=== PATIENT | female | born 1940 | race Caucasian/White ===

== ENCOUNTER 2018-12-02 22:56 | Inpatient (IN) | payer MEDICARE, OTHER ==
[~2018-12-02] VITALS: Ht 162.6 cm; Wt 71.0 kg
[2018-12-02 22:00] VITALS: BP 112/55; PULSE 92; RESP 18
[2018-12-02 22:15] VITALS: BP 112/55; PULSE 92; RESP 17
[~2018-12-02 22:56] MED LIST: ACET-1753 PO; ACET-857 PO; ADVAIR; ALB.5NB20 IH; ALBU18HF IH; ALPR0.5T6 PO; ASCO500T18 PO; ASPI-650 PO; BEN50 PO; BUME2TAB2 PO; CENTSILV PO; CITA40TA6 PO; CYAN500T46 PO; EPIN0.3P8 IM; ESTR1TAB86 PO; FENTANYL PATCH TOP; FER325 PO; GABA-526 PO; GUAI12009 PO; HYDR2TAB3 PO; LEVO112T57 PO; LORA10TA PO; LOSA100T3 PO; MAG-19 PO; MELA5TAB4 PO; MONT10TA21 PO; NITR0.4T28 SL; OMEP20CA16 PO; OXYC15TA PO; POLY17PO PO; POTA-57 PO; PRAV40TA76 PO; ROFL500T6 JT; SENN1TAB28 PO; SPIR25TA67 PO; TIOT18CA IH; ZALE10CA PO; [UNRECOGNIZED DRUG - OTHER] PO; [UNRECOGNIZED DRUG - OTHER] PO
[2018-12-03] MEDS ORDERED: DIGOXIN 0.125 MG TAB PO SCH (01:00)
[2018-12-03] MEDS: ACETYLCYSTEINE 20% 4 ML VIAL NEB SCH ×3 (01:00→21:10)
[2018-12-03] MEDS ORDERED: CYANOCOBALAMIN 500 MCG TAB PO SCH (01:00)
[2018-12-03 01:09] VITALS: Ht 162.6 cm; Wt 71.0 kg
[2018-12-03] MEDS: ALPRAZOLAM 0.25 MG TAB PO PRN ×2 (01:57→21:48)
[2018-12-03 02:00] VITALS: BP 128/64; PULSE 74; RESP 18
[2018-12-03] MEDS: ACETAMINOPHEN 325 MG TAB PO PRN ×2 (02:00→23:14)
[2018-12-03] MEDS: ALBUTEROL/IPRATROPIUM (NEB) 3 ML AMP HHN PRN (03:35)
[2018-12-03] MEDS ORDERED: CEPASTAT LOZENGE MT PRN (04:00)
[2018-12-03] MEDS ORDERED: MICONAZOLE 2% 30 GM CR TOP PRN (04:00)
[2018-12-03] MEDS ORDERED: METOCLOPRAMIDE 10 MG INJ IV PRN (04:00)
[2018-12-03] MEDS ORDERED: DIPHENHYDRAMINE 50 MG CAP PO PRN (04:30)
[2018-12-03] MEDS ORDERED: DILTIAZEM 30 MG TAB PO PRN (04:30)
[2018-12-03] MEDS ORDERED: ZOLPIDEM 5 MG TAB PO PRN (05:00)
[2018-12-03] MEDS ORDERED: DILTIAZEM 30 MG TAB PO SCH (06:00)
[2018-12-03] MEDS: ARTIFICIAL TEARS 15 ML OPH BOTH EYES SCH ×3 (06:39→20:14)
[2018-12-03] MEDS: PANTOPRAZOLE (EC) 40 MG TAB PO SCH (06:40)
[2018-12-03 07:30] VITALS: BP 137/58; PULSE 90; RESP 20
[2018-12-03] MEDS: INSULIN ASPART [NOVOLOG] 3 ML PEN SC SCH ×4 (07:35→20:13)
[2018-12-03] MEDS ORDERED: DEXTROSE 50% 50 ML SYRINGE IV PRN ×2 (08:00)
[2018-12-03] MEDS ORDERED: GLUCOSE GEL 15 GRAM TUBE PO PRN ×2 (08:00)
[2018-12-03] MEDS ORDERED: GLUCAGON 1 MG INJ IM PRN (08:00)
[2018-12-03] MEDS ORDERED: GLUCOSE GEL 15 GRAM TUBE BUCCAL PRN (08:00)
[2018-12-03] MEDS ORDERED: DOCUSATE SODIUM 100 MG CAP PO SCH (09:00)
[2018-12-03] MEDS: LACTULOSE 30ML CUP PO SCH (09:00)
[2018-12-03] MEDS: CYANOCOBALAMIN 500 MCG TAB PO SCH (09:00)
[2018-12-03] MEDS ORDERED: DILTIAZEM 90 MG TAB PO SCH (09:00)
[2018-12-03] MEDS ORDERED: DULOXETINE 20 MG CAP DR PO SCH (09:00)
[2018-12-03] MEDS: ROFLUMILAST 500 MCG TABLET PO SCH (09:00)
[2018-12-03] MEDS: MICONAZOLE 2% 30 GM CR TOP SCH ×2 (09:00→22:29)
[2018-12-03] MEDS: ALBUTEROL/IPRATROPIUM (NEB) 3 ML AMP HHN SCH ×4 (09:13→21:10)
[2018-12-03] MEDS: METOPROLOL 25 MG TAB PO SCH ×2 (11:44→20:19)
[2018-12-03] MEDS: PRIMIDONE 50 MG TAB PO SCH ×3 (11:45→20:17)
[2018-12-03] MEDS: CHOLECALCIFEROL 1,000 UNIT TAB PO SCH (11:45)
[2018-12-03] MEDS: DOCUSATE SODIUM 100 MG CAP PO SCH ×2 (11:46→20:17)
[2018-12-03] MEDS: CHOLECALCIFEROL 2,000 UNIT CAP PO SCH (11:46)
[2018-12-03] MEDS: SACUBITRIL/VALSARTAN (24mg-26mg) TABLET PO SCH ×2 (11:47→20:17)
[2018-12-03] MEDS: SPIRONOLACTONE 50 MG TAB PO SCH (11:47)
[2018-12-03] MEDS: GUAIFENESIN LA 600 MG TABSR PO SCH ×2 (11:47→20:14)
[2018-12-03] MEDS: DULOXETINE 20 MG CAP DR PO SCH ×2 (11:48→20:25)
[2018-12-03] MEDS: predniSONE 10 MG TAB PO SCH (11:48)
--- NOTE | 2018-12-03 12:08 | CONS ---
DATE OF ADMISSION: 12/02/2018 DATE OF CONSULTATION: 12/03/2018 ADDENDUM: I just completed a dictation on the patient so please utilize the earlier dictation. This is an adde ndum just to make sure that was done. Dictated By: KINGSLEY ALLISON/NTS Conf#: [id number] DID#: [id number]
--- NOTE | 2018-12-03 12:21 | CONS ---
DATE OF ADMISSION: 12/02/2018 DATE OF CONSULTATION: 12/03/2018 TYPE OF CONSULTATION: Rehabilitation post-admission physician evaluation. REHABILITATION IMPAIRMENT CATEGORY: Critical Illness Myopathy ACTIVE COMORBIDITIES: 1. .Pulmonary debility status post acute hypoxemic and hypercapnic respiratory failure. 2. COPD. 3. Coronary artery disease. 4. Carotid stenosis. 5. Hypothyroidism. 6. Chronic low back pain. 7. Chronic kidney disease. 8. CHF. 9. Depression. 10. Diabetes mellitus. 11. Afib 12. Impairments in self-care and mobility. HISTORY OF PRESENT ILLNESS: The patient is a pleasant 78-year-old female with a history of multiple medical comorbidities who was initially admitted to [facility] for acute respiratory failure. The patient did undergo therapeutic bronchoscopy and required BiPAP and was eventually transferred to [facility]. The patient's pulmonary status did continue to improve and the patient has now been cleared to transfer to the rehabilitation unit for comprehensive interdisciplinary rehab care given the significant impairments in self-care and mobility. The patient with notable proximal weakness with presumed critical illness myopathy. FUNCTIONAL HISTORY: Prior to recent events, she was independent in self-care tasks and mobility. Currently, she requires minimal to moderate assist for self-care and mobility tasks. I have reviewed the preadmission screen and the patient's current functional status is consistent with the preadmission screen. FAMILY AND SOCIAL HISTORY: The patient lives at home with her partner and hopes to return there upon discharge. PAST MEDICAL HISTORY: 1. Coronary artery disease with history of stent. 2. History of carotid artery stenosis. 3. History of CHF. 4. Hypothyroidism. 5. Chronic low back pain. 6. Paroxysmal atrial fibrillation. 7. Depression. 8. Chronic kidney disease. CURRENT MEDICATIONS: 1. Mucomyst. 2. Albuterol inhaler. 3. Xanax p.r.n. 4. Artificial tears. 5. Lipitor 10 mg p.o. daily. 6. Calcium carbonate 600 mg p.o. at bedtime. 7. Vitamin D 5000 units q.a.m. 8. Vitamin B q.48 hours. 9. Digoxin 0.125 p.o. every Sunday. 10. Cardizem CD 180 p.o. b.i.d. and 30 mg p.o. q.6 hours p.r.n. 11. Colace p.r.n. 12. Aricept 10 mg p.o. at bedtime. 13. Cymbalta 20 mg p.o. b.i.d. 14. Breo Ellipta inhaler. 15. Lasix 20 mg p.o. daily. 16. Neurontin 300 mg p.o. t.i.d. and 900 mg p.o. at bedtime. 17. Insulin sliding scale. 18. Lantus 20 units subcutaneously at bedtime. 19. Lopressor 25 mg p.o. b.i.d. 20. Protonix 40 mg p.o. daily. 21. Prednisone 30 mg p.o. daily with steroid taper. 22. Mysoline 100 mg p.o. t.i.d. 23. Xarelto 15 mg p.o. daily. 24. Daliresp 500 mcg p.o. daily. 25. Entresto 1 tab p.o. b.i.d. 26. Aldactone 50 mg p.o. daily. ALLERGIES: 1. KEV INHIBITORS. 2. PENICILLIN. 3. SULFA. 4. LISINOPRIL. 5. TRIMETHOPRIM. 6. CEFUROXIME. 7. PULMICORT. 8. AMITRIPTYLINE. 9. LEVAQUIN. PHYSICAL EXAMINATION: VITAL SIGNS: The patient is currently afebrile with stable vital signs. HEENT: The extraocular motions are intact. Oropharynx is clear. NECK: Supple. LUNGS: Clear anteriorly. CARDIAC: S1, S2. ABDOMEN: Soft, nontender, positive bowel sounds. NEUROLOGIC: She is awake and alert. She will follow simple 1-step commands. She demonstrates antigravity strength in bilateral upper extremity and lower extremity. PLAN: The patient has been admitted for comprehensive interdisciplinary acute rehab and is anticipated to tolerate 3 hours of daily therapy in divided doses for at least 5/7 days a week. The treatment plan will include: 1. Physical therapy to focus on bed mobility, transfers and household ambulation with the goal of having the patient reach a standby assist level. 2. Occupational therapy to focus on hygiene, grooming, dressing, bathing and toileting activities with the goal of having patient reach a standby assist level. 3. Rehabilitation nursing for carryover of therapeutic interventions, the goal of continent of bowel and bladder and the goal of patient education with regard to the aforementioned issues. ESTIMATED LENGTH OF STAY: 14 days. DISPOSITION GOAL: Home with family. Rehabilitation barrier: Weakness Intervention for barrier: Interdisciplinary rehab I acknowledge that I performed a full physical examination on this patient within 24 hours of admission to the rehabilitation unit. I believe the patient is a good candidate for comprehensive interdisciplinary rehab care and is anticipated to make reasonable goals in a reasonable period of time as outlined above. Dictated By: KINGSLEY HENLEY MD LY/NTS Conf#: [id number] DID#: [id number] CC: LISSETTE ESPOSITO MD;*EndCC* MTDD
[2018-12-03 14:00] VITALS: BP 128/56; PULSE 77; RESP 20
[2018-12-03] MEDS: DIGOXIN 0.125 MG TAB PO SCH (14:19)
[2018-12-03] MEDS: ACETYLCYSTEINE 600 MG CAP PO SCH ×2 (14:22→20:17)
--- NOTE | 2018-12-03 15:26 | HP ---
Date/Time of Note Date/Time of Note DATE: 12/03/18 TIME: 15:16 Assessment/Plan VTE Prophylaxis Pharmacological prophylaxis: rivaroxaban Lines/Catheters IV [facility]ter [facility] (from [facility] Peripheral IV Urinary Cath still in place: No Assessment/Plan Assessment/Plan -Status post acute hypoxemic and hypercapnic respiratory failure secondary to COPD exacerbation -COPD -Decompensated diastolic congestive heart failure, continue Lasix, monitor electrolytes. -Chronic atrial fibrillation. Continue digoxin, Cardizem and Xarelto. -Diabetes mellitus type 2. Continue Lantus and NovoLog. -Anemia of chronic disease Further recommendations based on clinical course. Plan of care discussed with Dr. Olivares. Result Diagram: 12/03/18 0726 12/03/18 0726 Results 24hrs Laboratory Tests Test 12/03/18 01:35 12/03/18 07:26 12/03/18 08:41 12/03/18 09:11 Urine Color YELLOW Urine Clarity CLEAR Urine pH 5.0 Urine Specific 1.013 [place] Urine Ketones NEGATIVE Urine Nitrite NEGATIVE Urine Bilirubin NEGATIVE Urine Urobilinogen NEGATIVE Urine Leukocyte TRACE A Esterase Urine Microscopic 7 H RBC Urine Microscopic 4 WBC Urine Squamous FEW Epithelial Cells Urine Bacteria FEW A Urine Hemoglobin NEGATIVE Urine Glucose 1+ H Urine Total Protein NEGATIVE White Blood Count 8.8 Red Blood Count 3.79 L Hemoglobin 10.4 L Hematocrit 30.5 L Mean Corpuscular 80.5 L Volume Mean Corpuscular 27.4 L Hemoglobin Mean Corpuscular 34.1 Hemoglobin Concent Red Cell 25.2 H Distribution Width Platelet Count 144 # Mean Platelet Volume 9.5 Immature 9.000 H Granulocytes % Neutrophils % Segmented 73 Neutrophils % (Manual) Band Neutrophils % 4 (Manual) Lymphocytes % Lymphocytes % 14 L (Manual) Reactive Lymphocytes 2 H % (Manual) Monocytes % Monocytes % (Manual) 3 Eosinophils % Basophils % Metamyelocytes % 1 H (manual) Myelocytes % 3 H (Manual) Nucleated Red Blood 2 H Cells % Immature 0.790 H Granulocytes # Neutrophils # Neutrophils # 6.5 (Manual) Band Neutrophils # 0.3 Lymphocytes (Manual) 1.2 Lymphocytes # Reactive Lymphocytes 0.1 H # Monocytes # Monocytes # (Manual) 0.2 L Eosinophils # Basophils # Metamyelocytes # 0.0 Myelocytes # 0.2 H Nucleated Red Blood Cells # Platelet Estimate NORMAL Polychromasia 1+ Poikilocytosis 2+ Anisocytosis 2+ Microcytosis 2+ Sodium Level 133 L Potassium Level 4.4 Chloride Level 96 L Carbon Dioxide Level 29 Anion Gap 8 Blood Urea Nitrogen 43 H Creatinine 0.96 Est Glomerular Filtrat Rate mL/min Glucose Level 49 *L Calcium Level 9.5 Total Bilirubin 0.1 L Direct Bilirubin 0.00 Indirect Bilirubin 0.1 Aspartate Amino 24 Transf (AST/SGOT) Alanine 48 Aminotransferase (AL T/SGPT) Alkaline Phosphatase 49 Total Protein 5.7 L Albumin 3.0 L Globulin 2.70 Albumin/Globulin 1.11 Ratio Bedside Glucose 67 L 68 L Test 12/03/18 09:52 12/03/18 10:12 12/03/18 11:55 Bedside Glucose 85 96 115 HPI/ROS Admit Date/Time Admit Date/Time Dec 02, 2018 at 22:56 Hx of Present Illness The patient is a 78-year-old female with history of COPD, coronary artery disease, carotid artery stenosis, chronic low back pain, paroxysmal atrial fibrillation, chronic kidney disease, congestive heart failure, and diabetes. Patient was admitted to [facility] with acute hypoxemic and hypercarbic respiratory failure. Patient was treated with antibiotics for Pseudomonas infection and underwent therapeutic bronchoscopy. Patient was 7 and subsequently transferred and treated to [facility] patient required an epidural BiPAP and continues on supplemental oxygen during the day. Had decrease in function and critical illness myopathy and was transferred to acute rehab. ROS 12 point review of system is negative except for what mentioned in HPI PMH/Family/Social Past Medical History Medical History: congestive heart failure, coronary artery disease, diabetes, hypertension, renal disease, other (COPD) Medications Current Medications Acetaminophen (Tylenol Tab) 650 mg Q4H PRN PO PAIN Last administered on 12/03/18at 02:00; Admin Dose 650 MG; Start 12/03/18 at 01:00 Acetylcysteine (Nac) 600 mg BID PO Last administered on 12/03/18at 14:22; Admin Dose 600 MG; Start 12/03/18 at 09:00 Acetylcysteine (Mucomyst) 2 ml Q12H RESP THERAPY NEB Last administered on 12/03/18at 09:13; Admin Dose 2 ML; Start 12/03/18 at 01:00 Al Hydrox/Mg Hydrox/Simethicone (Mag-Al Plus) 15 ml Q6H PRN PO GASTROINTESTINAL UPSET; Start 12/03/18 at 01:00 Albuterol/ Ipratropium (Duoneb) 3 ml Q2H RESP THERAPY PRN HHN SHORTNESS OF BREATH Last administered on 12/03/18 03:35; Admin Dose 3 ML; Start 12/03/18 at 01:00 Albuterol/ Ipratropium (Duoneb) 3 ml Q4HWA RESP THERAPY HHN Last administered on 12/03/18 13:11; Admin Dose 3 ML; Start 12/03/18 at 09:00 Alprazolam (Xanax) 0.5 mg Q8H PRN PO ANXIETY Last administered on 12/03/18 01:57; Admin Dose 0.5 MG; Start 12/03/18 at 01:00 Eye Lubricant (Artificial Tears Oph) 2 drop Q8 BOTH EYES Last administered on 12/03/18 14:20; Admin Dose 2 DROP; Start 12/03/18 at 06:00 Atorvastatin Calcium (Lipitor) 10 mg HS PO ; Start 12/03/18 at 21:00 Calcium Carbonate (Tums) 500 mg HS PO ; Start 12/03/18 at 21:00 Cholecalciferol (Vitamin D) 4,000 unit DAILY PO Last administered on 12/03/18 11:46; Admin Dose 4,000 UNIT; Start 12/03/18 at 09:00 Diltiazem HCl (Cardizem Cd) 180 mg BID PO ; Start 12/03/18 at 09:00 Diphenhydramine HCl (Benadryl) 50 mg Q8 PRN PO for itching; Start 12/03/18 at 01:00 Docusate Sodium (Colace) 100 mg BID PO Last administered on 12/03/18 11:46; Admin Dose 100 MG; Start 12/03/18 at 09:00 Donepezil HCl (Aricept) 10 mg 2100 PO ; Start 12/03/18 at 21:00 Duloxetine HCl (Cymbalta) 20 mg BID PO Last administered on 12/03/18 11:48; Admin Dose 20 MG; Start 12/03/18 at 09:00 Cholecalciferol (Vitamin D) 1,000 unit DAILY PO Last administered on 12/03/18 11:45; Admin Dose 1,000 UNIT; Start 12/03/18 at 09:00 Lactulose (Enulose) 20 gm DAILY PO ; Start 12/03/18 at 09:00 Metoclopramide HCl (Reglan) 5 mg Q6H PRN IV NAUSEA; Start 12/03/18 at 04:00 Metoprolol Tartrate (Lopressor) 25 mg BID PO Last administered on 12/03/18at 11:44; Admin Dose 25 MG; Start 12/03/18 at 09:00 Miconazole Nitrate (Miconazole 2% Cr) 1 applic BID TOP ; Start 12/03/18 at 09:00 Morphine Sulfate (morphine) 6 mg Q4H PRN PO SEVERE PAIN LEVEL 7-10; Start 12/03/18 at 04:00 Pantoprazole (Protonix Tab) 40 mg DAILY@06 PO Last administered on 12/03/18at 06:40; Admin Dose 40 MG; Start 12/03/18 at 06:00 Phenol (Cepastat Lozenge) 1 lozenge Q1H PRN MT SORE THROAT; Start 12/03/18 at 04:00 Prednisone (Prednisone) 30 mg DAILY PO Last administered on 12/03/18at 11:48; Admin Dose 30 MG; Start 12/03/18 at 09:00; Stop 12/04/18 at 09:01 Prednisone (Prednisone) 20 mg DAILY PO ; Start 12/05/18 at 09:00; Stop 12/09/18 at 09:01 Prednisone (Prednisone) 10 mg DAILY PO ; Start 12/10/18 at 09:00 Primidone (Mysoline) 100 mg TID PO Last administered on 12/03/18at 14:20; Admin Dose 100 MG; Start 12/03/18 at 09:00 Rivaroxaban (Xarelto) 15 mg WITH DINNER PO ; Start 12/03/18 at 17:35 Diagnostic Test (Pha) (Accu-Chek) 1 ea 02 XX ; Start 12/04/18 at 02:00 Guaifenesin (Mucinex) 1,200 mg BID PO Last administered on 12/03/18at 11:47; Admin Dose 1,200 MG; Start 12/03/18 at 09:00 Digoxin (Digoxin) 0.125 mg DAILY@13 PO Last administered on 12/03/18at 14:19; Admin Dose 0.125 MG; Start 12/03/18 at 13:00 Roflumilast (Daliresp) 500 mcg DAILY PO Last administered on 12/03/18at 09:00; Admin Dose 500 MCG; Start 12/03/18 at 09:00 Sacubitril/ Valsartan (Entresto 24 Mg-26 Mg) 1 tab BID PO Last administered on 12/03/18at 11:47; Admin Dose 1 TAB; Start 12/03/18 at 09:00 Simethicone (Mylicon) 80 mg Q6H PRN PO DISTENSION/GAS/BLOATING; Start 12/03/18 at 05:00 Sodium Chloride (Nacl) 2 gm MONWEDFRI PO ; Start 12/04/18 at 09:00 Spironolactone (Aldactone) 50 mg DAILY PO Last administered on 12/03/18at 11:47; Admin Dose 50 MG; Start 12/03/18 at 09:00 Zolpidem Tartrate (Ambien) 5 mg HS PRN PO INSOMNIA; Start 12/03/18 at 05:00 Cyanocobalamin (Vitamin B12) 5,000 mcg Q48H PO ; Start 12/03/18 at 09:00 Diagnostic Test (Pha) (Accu-Chek) 1 ea 02 XX ; Start 12/04/18 at 02:00 Insulin Glargine (Lantus) 20 units DAILY@2000 SC ; Start 12/03/18 at 20:00 Insulin Aspart (Novolog Insulin Pen) NOVOLOG *MILD* ALGORITHM WITH MEALS BED TIME SC ; Start 12/03/18 at 07:35 Miscellaneous Information 1 ea NOTE XX Last administered on 12/03/18at 09:25; Admin Dose 1 EA; Start 12/03/18 at 08:00 Glucose (Glutose) 15 gm Q15M PRN PO DECREASED GLUCOSE Last administered on 12/03/18at 09:18; Admin Dose 15 GM; Start 12/03/18 at 08:00 Glucose (Glutose) 22.5 gm Q15M PRN PO DECREASED GLUCOSE; Start 12/03/18 at 08:00 Dextrose (D50w Syringe) 25 ml Q15M PRN IV DECREASED GLUCOSE; Start 12/03/18 at 08:00 Dextrose (D50w Syringe) 50 ml Q15M PRN IV DECREASED GLUCOSE; Start 12/03/18 at 08:00 Glucagon (Glucagen) 1 mg Q15M PRN IM DECREASED GLUCOSE; Start 12/03/18 at 08:00 Glucose (Glutose) 15 gm Q15M PRN BUCCAL DECREASED GLUCOSE; Start 12/03/18 at 08:00 Coded Allergies: KEV Inhibitors (Unverified Allergy, Unknown, 11/15/18) Penicillins (Verified Allergy, Unknown, 11/14/18) Sulfa (Sulfonamide Antibiotics) (Unverified Allergy, Unknown, 11/15/18) Tetanus Vaccines and Toxoid (Verified Allergy, Unknown, 11/14/18) adhesive tape (Verified Allergy, Unknown, 11/14/18) amitriptyline (Verified Allergy, Unknown, 11/14/18) budesonide (Verified Allergy, Unknown, 11/14/18) cefuroxime (Verified Allergy, Unknown, 11/14/18) levofloxacin (Unverified Allergy, Unknown, 11/15/18) lisinopril (Verified Allergy, Unknown, 11/14/18) trimethoprim (Verified Allergy, Unknown, 11/14/18) Past Surgical History Past Surgical Hx: other (Coronary artery disease with history of stent placement details are not available, status post stent placement for bilateral carotid artery stenosis, status post appendectomy, status post rotator cuff surgery, status post lumbar fusion surgery, status post left hip surgery,) Family History Significant Family History: other (Cardiac disease and breast cancer) Social History Alcohol Use: none Smoking Status: Former smoker (More than 30 years history of smoking currently non-smoker) Drug Use: none Exam/Review of Systems Vital Signs Vitals Vital Signs Date Temp Pulse Resp B/P (MAP) Pulse Ox O2 O2 Flow FiO2 Time Delivery Rate 12/03/18 83 20 98 Nasal 2.0 13:18 Cannula 12/03/18 97.7 137/58 07:30 (84) Intake and Output 12/02/18 12/02/18 12/03/18 1515:00 23:00 07:00 OutputOutput Total 450 ml BalanceBalance -450 ml Exam Constitutional: alert, oriented Head: normocephalic Neck: supple Respiratory: diminished breath sounds Cardiovascular: irregular rhythm Gastrointestinal: soft, non-tender Musculoskeletal: nl extremities to inspection Extremities: normal pulses Neurological: nl mental status AMEYA MAN Dec 03, 2018 15:26
[2018-12-03] MEDS: RIVAROXABAN 15 MG TABLET PO SCH (17:31)
[2018-12-03] MEDS: DILTIAZEM (CD) 180 MG CAP PO SCH ×2 (17:31→21:48)
[2018-12-03 20:00] VITALS: BP 122/61; PULSE 87; RESP 18
[2018-12-03] MEDS ORDERED: INSULIN GLARGINE [LANTus] (100 UNITS/ML) SYG SC SCH (20:00)
[2018-12-03] MEDS: DONEPEZIL 10 MG TAB PO SCH (20:31)
[2018-12-03] MEDS: ATORVASTATIN 10 MG TAB PO SCH (20:31)
[2018-12-03] MEDS: CALCIUM CARBONATE 500 MG CHEW TAB PO SCH (20:31)
[2018-12-03] MEDS ORDERED: DONEPEZIL 10 MG TAB PO SCH (21:00)
[2018-12-03 21:51] VITALS: BP 113/71; PULSE 94
[2018-12-04 02:00] VITALS: BP 129/60; PULSE 86; RESP 18
[2018-12-04] MEDS: ACCU-CHEK XX SCH ×2 (02:13→02:14)
[2018-12-04] MEDS ORDERED: PENDING SANTYL ORDER FOR WOUND CARE XX PRN (03:30)
[2018-12-04] MEDS: ARTIFICIAL TEARS 15 ML OPH BOTH EYES SCH ×3 (05:59→21:14)
[2018-12-04] MEDS: PANTOPRAZOLE (EC) 40 MG TAB PO SCH (05:59)
[2018-12-04 07:30] VITALS: BP 119/66; PULSE 85; RESP 20
[2018-12-04] MEDS: INSULIN ASPART [NOVOLOG] 3 ML PEN SC SCH ×4 (07:35→21:11)
[2018-12-04] MEDS: ACETYLCYSTEINE 20% 4 ML VIAL NEB SCH ×2 (08:45→19:48)
[2018-12-04] MEDS: ALBUTEROL/IPRATROPIUM (NEB) 3 ML AMP HHN SCH ×4 (08:53→19:47)
[2018-12-04] MEDS: LACTULOSE 30ML CUP PO SCH (09:00)
[2018-12-04] MEDS: DOCUSATE SODIUM 100 MG CAP PO SCH ×2 (09:00→21:16)
[2018-12-04] MEDS: ACETYLCYSTEINE 600 MG CAP PO SCH ×2 (09:43→21:15)
[2018-12-04] MEDS: SACUBITRIL/VALSARTAN (24mg-26mg) TABLET PO SCH ×2 (09:43→21:15)
[2018-12-04] MEDS: SODIUM CHLORIDE 1 GM TAB PO SCH (09:43)
[2018-12-04] MEDS: PRIMIDONE 50 MG TAB PO SCH ×3 (09:43→21:15)
[2018-12-04] MEDS: predniSONE 10 MG TAB PO SCH (09:44)
[2018-12-04] MEDS: GUAIFENESIN LA 600 MG TABSR PO SCH ×2 (09:44→21:17)
[2018-12-04] MEDS: DILTIAZEM (CD) 180 MG CAP PO SCH ×2 (09:44→21:16)
[2018-12-04] MEDS: CHOLECALCIFEROL 2,000 UNIT CAP PO SCH (09:45)
[2018-12-04] MEDS: CHOLECALCIFEROL 1,000 UNIT TAB PO SCH (09:45)
[2018-12-04] MEDS: DULOXETINE 20 MG CAP DR PO SCH ×2 (09:45→21:15)
[2018-12-04] MEDS: ROFLUMILAST 500 MCG TABLET PO SCH (09:46)
[2018-12-04] MEDS: SPIRONOLACTONE 50 MG TAB PO SCH (09:47)
[2018-12-04] MEDS: METOPROLOL 25 MG TAB PO SCH ×2 (09:47→21:16)
[2018-12-04] MEDS: MICONAZOLE 2% 30 GM CR TOP SCH ×2 (09:49→21:17)
--- NOTE | 2018-12-04 13:12 | CONS ---
Assessment/Plan Assessment/Plan Hospital Course (Demo Recall) COPD exacerbation Atrial fibrillation, on anticoagulation Recent pneumonia Hypertension Dyslipidemia Preserved ejection fraction -Patient currently transferred to [facility] for further therapy -Continue Cardizem and metoprolol for heart rate control and titrate based on heart rate and blood pressure -Continue digoxin as tolerated -Continue anticoagulation as tolerated Consultation Date/Type/Reason Admit Date/Time Dec 02, 2018 at 22:56 Type of Consult Cardiology Reason for Consultation Atrial fibrillation Date/Time of Note DATE: 12/04/18 TIME: 13:07 Hx of Present Illness This is a 78-year-old female well-known to me from recent previous admission at [facility] who was transferred to [facility] for further therapy. Patient with recent illness with COPD exacerbation, CHF, pneumonia and atrial fibrillation with uncontrolled rates. Patient currently is feeling better. She has less shortness of breath. She still has a cough which is minimally productive. She denies any palpitations, chest pain, dizziness or lightheadedness. 12 point review of systems was performed with all pertinent positives and negatives mentioned above and all else is negative Past Medical History COPD Atrial fibrillation Medical History: congestive heart failure, high cholesterol, hypertension Home Meds Reported Medications Melatonin (Melatonin) 5 Mg Tablet, 5 MG PO AM 09/09/13 Roflumilast (Daliresp) 500 Mcg Tablet, 500 MCG JT AM 09/09/13 Ferrous Sulfate* (Ferrous Sulfate*) 325 Mg Tabec, 325 MG PO AM 09/09/13 Potassium Chloride* (Klor-Con*) 20 Meq Tabsr, 20 MEQ PO AM 09/09/13 Magaldrate/Simethicone* (Mylanta*) 355 Ml Susp, 355 ML PO 04/19/12 Diphenhydramine Hcl* (Benadryl*) 50 Mg Cap, 50 MG PO DAILY 04/19/12 Acetaminophen (Tylenol Extra Strength) 500 Mg Tablet, 500 MG PO 04/19/12 Sennosides/Docusate Sodium (Stool Soft & Stimulant Lax Tab) 1 Tab Tablet, 1 TAB PO QID 04/19/12 Multivitamins/Minerals (Centrum Silver) 1 Tab Tab, 1 TAB PO DAILY 04/19/12 Ascorbic Acid (Vitamin C + [place] Hips) 500 Mg Tablet, 500 MG PO BID 04/19/12 [[place] Bioflavanoid] No Conflict Check, PO BID 04/19/12 Guaifenesin* (Mucinex* ER) 1,200 Mg/Bottle Tbmp.12hr, 1200 MG PO DAILY 04/19/12 Acetaminophen (Tylenol Arthritis) 650 Mg Tablet.sa, 650 MG PO HS 04/19/12 Polyethylene Glycol (Miralax) 17 Gm/Pkt Liq, 17 GM PO DAILY 04/19/12 Cyanocobalamin* (Vitamin B12*) 500 Mcg Tab, 500 MCG PO DAILY 04/19/12 Loratadine (Loratadine) 10 Mg Tablet, 10 MG PO DAILY 04/19/12 Aspirin (Aspirin) 81 Mg Tablet, 81 MG PO DAILY 04/19/12 Albuterol Sulfate* (Albuterol Sulfate* Neb) 20 Ml Nebu, 20 ML IH DAILY 04/19/12 Albuterol Sulfate* (Ventolin HFA*) 18 Gm Hfa.aer.ad, 18 GM IH BID 04/19/12 Tiotropium [place]* (Spiriva*) 18 Mcg Cap.w.dev, 18 MCG IH DAILY 04/19/12 [Advair] No Conflict Check 04/19/12 Epinephrine (Epipen) 0.3 Mg/0.3/Syringe Pen.injctr, 0.3 MG IM 04/19/12 Nitroglycerin (Nitroquick) 0.4 Mg Tab.subl, 0.4 MG SL 04/19/12 Alprazolam* (Alprazolam*) 0.5 Mg Tablet, 0.5 MG PO Q4 04/19/12 Oxycodone Hcl* (IR) (Oxycodone Hcl*) 15 Mg Tablet, 15 MG PO QID 04/19/12 Hydromorphone Hcl* (Hydromorphone Hcl*) 2 Mg Tablet, 2 MG PO Q4 04/19/12 Zaleplon (Zaleplon) 10 Mg Capsule, 10 MG PO HS 04/19/12 Montelukast Sodium* (Singulair*) 10 Mg Tablet, 10 MG PO HS 04/19/12 Pravastatin Sodium* (Pravastatin Sodium*) 40 Mg Tablet, 40 MG PO HS 04/19/12 [Amphetimine Salts] No Conflict Check, 15 MG PO DAILY 04/19/12 Omeprazole* (Omeprazole*) 20 Mg Capsule.dr, 20 MG PO DAILY 04/19/12 Levothyroxine Sodium* (Levothyroxine Sodium*) 112 Mcg Tablet, 112 MCG PO DAILY 04/19/12 Citalopram Hydrobromide* (Citalopram Hydrobromide*) 40 Mg Tablet, 40 MG PO DAILY 04/19/12 Estradiol (Estradiol) 1 Mg Tablet, 1 MG PO DAILY 04/19/12 Spironolactone* (Aldactone*) 25 Mg Tablet, 25 MG PO DAILY 04/19/12 Losartan Potassium* (Cozaar*) 100 Mg Tablet, 100 MG PO DAILY 04/19/12 Bumetanide* (Bumetanide*) 2 Mg Tablet, 2 MG PO TID 04/19/12 Gabapentin* (Gabapentin*) 600 Mg Tablet, 600 MG PO TID 04/19/12 [Fentanyl Patch] No Conflict Check, TOP 04/19/12 Medications Current Medications Acetaminophen (Tylenol Tab) 650 mg Q4H PRN PO PAIN Last administered on 12/03/18 23:14; Admin Dose 650 MG; Start 12/03/18 at 01:00 Acetylcysteine (Nac) 600 mg BID PO Last administered on 12/04/18 09:43; Admin Dose 600 MG; Start 12/03/18 at 09:00 Acetylcysteine (Mucomyst) 2 ml Q12H RESP THERAPY NEB Last administered on 12/04/18 08:45; Admin Dose 2 ML; Start 12/03/18 at 01:00 Al Hydrox/Mg Hydrox/Simethicone (Mag-Al Plus) 15 ml Q6H PRN PO GASTROINTESTINAL UPSET; Start 12/03/18 at 01:00 Albuterol/ Ipratropium (Duoneb) 3 ml Q2H RESP THERAPY PRN HHN SHORTNESS OF BREATH Last administered on 12/03/18 03:35; Admin Dose 3 ML; Start 12/03/18 at 01:00 Albuterol/ Ipratropium (Duoneb) 3 ml Q4HWA RESP THERAPY HHN Last administered on 12/04/18 08:53; Admin Dose 3 ML; Start 12/03/18 at 09:00 Alprazolam (Xanax) 0.5 mg Q8H PRN PO ANXIETY Last administered on 12/03/18 21:48; Admin Dose 0.5 MG; Start 12/03/18 at 01:00 Eye Lubricant (Artificial Tears Oph) 2 drop Q8 BOTH EYES Last administered on 12/04/18 05:59; Admin Dose 2 DROP; Start 12/03/18 at 06:00 Atorvastatin Calcium (Lipitor) 10 mg HS PO Last administered on 12/03/18 20:31; Admin Dose 10 MG; Start 12/03/18 at 21:00 Calcium Carbonate (Tums) 500 mg HS PO Last administered on 12/03/18 20:31; Admin Dose 500 MG; Start 12/03/18 at 21:00 Cholecalciferol (Vitamin D) 4,000 unit DAILY PO Last administered on 12/04/18 09:45; Admin Dose 4,000 UNIT; Start 12/03/18 at 09:00 Diltiazem HCl (Cardizem Cd) 180 mg BID PO Last administered on 12/04/18 09:44; Admin Dose 180 MG; Start 12/03/18 at 09:00 Diphenhydramine HCl (Benadryl) 50 mg Q8 PRN PO for itching; Start 12/03/18 at 01:00 Docusate Sodium (Colace) 100 mg BID PO Last administered on 12/03/18 20:17; Admin Dose 100 MG; Start 12/03/18 at 09:00 Donepezil HCl (Aricept) 10 mg 2100 PO Last administered on 12/03/18 20:31; Admin Dose 10 MG; Start 12/03/18 at 21:00 Duloxetine HCl (Cymbalta) 20 mg BID PO Last administered on 12/04/18 09:45; Admin Dose 20 MG; Start 12/03/18 at 09:00 Cholecalciferol (Vitamin D) 1,000 unit DAILY PO Last administered on 12/04/18 09:45; Admin Dose 1,000 UNIT; Start 12/03/18 at 09:00 Lactulose (Enulose) 20 gm DAILY PO ; Start 12/03/18 at 09:00 Metoclopramide HCl (Reglan) 5 mg Q6H PRN IV NAUSEA; Start 12/03/18 at 04:00 Metoprolol Tartrate (Lopressor) 25 mg BID PO Last administered on 12/04/18 09:47; Admin Dose 25 MG; Start 12/03/18 at 09:00 Miconazole Nitrate (Miconazole 2% Cr) 1 applic BID TOP Last administered on 12/04/18 09:49; Admin Dose 1 APPLIC; Start 12/03/18 at 09:00 Morphine Sulfate (morphine) 6 mg Q4H PRN PO SEVERE PAIN LEVEL 7-10; Start 12/03/18 at 04:00 Pantoprazole (Protonix Tab) 40 mg DAILY@06 PO Last administered on 12/04/18 05:59; Admin Dose 40 MG; Start 12/03/18 at 06:00 Phenol (Cepastat Lozenge) 1 lozenge Q1H PRN MT SORE THROAT; Start 12/03/18 at 04:00 Prednisone (Prednisone) 20 mg DAILY PO ; Start 12/05/18 at 09:00; Stop 12/09/18 at 09:01 Prednisone (Prednisone) 10 mg DAILY PO ; Start 12/10/18 at 09:00 Primidone (Mysoline) 100 mg TID PO Last administered on 12/04/18 09:43; Admin Dose 100 MG; Start 12/03/18 at 09:00 Rivaroxaban (Xarelto) 15 mg WITH DINNER PO Last administered on 12/03/18 17:3 1; Admin Dose 15 MG; Start 12/03/18 at 17:35 Diagnostic Test (Pha) (Accu-Chek) 1 ea 02 XX Last administered on 12/04/18 02:13; Admin Dose 1 EA; Start 12/04/18 at 02:00 Guaifenesin (Mucinex) 1,200 mg BID PO Last administered on 12/04/18 09:44; Admin Dose 1,200 MG; Start 12/03/18 at 09:00 Digoxin (Digoxin) 0.125 mg DAILY@13 PO Last administered on 12/03/18 14:19; Admin Dose 0.125 MG; Start 12/03/18 at 13:00 Roflumilast (Daliresp) 500 mcg DAILY PO Last administered on 12/04/18 09:46; Admin Dose 500 MCG; Start 12/03/18 at 09:00 Sacubitril/ Valsartan (Entresto 24 Mg-26 Mg) 1 tab BID PO Last administered on 12/04/18 09:43; Admin Dose 1 TAB; Start 12/03/18 at 09:00 Simethicone (Mylicon) 80 mg Q6H PRN PO DISTENSION/GAS/BLOATING Last administered on 12/04/18 09:52; Admin Dose 80 MG; Start 12/03/18 at 05:00 Sodium Chloride (Nacl) 2 gm MONWEDFRI PO Last administered on 12/04/18 09:43; Admin Dose 2 GM; Start 12/04/18 at 09:00 Spironolactone (Aldactone) 50 mg DAILY PO Last administered on 12/04/18 09:47; Admin Dose 50 MG; Start 12/03/18 at 09:00 Zolpidem Tartrate (Ambien) 5 mg HS PRN PO INSOMNIA Last administered on 12/03/18 23:13; Admin Dose 5 MG; Start 12/03/18 at 05:00 Cyanocobalamin (Vitamin B12) 5,000 mcg Q48H PO ; Start 12/03/18 at 09:00 Diagnostic Test (Pha) (Accu-Chek) 1 ea 02 XX Last administered on 12/04/18 02:14; Admin Dose 1 EA; Start 12/04/18 at 02:00 Insulin Glargine (Lantus) 20 units DAILY@2000 SC Last administered on 12/03/18 20:11; Admin Dose 20 UNITS; Start 12/03/18 at 20:00 Insulin Aspart (Novolog Insulin Pen) NOVOLOG *MILD* ALGORITHM WITH MEALS BEDTIME SC Last administered on 12/03/18 20:13; Admin Dose 3 UNIT; Start 12/03/18 at 07:35 Miscellaneous Information 1 ea NOTE XX Last administered on 12/03/18 09:25; Admin Dose 1 EA; Start 12/03/18 at 08:00 Glucose (Glutose) 15 gm Q15M PRN PO DECREASED GLUCOSE Last administered on 12/03/18 09:18; Admin Dose 15 GM; Start 12/03/18 at 08:00 Glucose (Glutose) 22.5 gm Q15M PRN PO DECREASED GLUCOSE; Start 12/03/18 at 08:00 Dextrose (D50w Syringe) 25 ml Q15M PRN IV DECREASED GLUCOSE; Start 12/03/18 at 08:00 Dextrose (D50w Syringe) 50 ml Q15M PRN IV DECREASED GLUCOSE; Start 12/03/18 at 08:00 Glucagon (Glucagen) 1 mg Q15M PRN IM DECREASED GLUCOSE; Start 12/03/18 at 08:00 Glucose (Glutose) 15 gm Q15M PRN BUCCAL DECREASED GLUCOSE; Start 12/03/18 at 08:00 Miscellaneous Information (Pending [facility] Order For Wound Care) This patient sewell... PRN PRN XX WOUND CARE; Start 12/04/18 at 03:30 Allergies: Coded Allergies: KEV Inhibitors (Unverified Allergy, Unknown, 11/15/18) Penicillins (Verified Allergy, Unknown, 11/14/18) Sulfa (Sulfonamide Antibiotics) (Unverified Allergy, Unknown, 11/15/18) Tetanus Vaccines and Toxoid (Verified Allergy, Unknown, 11/14/18) adhesive tape (Verified Allergy, Unknown, 11/14/18) amitriptyline (Verified Allergy, Unknown, 11/14/18) budesonide (Verified Allergy, Unknown, 11/14/18) cefuroxime (Verified Allergy, Unknown, 11/14/18) levofloxacin (Unverified Allergy, Unknown, 11/15/18) lisinopril (Verified Allergy, Unknown, 11/14/18) trimethoprim (Verified Allergy, Unknown, 11/14/18) Past Surgical History Past Surgical Hx: other (Coronary artery disease with history of stent placement details are not available, status post stent placement for bilateral carotid artery stenosis, status post appendectomy, status post rotator cuff surgery, status post lumbar fusion surgery, status post left hip surgery,) Social History Alcohol Use: none Smoking Status: Former smoker (More than 30 years history of smoking currently non-smoker) Drug Use: none Exam/Review of Systems Vital Signs Vitals Vital Signs Date Temp Pulse Resp B/P (MAP) Pulse Ox O2 O2 Flow FiO2 Time Delivery Rate 12/04/18 2.0 08:50 12/04/18 88 20 96 Nasal 08:50 Cannula 12/04/18 97.8 119/66 07:30 (83) Intake and Output 12/03/18 12/03/18 12/04/18 1515:00 23:00 07:00 IntakeIntake Total 870 ml OutputOutput Total 350 ml BalanceBalance 870 ml -350 ml Exam Constitutional: alert, oriented (No apparent distress, sitting in chair, visitors at bedside) Head: normocephalic Respiratory: other (Coarse breath sounds bilaterally, mild scattered rhonchi, minimal wheeze) Cardiovascular: irregular rhythm (S1-S2 heard) Gastrointestinal: soft, non-tender, bowel sounds Extremities: edema (Trace) Labs Result Diagram: 12/03/18 0712/03/18 07 Results 24hrs Laboratory Tests Test 12/03/18 17:26 12/03/18 20:09 12/04/18 01:34 12/04/18 06:56 Bedside Glucose 127 296 H 130 Thyroid Stimulating 8.480 H Hormone (TSH) Free Thyroxine < 0.07 L Free 0.99 L Triiodothyronine (T3) pg/mL Test 12/04/18 07:40 12/04/18 09:14 12/04/18 09:39 12/04/18 11:57 Bedside Glucose 66 L 153 125 126 Medications Medications Current Medications Acetaminophen (Tylenol Tab) 650 mg Q4H PRN PO PAIN Last administered on 12/03 23:14; Admin Dose 650 MG; Start 12/03/18 at 01:00 Acetylcysteine (Nac) 600 mg BID PO Last administered on 12/04/18 09:43; Admin Dose 600 MG; Start 12/03/18 at 09:00 Acetylcysteine (Mucomyst) 2 ml Q12H RESP THERAPY NEB Last administered on 12/04/18 08:45; Admin Dose 2 ML; Start 12/03/18 at 01:00 Al Hydrox/Mg Hydrox/Simethicone (Mag-Al Plus) 15 ml Q6H PRN PO GASTROINTESTINAL UPSET; Start 12/03/18 at 01:00 Albuterol/ Ipratropium (Duoneb) 3 ml Q2H RESP THERAPY PRN HHN SHORTNESS OF BREATH Last administered on 12/03/18 03:35; Admin Dose 3 ML; Start 12/03/18 at 01:00 Albuterol/ Ipratropium (Duoneb) 3 ml Q4HWA RESP THERAPY HHN Last administered on 12/04/18 08:53; Admin Dose 3 ML; Start 12/03/18 at 09:00 Alprazolam (Xanax) 0.5 mg Q8H PRN PO ANXIETY Last administered on 12/03/18 2 1:48; Admin Dose 0.5 MG; Start 12/03/18 at 01:00 Eye Lubricant (Artificial Tears Oph) 2 drop Q8 BOTH EYES Last administered on 12/04/18 05:59; Admin Dose 2 DROP; Start 12/03/18 at 06:00 Atorvastatin Calcium (Lipitor) 10 mg HS PO Last administered on 12/03/18 20:31; Admin Dose 10 MG; Start 12/03/18 at 21:00 Calcium Carbonate (Tums) 500 mg HS PO Last administered on 12/03/18 20:31; Admin Dose 500 MG; Start 12/03/18 at 21:00 Cholecalciferol (Vitamin D) 4,000 unit DAILY PO Last administered on 12/04/18 09:45; Admin Dose 4,000 UNIT; Start 12/03/18 at 09:00 Diltiazem HCl (Cardizem Cd) 180 mg BID PO Last administered on 12/04/18 09:44; Admin Dose 180 MG; Start 12/03/18 at 09:00 Diphenhydramine HCl (Benadryl) 50 mg Q8 PRN PO for itching; Start 12/03/18 at 01:00 Docusate Sodium (Colace) 100 mg BID PO Last administered on 12/03/18 20:17; Admin Dose 100 MG; Start 12/03/18 at 09:00 Donepezil HCl (Aricept) 10 mg 2100 PO Last administered on 12/03/18 20:31; Admin Dose 10 MG; Start 12/03/18 at 21:00 Duloxetine HCl (Cymbalta) 20 mg BID PO Last administered on 12/04/18 09:45; Admin Dose 20 MG; Start 12/03/18 at 09:00 Cholecalciferol (Vitamin D) 1,000 unit DAILY PO Last administered on 12/04/18 09:45; Admin Dose 1,000 UNIT; Start 12/03/18 at 09:00 Lactulose (Enulose) 20 gm DAILY PO ; Start 12/03/18 at 09:00 Metoclopramide HCl (Reglan) 5 mg Q6H PRN IV NAUSEA; Start 12/03/18 at 04:00 Metoprolol Tartrate (Lopressor) 25 mg BID PO Last administered on 12/04/18 09:47; Admin Dose 25 MG; Start 12/03/18 at 09:00 Miconazole Nitrate (Miconazole 2% Cr) 1 applic BID TOP Last administered on 12/04/18 09:49; Admin Dose 1 APPLIC; Start 12/03/18 at 09:00 Morphine Sulfate (morphine) 6 mg Q4H PRN PO SEVERE PAIN LEVEL 7-10; Start 12/03/18 at 04:00 Pantoprazole (Protonix Tab) 40 mg DAILY@06 PO Last administered on 12/04/18 05:59; Admin Dose 40 MG; Start 12/03/18 at 06:00 Phenol (Cepastat Lozenge) 1 lozenge Q1H PRN MT SORE THROAT; Start 12/03/18 at 04:00 Prednisone (Prednisone) 20 mg DAILY PO ; Start 12/05/18 at 09:00; Stop 12/09/18 at 09:01 Prednisone (Prednisone) 10 mg DAILY PO ; Start 12/10/18 at 09:00 Primidone (Mysoline) 100 mg TID PO Last administered on 12/04/18 09:43; Admin Dose 100 MG; Start 12/03/18 at 09:00 Rivaroxaban (Xarelto) 15 mg WITH DINNER PO Last administered on 12/03/18 17:31; Admin Dose 15 MG; Start 12/03/18 at 17:35 Diagnostic Test (Pha) (Accu-Chek) 1 ea 02 XX Last administered on 12/04/18 02:13; Admin Dose 1 EA; Start 12/04/18 at 02:00 Guaifenesin (Mucinex) 1,200 mg BID PO Last administered on 12/04/18 09:44; Admin Dose 1,200 MG; Start 12/03/18 at 09:00 Digoxin (Digoxin) 0.125 mg DAILY@13 PO Last administered on 12/03/18 14:19; Ad min Dose 0.125 MG; Start 12/03/18 at 13:00 Roflumilast (Daliresp) 500 mcg DAILY PO Last administered on 12/04/18 09:46; Admin Dose 500 MCG; Start 12/03/18 at 09:00 Sacubitril/ Valsartan (Entresto 24 Mg-26 Mg) 1 tab BID PO Last administered on 12/04/18 09:43; Admin Dose 1 TAB; Start 12/03/18 at 09:00 Simethicone (Mylicon) 80 mg Q6H PRN PO DISTENSION/GAS/BLOATING Last administered on 12/04/18 09:52; Admin Dose 80 MG; Start 12/03/18 at 05:00 Sodium Chloride (Nacl) 2 gm MONWEDFRI PO Last administered on 12/04/18 09:43; Admin Dose 2 GM; Start 12/04/18 at 09:00 Spironolactone (Aldactone) 50 mg DAILY PO Last administered on 12/04/18 09:47; Admin Dose 50 MG; Start 12/03/18 at 09:00 Zolpidem Tartrate (Ambien) 5 mg HS PRN PO INSOMNIA Last administered on 12/03/18 23:13; Admin Dose 5 MG; Start 12/03/18 at 05:00 Cyanocobalamin (Vitamin B12) 5,000 mcg Q48H PO ; Start 12/03/18 at 09:00 Diagnostic Test (Pha) (Accu-Chek) 1 ea 02 XX Last administered on 12/04/18 02:14; Admin Dose 1 EA; Start 12/04/18 at 02:00 Insulin Glargine (Lantus) 20 units DAILY@2000 SC Last administered on 12/03/18 20:11; Admin Dose 20 UNITS; Start 12/03/18 at 20:00 Insulin Aspart (Novolog Insulin Pen) NOVOLOG *MILD* ALGORITHM WITH MEALS BEDTIME SC Last administered on 12/03/18 20:13; Admin Dose 3 UNIT; Start 12/03/18 at 07:35 Miscellaneous Information 1 ea NOTE XX Last administered on 12/03/18 09:25; Admin Dose 1 EA; Start 12/03/18 at 08:00 Glucose (Glutose) 15 gm Q15M PRN PO DECREASED GLUCOSE Last administered on 12/03/18 09:18; Admin Dose 15 GM; Start 12/03/18 at 08:00 Glucose (Glutose) 22.5 gm Q15M PRN PO DECREASED GLUCOSE; Start 12/03/18 at 08:00 Dextrose (D50w Syringe) 25 ml Q15M PRN IV DECREASED GLUCOSE; Start 12/03/18 at 08:00 Dextrose (D50w Syringe) 50 ml Q15M PRN IV DECREASED GLUCOSE; Start 12/03/18 at 08:00 Glucagon (Glucagen) 1 mg Q15M PRN IM DECREASED GLUCOSE; Start 12/03/18 at 08:00 Glucose (Glutose) 15 gm Q15M PRN BUCCAL DECREASED GLUCOSE; Start 12/03/18 at 08:00 Miscellaneous Information (Pending [facility] Order For Wound Care) This patient sewell... PRN PRN XX WOUND CARE; Start 12/04/18 at 03:30 Bird Herrera DO Dec 04, 2018 13:12
[2018-12-04 14:00] VITALS: BP 111/55; PULSE 71; RESP 20
--- NOTE | 2018-12-04 14:06 | PN ---
Date/Time of Note Date/Time of Note DATE: 12/04/18 TIME: 14:04 Subjective Up for activities Objective Vital Signs Date Temp Pulse Resp B/P (MAP) Pulse Ox O2 O2 Flow FiO2 Time Delivery Rate 12/04/18 89 18 99 Nasal 2.0 13:44 Cannula 12/04/18 97.8 119/66 07:30 (83) Intake and Output 12/03/18 12/03/18 12/04/18 1515:00 23:00 07:00 IntakeIntake Total 870 ml OutputOutput Total 350 ml BalanceBalance 870 ml -350 ml Exam mod transfer mod self care pulm-coarse Results/Medications Result Diagram: 12/03/1872512/03/18725 Results 24 hrs Laboratory Tests Test 12/03/18 17:26 12/03/18 20:09 12/04/18 01:34 12/04/18 06:56 Bedside Glucose 127 296 H 130 Thyroid Stimulating 8.480 H Hormone (TSH) Free Thyroxine < 0.07 L Free 0.99 L Triiodothyronine (T3) pg/mL Test 12/04/18 07:40 12/04/18 09:14 12/04/18 09:39 12/04/18 11:57 Bedside Glucose 66 L 153 125 126 Medications Current Medications Acetaminophen (Tylenol Tab) 650 mg Q4H PRN PO PAIN Last administered on 12/03/18at 23:14; Admin Dose 650 MG; Start 12/03/18 at 01:00 Acetylcysteine (Nac) 600 mg BID PO Last administered on 12/04/18at 09:43; Admin Dose 600 MG; Start 12/03/18 at 09:00 Acetylcysteine (Mucomyst) 2 ml Q12H RESP THERAPY NEB Last administered on 12/04/18at 08:45; Admin Dose 2 ML; Start 12/03/18 at 01:00 Al Hydrox/Mg Hydrox/Simethicone (Mag-Al Plus) 15 ml Q6H PRN PO GASTROINTESTINAL UPSET; Start 12/03/18 at 01:00 Albuterol/ Ipratropium (Duoneb) 3 ml Q2H RESP THERAPY PRN HHN SHORTNESS OF BREATH Last administered on 12/03/18at 03:35; Admin Dose 3 ML; Start 12/03/18 at 01:00 Albuterol/ Ipratropium (Duoneb) 3 ml Q4HWA RESP THERAPY HHN Last administered on 12/04/18 13:35; Admin Dose 3 ML; Start 12/03/18 at 09:00 Alprazolam (Xanax) 0.5 mg Q8H PRN PO ANXIETY Last administered on 12/03/18 21:48; Admin Dose 0.5 MG; Start 12/03/18 at 01:00 Eye Lubricant (Artificial Tears Oph) 2 drop Q8 BOTH EYES Last administered on 12/04/18 05:59; Admin Dose 2 DROP; Start 12/03/18 at 06:00 Atorvastatin Calcium (Lipitor) 10 mg HS PO Last administered on 12/03/18 20:31; Admin Dose 10 MG; Start 12/03/18 at 21:00 Calcium Carbonate (Tums) 500 mg HS PO Last administered on 12/03/18 20:31; Admin Dose 500 MG; Start 12/03/18 at 21:00 Cholecalciferol (Vitamin D) 4,000 unit DAILY PO Last administered on 12/04/18 09:45; Admin Dose 4,000 UNIT; Start 12/03/18 at 09:00 Diltiazem HCl (Cardizem Cd) 180 mg BID PO Last administered on 12/04/18 09:44; Admin Dose 180 MG; Start 12/03/18 at 09:00 Diphenhydramine HCl (Benadryl) 50 mg Q8 PRN PO for itching; Start 12/03/18 at 01:00 Docusate Sodium (Colace) 100 mg BID PO Last administered on 12/03/18 20:17; Admin Dose 100 MG; Start 12/03/18 at 09:00 Donepezil HCl (Aricept) 10 mg 2100 PO Last administered on 12/03/18 20:31; Admin Dose 10 MG; Start 12/03/18 at 21:00 Duloxetine HCl (Cymbalta) 20 mg BID PO Last administered on 12/04/18 09:45; Admin Dose 20 MG; Start 12/03/18 at 09:00 Cholecalciferol (Vitamin D) 1,000 unit DAILY PO Last administered on 12/04/18 09:45; Admin Dose 1,000 UNIT; Start 12/03/18 at 09:00 Lactulose (Enulose) 20 gm DAILY PO ; Start 12/03/18 at 09:00 Metoclopramide HCl (Reglan) 5 mg Q6H PRN IV NAUSEA; Start 12/03/18 at 04:00 Metoprolol Tartrate (Lopressor) 25 mg BID PO Last administered on 12/04/18 09:47; Admin Dose 25 MG; Start 12/03/18 at 09:00 Miconazole Nitrate (Miconazole 2% Cr) 1 applic BID TOP Last administered on 12/04/18 09:49; Admin Dose 1 APPLIC; Start 12/03/18 at 09:00 Morphine Sulfate (morphine) 6 mg Q4H PRN PO SEVERE PAIN LEVEL 7-10; Start 12/03/18 at 04:00 Pantoprazole (Protonix Tab) 40 mg DAILY@06 PO Last administered on 12/04/18 05:59; Admin Dose 40 MG; Start 12/03/18 at 06:00 Phenol (Cepastat Lozenge) 1 lozenge Q1H PRN MT SORE THROAT; Start 12/03/18 at 04:00 Prednisone (Prednisone) 20 mg DAILY PO ; Start 12/05/18 at 09:00; Stop 12/09/18 at 09:01 Prednisone (Prednisone) 10 mg DAILY PO ; Start 12/10/18 at 09:00 Primidone (Mysoline) 100 mg TID PO Last administered on 12/04/18 09:43; Admin Dose 100 MG; Start 12/03/18 at 09:00 Rivaroxaban (Xarelto) 15 mg WITH DINNER PO Last administered on 12/03/18at 17:31; Admin Dose 15 MG; Start 12/03/18 at 17:35 Diagnostic Test (Pha) (Accu-Chek) 1 ea 02 XX Last administered on 12/04/18 02:13; Admin Dose 1 EA; Start 12/04/18 at 02:00 Guaifenesin (Mucinex) 1,200 mg BID PO Last administered on 12/04/18 09:44; Admin Dose 1,200 MG; Start 12/03/18 at 09:00 Digoxin (Digoxin) 0.125 mg DAILY@13 PO Last administered on 12/03/18 14:19; Admin Dose 0.125 MG; Start 12/03/18 at 13:00 Roflumilast (Daliresp) 500 mcg DAILY PO Last administered on 12/04/18 09:46; Admin Dose 500 MCG; Start 12/03/18 at 09:00 Sacubitril/ Valsartan (Entresto 24 Mg-26 Mg) 1 tab BID PO Last administered on 12/04/18 09:43; Admin Dose 1 TAB; Start 12/03/18 at 09:00 Simethicone (Mylicon) 80 mg Q6H PRN PO DISTENSION/GAS/BLOATING Last administered on 12/04/18 09:52; Admin Dose 80 MG; Start 12/03/18 at 05:00 Sodium Chloride (Nacl) 2 gm MONWEDFRI PO Last administered on 12/04/18 09:43; Admin Dose 2 GM; Start 12/04/18 at 09:00 Spironolactone (Aldactone) 50 mg DAILY PO Last administered on 12/04/18 09:47; Admin Dose 50 MG; Start 12/03/18 at 09:00 Zolpidem Tartrate (Ambien) 5 mg HS PRN PO INSOMNIA Last administered on 12/03/18 23:13; Admin Dose 5 MG; Start 12/03/18 at 05:00 Cyanocobalamin (Vitamin B12) 5,000 mcg Q48H PO ; Start 12/03/18 at 09:00 Diagnostic Test (Pha) (Accu-Chek) 1 ea 02 XX Last administered on 12/04/18 02:14; Admin Dose 1 EA; Start 12/04/18 at 02:00 Insulin Glargine (Lantus) 20 units DAILY@2000 SC Last administered on 12/03/18 20:11; Admin Dose 20 UNITS; Start 12/03/18 at 20:00 Insulin Aspart (Novolog Insulin Pen) NOVOLOG *MILD* ALGORITHM WITH MEALS BED TIME SC Last administered on 12/03/18 20:13; Admin Dose 3 UNIT; Start 12/03/18 at 07:35 Miscellaneous Information 1 ea NOTE XX Last administered on 12/03/18 09:25; Admin Dose 1 EA; Start 12/03/18 at 08:00 Glucose (Glutose) 15 gm Q15M PRN PO DECREASED GLUCOSE Last administered on 12/03/18 09:18; Admin Dose 15 GM; Start 12/03/18 at 08:00 Glucose (Glutose) 22.5 gm Q15M PRN PO DECREASED GLUCOSE; Start 12/03/18 at 08:00 Dextrose (D50w Syringe) 25 ml Q15M PRN IV DECREASED GLUCOSE; Start 12/03/18 at 08:00 Dextrose (D50w Syringe) 50 ml Q15M PRN IV DECREASED GLUCOSE; Start 12/03/18 at 08:00 Glucagon (Glucagen) 1 mg Q15M PRN IM DECREASED GLUCOSE; Start 12/03/18 at 08:00 Glucose (Glutose) 15 gm Q15M PRN BUCCAL DECREASED GLUCOSE; Start 12/03/18 at 08:00 Miscellaneous Information (Pending [facility] Order For Wound Care) This patient sewell... PRN PRN XX WOUND CARE; Start 12/04/18 at 03:30 Assessment/Plan Additional Assessment/Plan Rehab- Critical Illness Myopathy ;Pulmonary debility status post acute hypoxemic and hypercapnic respiratory failure. Continue rehab program as tolerated. Case d/w Dr. Herrera COPD. Coronary artery disease. Carotid stenosis. Hypothyroidism. Chronic low back pain. Chronic kidney disease. CHF. Depression. Diabetes mellitus. KINGSLEY Caldera MD Dec 04, 2018 14:06
[2018-12-04] MEDS: DIGOXIN 0.125 MG TAB PO SCH (14:17)
--- NOTE | 2018-12-04 16:41 | PN ---
Date/Time of Note Date/Time of Note DATE: 12/04/18 TIME: 16:37 Assessment/Plan VTE Prophylaxis Risk score (from Ns)>0 risk: 4 SCD applied (from Ns): No SCD contraindicated: patient refusal Pharmacological prophylaxis: rivaroxaban Lines/Catheters IV Catheter Type (from Rust): [facility] Urinary Cath still in place: No Assessment/Plan Hospital Course Patient with episode of hypoglycemia, will decrease Lantus to 12 Units, Dr Zapata is asked to see pt in pulmonology consultation. Assessment/Plan -Status post acute hypoxemic and hypercapnic respiratory failure secondary to COPD exacerbation -COPD -Decompensated diastolic congestive heart failure, continue Lasix, monitor electrolytes. -Chronic atrial fibrillation. Continue digoxin, Cardizem and Xarelto. -Diabetes mellitus type 2. Continue Lantus and NovoLog. -Anemia of chronic disease -Hypothyroidism, started on levothyroxine Further recommendations based on clinical course. Plan of care discussed with Dr. Olivares. Result Diagram: 12/03/18 0712/03/18 0726 Results 24hrs Laboratory Tests Test 12/03/18 17:26 12/03/18 20:09 12/04/18 01:34 12/04/18 06:56 Bedside Glucose 127 296 H 130 Thyroid Stimulating 8.480 H Hormone (TSH) Free Thyroxine < 0.07 L Free 0.99 L Triiodothyronine (T3) pg/mL Test 12/04/18 07:40 12/04/18 09:14 12/04/18 09:39 12/04/18 11:57 Bedside Glucose 66 L 153 125 126 Exam/Review of Systems Exam Vitals Vital Signs Date Temp Pulse Resp B/P (MAP) Pulse Ox O2 O2 Flow FiO2 Time Delivery Rate 12/04/18 89 18 99 Nasal 2.0 13:44 Cannula 12/04/18 97.8 119/66 07:30 (83) Intake and Output 12/03/18 12/03/18 12/04/18 1414:59 22:59 06:59 IntakeIntake Total 620 ml 250 ml OutputOutput Total 350 ml BalanceBalance 620 ml -100 ml Constitutional: alert, oriented Respiratory: diminished breath sounds Cardiovascular: irregular rhythm Gastrointestinal: soft, non-tender Extremities: normal pulses Neurological: nl mental status Results Results 24hrs Laboratory Tests Test 12/03/18 17:26 12/03/18 20:09 12/04/18 01:34 12/04/18 06:56 Bedside Glucose 127 296 H 130 Thyroid Stimulating 8.480 H Hormone (TSH) Free Thyroxine < 0.07 L Free 0.99 L Triiodothyronine (T3) pg/mL Test 12/04/18 07:40 12/04/18 09:14 12/04/18 09:39 12/04/18 11:57 Bedside Glucose 66 L 153 125 126 Medications Medication Current Medications Acetaminophen (Tylenol Tab) 650 mg Q4H PRN PO PAIN Last administered on 23:14; Admin Dose 650 MG; Start 12/03/18 at 01:00 Acetylcysteine (Nac) 600 mg BID PO Last administered on 12/04/18 09:43; Admin Dose 600 MG; Start 12/03/18 at 09:00 Acetylcysteine (Mucomyst) 2 ml Q12H RESP THERAPY NEB Last administered on 12/04/18 08:45; Admin Dose 2 ML; Start 12/03/18 at 01:00 Al Hydrox/Mg Hydrox/Simethicone (Mag-Al Plus) 15 ml Q6H PRN PO GASTROINTESTINAL UPSET; Start 12/03/18 at 01:00 Albuterol/ Ipratropium (Duoneb) 3 ml Q2H RESP THERAPY PRN HHN SHORTNESS OF MARIA ELENA ATH Last administered on 12/03/18 03:35; Admin Dose 3 ML; Start 12/03/18 at 01:00 Albuterol/ Ipratropium (Duoneb) 3 ml Q4HWA RESP THERAPY HHN Last administered on 12/04/18 13:35; Admin Dose 3 ML; Start 12/03/18 at 09:00 Alprazolam (Xanax) 0.5 mg Q8H PRN PO ANXIETY Last administered on 12/03/18 21:48; Admin Dose 0.5 MG; Start 12/03/18 at 01:00 Eye Lubricant (Artificial Tears Oph) 2 drop Q8 BOTH EYES Last administered on 12/04/18 14:21; Admin Dose 2 DROP; Start 12/03/18 at 06:00 Atorvastatin Calcium (Lipitor) 10 mg HS PO Last administered on 12/03/18 20:31; Admin Dose 10 MG; Start 12/03/18 at 21:00 Calcium Carbonate (Tums) 500 mg HS PO Last administered on 12/03/18 20:31; Admin Dose 500 MG; Start 12/03/18 at 21:00 Cholecalciferol (Vitamin D) 4,000 unit DAILY PO Last administered on 12/04/18 09:45; Admin Dose 4,000 UNIT; Start 12/03/18 at 09:00 Diltiazem HCl (Cardizem Cd) 180 mg BID PO Last administered on 12/04/18 09:44; Admin Dose 180 MG; Start 12/03/18 at 09:00 Diphenhydramine HCl (Benadryl) 50 mg Q8 PRN PO for itching; Start 12/03/18 at 01:00 Docusate Sodium (Colace) 100 mg BID PO Last administered on 12/03/18 20:17; Admin Dose 100 MG; Start 12/03/18 at 09:00 Donepezil HCl (Aricept) 10 mg 2100 PO Last administered on 12/03/18 20:31; Admin Dose 10 MG; Start 12/03/18 at 21:00 Duloxetine HCl (Cymbalta) 20 mg BID PO Last administered on 12/04/18 09:45; Admin Dose 20 MG; Start 12/03/18 at 09:00 Cholecalciferol (Vitamin D) 1,000 unit DAILY PO Last administered on 12/04/18 09:45; Admin Dose 1,000 UNIT; Start 12/03/18 at 09:00 Lactulose (Enulose) 20 gm DAILY PO ; Start 12/03/18 at 09:00 Metoclopramide HCl (Reglan) 5 mg Q6H PRN IV NAUSEA; Start 12/03/18 at 04:00 Metoprolol Tartrate (Lopressor) 25 mg BID PO Last administered on 12/04/18 09:47; Admin Dose 25 MG; Start 12/03/18 at 09:00 Miconazole Nitrate (Miconazole 2% Cr) 1 applic BID TOP Last administered on 12/04/18 09:49; Admin Dose 1 APPLIC; Start 12/03/18 at 09:00 Morphine Sulfate (morphine) 6 mg Q4H PRN PO SEVERE PAIN LEVEL 7-10; Start 12/03/18 at 04:00 Pantoprazole (Protonix Tab) 40 mg DAILY@06 PO Last administered on 12/04/18 05:59; Admin Dose 40 MG; Start 12/03/18 at 06:00 Phenol (Cepastat Lozenge) 1 lozenge Q1H PRN MT SORE THROAT; Start 12/03/18 at 04:00 Prednisone (Prednisone) 20 mg DAILY PO ; Start 12/05/18 at 09:00; Stop 12/09/18 at 09:01 Prednisone (Prednisone) 10 mg DAILY PO ; Start 12/10/18 at 09:00 Primidone (Mysoline) 100 mg TID PO Last administered on 12/04/18 14:14; Admin Dose 100 MG; Start 12/03/18 at 09:00 Rivaroxaban (Xarelto) 15 mg WITH DINNER PO Last administered on 12/03/18 17:31; Admin Dose 15 MG; Start 12/03/18 at 17:35 Diagnostic Test (Pha) (Accu-Chek) 1 ea 02 XX Last administered on 12/04/18 02:13; Admin Dose 1 EA; Start 12/04/18 at 02:00 Guaifenesin (Mucinex) 1,200 mg BID PO Last administered on 12/04/18 09:44; Admin Dose 1,200 MG; Start 12/03/18 at 09:00 Digoxin (Digoxin) 0.125 mg DAILY@13 PO Last administered on 12/04/18 14:17; Admin Dose 0.125 MG; Start 12/03/18 at 13:00 Roflumilast (Daliresp) 500 mcg DAILY PO Last administered on 12/04/18 09:46; Admin Dose 500 MCG; Start 12/03/18 at 09:00 Sacubitril/ Valsartan (Entresto 24 Mg-26 Mg) 1 tab BID PO Last administered on 12/04/18 09:43; Admin Dose 1 TAB; Start 12/03/18 at 09:00 Simethicone (Mylicon) 80 mg Q6H PRN PO DISTENSION/GAS/BLOATING Last administered on 12/04/18 09:52; Admin Dose 80 MG; Start 12/03/18 at 05:00 Sodium Chloride (Nacl) 2 gm MONWEDFRI PO Last administered on 12/04/18 09:43; Admin Dose 2 GM; Start 12/04/18 at 09:00 Spironolactone (Aldactone) 50 mg DAILY PO Last administered on 12/04/18at 09:47; Admin Dose 50 MG; Start 12/03/18 at 09:00 Cyanocobalamin (Vitamin B12) 5,000 mcg Q48H PO ; Start 12/03/18 at 09:00 Diagnostic Test (Pha) (Accu-Chek) 1 ea 02 XX Last administered on 12/04/18at 02:14; Admin Dose 1 EA; Start 12/04/18 at 02:00 Insulin Glargine (Lantus) 20 units DAILY@2000 SC Last administered on 12/03/18 20:11; Admin Dose 20 UNITS; Start 12/03/18 at 20:00 Insulin Aspart (Novolog Insulin Pen) NOVOLOG *MILD* ALGORITHM WITH MEALS BEDTIME SC Last administered on 12/03/18at 20:13; Admin Dose 3 UNIT; Start 12/03/18 at 07:35 Miscellaneous Information 1 ea NOTE XX Last administered on 12/03/18at 09:25; Admin Dose 1 EA; Start 12/03/18 at 08:00 Glucose (Glutose) 15 gm Q15M PRN PO DECREASED GLUCOSE Last administered on 12/03/18 09:18; Admin Dose 15 GM; Start 12/03/18 at 08:00 Glucose (Glutose) 22.5 gm Q15M PRN PO DECREASED GLUCOSE; Start 12/03/18 at 08:00 Dextrose (D50w Syringe) 25 ml Q15M PRN IV DECREASED GLUCOSE; Start 12/03/18 at 08:00 Dextrose (D50w Syringe) 50 ml Q15M PRN IV DECREASED GLUCOSE; Start 12/03/18 at 08:00 Glucagon (Glucagen) 1 mg Q15M PRN IM DECREASED GLUCOSE; Start 12/03/18 at 08:00 Glucose (Glutose) 15 gm Q15M PRN BUCCAL DECREASED GLUCOSE; Start 12/03/18 at 08:00 Miscellaneous Information (Pending [facility] Order For Wound Care) This patient sewell... PRN PRN XX WOUND CARE; Start 12/04/18 at 03:30 Levothyroxine Sodium (Synthroid) 50 mcg DAILY@06 PO ; Start 12/05/18 at 06:00 Melatonin (Melatonin) 3 mg HS PO ; Start 12/04/18 at 21:00 AMEYA MAN Dec 04, 2018 16:41
[2018-12-04] MEDS: RIVAROXABAN 15 MG TABLET PO SCH (17:45)
[2018-12-04 20:00] VITALS: BP 132/65; PULSE 81; RESP 18
[2018-12-04] MEDS ORDERED: INSULIN GLARGINE [LANTus] (100 UNITS/ML) SYG SC SCH (20:00)
--- NOTE | 2018-12-04 20:07 | CONS ---
DATE OF ADMISSION: 12/02/2018 DATE OF CONSULTATION: 12/04/2018 TYPE OF CONSULTATION: Psychological. REFERRING PHYSICIAN: Kingsley Lee MD CONSULTING PSYCHOLOGIST: Froy Estrada, PhD REASON FOR CONSULTATION: This consultation was requested by Dr. Nehal Lee in order to evaluate t he cognitive and emotional functioning of this patient related to her present medical condition. HISTORY OF PRESENT ILLNESS: The patient is a 78-year-old female. The patient has a history of multi ple medical comorbidities and was initially admitted to [facility] with acute respiratory fa ilure. The patient did undergo therapeutic bronchoscopy and required BiPAP and was eventually transf erred to [facility]. The patient then was cleared from [facility] and then sent to the acute rehabilitation unit for acute multidisciplinary rehabilitation. The santhosh grover is motivated to get better and does want to return to her previous level of functioning. The víctor ent does have a past history of depression. FAMILY AND SOCIAL HISTORY: The patient lives in a home in [place] with her partner. The santhosh grover and her partner have been together for 27 years. The patient does want to return there after disc harge. MEDICATIONS: The patient is currently on: 1. Cymbalta 20 mg b.i.d. 2. Aricept 10 mg daily. 3. Xanax 0.5 mg q.8 hours p.r.n. SUBSTANCE USE: The patient reports that she does not smoke any longer. The patient stopped smoking 12 years ago. The patient reports that she does not use alcohol or drugs. The patient reports that she stopped drinking 20 years ago. MENTAL STATUS EXAMINATION: APPEARANCE: The patient was seen in her wheelchair. She appears to be of average height and overwei ght. The patient is on oxygen here and at home. The patient is right-handed. BEHAVIOR: The patient was cooperative during the consultation. The patient did attempt to answer al l questions presented to her by the interviewer. MOOD AND AFFECT: The patient's mood appears to be somewhat depressed. Affect does appear to be slig htly anxious. PERCEPTION: The patient reports no hallucinations or delusions. The patient was alert to person, pl savage, situation and time. MEMORY AND COGNITION: The patient's memory and cognition appear to have some level of impairment. S he was able to name the hospital. The patient was able to say the month and the year. The patient c ould not spell "world" backwards and she spelled it, "[id number]". The patient could not do any seria l 7 subtraction from 100. First answer was 103. The patient did know the President of [facility] , but her first answer was [place] and then she came up with [place]. She did not know who the [facility] the [facility] is or the [facility] of [facility]. Overall, the patient does appear to have some cognitive dysfunction. The patient has seen a neurologist and was diagnosed with some mild dem entia. DIAGNOSTIC IMPRESSION: 1. F33.1 major depressive disorder, recurrent, moderate. 2. F03.90, unspecified dementia without behavioral disturbance. Thank you very much, Dr. Nehal Lee, for referring this individual. Please do not hesitate to khurram conn if you have additional questions. Dictated By: FROY ESTRADA PHD LESTER/LANCE Conf#: [id number] DID#: [id number] CC: LISSETTE ESPOSITO MD; IKNGSLEY LEE MD;*EndCC*
[2018-12-04] MEDS: CALCIUM CARBONATE 500 MG CHEW TAB PO SCH (21:14)
[2018-12-04] MEDS: ATORVASTATIN 10 MG TAB PO SCH (21:14)
[2018-12-04] MEDS: DONEPEZIL 10 MG TAB PO SCH (21:15)
[2018-12-04] MEDS: MELATONIN 3 MG TABLET PO SCH (21:17)
[2018-12-04] MEDS: ALPRAZOLAM 0.25 MG TAB PO PRN (22:47)
[2018-12-04] MEDS: morphine LIQ (10 MG/5 ML) CUP PO PRN (23:49)
[2018-12-05 02:00] VITALS: BP 127/58; PULSE 78; RESP 18
[2018-12-05] MEDS: ACCU-CHEK XX SCH ×2 (02:00)
[2018-12-05 07:00] VITALS: BP 108/58; PULSE 79; RESP 18
[2018-12-05] MEDS: ARTIFICIAL TEARS 15 ML OPH BOTH EYES SCH ×3 (07:27→21:45)
[2018-12-05] MEDS: PANTOPRAZOLE (EC) 40 MG TAB PO SCH (07:28)
[2018-12-05] MEDS: LEVOTHYROXINE 50 MCG TAB PO SCH (07:28)
[2018-12-05] MEDS: INSULIN ASPART [NOVOLOG] 3 ML PEN SC SCH ×4 (07:35→21:00)
[2018-12-05] MEDS: ACETYLCYSTEINE 20% 4 ML VIAL NEB SCH ×2 (08:25→20:00)
[2018-12-05] MEDS: ALBUTEROL/IPRATROPIUM (NEB) 3 ML AMP HHN SCH ×4 (08:26→20:00)
[2018-12-05] MEDS: DILTIAZEM (CD) 180 MG CAP PO SCH ×2 (09:00→21:47)
[2018-12-05] MEDS: PRIMIDONE 50 MG TAB PO SCH ×3 (09:43→21:46)
[2018-12-05] MEDS: DOCUSATE SODIUM 100 MG CAP PO SCH ×2 (09:44→21:46)
[2018-12-05] MEDS: ROFLUMILAST 500 MCG TABLET PO SCH (09:44)
[2018-12-05] MEDS: predniSONE 20 MG TAB PO SCH (09:46)
[2018-12-05] MEDS: CHOLECALCIFEROL 2,000 UNIT CAP PO SCH (09:47)
[2018-12-05] MEDS: CHOLECALCIFEROL 1,000 UNIT TAB PO SCH (09:47)
[2018-12-05] MEDS: GUAIFENESIN LA 600 MG TABSR PO SCH ×2 (09:49→21:46)
[2018-12-05] MEDS: LACTULOSE 30ML CUP PO SCH (09:49)
[2018-12-05] MEDS: SACUBITRIL/VALSARTAN (24mg-26mg) TABLET PO SCH ×2 (09:50→21:46)
[2018-12-05] MEDS: SPIRONOLACTONE 50 MG TAB PO SCH (09:50)
[2018-12-05] MEDS: ACETYLCYSTEINE 600 MG CAP PO SCH ×2 (09:51→21:46)
[2018-12-05] MEDS: MICONAZOLE 2% 30 GM CR TOP SCH ×2 (09:53→22:03)
[2018-12-05] MEDS: METOPROLOL 25 MG TAB PO SCH ×2 (09:57→21:47)
[2018-12-05] MEDS: DULOXETINE 20 MG CAP DR PO SCH ×2 (09:58→21:46)
[2018-12-05] MEDS: CYANOCOBALAMIN 500 MCG TAB PO SCH (11:15)
--- NOTE | 2018-12-05 11:22 | PN ---
Date/Time of Note Date/Time of Note DATE: 12/05/18 TIME: 11:21 Subjective Overall improving Objective Vital Signs Date Temp Pulse Resp B/P (MAP) Pulse Ox O2 O2 Flow FiO2 Time Delivery Rate 12/05/18 88 17 95 Nasal 2.0 10:29 Cannula 12/05/18 97.5 108/58 07:00 (75) Intake and Output 12/04/18 12/04/18 12/05/18 1515:00 23:00 07:00 IntakeIntake Total 760 ml 550 ml BalanceBalance 760 ml 550 ml Exam mod transfer mod ambulation 35 feet Results/Medications Result Diagram: 12/03/1872512/03/18725 Results 24 hrs Laboratory Tests Test 12/04/18 11:57 12/04/18 17:44 12/04/18 21:03 12/05/18 07:37 Bedside Glucose 126 123 201 59 L Test 12/05/18 07:59 12/05/18 08:28 12/05/18 08:52 12/05/18 09:11 Bedside Glucose 73 84 79 79 Test 12/05/18 09:34 12/05/18 09:59 12/05/18 10:16 Bedside Glucose 70 83 115 Medications Current Medications Acetaminophen (Tylenol Tab) 650 mg Q4H PRN PO PAIN Last administered on 11/22 11/12at 23:14; Admin Dose 650 MG; Start 12/03/18 at 01:00 Acetylcysteine (Nac) 600 mg BID PO Last administered on 12/05/18at 09:51; Admin Dose 600 MG; Start 12/03/18 at 09:00 Acetylcysteine (Mucomyst) 2 ml Q12H RESP THERAPY NEB Last administered on 12/05/18at 08:25; Admin Dose 2 ML; Start 12/03/18 at 01:00 Al Hydrox/Mg Hydrox/Simethicone (Mag-Al Plus) 15 ml Q6H PRN PO GASTROINTESTINAL UPSET; Start 12/03/18 at 01:00 Albuterol/ Ipratropium (Duoneb) 3 ml Q2H RESP THERAPY PRN HHN SHORTNESS OF JOSE [place] TH Last administered on 12/03/18at 03:35; Admin Dose 3 ML; Start 12/03/18 at 01:00 Albuterol/ Ipratropium (Duoneb) 3 ml Q4HWA RESP THERAPY HHN Last administered on 12/05/18 08:26; Admin Dose 3 ML; Start 12/03/18 at 09:00 Alprazolam (Xanax) 0.5 mg Q8H PRN PO ANXIETY Last administered on 12/04/18 22:47; Admin Dose 0.5 MG; Start 12/03/18 at 01:00 Eye Lubricant (Artificial Tears Oph) 2 drop Q8 BOTH EYES Last administered on 12/05/18 07:27; Admin Dose 2 DROP; Start 12/03/18 at 06:00 Atorvastatin Calcium (Lipitor) 10 mg HS PO Last administered on 12/04/18 21:14; Admin Dose 10 MG; Start 12/03/18 at 21:00 Calcium Carbonate (Tums) 500 mg HS PO Last administered on 12/04/18 21:14; Admin Dose 500 MG; Start 12/03/18 at 21:00 Cholecalciferol (Vitamin D) 4,000 unit DAILY PO Last administered on 12/05/18 09:47; Admin Dose 4,000 UNIT; Start 12/03/18 at 09:00 Diltiazem HCl (Cardizem Cd) 180 mg BID PO Last administered on 12/04/18 21:16; Admin Dose 180 MG; Start 12/03/18 at 09:00 Diphenhydramine HCl (Benadryl) 50 mg Q8 PRN PO for itching; Start 12/03/18 at 01:00 Docusate Sodium (Colace) 100 mg BID PO Last administered on 12/05/18 09:44; Admin Dose 100 MG; Start 12/03/18 at 09:00 Donepezil HCl (Aricept) 10 mg 2100 PO Last administered on 12/04/18 21:15; Admin Dose 10 MG; Start 12/03/18 at 21:00 Duloxetine HCl (Cymbalta) 20 mg BID PO Last administered on 12/05/18 09:58; Admin Dose 20 MG; Start 12/03/18 at 09:00 Cholecalciferol (Vitamin D) 1,000 unit DAILY PO Last administered on 12/05/18 09:47; Admin Dose 1,000 UNIT; Start 12/03/18 at 09:00 Lactulose (Enulose) 20 gm DAILY PO Last administered on 12/05/18 09:49; Admin Dose 20 GM; Start 12/03/18 at 09:00 Metoclopramide HCl (Reglan) 5 mg Q6H PRN IV NAUSEA; Start 12/03/18 at 04:00 Metoprolol Tartrate (Lopressor) 25 mg BID PO Last administered on 12/05/18 09:57; Admin Dose 25 MG; Start 12/03/18 at 09:00 Miconazole Nitrate (Miconazole 2% Cr) 1 applic BID TOP Last administered on 12/05/18 09:53; Admin Dose 1 APPLIC; Start 12/03/18 at 09:00 Morphine Sulfate (morphine) 6 mg Q4H PRN PO SEVERE PAIN LEVEL 7-10 Last administered on 12/04/18 23:49; Admin Dose 6 MG; Start 12/03/18 at 04:00 Pantoprazole (Protonix Tab) 40 mg DAILY@06 PO Last administered on 12/05/18 07:28; Admin Dose 40 MG; Start 12/03/18 at 06:00 Phenol (Cepastat Lozenge) 1 lozenge Q1H PRN MT SORE THROAT; Start 12/03/18 at 04:00 Prednisone (Prednisone) 20 mg DAILY PO Last administered on 12/05/18 09:46; Admin Dose 20 MG; Start 12/05/18 at 09:00; Stop 12/09/18 at 09:01 Prednisone (Prednisone) 10 mg DAILY PO ; Start 12/10/18 at 09:00 Primidone (Mysoline) 100 mg TID PO Last administered on 12/05/18 09:43; Admin Dose 100 MG; Start 12/03/18 at 09:00 Rivaroxaban (Xarelto) 15 mg WITH DINNER PO Last administered on 12/04/18 17:45; Admin Dose 15 MG; Start 12/03/18 at 17:35 Diagnostic Test (Pha) (Accu-Chek) 1 ea 02 XX Last administered on 12/04/18 02:13; Admin Dose 1 EA; Start 12/04/18 at 02:00 Guaifenesin (Mucinex) 1,200 mg BID PO Last administered on 12/05/18 09:49; Admin Dose 1,200 MG; Start 12/03/18 at 09:00 Digoxin (Digoxin) 0.125 mg DAILY@13 PO Last administered on 12/04/18 14:17; Admin Dose 0.125 MG; Start 12/03/18 at 13:00 Roflumilast (Daliresp) 500 mcg DAILY PO Last administered on 12/05/18 09:44; Admin Dose 500 MCG; Start 12/03/18 at 09:00 Sacubitril/ Valsartan (Entresto 24 Mg-26 Mg) 1 tab BID PO Last administered on 12/05/18 09:50; Admin Dose 1 TAB; Start 12/03/18 at 09:00 Simethicone (Mylicon) 80 mg Q6H PRN PO DISTENSION/GAS/BLOATING Last administered on 12/04/18 09:52; Admin Dose 80 MG; Start 12/03/18 at 05:00 Sodium Chloride (Nacl) 2 gm MONWEDFRI PO Last administered on 12/04/18 09:43; Admin Dose 2 GM; Start 12/04/18 at 09:00 Spironolactone (Aldactone) 50 mg DAILY PO Last administered on 12/05/18 09:50; Admin Dose 50 MG; Start 12/03/18 at 09:00 Cyanocobalamin (Vitamin B12) 5,000 mcg Q48H PO Last administered on 12/05/18 11:15; Admin Dose 5,000 MCG; Start 12/03/18 at 09:00 Diagnostic Test (Pha) (Accu-Chek) 1 ea 02 XX Last administered on 12/04/18 02:14; Admin Dose 1 EA; Start 12/04/18 at 02:00 Insulin Aspart (Novolog Insulin Pen) NOVOLOG *MILD* ALGORITHM WITH MEALS BEDTIME SC Last administered on 12/04/18 21:11; Admin Dose 1 UNIT; Start 12/03/18 at 07:35 Miscellaneous Information 1 ea NOTE XX Last administered on 12/03/18 09:25; Admin Dose 1 EA; Start 12/03/18 at 08:00 Glucose (Glutose) 15 gm Q15M PRN PO DECREASED GLUCOSE Last administered on 12/03/18 09:18; Admin Dose 15 GM; Start 12/03/18 at 08:00 Glucose (Glutose) 22.5 gm Q15M PRN PO DECREASED GLUCOSE; Start 12/03/18 at 08:00 Dextrose (D50w Syringe) 25 ml Q15M PRN IV DECREASED GLUCOSE; Start 12/03/18 at 08:00 Dextrose (D50w Syringe) 50 ml Q15M PRN IV DECREASED GLUCOSE; Start 12/03/18 at 08:00 Glucagon (Glucagen) 1 mg Q15M PRN IM DECREASED GLUCOSE; Start 12/03/18 at 08:00 Glucose (Glutose) 15 gm Q15M PRN BUCCAL DECREASED GLUCOSE Last administered on 12/05/18at 09:40; Admin Dose 15 GM; Start 12/03/18 at 08:00 Miscellaneous Information (Pending [facility] Order For Wound Care) This patient sewell... PRN PRN XX WOUND CARE; Start 12/04/18 at 03:30 Levothyroxine Sodium (Synthroid) 50 mcg DAILY@06 PO Last administered on 12/05/18at 07:28; Admin Dose 50 MCG; Start 12/05/18 at 06:00 Melatonin (Melatonin) 3 mg HS PO Last administered on 12/04/18at 21:17; Admin Dose 3 MG; Start 12/04/18 at 21:00 Insulin Glargine (Lantus) 16 units DAILY@2000 SC Last administered on 12/04/18at 21:10; Admin Dose 16 UNITS; Start 12/04/18 at 20:00 Assessment/Plan Additional Assessment/Plan Rehab- Critical Illness Myopathy ;Pulmonary debility status post acute hypoxemic and hypercapnic respiratory failure. Continue rehab activities COPD. Coronary artery disease. Carotid stenosis. Hypothyroidism. Chronic low back pain. Chronic kidney disease. CHF. Depression. Diabetes mellitus. KINGSLEY Caldera MD Dec 05, 2018 11:22
[2018-12-05] MEDS: morphine LIQ (10 MG/5 ML) CUP PO PRN (13:08)
[2018-12-05] MEDS: DIGOXIN 0.125 MG TAB PO SCH (13:10)
[2018-12-05 14:00] VITALS: BP 165/65; PULSE 68; RESP 18
[2018-12-05] MEDS ORDERED: FUROSEMIDE 20 MG INJ IV ONE (15:30)
[2018-12-05] MEDS: RIVAROXABAN 15 MG TABLET PO SCH (18:08)
[2018-12-05 19:50] VITALS: BP 128/52; PULSE 70; RESP 20
[2018-12-05] MEDS ORDERED: INSULIN GLARGINE [LANTus] (100 UNITS/ML) SYG SC SCH (20:00)
[2018-12-05] MEDS: MELATONIN 3 MG TABLET PO SCH (21:00)
[2018-12-05] MEDS: ATORVASTATIN 10 MG TAB PO SCH (21:46)
[2018-12-05] MEDS: DONEPEZIL 10 MG TAB PO SCH (21:46)
[2018-12-05] MEDS: CALCIUM CARBONATE 500 MG CHEW TAB PO SCH (21:46)
[2018-12-05] MEDS: ALPRAZOLAM 0.25 MG TAB PO PRN (22:01)
[2018-12-06] MEDS: ACCU-CHEK XX SCH ×2 (02:00)
[2018-12-06 03:06] VITALS: BP 110/50; PULSE 64; RESP 19
[2018-12-06] MEDS: morphine LIQ (10 MG/5 ML) CUP PO PRN ×2 (04:18→20:27)
[2018-12-06] MEDS: LEVOTHYROXINE 50 MCG TAB PO SCH (06:29)
[2018-12-06] MEDS: ARTIFICIAL TEARS 15 ML OPH BOTH EYES SCH ×3 (06:29→21:52)
[2018-12-06] MEDS: PANTOPRAZOLE (EC) 40 MG TAB PO SCH (06:29)
[2018-12-06 07:30] VITALS: BP 126/58; PULSE 70; RESP 20
[2018-12-06] MEDS: INSULIN ASPART [NOVOLOG] 3 ML PEN SC SCH ×4 (07:35→20:42)
--- NOTE | 2018-12-06 08:21 | PN ---
Date/Time of Note Date/Time of Note DATE: 12/06/18 TIME: 08:19 Subjective AWAKE ALERT, - SOB Objective Vital Signs Date Temp Pulse Resp B/P (MAP) Pulse Ox O2 O2 Flow FiO2 Time Delivery Rate 12/06/18 97.6 64 19 110/50 100 Room Air 03:06 (70) 12/06/18 2.0 01:05 Intake and Output 12/05/18 12/05/18 12/06/18 1515:00 23:00 07:00 IntakeIntake Total 1200 ml OutputOutput Total 600 ml 150 ml BalanceBalance 600 ml -150 ml Exam LUNGS DECREASED BASES COR DISTANT MOTOR FAIR CLOF XT AND GAIT MOD A USNG FWW Results/Medications Result Diagram: 12/06/18 0659 12/06/18 0659 Results 24 hrs Laboratory Tests Test 12/05/18 08:28 12/05/18 08:52 12/05/18 09:11 12/05/18 09:34 Bedside Glucose 84 79 79 70 Test 12/05/18 09:59 12/05/18 10:16 12/05/18 11:45 12/05/18 12:21 Bedside Glucose 83 115 66 L 96 Test 12/05/18 12:44 12/05/18 18:07 12/05/18 20:39 12/06/18 06:59 Bedside Glucose 115 113 179 White Blood Count 11.5 #H Red Blood Count 3.92 L Hemoglobin 10.5 L Hematocrit 32.8 L Mean Corpuscular 83.7 Volume Mean Corpuscular 26.8 L Hemoglobin Mean Corpuscular 32.0 Hemoglobin Concent Red Cell 25.4 H Distribution Width Platelet Count 134 L Mean Platelet Volume 9.1 Immature 8.200 H Granulocytes % Neutrophils % Lymphocytes % Monocytes % Eosinophils % Basophils % Nucleated Red Blood 0.0 Cells % Immature 0.950 H Granulocytes # Neutrophils # Lymphocytes # Monocytes # Eosinophils # Basophils # Nucleated Red Blood Cells # Sodium Level 136 Potassium Level 5.2 H Chloride Level 101 Carbon Dioxide Level 32 H Anion Gap 3 L Blood Urea Nitrogen 31 H Creatinine 0.79 Est Glomerular Filtrat Rate mL/min Glucose Level 48 *L Calcium Level 8.5 Magnesium Level 2.3 Test 12/06/18 07:53 Bedside Glucose 62 L Medications Current Medications Acetaminophen (Tylenol Tab) 650 mg Q4H PRN PO PAIN Last administered on 12/03/18 23:14; Admin Dose 650 MG; Start 12/03/18 at 01:00 Acetylcysteine (Nac) 600 mg BID PO Last administered on 12/05/18 21:46; Admin Dose 600 MG; Start 12/03/18 at 09:00 Acetylcysteine (Mucomyst) 2 ml Q12H RESP THERAPY NEB Last administered on 12/05/18 20:00; Admin Dose 2 ML; Start 12/03/18 at 01:00 Al Hydrox/Mg Hydrox/Simethicone (Mag-Al Plus) 15 ml Q6H PRN PO GASTROINTESTINAL UPSET; Start 12/03/18 at 01:00 Albuterol/ Ipratropium (Duoneb) 3 ml Q2H RESP THERAPY PRN HHN SHORTNESS OF BREATH Last administered on 12/03/18 03:35; Admin Dose 3 ML; Start 12/03/18 at 01:00 Albuterol/ Ipratropium (Duoneb) 3 ml Q4HWA RESP THERAPY HHN Last administered on 12/05/18 20:00; Admin Dose 3 ML; Start 12/03/18 at 09:00 Alprazolam (Xanax) 0.5 mg Q8H PRN PO ANXIETY Last administered on 12/05/18 22:01; Admin Dose 0.5 MG; Start 12/03/18 at 01:00 Eye Lubricant (Artificial Tears Oph) 2 drop Q8 BOTH EYES Last administered on 12/06/18 06:29; Admin Dose 2 DROP; Start 12/03/18 at 06:00 Atorvastatin Calcium (Lipitor) 10 mg HS PO Last administered on 12/05/18 21:46; Admin Dose 10 MG; Start 12/03/18 at 21:00 Calcium Carbonate (Tums) 500 mg HS PO Last administered on 12/05/18 21:46; Admin Dose 500 MG; Start 12/03/18 at 21:00 Cholecalciferol (Vitamin D) 4,000 unit DAILY PO Last administered on 12/05/18 09:47; Admin Dose 4,000 UNIT; Start 12/03/18 at 09:00 Diltiazem HCl (Cardizem Cd) 180 mg BID PO Last administered on 12/05/18 21:47; Admin Dose 180 MG; Start 12/03/18 at 09:00 Diphenhydramine HCl (Benadryl) 50 mg Q8 PRN PO for itching; Start 12/03/18 at 01:00 Docusate Sodium (Colace) 100 mg BID PO Last administered on 12/05/18 21:46; Admin Dose 100 MG; Start 12/03/18 at 09:00 Donepezil HCl (Aricept) 10 mg 2100 PO Last administered on 12/05/18 21:46; Admin Dose 10 MG; Start 12/03/18 at 21:00 Duloxetine HCl (Cymbalta) 20 mg BID PO Last administered on 12/05/18 21:46; Admin Dose 20 MG; Start 12/03/18 at 09:00 Cholecalciferol (Vitamin D) 1,000 unit DAILY PO Last administered on 12/05/18 09:47; Admin Dose 1,000 UNIT; Start 12/03/18 at 09:00 Lactulose (Enulose) 20 gm DAILY PO Last administered on 12/05/18 09:49; Admin Dose 20 GM; Start 12/03/18 at 09:00 Metoclopramide HCl (Reglan) 5 mg Q6H PRN IV NAUSEA; Start 12/03/18 at 04:00 Metoprolol Tartrate (Lopressor) 25 mg BID PO Last administered on 12/05/18 21:47; Admin Dose 25 MG; Start 12/03/18 at 09:00 Miconazole Nitrate (Miconazole 2% Cr) 1 applic BID TOP Last administered on 12/05/18 22:03; Admin Dose 1 APPLIC; Start 12/03/18 at 09:00 Morphine Sulfate (morphine) 6 mg Q4H PRN PO SEVERE PAIN LEVEL 7-10 Last administered on 12/06/18 04:18; Admin Dose 6 MG; Start 12/03/18 at 04:00 Pantoprazole (Protonix Tab) 40 mg DAILY@06 PO Last administered on 12/06/18 06:29; Admin Dose 40 MG; Start 12/03/18 at 06:00 Phenol (Cepastat Lozenge) 1 lozenge Q1H PRN MT SORE THROAT; Start 12/03/18 at 04:00 Prednisone (Prednisone) 20 mg DAILY PO Last administered on 12/05/18 09:46; Admin Dose 20 MG; Start 12/05/18 at 09:00; Stop 12/09/18 at 09:01 Prednisone (Prednisone) 10 mg DAILY PO ; Start 12/10/18 at 09:00 Primidone (Mysoline) 100 mg TID PO Last administered on 12/05/18 21:46; Admin Dose 100 MG; Start 12/03/18 at 09:00 Rivaroxaban (Xarelto) 15 mg WITH DINNER PO Last administered on 12/05/18 18:08; Admin Dose 15 MG; Start 12/03/18 at 17:35 Diagnostic Test (Pha) (Accu-Chek) 1 ea 02 XX Last administered on 12/06/18 02:00; Admin Dose 1 EA; Start 12/04/18 at 02:00 Guaifenesin (Mucinex) 1,200 mg BID PO Last administered on 12/05/18 21:46; Admin Dose 1,200 MG; Start 12/03/18 at 09:00 Digoxin (Digoxin) 0.125 mg DAILY@13 PO Last administered on 12/05/18 13:10; Admin Dose 0.125 MG; Start 12/03/18 at 13:00 Roflumilast (Daliresp) 500 mcg DAILY PO Last administered on 12/05/18 09:44; Admin Dose 500 MCG; Start 12/03/18 at 09:00 Sacubitril/ Valsartan (Entresto 24 Mg-26 Mg) 1 tab BID PO Last administered on 12/05/18 21:46; Admin Dose 1 TAB; Start 12/03/18 at 09:00 Simethicone (Mylicon) 80 mg Q6H PRN PO DISTENSION/GAS/BLOATING Last administered on 12/04/18 09:52; Admin Dose 80 MG; Start 12/03/18 at 05:00 Sodium Chloride (Nacl) 2 gm MONWEDFRI PO Last administered on 12/04/18 09:43; Admin Dose 2 GM; Start 12/04/18 at 09:00 Spironolactone (Aldactone) 50 mg DAILY PO Last administered on 12/05/18 09:50; Admin Dose 50 MG; Start 12/03/18 at 09:00 Cyanocobalamin (Vitamin B12) 5,000 mcg Q48H PO Last administered on 12/05/18 11:15; Admin Dose 5,000 MCG; Start 12/03/18 at 09:00 Diagnostic Test (Pha) (Accu-Chek) 1 ea 02 XX Last administered on 12/06/18at 02:00; Admin Dose 1 EA; Start 12/04/18 at 02:00 Insulin Aspart (Novolog Insulin Pen) NOVOLOG *MILD* ALGORITHM WITH MEALS BEDTIME SC Last administered on 12/04/18 21:11; Admin Dose 1 UNIT; Start 12/03/18 at 07:35 Miscellaneous Information 1 ea NOTE XX Last administered on 12/03/18 09:25; Admin Dose 1 EA; Start 12/03/18 at 08:00 Glucose (Glutose) 15 gm Q15M PRN PO DECREASED GLUCOSE Last administered on 12/03/18 09:18; Admin Dose 15 GM; Start 12/03/18 at 08:00 Glucose (Glutose) 22.5 gm Q15M PRN PO DECREASED GLUCOSE; Start 12/03/18 at 08:00 Dextrose (D50w Syringe) 25 ml Q15M PRN IV DECREASED GLUCOSE; Start 12/03/18 at 08:00 Dextrose (D50w Syringe) 50 ml Q15M PRN IV DECREASED GLUCOSE; Start 12/03/18 at 08:00 Glucagon (Glucagen) 1 mg Q15M PRN IM DECREASED GLUCOSE; Start 12/03/18 at 08:00 Glucose (Glutose) 15 gm Q15M PRN BUCCAL DECREASED GLUCOSE Last administered on 12/05/18at 09:40; Admin Dose 15 GM; Start 12/03/18 at 08:00 Miscellaneous Information (Pending [facility] Order For Wound Care) This patient sewell... PRN PRN XX WOUND CARE; Start 12/04/18 at 03:30 Levothyroxine Sodium (Synthroid) 50 mcg DAILY@06 PO Last administered on 12/06/18 06:29; Admin Dose 50 MCG; Start 12/05/18 at 06:00 Melatonin (Melatonin) 3 mg HS PO Last administered on 12/04/18 21:17; Admin Dose 3 MG; Start 12/04/18 at 21:00 Insulin Glargine (Lantus) 12 units DAILY@2000 SC Last administered on 12/05/18 21:43; Admin Dose 12 UNITS; Start 12/05/18 at 20:00 Assessment/Plan Additional Assessment/Plan Rehab- Critical Illness Myopathy ;Pulmonary debility status post acute hypoxemic and hypercapnic respiratory failure. Continue rehab activities COPD.MAINTAIN SATS >91%, ON PRENISONE Coronary artery disease. Carotid stenosis. Hypothyroidism. Chronic low back pain. Chronic kidney disease. CHF. Depression. Diabetes mellitus. Afib CARDIAC PRECAUTIONS ON XARELTO UTI YEAST START DIFLUCAN REPEAT URINE CX SAMUEL HENLEY MD Dec 06, 2018 08:21
[2018-12-06] MEDS: ALBUTEROL/IPRATROPIUM (NEB) 3 ML AMP HHN SCH ×4 (08:59→20:40)
[2018-12-06] MEDS: ACETYLCYSTEINE 20% 4 ML VIAL NEB SCH (08:59)
[2018-12-06] MEDS: SODIUM CHLORIDE 1 GM TAB PO SCH (09:00)
[2018-12-06] MEDS: PRIMIDONE 50 MG TAB PO SCH ×3 (09:00→22:48)
[2018-12-06] MEDS: DOCUSATE SODIUM 100 MG CAP PO SCH ×2 (09:35→20:28)
[2018-12-06] MEDS: LACTULOSE 30ML CUP PO SCH (09:35)
[2018-12-06] MEDS: ACETYLCYSTEINE 600 MG CAP PO SCH (09:36)
[2018-12-06] MEDS: DILTIAZEM (CD) 180 MG CAP PO SCH ×2 (09:36→20:29)
[2018-12-06] MEDS: METOPROLOL 25 MG TAB PO SCH ×2 (09:36→20:30)
[2018-12-06] MEDS: CHOLECALCIFEROL 1,000 UNIT TAB PO SCH (09:37)
[2018-12-06] MEDS: GUAIFENESIN LA 600 MG TABSR PO SCH ×2 (09:38→20:28)
[2018-12-06] MEDS: ROFLUMILAST 500 MCG TABLET PO SCH (09:38)
[2018-12-06] MEDS: predniSONE 20 MG TAB PO SCH (09:39)
[2018-12-06] MEDS: CHOLECALCIFEROL 2,000 UNIT CAP PO SCH (09:39)
[2018-12-06] MEDS: DULOXETINE 20 MG CAP DR PO SCH ×2 (09:39→20:28)
[2018-12-06] MEDS: SACUBITRIL/VALSARTAN (24mg-26mg) TABLET PO SCH ×2 (09:39→20:27)
[2018-12-06] MEDS: SPIRONOLACTONE 50 MG TAB PO SCH (09:39)
[2018-12-06] MEDS: MICONAZOLE 2% 30 GM CR TOP SCH ×2 (09:41→21:52)
--- NOTE | 2018-12-06 11:57 | CONS ---
Assessment/Plan Cardiology NYHA: II Heart Failure Type: Acute Heart Failure Type: Diastolic Assessment/Plan Hospital Course (Demo Recall) COPD exacerbation Acute decompensated diastolic congestive heart failure Atrial fibrillation, on anticoagulation Recent pneumonia Hypertension Dyslipidemia Preserved ejection fraction Possible conjunctival hemorrhage -Lung examination has improved, patient was also given 1 dose of IV Lasix yesterday. Would start maintenance diuretics and continue his renal function blood pressure permits -Patient with possible conjunctival hemorrhage with erythema noted. She does admit to coughing rigorously. Patient is on anticoagulation. I did discuss with nursing staff, if any worsening or change in vision, would stop anticoagulation and recommend ophthalmology evaluation -Continue Cardizem and metoprolol for heart rate control and titrate based on heart rate and blood pressure -Continue digoxin as tolerated Consultation Date/Type/Reason Admit Date/Time Dec 02, 2018 at 22:56 Initial Consult Date Type of Consult Cardiology Date/Time of Note DATE: 12/06/18 TIME: 11:53 24 HR Interval Summary Free Text/Dictation Shortness of breath is slightly better today. Denies palpitations or chest pain. Denies change in vision Exam/Review of Systems Vital Signs Vitals Vital Signs Date Temp Pulse Resp B/P (MAP) Pulse Ox O2 O2 Flow FiO2 Time Delivery Rate 12/06/18 59 18 96 Nasal 2.0 09:09 Cannula 12/06/18 97.5 126/58 07:30 (80) Intake and Output 12/05/18 12/05/18 12/06/18 1515:00 23:00 07:00 IntakeIntake Total 1200 ml OutputOutput Total 600 ml 150 ml BalanceBalance 600 ml -150 ml Exam Constitutional: alert, oriented (Coughing at times, no apparent distress) Respiratory: other (Rhonchorous breath sounds with end expiratory wheezing) Cardiovascular: irregular rhythm, other (S1-S2 heard) Gastrointestinal: soft, non-tender, bowel sounds Extremities: edema Labs Result Diagram: 12/06/18 0659 12/06/18 0659 Results 24hrs Laboratory Tests Test 12/05/18 12:21 12/05/18 12:44 12/05/18 18:07 12/05/18 20:39 Bedside Glucose 96 115 113 179 Test 12/06/18 06:59 12/06/18 07:53 12/06/18 08:21 12/06/18 08:31 White Blood Count 11.5 #H Red Blood Count 3.92 L Hemoglobin 10.5 L Hematocrit 32.8 L Mean Corpuscular 83.7 Volume Mean Corpuscular 26.8 L Hemoglobin Mean Corpuscular 32.0 Hemoglobin Concent Red Cell 25.4 H Distribution Width Platelet Count 134 L Mean Platelet Volume 9.1 Immature 8.200 H Granulocytes % Neutrophils % Lymphocytes % Monocytes % Eosinophils % Basophils % Nucleated Red Blood 0.0 Cells % Immature 0.950 H Granulocytes # Neutrophils # Lymphocytes # Monocytes # Eosinophils # Basophils # Nucleated Red Blood Cells # Sodium Level 136 Potassium Level 5.2 H Chloride Level 101 Carbon Dioxide Level 32 H Anion Gap 3 L Blood Urea Nitrogen 31 H Creatinine 0.79 Est Glomerular Filtrat Rate mL/min Glucose Level 48 *L Calcium Level 8.5 Magnesium Level 2.3 Bedside Glucose 62 L 73 59 L Test 12/06/18 08:48 12/06/18 09:32 12/06/18 11:09 12/06/18 11:26 Bedside Glucose 45 *L 75 34 *L 138 Medications Medications Current Medications Acetaminophen (Tylenol Tab) 650 mg Q4H PRN PO PAIN Last administered on 12/03/18 23:14; Admin Dose 650 MG; Start 12/03/18 at 01:00 Acetylcysteine (Nac) 600 mg BID PO Last administered on 12/06/18 09:36; Admin Dose 600 MG; Start 12/03/18 at 09:00 Acetylcysteine (Mucomyst) 2 ml Q12H RESP THERAPY NEB Last administered on 12/06/18 08:59; Admin Dose 2 ML; Start 12/03/18 at 01:00 Al Hydrox/Mg Hydrox/Simethicone (Mag-Al Plus) 15 ml Q6H PRN PO GASTROINTESTINAL UPSET; Start 12/03/18 at 01:00 Albuterol/ Ipratropium (Duoneb) 3 ml Q2H RESP THERAPY PRN HHN SHORTNESS OF BREATH Last administered on 12/03/18 03:35; Admin Dose 3 ML; Start 12/03/18 at 01:00 Albuterol/ Ipratropium (Duoneb) 3 ml Q4HWA RESP THERAPY HHN Last administered on 12/06/18 08:59; Admin Dose 3 ML; Start 12/03/18 at 09:00 Alprazolam (Xanax) 0.5 mg Q8H PRN PO ANXIETY Last administered on 12/05/18 22:01; Admin Dose 0.5 MG; Start 12/03/18 at 01:00 Eye Lubricant (Artificial Tears Oph) 2 drop Q8 BOTH EYES Last administered on 12/06/18 06:29; Admin Dose 2 DROP; Start 12/03/18 at 06:00 Atorvastatin Calcium (Lipitor) 10 mg HS PO Last administered on 12/05/18 21:46; Admin Dose 10 MG; Start 12/03/18 at 21:00 Calcium Carbonate (Tums) 500 mg HS PO Last administered on 12/05/18 21:46; Admin Dose 500 MG; Start 12/03/18 at 21:00 Cholecalciferol (Vitamin D) 4,000 unit DAILY PO Last administered on 12/06/18 09:39; Admin Dose 4,000 UNIT; Start 12/03/18 at 09:00 Diltiazem HCl (Cardizem Cd) 180 mg BID PO Last administered on 12/06/18 09:36; Admin Dose 180 MG; Start 12/03/18 at 09:00 Diphenhydramine HCl (Benadryl) 50 mg Q8 PRN PO for itching; Start 12/03/18 at 01:00 Docusate Sodium (Colace) 100 mg BID PO Last administered on 12/06/18 09:35; Admin Dose 100 MG; Start 12/03/18 at 09:00 Donepezil HCl (Aricept) 10 mg 2100 PO Last administered on 12/05/18 21:46; Admin Dose 10 MG; Start 12/03/18 at 21:00 Duloxetine HCl (Cymbalta) 20 mg BID PO Last administered on 12/06/18 09:39; Admin Dose 20 MG; Start 12/03/18 at 09:00 Cholecalciferol (Vitamin D) 1,000 unit DAILY PO Last administered on 12/06/18 09:37; Admin Dose 1,000 UNIT; Start 12/03/18 at 09:00 Lactulose (Enulose) 20 gm DAILY PO Last administered on 12/06/18 09:35; Admin Dose 20 GM; Start 12/03/18 at 09:00 Metoclopramide HCl (Reglan) 5 mg Q6H PRN IV NAUSEA; Start 12/03/18 at 04:00 Metoprolol Tartrate (Lopressor) 25 mg BID PO Last administered on 12/06/18 09:36; Admin Dose 25 MG; Start 12/03/18 at 09:00 Miconazole Nitrate (Miconazole 2% Cr) 1 applic BID TOP Last administered on 12/06/18 09:41; Admin Dose 1 APPLIC; Start 12/03/18 at 09:00 Morphine Sulfate (morphine) 6 mg Q4H PRN PO SEVERE PAIN LEVEL 7-10 Last administered on 12/06/18 04:18; Admin Dose 6 MG; Start 12/03/18 at 04:00 Pantoprazole (Protonix Tab) 40 mg DAILY@06 PO Last administered on 12/06/18 06:29; Admin Dose 40 MG; Start 12/03/18 at 06:00 Phenol (Cepastat Lozenge) 1 lozenge Q1H PRN MT SORE THROAT; Start 12/03/18 at 04:00 Prednisone (Prednisone) 20 mg DAILY PO Last administered on 12/06/18 09:39; Admin Dose 20 MG; Start 12/05/18 at 09:00; Stop 12/09/18 at 09:01 Prednisone (Prednisone) 10 mg DAILY PO ; Start 12/10/18 at 09:00 Primidone (Mysoline) 100 mg TID PO Last administered on 12/05/18 21:46; Admin Dose 100 MG; Start 12/03/18 at 09:00 Rivaroxaban (Xarelto) 15 mg WITH DINNER PO Last administered on 12/05/18 18:08; Admin Dose 15 MG; Start 12/03/18 at 17:35 Diagnostic Test (Pha) (Accu-Chek) 1 ea 02 XX Last administered on 12/06/18 02:00; Admin Dose 1 EA; Start 12/04/18 at 02:00 Guaifenesin (Mucinex) 1,200 mg BID PO Last administered on 12/06/18 09:38; Admin Dose 1,200 MG; Start 12/03/18 at 09:00 Digoxin (Digoxin) 0.125 mg DAILY@13 PO Last administered on 12/05/18 13:10; Admin Dose 0.125 MG; Start 12/03/18 at 13:00 Roflumilast (Daliresp) 500 mcg DAILY PO Last administered on 12/06/18 09:38; Admin Dose 500 MCG; Start 12/03/18 at 09:00 Sacubitril/ Valsartan (Entresto 24 Mg-26 Mg) 1 tab BID PO Last administered on 12/06/18 09:39; Admin Dose 1 TAB; Start 12/03/18 at 09:00 Simethicone (Mylicon) 80 mg Q6H PRN PO DISTENSION/GAS/BLOATING Last administered on 12/04/18 09:52; Admin Dose 80 MG; Start 12/03/18 at 05:00 Sodium Chloride (Nacl) 2 gm MONWEDFRI PO Last administered on 12/04/18 09:43; Admin Dose 2 GM; Start 12/04/18 at 09:00 Spironolactone (Aldactone) 50 mg DAILY PO Last administered on 12/06/18 09:39; Admin Dose 50 MG; Start 12/03/18 at 09:00 Cyanocobalamin (Vitamin B12) 5,000 mcg Q48H PO Last administered on 12/05/18 11:15; Admin Dose 5,000 MCG; Start 12/03/18 at 09:00 Diagnostic Test (Pha) (Accu-Chek) 1 ea 02 XX Last administered on 12/06/18 02:00; Admin Dose 1 EA; Start 12/04/18 at 02:00 Insulin Aspart (Novolog Insulin Pen) NOVOLOG *MILD* ALGORITHM WITH MEALS BEDTIME SC Last administered on 12/04/18 21:11; Admin Dose 1 UNIT; Start 12/03/18 at 07:35 Miscellaneous Information 1 ea NOTE XX Last administered on 12/03/18 09:25; Admin Dose 1 EA; Start 12/03/18 at 08:00 Glucose (Glutose) 15 gm Q15M PRN PO DECREASED GLUCOSE Last administered on 11/22 09:18; Admin Dose 15 GM; Start 12/03/18 at 08:00 Glucose (Glutose) 22.5 gm Q15M PRN PO DECREASED GLUCOSE Last administered on 12/06/18 08:52; Admin Dose 22.5 GM; Start 12/03/18 at 08:00 Dextrose (D50w Syringe) 25 ml Q15M PRN IV DECREASED GLUCOSE; Start 12/03/18 at 08:00 Dextrose (D50w Syringe) 50 ml Q15M PRN IV DECREASED GLUCOSE Last administered on 12/06/18at 11:18; Admin Dose 50 ML; Start 12/03/18 at 08:00 Glucagon (Glucagen) 1 mg Q15M PRN IM DECREASED GLUCOSE; Start 12/03/18 at 08:00 Glucose (Glutose) 15 gm Q15M PRN BUCCAL DECREASED GLUCOSE Last administered on 12/05/18at 09:40; Admin Dose 15 GM; Start 12/03/18 at 08:00 Miscellaneous Information (Pending Santyl Order For Wound Care) This patient sewell... PRN PRN XX WOUND CARE; Start 12/04/18 at 03:30 Levothyroxine Sodium (Synthroid) 50 mcg DAILY@06 PO Last administered on 12/06/18at 06:29; Admin Dose 50 MCG; Start 12/05/18 at 06:00 Melatonin (Melatonin) 3 mg HS PO Last administered on 12/04/18at 21:17; Admin Dose 3 MG; Start 12/04/18 at 21:00 Insulin Glargine (Lantus) 12 units DAILY@2000 SC Last administered on 12/05/18at 21:43; Admin Dose 12 UNITS; Start 12/05/18 at 20:00 Bird Herrera DO Dec 06, 2018 11:57
[2018-12-06] MEDS: FUROSEMIDE 20 MG TAB PO SCH (12:34)
[2018-12-06] MEDS: MUPIROCIN 2% 22 GM OINT TOP SCH ×2 (12:35→21:51)
[2018-12-06] MEDS: DIGOXIN 0.125 MG TAB PO SCH (12:35)
--- NOTE | 2018-12-06 16:20 | CONS ---
DATE OF ADMISSION: 12/02/2018 DATE OF CONSULTATION: TYPE OF CONSULTATION: Pulmonary. REASON FOR CONSULTATION: Shortness of breath and wheezing. Thank you, Dr. Herrera, for this consultation. HISTORY OF PRESENT ILLNESS: This is a pleasant 78-year-old lady with a prior history of COPD, conges tive cardiac failure, admitted to acute rehab unit following transfer from [facility] where she was admitted for acute hypercapnic respiratory failure. In addition, she was treated for pseudom onal infection, underwent therapeutic bronchoscopy and then transferred from [place] to acute rehab [facility] continuing care. PAST MEDICAL HISTORY: Includes: 1. COPD. 2. 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 3. Paroxysmal atrial fibrillation. 4. Diabetes mellitus. MEDICATIONS: Per chart. ALLERGIES: 1. PENICILLIN. 2. KEV INHIBITORS. 3. SULFA. 4. LEVAQUIN. 5. LISINOPRIL. 6. TRIMETHOPRIM. 7. BUDESONIDE. 8. AMITRIPTYLINE. SOCIAL HISTORY: She is a nonsmoker. No alcohol, no history of drug use. FAMILY HISTORY: Noncontributory. SYSTEMS REVIEW: A 12-point review of systems was negative other than mentioned above. PHYSICAL EXAMINATION: GENERAL: Elderly-appearing lady, appears comfortable at rest, in no acute distress. VITAL SIGNS: Currently afebrile, pulse is 60, blood pressure 126/58, O2 saturation 96% on 2 liters n [place] cannula. NECK: Supple. No JVD or lymphadenopathy. CARDIAC: S1, S2. No added sounds or murmurs. HEENT: She has audible rhonchi and diffuse bilateral expiratory wheezing. ABDOMEN: Soft, nontender. No guarding or rebound. EXTREMITIES: No cyanosis, clubbing. A 1+ edema. NEUROLOGIC: Generalized weakness. LABORATORY DATA: White count 11.5, hemoglobin 10.5, platelets 134. BUN 31, creatinine 0.79. DIAGNOSTIC DATA: Chest x-ray was reviewed, showed possible bibasilar atelectasis. IMPRESSION AND PLAN: 1. Status post acute hypoxemic and hypercapnic respiratory failure. 2. Likely ongoing significant bronchospasm. 3. Currently euvolemic but with history of diastolic heart failure. The patient will require: 1. Continue bronchodilator treatment. 2. Glycemic management. 3. IV steroids. 4. DVT and GI prophylaxis. Dictated By: HARLAN ARCHER/NTS Conf#: [id number] DID#: [id number] CC: KINGSLEY HENLEY MD; LISSETTE ESPOSITO MD;*End*
[2018-12-06] MEDS: METHYLPREDNISOLONE 40 MG INJ IV SCH ×2 (16:30→22:48)
[2018-12-06] MEDS: RIVAROXABAN 15 MG TABLET PO SCH (17:50)
[2018-12-06] MEDS: AL HYDROX/MG HYDROX/SIMETH 30 ML CUP PO PRN (18:25)
[2018-12-06 20:00] VITALS: BP 116/67; PULSE 98; RESP 18
--- NOTE | 2018-12-06 20:02 | PN ---
Date/Time of Note Date/Time of Note DATE: 12/06/18 TIME: 19:56 Assessment/Plan VTE Prophylaxis Risk score (from Ns)>0 risk: 6 SCD applied (from [facility] [place] No SCD contraindicated: patient refusal Pharmacological prophylaxis: rivaroxaban Lines/Catheters IV Catheter Type (from [facility]): Peripheral IV Urinary Cath still in place: No Assessment/Plan Hospital Course Patient had episode of hypoglycemia in the morning in spite of decreased dose of Lantus yesterday, Lantus decreased to 6 units, continue to monitor Accu-Chek q. before meals and at bedtime. Assessment/Plan -Status post acute hypoxemic and hypercapnic respiratory failure secondary to C OPD exacerbation. Dr. Zapata is following in pulmonology consultation. -COPD -Decompensated diastolic congestive heart failure, continue Lasix, monitor electrolytes. -Chronic atrial fibrillation. Continue digoxin, Cardizem and Xarelto. -Diabetes mellitus type 2. Continue Lantus and NovoLog. -Anemia of chronic disease -Hypothyroidism, started on levothyroxine Further recommendations based on clinical course. Plan of care discussed with Dr. Olivares. Result Diagram: 12/06/18 0659 12/06/18 0659 Results 24hrs Laboratory Tests Test 12/05/18 20:39 12/06/18 06:59 12/06/18 07:53 12/06/18 08:21 Bedside Glucose 179 62 L 73 White Blood Count 11.5 #H Red Blood Count 3.92 L Hemoglobin 10.5 L Hematocrit 32.8 L Mean Corpuscular 83.7 Volume Mean Corpuscular 26.8 L Hemoglobin Mean Corpuscular 32.0 Hemoglobin Concent Red Cell 25.4 H Distribution Width Platelet Count 134 L Mean Platelet Volume 9.1 Immature 8.200 H Granulocytes % Neutrophils % Lymphocytes % Monocytes % Eosinophils % Basophils % Nucleated Red Blood 0.0 Cells % Immature 0.950 H Granulocytes # Neutrophils # Lymphocytes # Monocytes # Eosinophils # Basophils # Nucleated Red Blood Cells # Sodium Level 136 Potassium Level 5.2 H Chloride Level 101 Carbon Dioxide Level 32 H Anion Gap 3 L Blood Urea Nitrogen 31 H Creatinine 0.79 Est Glomerular Filtrat Rate mL/min Glucose Level 48 *L Calcium Level 8.5 Magnesium Level 2.3 Test 12/06/18 08:31 12/06/18 08:48 12/06/18 09:32 12/06/18 11:09 Bedside Glucose 59 L 45 *L 75 34 *L Test 12/06/18 11:26 12/06/18 11:47 12/06/18 17:33 12/06/18 17:46 Bedside Glucose 138 139 100 Urine Color YELLOW Urine Clarity CLEAR Urine pH 5.0 Urine Specific 1.011 [place] Urine Ketones NEGATIVE Urine Nitrite NEGATIVE Urine Bilirubin NEGATIVE Urine Urobilinogen NEGATIVE Urine Leukocyte NEGATIVE Esterase Urine Hemoglobin NEGATIVE Urine Glucose NEGATIVE Urine Total Protein NEGATIVE Exam/Review of Systems Exam Vitals Vital Signs Date Temp Pulse Resp B/P (MAP) Pulse Ox O2 O2 Flow FiO2 Time Delivery Rate 12/06/18 99 2.0 16:34 12/06/18 73 18 Nasal 16:34 Cannula 12/06/18 97.5 126/58 07:30 (80) Intake and Output 12/05/18 12/05/18 12/06/18 1515:00 23:00 07:00 IntakeIntake Total 1200 ml OutputOutput Total 600 ml 150 ml BalanceBalance 600 ml -150 ml Exam Constitutional: alert, oriented Respiratory: diminished breath sounds Cardiovascular: irregular rhythm Gastrointestinal: soft, non-tender Extremities: normal pulses Neurological: nl mental status Results Results 24hrs Laboratory Tests Test 12/05/18 20:39 12/06/18 06:59 12/06/18 07:53 12/06/18 08:21 Bedside Glucose 179 62 L 73 White Blood Count 11.5 #H Red Blood Count 3.92 L Hemoglobin 10.5 L Hematocrit 32.8 L Mean Corpuscular 83.7 Volume Mean Corpuscular 26.8 L Hemoglobin Mean Corpuscular 32.0 Hemoglobin Concent Red Cell 25.4 H Distribution Width Platelet Count 134 L Mean Platelet Volume 9.1 Immature 8.200 H Granulocytes % Neutrophils % Lymphocytes % Monocytes % Eosinophils % Basophils % Nucleated Red Blood 0.0 Cells % Immature 0.950 H Granulocytes # Neutrophils # Lymphocytes # Monocytes # Eosinophils # Basophils # Nucleated Red Blood Cells # Sodium Level 136 Potassium Level 5.2 H Chloride Level 101 Carbon Dioxide Level 32 H Anion Gap 3 L Blood Urea Nitrogen 31 H Creatinine 0.79 Est Glomerular Filtrat Rate mL/min Glucose Level 48 *L Calcium Level 8.5 Magnesium Level 2.3 Test 12/06/18 08:31 12/06/18 08:48 12/06/18 09:32 12/06/18 11:09 Bedside Glucose 59 L 45 *L 75 34 *L Test 12/06/18 11:26 12/06/18 11:47 12/06/18 17:33 12/06/18 17:46 Bedside Glucose 138 139 100 Urine Color YELLOW Urine Clarity CLEAR Urine pH 5.0 Urine Specific 1.011 [place] Urine Ketones NEGATIVE Urine Nitrite NEGATIVE Urine Bilirubin NEGATIVE Urine Urobilinogen NEGATIVE Urine Leukocyte NEGATIVE Esterase Urine Hemoglobin NEGATIVE Urine Glucose NEGATIVE Urine Total Protein NEGATIVE Medications Medication Current Medications Acetaminophen (Tylenol Tab) 650 mg Q4H PRN PO PAIN Last administered on 12/03/18 23:14; Admin Dose 650 MG; Start 12/03/18 at 01:00 Al Hydrox/Mg Hydrox/Simethicone (Mag-Al Plus) 15 ml Q6H PRN PO GASTROINTESTINAL UPSET Last administered on 12/06/18 18:25; Admin Dose 15 ML; Start 12/03/18 at 01:00 Albuterol/ Ipratropium (Duoneb) 3 ml Q2H RESP THERAPY PRN HHN SHORTNESS OF BREATH Last administered on 12/03/18 03:35; Admin Dose 3 ML; Start 12/03/18 at 01:00 Albuterol/ Ipratropium (Duoneb) 3 ml Q4HWA RESP THERAPY HHN Last administered on 12/06/18 16:34; Admin Dose 3 ML; Start 12/03/18 at 09:00 Alprazolam (Xanax) 0.5 mg Q8H PRN PO ANXIETY Last administered on 12/05/18 22:01; Admin Dose 0.5 MG; Start 12/03/18 at 01:00 Eye Lubricant (Artificial Tears Oph) 2 drop Q8 BOTH EYES Last administered on 12/06/18 12:37; Admin Dose 2 DROP; Start 12/03/18 at 06:00 Atorvastatin Calcium (Lipitor) 10 mg HS PO Last administered on 12/05/18 21:46; Admin Dose 10 MG; Start 12/03/18 at 21:00 Calcium Carbonate (Tums) 500 mg HS PO Last administered on 12/05/18 21:46; Admin Dose 500 MG; Start 12/03/18 at 21:00 Cholecalciferol (Vitamin D) 4,000 unit DAILY PO Last administered on 12/06/18 09:39; Admin Dose 4,000 UNIT; Start 12/03/18 at 09:00 Diltiazem HCl (Cardizem Cd) 180 mg BID PO Last administered on 12/06/18 09:36; Admin Dose 180 MG; Start 12/03/18 at 09:00 Diphenhydramine HCl (Benadryl) 50 mg Q8 PRN PO for itching; Start 12/03/18 at 01:00 Docusate Sodium (Colace) 100 mg BID PO Last administered on 12/06/18 09:35; Admin Dose 100 MG; Start 12/03/18 at 09:00 Donepezil HCl (Aricept) 10 mg 2100 PO Last administered on 12/05/18 21:46; Admin Dose 10 MG; Start 12/03/18 at 21:00 Duloxetine HCl (Cymbalta) 20 mg BID PO Last administered on 12/06/18 09:39; Admin Dose 20 MG; Start 12/03/18 at 09:00 Cholecalciferol (Vitamin D) 1,000 unit DAILY PO Last administered on 12/06/18 09:37; Admin Dose 1,000 UNIT; Start 12/03/18 at 09:00 Lactulose (Enulose) 20 gm DAILY PO Last administered on 12/06/18 09:35; Admin Dose 20 GM; Start 12/03/18 at 09:00 Metoclopramide HCl (Reglan) 5 mg Q6H PRN IV NAUSEA; Start 12/03/18 at 04:00 Metoprolol Tartrate (Lopressor) 25 mg BID PO Last administered on 12/06/18 09:36; Admin Dose 25 MG; Start 12/03/18 at 09:00 Miconazole Nitrate (Miconazole 2% Cr) 1 applic BID TOP Last administered on 12/06/18 09:41; Admin Dose 1 APPLIC; Start 12/03/18 at 09:00 Morphine Sulfate (morphine) 6 mg Q4H PRN PO SEVERE PAIN LEVEL 7-10 Last administered on 12/06/18 04:18; Admin Dose 6 MG; Start 12/03/18 at 04:00 Pantoprazole (Protonix Tab) 40 mg DAILY@06 PO Last administered on 12/06/18 06:29; Admin Dose 40 MG; Start 12/03/18 at 06:00 Phenol (Cepastat Lozenge) 1 lozenge Q1H PRN MT SORE THROAT; Start 12/03/18 at 04:00 Primidone (Mysoline) 100 mg TID PO Last administered on 12/05/18 21:46; Admin Dose 100 MG; Start 12/03/18 at 09:00 Rivaroxaban (Xarelto) 15 mg WITH DINNER PO Last administered on 12/06/18 17:50; Admin Dose 15 MG; Start 12/03/18 at 17:35 Diagnostic Test (Pha) (Accu-Chek) 1 ea 02 XX Last administered on 12/06/18 02:00; Admin Dose 1 EA; Start 12/04/18 at 02:00 Guaifenesin (Mucinex) 1,200 mg BID PO Last administered on 12/06/18 09:38; Admin Dose 1,200 MG; Start 12/03/18 at 09:00 Digoxin (Digoxin) 0.125 mg DAILY@13 PO Last administered on 12/06/18 12:35; Admin Dose 0.125 MG; Start 12/03/18 at 13:00 Roflumilast (Daliresp) 500 mcg DAILY PO Last administered on 12/06/18 09:38; Admin Dose 500 MCG; Start 12/03/18 at 09:00 Sacubitril/ Valsartan (Entresto 24 Mg-26 Mg) 1 tab BID PO Last administered on 12/06/18 09:39; Admin Dose 1 TAB; Start 12/03/18 at 09:00 Simethicone (Mylicon) 80 mg Q6H PRN PO DISTENSION/GAS/BLOATING Last administ ered on 12/06/18 18:25; Admin Dose 80 MG; Start 12/03/18 at 05:00 Sodium Chloride (Nacl) 2 gm MONWEDFRI PO Last administered on 12/04/18 09:43; Admin Dose 2 GM; Start 12/04/18 at 09:00 Cyanocobalamin (Vitamin B12) 5,000 mcg Q48H PO Last administered on 12/05/18 11:15; Admin Dose 5,000 MCG; Start 12/03/18 at 09:00 Diagnostic Test (Pha) (Accu-Chek) 1 ea 02 XX Last administered on 12/06/18 02: 00; Admin Dose 1 EA; Start 12/04/18 at 02:00 Insulin Aspart (Novolog Insulin Pen) NOVOLOG *MILD* ALGORITHM WITH MEALS BEDTIME SC Last administered on 12/04/18 21:11; Admin Dose 1 UNIT; Start 12/03/18 at 07:35 Miscellaneous Information 1 ea NOTE XX Last administered on 12/03/18 09:25; Admin Dose 1 EA; Start 12/03/18 at 08:00 Glucose (Glutose) 15 gm Q15M PRN PO DECREASED GLUCOSE Last administered on 12/03/18 09:18; Admin Dose 15 GM; Start 12/03/18 at 08:00 Glucose (Glutose) 22.5 gm Q15M PRN PO DECREASED GLUCOSE Last administered on 12/06/18 08:52; Admin Dose 22.5 GM; Start 12/03/18 at 08:00 Dextrose (D50w Syringe) 25 ml Q15M PRN IV DECREASED GLUCOSE; Start 12/03/18 at 08:00 Dextrose (D50w Syringe) 50 ml Q15M PRN IV DECREASED GLUCOSE Last administered on 12/06/18 11:18; Admin Dose 50 ML; Start 12/03/18 at 08:00 Glucagon (Glucagen) 1 mg Q15M PRN IM DECREASED GLUCOSE; Start 12/03/18 at 08:00 Glucose (Glutose) 15 gm Q15M PRN BUCCAL DECREASED GLUCOSE Last administered on 12/05/18 09:40; Admin Dose 15 GM; Start 12/03/18 at 08:00 Miscellaneous Information (Pending [facility] Order For Wound Care) This patient sewell... PRN PRN XX WOUND CARE; Start 12/04/18 at 03:30 Levothyroxine Sodium (Synthroid) 50 mcg DAILY@06 PO Last administered on 12/06/18 06:29; Admin Dose 50 MCG; Start 12/05/18 at 06:00 Melatonin (Melatonin) 3 mg HS PO Last administered on 12/04/18 21:17; Admin Dose 3 MG; Start 12/04/18 at 21:00 Mupirocin (Bactroban) 1 applic BID TOP Last administered on 12/06/18 12:35; Admin Dose 1 APPLIC; Start 3/15/19 at 13:00; Stop 12/13/18 at 12:59 Furosemide (Lasix) 20 mg DAILY@0600 PO Last administered on 12/06/18at 12:34; Admin Dose 20 MG; Start 12/06/18 at 12:00 Insulin Glargine (Lantus) 6 units DAILY@2000 SC ; Start 12/06/18 at 20:00 Methylprednisolone Sodium Succinate (Solu-Medrol) 40 mg Q8 IV ; Start 12/06/18 at 16:30 AMEYA MAN Dec 06, 2018 20:02
[2018-12-06] MEDS: CALCIUM CARBONATE 500 MG CHEW TAB PO SCH (20:27)
[2018-12-06] MEDS: DONEPEZIL 10 MG TAB PO SCH (20:28)
[2018-12-06] MEDS: MELATONIN 3 MG TABLET PO SCH (20:28)
[2018-12-06] MEDS: ATORVASTATIN 10 MG TAB PO SCH (20:29)
[2018-12-06] MEDS: INSULIN GLARGINE [LANTus] (100 UNITS/ML) SYG SC SCH (20:42)
[2018-12-06] MEDS: ALPRAZOLAM 0.25 MG TAB PO PRN (22:37)
[2018-12-07] MEDS: ACCU-CHEK XX SCH ×2 (01:36→02:00)
[2018-12-07 02:00] VITALS: BP 122/63; PULSE 87; RESP 18
[2018-12-07] MEDS: ARTIFICIAL TEARS 15 ML OPH BOTH EYES SCH ×3 (06:34→22:19)
[2018-12-07] MEDS: METHYLPREDNISOLONE 40 MG INJ IV SCH ×3 (06:34→22:19)
[2018-12-07] MEDS: LEVOTHYROXINE 50 MCG TAB PO SCH (06:35)
[2018-12-07] MEDS: PANTOPRAZOLE (EC) 40 MG TAB PO SCH (06:35)
[2018-12-07] MEDS: FUROSEMIDE 20 MG TAB PO SCH (06:35)
[2018-12-07 07:00] VITALS: BP 125/52; PULSE 82; RESP 18
--- NOTE | 2018-12-07 07:08 | PN ---
Date/Time of Note Date/Time of Note DATE: 12/07/18 TIME: 07:06 Subjective AWAKE ALERT, - SOB, PO GOOD Objective Vital Signs Date Temp Pulse Resp B/P (MAP) Pulse Ox O2 O2 Flow FiO2 Time Delivery Rate 12/07/18 2.0 05:52 12/07/18 98.2 87 18 122/63 99 Nasal 02:00 (82) Cannula Intake and Output 12/06/18 12/06/18 12/07/18 1515:00 23:00 07:00 IntakeIntake Total 200 ml 860 ml 550 ml OutputOutput Total 50 ml BalanceBalance 200 ml 810 ml 550 ml Exam LUNGS DECREASED BASES COR DISTANT MOTOR FAIR CLOF XT AND GAIT MOD A FWW Results/Medications Result Diagram: 12/07/18 0603 12/06/18 0659 Results 24 hrs Laboratory Tests Test 12/06/18 07:53 12/06/18 08:21 12/06/18 08:31 12/06/18 08:48 Bedside Glucose 62 L 73 59 L 45 *L Test 12/06/18 09:32 12/06/18 11:09 12/06/18 11:26 12/06/18 11:47 Bedside Glucose 75 34 *L 138 139 Test 12/06/18 17:33 12/06/18 17:46 12/06/18 20:26 12/07/18 06:03 Urine Color YELLOW Urine Clarity CLEAR Urine pH 5.0 Urine Specific 1.011 [place] Urine Ketones NEGATIVE Urine Nitrite NEGATIVE Urine Bilirubin NEGATIVE Urine Urobilinogen NEGATIVE Urine Leukocyte NEGATIVE Esterase Urine Hemoglobin NEGATIVE Urine Glucose NEGATIVE Urine Total Protein NEGATIVE Bedside Glucose 100 179 White Blood Count 10.9 H Red Blood Count 3.81 L Hemoglobin 10.3 L Hematocrit 31.8 L Mean Corpuscular 83.5 Volume Mean Corpuscular 27.0 L Hemoglobin Mean Corpuscular 32.4 Hemoglobin Concent Red Cell 25.5 H Distribution Width Platelet Count 143 Mean Platelet Volume 9.6 Immature 10.100 H Granulocytes % Neutrophils % Lymphocytes % Monocytes % Eosinophils % Basophils % Nucleated Red Blood 0.0 Cells % Immature 1.100 H Granulocytes # Neutrophils # Lymphocytes # Monocytes # Eosinophils # Basophils # Nucleated Red Blood Cells # Medications Current Medications Acetaminophen (Tylenol Tab) 650 mg Q4H PRN PO PAIN Last administered on 12/03/18at 23:14; Admin Dose 650 MG; Start 12/03/18 at 01:00 Al Hydrox/Mg Hydrox/Simethicone (Mag-Al Plus) 15 ml Q6H PRN PO GASTROINTESTINAL UPSET Last administered on 12/06/18 18:25; Admin Dose 15 ML; Start 12/03/18 at 01:00 Albuterol/ Ipratropium (Duoneb) 3 ml Q2H RESP THERAPY PRN HHN SHORTNESS OF BREATH Last administered on 12/03/18 03:35; Admin Dose 3 ML; Start 12/03/18 at 01:00 Albuterol/ Ipratropium (Duoneb) 3 ml Q4HWA RESP THERAPY HHN Last administered on 12/06/18 20:40; Admin Dose 3 ML; Start 12/03/18 at 09:00 Alprazolam (Xanax) 0.5 mg Q8H PRN PO ANXIETY Last administered on 12/06/18 22:37; Admin Dose 0.5 MG; Start 12/03/18 at 01:00 Eye Lubricant (Artificial Tears Oph) 2 drop Q8 BOTH EYES Last administered on 12/07/18 06:34; Admin Dose 2 DROP; Start 12/03/18 at 06:00 Atorvastatin Calcium (Lipitor) 10 mg HS PO Last administered on 12/06/18 20:29; Admin Dose 10 MG; Start 12/03/18 at 21:00 Calcium Carbonate (Tums) 500 mg HS PO Last administered on 12/06/18 20:27; Admin Dose 500 MG; Start 12/03/18 at 21:00 Cholecalciferol (Vitamin D) 4,000 unit DAILY PO Last administered on 12/06/18 09:39; Admin Dose 4,000 UNIT; Start 12/03/18 at 09:00 Diltiazem HCl (Cardizem Cd) 180 mg BID PO Last administered on 12/06/18 20:29; Admin Dose 180 MG; Start 12/03/18 at 09:00 Diphenhydramine HCl (Benadryl) 50 mg Q8 PRN PO for itching; Start 12/03/18 at 01:00 Docusate Sodium (Colace) 100 mg BID PO Last administered on 12/06/18 20:28; Admin Dose 100 MG; Start 12/03/18 at 09:00 Donepezil HCl (Aricept) 10 mg 2100 PO Last administered on 12/06/18 20:28; Admin Dose 10 MG; Start 12/03/18 at 21:00 Duloxetine HCl (Cymbalta) 20 mg BID PO Last administered on 12/06/18 20:28; Admin Dose 20 MG; Start 12/03/18 at 09:00 Cholecalciferol (Vitamin D) 1,000 unit DAILY PO Last administered on 12/06/18 09:37; Admin Dose 1,000 UNIT; Start 12/03/18 at 09:00 Lactulose (Enulose) 20 gm DAILY PO Last administered on 12/06/18 09:35; Admin Dose 20 GM; Start 12/03/18 at 09:00 Metoclopramide HCl (Reglan) 5 mg Q6H PRN IV NAUSEA; Start 12/03/18 at 04:00 Metoprolol Tartrate (Lopressor) 25 mg BID PO Last administered on 12/06/18 20:30; Admin Dose 25 MG; Start 12/03/18 at 09:00 Miconazole Nitrate (Miconazole 2% Cr) 1 applic BID TOP Last administered on 12/06/18 21:52; Admin Dose 1 APPLIC; Start 12/03/18 at 09:00 Morphine Sulfate (morphine) 6 mg Q4H PRN PO SEVERE PAIN LEVEL 7-10 Last administered on 12/06/18 20:27; Admin Dose 6 MG; Start 12/03/18 at 04:00 Pantoprazole (Protonix Tab) 40 mg DAILY@06 PO Last administered on 12/07/18 06:35; Admin Dose 40 MG; Start 12/03/18 at 06:00 Phenol (Cepastat Lozenge) 1 lozenge Q1H PRN MT SORE THROAT; Start 12/03/18 at 04:00 Primidone (Mysoline) 100 mg TID PO Last administered on 12/06/18 22:48; Admin Dose 100 MG; Start 12/03/18 at 09:00 Rivaroxaban (Xarelto) 15 mg WITH DINNER PO Last administered on 12/06/18 17:50; Admin Dose 15 MG; Start 12/03/18 at 17:35 Diagnostic Test (Pha) (Accu-Chek) 1 ea 02 XX Last administered on 12/06/18 02:00; Admin Dose 1 EA; Start 12/04/18 at 02:00 Guaifenesin (Mucinex) 1,200 mg BID PO Last administered on 12/06/18 20:28; Admin Dose 1,200 MG; Start 12/03/18 at 09:00 Digoxin (Digoxin) 0.125 mg DAILY@13 PO Last administered on 12/06/18 12:35; Admin Dose 0.125 MG; Start 12/03/18 at 13:00 Roflumilast (Daliresp) 500 mcg DAILY PO Last administered on 12/06/18 09:38; Admin Dose 500 MCG; Start 12/03/18 at 09:00 Sacubitril/ Valsartan (Entresto 24 Mg-26 Mg) 1 tab BID PO Last administered on 12/06/18 20:27; Admin Dose 1 TAB; Start 12/03/18 at 09:00 Simethicone (Mylicon) 80 mg Q6H PRN PO DISTENSION/GAS/BLOATING Last administered on 12/06/18 18:25; Admin Dose 80 MG; Start 12/03/18 at 05:00 Sodium Chloride (Nacl) 2 gm MONWEDFRI PO Last administered on 12/04/18 09:43; Admin Dose 2 GM; Start 12/04/18 at 09:00 Cyanocobalamin (Vitamin B12) 5,000 mcg Q48H PO Last administered on 12/05/18 11:15; Admin Dose 5,000 MCG; Start 12/03/18 at 09:00 Diagnostic Test (Pha) (Accu-Chek) 1 ea 02 XX Last administered on 12/06/18 02:00; Admin Dose 1 EA; Start 12/04/18 at 02:00 Insulin Aspart (Novolog Insulin Pen) NOVOLOG *MILD* ALGORITHM WITH MEALS BEDTIME SC Last administered on 12/04/18 21:11; Admin Dose 1 UNIT; Start 12/03/18 at 07:35 Miscellaneous Information 1 ea NOTE XX Last administered on 12/03/18 09:25; Admin Dose 1 EA; Start 12/03/18 at 08:00 Glucose (Glutose) 15 gm Q15M PRN PO DECREASED GLUCOSE Last administered on 12/03/18 09:18; Admin Dose 15 GM; Start 12/03/18 at 08:00 Glucose (Glutose) 22.5 gm Q15M PRN PO DECREASED GLUCOSE Last administered on 12/06/18at 08:52; Admin Dose 22.5 GM; Start 12/03/18 at 08:00 Dextrose (D50w Syringe) 25 ml Q15M PRN IV DECREASED GLUCOSE; Start 12/03/18 at 08:00 Dextrose (D50w Syringe) 50 ml Q15M PRN IV DECREASED GLUCOSE Last administered on 12/06/18at 11:18; Admin Dose 50 ML; Start 12/03/18 at 08:00 Glucagon (Glucagen) 1 mg Q15M PRN IM DECREASED GLUCOSE; Start 12/03/18 at 08:00 Glucose (Glutose) 15 gm Q15M PRN BUCCAL DECREASED GLUCOSE Last administered on 12/05/18at 09:40; Admin Dose 15 GM; Start 12/03/18 at 08:00 Miscellaneous Information ([facility] This patient sewell... PRN PRN XX WOUND CARE; Start 12/04/18 at 03:30 Levothyroxine Sodium (Synthroid) 50 mcg DAILY@06 PO Last administered on 12/07/18 06:35; Admin Dose 50 MCG; Start 12/05/18 at 06:00 Melatonin (Melatonin) 3 mg HS PO Last administered on 12/06/18at 20:28; Admin Dose 3 MG; Start 12/04/18 at 21:00 Mupirocin (Bactroban) 1 applic BID TOP Last administered on 12/06/18at 21:51; Admin Dose 1 APPLIC; Start 12/06/18 at 13:00; Stop 12/13/18 at 12:59 Furosemide (Lasix) 20 mg DAILY@0600 PO Last administered on 12/07/18 06:35; Admin Dose 20 MG; Start 12/06/18 at 12:00 Insulin Glargine (Lantus) 6 units DAILY@2000 SC Last administered on 12/06/18at 20:42; Admin Dose 6 UNITS; Start 12/06/18 at 20:00 Methylprednisolone Sodium Succinate (Solu-Medrol) 40 mg Q8 IV Last administered on 12/07/18 06:34; Admin Dose 40 MG; Start 12/06/18 at 16:30 Assessment/Plan Additional Assessment/Plan Rehab- Critical Illness Myopathy ;Pulmonary debility status post acute hypoxemic and hypercapnic respiratory failure. Continue rehab activities COPD.MAINTAIN SATS >91%, ON PRENISONE Coronary artery disease. Carotid stenosis. Hypothyroidism. Chronic low back pain. Chronic kidney disease. CHF. Depression. Diabetes mellitus.LOW BLOOD SUGAR GLYCEMIC AGENTS ADJUSTED Afib CARDIAC PRECAUTIONS ON XARELTO UTI YEAST DIFLUCAN DCED PER SAMUEL COX MD Dec 07, 2018 07:08
[2018-12-07] MEDS: INSULIN ASPART [NOVOLOG] 3 ML PEN SC SCH ×4 (07:35→20:50)
[2018-12-07] MEDS: ALBUTEROL/IPRATROPIUM (NEB) 3 ML AMP HHN SCH ×4 (08:52→20:39)
[2018-12-07] MEDS: DILTIAZEM (CD) 180 MG CAP PO SCH ×2 (09:00→20:19)
[2018-12-07] MEDS: METOPROLOL 25 MG TAB PO SCH ×2 (09:00→20:19)
[2018-12-07] MEDS: LACTULOSE 30ML CUP PO SCH (09:00)
[2018-12-07] MEDS: ROFLUMILAST 500 MCG TABLET PO SCH (10:09)
[2018-12-07] MEDS: GUAIFENESIN LA 600 MG TABSR PO SCH ×2 (10:09→20:54)
[2018-12-07] MEDS: DOCUSATE SODIUM 100 MG CAP PO SCH ×2 (10:09→20:17)
[2018-12-07] MEDS: SACUBITRIL/VALSARTAN (24mg-26mg) TABLET PO SCH ×2 (10:10→20:19)
[2018-12-07] MEDS: DULOXETINE 20 MG CAP DR PO SCH ×2 (10:10→20:18)
[2018-12-07] MEDS: CHOLECALCIFEROL 2,000 UNIT CAP PO SCH (10:10)
[2018-12-07] MEDS: CHOLECALCIFEROL 1,000 UNIT TAB PO SCH (10:10)
[2018-12-07] MEDS: MUPIROCIN 2% 22 GM OINT TOP SCH ×2 (10:13→20:51)
[2018-12-07] MEDS: MICONAZOLE 2% 30 GM CR TOP SCH ×2 (10:14→20:51)
[2018-12-07] MEDS: PRIMIDONE 50 MG TAB PO SCH ×3 (10:19→20:20)
[2018-12-07] MEDS: CYANOCOBALAMIN 500 MCG TAB PO SCH (10:20)
--- NOTE | 2018-12-07 12:58 | PN ---
Date/Time of Note Date/Time of Note DATE: 12/07/18 TIME: 12:56 Assessment/Plan VTE Prophylaxis Risk score (from Nsg)>0 risk: 6 SCD applied (from Nsg): No Lines/Catheters IV Catheter Type (from Nrs): Saline Lock Urinary Cath still in place: No Assessment/Plan Assessment/Plan - Hyperkalemia- kayexalate 15 gm po x1; BMP am -Status post acute hypoxemic and hypercapnic respiratory failure secondary to COPD exacerbation. Dr. Zapata is following in pulmonology consultation. -COPD -Decompensated diastolic congestive heart failure, continue Lasix, monitor electrolytes. -Chronic atrial fibrillation. Continue digoxin, Cardizem and Xarelto. -Diabetes mellitus type 2. Continue Lantus and NovoLog. -Anemia of chronic disease -Hypothyroidism, started on levothyroxine Further recommendations based on clinical course. Plan of care discussed with Dr. Olivares. Result Diagram: 12/07/18 0603 12/07/18 0603 Results 24hrs Laboratory Tests Test 12/06/18 17:33 12/06/18 17:46 12/06/18 20:26 12/07/18 06:03 Urine Color YELLOW Urine Clarity CLEAR Urine pH 5.0 Urine Specific 1.011 [place] Urine Ketones NEGATIVE Urine Nitrite NEGATIVE Urine Bilirubin NEGATIVE Urine Urobilinogen NEGATIVE Urine Leukocyte NEGATIVE Esterase Urine Hemoglobin NEGATIVE Urine Glucose NEGATIVE Urine Total Protein NEGATIVE Bedside Glucose 100 179 White Blood Count 10.9 H Red Blood Count 3.81 L Hemoglobin 10.3 L Hematocrit 31.8 L Mean Corpuscular 83.5 Volume Mean Corpuscular 27.0 L Hemoglobin Mean Corpuscular 32.4 Hemoglobin Concent Red Cell 25.5 H Distribution Width Platelet Count 143 Mean Platelet Volume 9.6 Immature 10.100 H Granulocytes % Neutrophils % Segmented 79 H Neutrophils % (Manual) Band Neutrophils % 16 H (Manual) Lymphocytes % Monocytes % Eosinophils % Basophils % Metamyelocytes % 2 H (manual) Myelocytes % 2 H (Manual) Promyelocytes % 1 H (Manual) Nucleated Red Blood 0.0 Cells % Immature 1.100 H Granulocytes # Neutrophils # Neutrophils # 8.8 H (Manual) Band Neutrophils # 1.7 H Lymphocytes # Monocytes # Eosinophils # Basophils # Metamyelocytes # 0.2 H Myelocytes # 0.2 H Promyelocytes # 0.1 H Nucleated Red Blood Cells # Platelet Estimate NORMAL Polychromasia 3+ Poikilocytosis 1+ Anisocytosis 2+ Microcytosis 2+ Target Cells 1+ Ovalocytes 1+ Elliptocytes 1+ Sodium Level 135 Potassium Level 5.4 H Chloride Level 100 Carbon Dioxide Level 30 Anion Gap 5 Blood Urea Nitrogen 33 H Creatinine 1.06 H Est Glomerular Filtrat Rate mL/min Glucose Level 111 # Calcium Level 8.4 Test 12/07/18 08:06 12/07/18 08:49 12/07/18 12:29 Bedside Glucose 99 108 174 Exam/Review of Systems Exam Vitals Vital Signs Date Temp Pulse Resp B/P (MAP) Pulse Ox O2 O2 Flow FiO2 Time Delivery Rate 12/07/18 100 2.0 09:01 12/07/18 79 20 Nasal 08:53 Cannula 12/07/18 97.6 125/52 07:00 (76) Intake and Output 12/06/18 12/06/18 12/07/18 1414:59 22:59 06:59 IntakeIntake Total 200 ml 860 ml 550 ml OutputOutput Total 50 ml BalanceBalance 200 ml 810 ml 550 ml Results Results 24hrs Laboratory Tests Test 12/06/18 17:33 12/06/18 17:46 12/06/18 20:26 12/07/18 06:03 Urine Color YELLOW Urine Clarity CLEAR Urine pH 5.0 Urine Specific 1.011 [place] Urine Ketones NEGATIVE Urine Nitrite NEGATIVE Urine Bilirubin NEGATIVE Urine Urobilinogen NEGATIVE Urine Leukocyte NEGATIVE Esterase Urine Hemoglobin NEGATIVE Urine Glucose NEGATIVE Urine Total Protein NEGATIVE Bedside Glucose 100 179 White Blood Count 10.9 H Red Blood Count 3.81 L Hemoglobin 10.3 L Hematocrit 31.8 L Mean Corpuscular 83.5 Volume Mean Corpuscular 27.0 L Hemoglobin Mean Corpuscular 32.4 Hemoglobin Concent Red Cell 25.5 H Distribution Width Platelet Count 143 Mean Platelet Volume 9.6 Immature 10.100 H Granulocytes % Neutrophils % Segmented 79 H Neutrophils % (Manual) Band Neutrophils % 16 H (Manual) Lymphocytes % Monocytes % Eosinophils % Basophils % Metamyelocytes % 2 H (manual) Myelocytes % 2 H (Manual) Promyelocytes % 1 H (Manual) Nucleated Red Blood 0.0 Cells % Immature 1.100 H Granulocytes # Neutrophils # Neutrophils # 8.8 H (Manual) Band Neutrophils # 1.7 H Lymphocytes # Monocytes # Eosinophils # Basophils # Metamyelocytes # 0.2 H Myelocytes # 0.2 H Promyelocytes # 0.1 H Nucleated Red Blood Cells # Platelet Estimate NORMAL Polychromasia 3+ Poikilocytosis 1+ Anisocytosis 2+ Microcytosis 2+ Target Cells 1+ Ovalocytes 1+ Elliptocytes 1+ Sodium Level 135 Potassium Level 5.4 H Chloride Level 100 Carbon Dioxide Level 30 Anion Gap 5 Blood Urea Nitrogen 33 H Creatinine 1.06 H Est Glomerular Filtrat Rate mL/min Glucose Level 111 # Calcium Level 8.4 Test 12/07/18 08:06 12/07/18 08:49 12/07/18 12:29 Bedside Glucose 99 108 174 Medications Medication Current Medications Acetaminophen (Tylenol Tab) 650 mg Q4H PRN PO PAIN Last administered on 12/03/18 23:14; Admin Dose 650 MG; Start 12/03/18 at 01:00 Al Hydrox/Mg Hydrox/Simethicone (Mag-Al Plus) 15 ml Q6H PRN PO GASTROINTESTINAL UPSET Last administered on 12/06/18 18:25; Admin Dose 15 ML; Start 12/03/18 at 01:00 Albuterol/ Ipratropium (Duoneb) 3 ml Q2H RESP THERAPY PRN HHN SHORTNESS OF BREATH Last administered on 12/03/18 03:35; Admin Dose 3 ML; Start 12/03/18 at 01:00 Albuterol/ Ipratropium (Duoneb) 3 ml Q4HWA RESP THERAPY HHN Last administered on 12/07/18 12:51; Admin Dose 3 ML; Start 12/03/18 at 09:00 Alprazolam (Xanax) 0.5 mg Q8H PRN PO ANXIETY Last administered on 12/06/18 22:37; Admin Dose 0.5 MG; Start 12/03/18 at 01:00 Eye Lubricant (Artificial Tears Oph) 2 drop Q8 BOTH EYES Last administered on 12/07/18 06:34; Admin Dose 2 DROP; Start 12/03/18 at 06:00 Atorvastatin Calcium (Lipitor) 10 mg HS PO Last administered on 12/06/18 20:29; Admin Dose 10 MG; Start 12/03/18 at 21:00 Calcium Carbonate (Tums) 500 mg HS PO Last administered on 12/06/18 20:27; Admin Dose 500 MG; Start 12/03/18 at 21:00 Cholecalciferol (Vitamin D) 4,000 unit DAILY PO Last administered on 12/07/18 10:10; Admin Dose 4,000 UNIT; Start 12/03/18 at 09:00 Diltiazem HCl (Cardizem Cd) 180 mg BID PO Last administered on 12/06/18 20:29; Admin Dose 180 MG; Start 12/03/18 at 09:00 Diphenhydramine HCl (Benadryl) 50 mg Q8 PRN PO for itching; Start 12/03/18 at 01:00 Docusate Sodium (Colace) 100 mg BID PO Last administered on 12/07/18 10:09; Admin Dose 100 MG; Start 12/03/18 at 09:00 Donepezil HCl (Aricept) 10 mg 2100 PO Last administered on 12/06/18 20:28; Admin Dose 10 MG; Start 12/03/18 at 21:00 Duloxetine HCl (Cymbalta) 20 mg BID PO Last administered on 12/07/18 10:10; Admin Dose 20 MG; Start 12/03/18 at 09:00 Cholecalciferol (Vitamin D) 1,000 unit DAILY PO Last administered on 12/07/18 10:10; Admin Dose 1,000 UNIT; Start 12/03/18 at 09:00 Lactulose (Enulose) 20 gm DAILY PO Last administered on 12/06/18 09:35; Admin Dose 20 GM; Start 12/03/18 at 09:00 Metoclopramide HCl (Reglan) 5 mg Q6H PRN IV NAUSEA; Start 12/03/18 at 04:00 Metoprolol Tartrate (Lopressor) 25 mg BID PO Last administered on 12/06/18 20:30; Admin Dose 25 MG; Start 12/03/18 at 09:00 Miconazole Nitrate (Miconazole 2% Cr) 1 applic BID TOP Last administered on 12/07/18 10:14; Admin Dose 1 APPLIC; Start 12/03/18 at 09:00 Morphine Sulfate (morphine) 6 mg Q4H PRN PO SEVERE PAIN LEVEL 7-10 Last administered on 12/06/18 20:27; Admin Dose 6 MG; Start 12/03/18 at 04:00 Pantoprazole (Protonix Tab) 40 mg DAILY@06 PO Last administered on 12/07/18 06:35; Admin Dose 40 MG; Start 12/03/18 at 06:00 Phenol (Cepastat Lozenge) 1 lozenge Q1H PRN MT SORE THROAT; Start 12/03/18 at 04:00 Primidone (Mysoline) 100 mg TID PO Last administered on 12/07/18 10:19; Admin Dose 100 MG; Start 12/03/18 at 09:00 Rivaroxaban (Xarelto) 15 mg WITH DINNER PO Last administered on 12/06/18 17:50; Admin Dose 15 MG; Start 12/03/18 at 17:35 Diagnostic Test (Pha) (Accu-Chek) 1 ea 02 XX Last administered on 12/06/18 02: 00; Admin Dose 1 EA; Start 12/04/18 at 02:00 Guaifenesin (Mucinex) 1,200 mg BID PO Last administered on 12/07/18 10:09; Admin Dose 1,200 MG; Start 12/03/18 at 09:00 Digoxin (Digoxin) 0.125 mg DAILY@13 PO Last administered on 12/06/18 12:35; Admin Dose 0.125 MG; Start 12/03/18 at 13:00 Roflumilast (Daliresp) 500 mcg DAILY PO Last administered on 12/07/18 10:09; Admin Dose 500 MCG; Start 12/03/18 at 09:00 Sacubitril/ Valsartan (Entresto 24 Mg-26 Mg) 1 tab BID PO Last administered on 12/07/18 10:10; Admin Dose 1 TAB; Start 12/03/18 at 09:00 Simethicone (Mylicon) 80 mg Q6H PRN PO DISTENSION/GAS/BLOATING Last administered on 12/06/18 18:25; Admin Dose 80 MG; Start 12/03/18 at 05:00 Sodium Chloride (Nacl) 2 gm MONWEDFRI PO Last administered on 12/04/18 09:43; Admin Dose 2 GM; Start 12/04/18 at 09:00 Cyanocobalamin (Vitamin B12) 5,000 mcg Q48H PO Last administered on 3/16/19at 10:20; Admin Dose 5,000 MCG; Start 12/03/18 at 09:00 Diagnostic Test (Pha) (Accu-Chek) 1 ea 02 XX Last administered on 12/06/18 02:00; Admin Dose 1 EA; Start 12/04/18 at 02:00 Insulin Aspart (Novolog Insulin Pen) NOVOLOG *MILD* ALGORITHM WITH MEALS BEDTIME SC Last administered on 12/07/18 12:38; Admin Dose 1 UNIT; Start 12/03/18 at 07:35 Miscellaneous Information 1 ea NOTE XX Last administered on 12/03/18 09:25; Admin Dose 1 EA; Start 12/03/18 at 08:00 Glucose (Glutose) 15 gm Q15M PRN PO DECREASED GLUCOSE Last administered on 12/03/18 09:18; Admin Dose 15 GM; Start 12/03/18 at 08:00 Glucose (Glutose) 22.5 gm Q15M PRN PO DECREASED GLUCOSE Last administered on 12/06/18 08:52; Admin Dose 22.5 GM; Start 12/03/18 at 08:00 Dextrose (D50w Syringe) 25 ml Q15M PRN IV DECREASED GLUCOSE; Start 12/03/18 at 08:00 Dextrose (D50w Syringe) 50 ml Q15M PRN IV DECREASED GLUCOSE Last administered o n 12/06/18 11:18; Admin Dose 50 ML; Start 12/03/18 at 08:00 Glucagon (Glucagen) 1 mg Q15M PRN IM DECREASED GLUCOSE; Start 12/03/18 at 08:00 Glucose (Glutose) 15 gm Q15M PRN BUCCAL DECREASED GLUCOSE Last administered on 12/05/18 09:40; Admin Dose 15 GM; Start 12/03/18 at 08:00 Miscellaneous Information (Pending [facility] Order For Wound Care) This patient sewell... PRN PRN XX WOUND CARE; Start 12/04/18 at 03:30 Levothyroxine Sodium (Synthroid) 50 mcg DAILY@06 PO Last administered on 12/07/18 06:35; Admin Dose 50 MCG; Start 12/05/18 at 06:00 Melatonin (Melatonin) 3 mg HS PO Last administered on 12/06/18 20:28; Admin Dose 3 MG; Start 12/04/18 at 21:00 Mupirocin (Bactroban) 1 applic BID TOP Last administered on 12/07/18 10:13; Admin Dose 1 APPLIC; Start 12/06/18 at 13:00; Stop 12/13/18 at 12:59 Furosemide (Lasix) 20 mg DAILY@0600 PO Last administered on 12/07/18 06:35; Admin Dose 20 MG; Start 12/06/18 at 12:00 Insulin Glargine (Lantus) 6 units DAILY@2000 SC Last administered on 12/06/18at 20:42; Admin Dose 6 UNITS; Start 12/06/18 at 20:00 Methylprednisolone Sodium Succinate (Solu-Medrol) 40 mg Q8 IV Last administered on 12/07/18 06:34; Admin Dose 40 MG; Start 12/06/18 at 16:30 NEFTALI WESTON Dec 07, 2018 12:58
[2018-12-07] MEDS ORDERED: NA POLYST SULFON 15 GM/60 ML BTL PO ONE (13:30)
[2018-12-07 14:00] VITALS: BP 106/58; PULSE 90; RESP 20
[2018-12-07] MEDS: DIGOXIN 0.125 MG TAB PO SCH (14:04)
[2018-12-07] MEDS: SOD CHLORIDE 0.45% 1,000 ML IV SCH (14:39)
[2018-12-07] MEDS: RIVAROXABAN 15 MG TABLET PO SCH (17:27)
[2018-12-07 20:00] VITALS: BP 165/71; PULSE 91; RESP 18
[2018-12-07] MEDS: DONEPEZIL 10 MG TAB PO SCH (20:18)
[2018-12-07] MEDS: CALCIUM CARBONATE 500 MG CHEW TAB PO SCH (20:18)
[2018-12-07] MEDS: ATORVASTATIN 10 MG TAB PO SCH (20:18)
[2018-12-07] MEDS: INSULIN GLARGINE [LANTus] (100 UNITS/ML) SYG SC SCH (20:32)
[2018-12-07] MEDS: MELATONIN 3 MG TABLET PO SCH (22:17)
[2018-12-07] MEDS: ALPRAZOLAM 0.25 MG TAB PO PRN (22:17)
[2018-12-08] MEDS: DIPHENHYDRAMINE 50 MG CAP PO PRN (01:31)
[2018-12-08 02:00] VITALS: BP 125/67; PULSE 87; RESP 18
[2018-12-08] MEDS: ACCU-CHEK XX SCH ×2 (02:00)
[2018-12-08] MEDS: ARTIFICIAL TEARS 15 ML OPH BOTH EYES SCH ×3 (06:37→21:31)
[2018-12-08] MEDS: LEVOTHYROXINE 50 MCG TAB PO SCH (06:38)
[2018-12-08] MEDS: PANTOPRAZOLE (EC) 40 MG TAB PO SCH (06:38)
[2018-12-08] MEDS: METHYLPREDNISOLONE 40 MG INJ IV SCH ×3 (06:38→22:52)
[2018-12-08] MEDS: FUROSEMIDE 20 MG TAB PO SCH (06:40)
[2018-12-08 07:00] VITALS: BP 148/67; PULSE 86; RESP 20
[2018-12-08] MEDS: INSULIN ASPART [NOVOLOG] 3 ML PEN SC SCH ×4 (07:35→21:26)
[2018-12-08] MEDS: ALBUTEROL/IPRATROPIUM (NEB) 3 ML AMP HHN SCH ×4 (08:32→19:50)
[2018-12-08] MEDS: CHOLECALCIFEROL 2,000 UNIT CAP PO SCH (09:35)
[2018-12-08] MEDS: DILTIAZEM (CD) 180 MG CAP PO SCH ×2 (09:35→21:20)
[2018-12-08] MEDS: CHOLECALCIFEROL 1,000 UNIT TAB PO SCH (09:35)
[2018-12-08] MEDS: METOPROLOL 25 MG TAB PO SCH ×2 (09:36→21:22)
[2018-12-08] MEDS: DOCUSATE SODIUM 100 MG CAP PO SCH ×2 (09:36→21:19)
[2018-12-08] MEDS: ROFLUMILAST 500 MCG TABLET PO SCH (09:36)
[2018-12-08] MEDS: DULOXETINE 20 MG CAP DR PO SCH ×2 (09:36→21:19)
[2018-12-08] MEDS: SACUBITRIL/VALSARTAN (24mg-26mg) TABLET PO SCH ×2 (09:36→21:19)
[2018-12-08] MEDS: GUAIFENESIN LA 600 MG TABSR PO SCH ×2 (09:37→21:19)
[2018-12-08] MEDS: LACTULOSE 30ML CUP PO SCH (09:37)
[2018-12-08] MEDS: PRIMIDONE 50 MG TAB PO SCH ×3 (09:37→21:19)
[2018-12-08] MEDS: MICONAZOLE 2% 30 GM CR TOP SCH ×2 (09:39→21:26)
[2018-12-08] MEDS: MUPIROCIN 2% 22 GM OINT TOP SCH ×2 (09:40→21:26)
[2018-12-08] MEDS: ALBUTEROL/IPRATROPIUM (NEB) 3 ML AMP HHN PRN (10:25)
--- NOTE | 2018-12-08 12:07 | PN ---
Date/Time of Note Date/Time of Note DATE: 12/08/18 TIME: 12:02 Assessment/Plan VTE Prophylaxis Risk score (from Nsg)>0 risk: 6 SCD applied (from Nsg): No Lines/Catheters IV Catheter Type (from Nrs): Saline Lock Urinary Cath still in place: No Assessment/Plan Assessment/Plan - Hyperkalemia- kayexalate 15 gm po x1; BMP am- RESOLVED -Status post acute hypoxemic and hypercapnic respiratory failure secondary to COPD exacerbation. Dr. Zapata is following in pulmonology consultation. -COPD -Decompensated diastolic congestive heart failure, continue Lasix, monitor electrolytes. -Chronic atrial fibrillation. Continue digoxin, Cardizem and Xarelto. -Diabetes mellitus type 2. Continue Lantus and NovoLog. -Anemia of chronic disease -Hypothyroidism, started on levothyroxine - MARIANN- Further recommendations based on clinical course. Plan of care discussed with Dr. Olivares. Result Diagram: 12/08/18 0646 12/08/18 0646 Results 24hrs Laboratory Tests Test 12/07/18 12:29 12/07/18 17:25 12/07/18 20:16 12/08/18 06:46 Bedside Glucose 174 141 134 White Blood Count 10.6 Red Blood Count 3.91 L Hemoglobin 10.6 L Hematocrit 32.9 L Mean Corpuscular 84.1 Volume Mean Corpuscular 27.1 L Hemoglobin Mean Corpuscular 32.2 Hemoglobin Concent Red Cell 25.4 H Distribution Width Platelet Count 184 # Mean Platelet Volume 10.1 Immature 9.000 H Granulocytes % Neutrophils % Segmented 77 Neutrophils % (Manual) Band Neutrophils % 14 H (Manual) Lymphocytes % Lymphocytes % 2 L (Manual) Reactive Lymphocytes 2 H % (Manual) Monocytes % Monocytes % (Manual) 3 Eosinophils % Basophils % Metamyelocytes % 1 H (manual) Myelocytes % 1 H (Manual) Nucleated Red Blood 1 H Cells % Immature 0.950 H Granulocytes # Neutrophils # Neutrophils # 8.3 H (Manual) Band Neutrophils # 1.4 H Lymphocytes (Manual) 0.2 L Lymphocytes # Reactive Lymphocytes 0.2 H # Monocytes # Monocytes # (Manual) 0.3 Eosinophils # Basophils # Metamyelocytes # 0.1 H Myelocytes # 0.1 H Nucleated Red Blood Cells # Platelet Estimate NORMAL Polychromasia 3+ Poikilocytosis 3+ Anisocytosis 3+ Microcytosis 3+ Sodium Level 134 L Potassium Level 4.3 Chloride Level 96 L Carbon Dioxide Level 31 Anion Gap 7 Blood Urea Nitrogen 40 H Creatinine 1.06 H Est Glomerular Filtrat Rate mL/min Glucose Level 100 Calcium Level 7.9 L Test 12/08/18 07:45 Bedside Glucose 99 Exam/Review of Systems Exam Vitals Vital Signs Date Temp Pulse Resp B/P (MAP) Pulse Ox O2 O2 Flow FiO2 Time Delivery Rate 12/08/18 76 20 96 Nasal 2.0 10:26 Cannula 12/08/18 98.2 148/67 07:00 (94) Intake and Output 12/07/18 12/07/18 12/08/18 1515:00 23:00 07:00 IntakeIntake Total 1000 ml 1540 ml BalanceBalance 1000 ml 1540 ml Constitutional: alert, well developed Head: atraumatic Eyes: EOMI, nl lids, nl sclera Neck: non-tender Respiratory: diminished breath sounds Cardiovascular: nl pulses Gastrointestinal: soft, non-tender Musculoskeletal: muscle weakness Extremities: normal pulses Results Results 24hrs Laboratory Tests Test 12/07/18 12:29 12/07/18 17:25 12/07/18 20:16 12/08/18 06:46 Bedside Glucose 174 141 134 White Blood Count 10.6 Red Blood Count 3.91 L Hemoglobin 10.6 L Hematocrit 32.9 L Mean Corpuscular 84.1 Volume Mean Corpuscular 27.1 L Hemoglobin Mean Corpuscular 32.2 Hemoglobin Concent Red Cell 25.4 H Distribution Width Platelet Count 184 # Mean Platelet Volume 10.1 Immature 9.000 H Granulocytes % Neutrophils % Segmented 77 Neutrophils % (Manual) Band Neutrophils % 14 H (Manual) Lymphocytes % Lymphocytes % 2 L (Manual) Reactive Lymphocytes 2 H % (Manual) Monocytes % Monocytes % (Manual) 3 Eosinophils % Basophils % Metamyelocytes % 1 H (manual) Myelocytes % 1 H (Manual) Nucleated Red Blood 1 H Cells % Immature 0.950 H Granulocytes # Neutrophils # Neutrophils # 8.3 H (Manual) Band Neutrophils # 1.4 H Lymphocytes (Manual) 0.2 L Lymphocytes # Reactive Lymphocytes 0.2 H # Monocytes # Monocytes # (Manual) 0.3 Eosinophils # Basophils # Metamyelocytes # 0.1 H Myelocytes # 0.1 H Nucleated Red Blood Cells # Platelet Estimate NORMAL Polychromasia 3+ Poikilocytosis 3+ Anisocytosis 3+ Microcytosis 3+ Sodium Level 134 L Potassium Level 4.3 Chloride Level 96 L Carbon Dioxide Level 31 Anion Gap 7 Blood Urea Nitrogen 40 H Creatinine 1.06 H Est Glomerular Filtrat Rate mL/min Glucose Level 100 Calcium Level 7.9 L Test 12/08/18 07:45 Bedside Glucose 99 Medications Medication Current Medications Acetaminophen (Tylenol Tab) 650 mg Q4H PRN PO PAIN Last administered on 12/03/18 23:14; Admin Dose 650 MG; Start 12/03/18 at 01:00 Al Hydrox/Mg Hydrox/Simethicone (Mag-Al Plus) 15 ml Q6H PRN PO GASTROINTESTINAL UPSET Last administered on 12/06/18 18:25; Admin Dose 15 ML; Start 12/03/18 at 01:00 Albuterol/ Ipratropium (Duoneb) 3 ml Q2H RESP THERAPY PRN HHN SHORTNESS OF BREATH Last administered on 12/08/18 10:25; Admin Dose 3 ML; Start 12/03/18 at 01:00 Albuterol/ Ipratropium (Duoneb) 3 ml Q4HWA RESP THERAPY HHN Last administered on 12/08/18 08:32; Admin Dose 3 ML; Start 12/03/18 at 09:00 Alprazolam (Xanax) 0.5 mg Q8H PRN PO ANXIETY Last administered on 12/07/18 22:17; Admin Dose 0.5 MG; Start 12/03/18 at 01:00 Eye Lubricant (Artificial Tears Oph) 2 drop Q8 BOTH EYES Last administered on 12/08/18 06:37; Admin Dose 2 DROP; Start 12/03/18 at 06:00 Atorvastatin Calcium (Lipitor) 10 mg HS PO Last administered on 12/07/18 20:18; Admin Dose 10 MG; Start 12/03/18 at 21:00 Calcium Carbonate (Tums) 500 mg HS PO Last administered on 12/07/18 20:18; Admin Dose 500 MG; Start 12/03/18 at 21:00 Cholecalciferol (Vitamin D) 4,000 unit DAILY PO Last administered on 12/08/18 09:35; Admin Dose 4,000 UNIT; Start 12/03/18 at 09:00 Diltiazem HCl (Cardizem Cd) 180 mg BID PO Last administered on 12/08/18 09:35; Admin Dose 180 MG; Start 12/03/18 at 09:00 Diphenhydramine HCl (Benadryl) 50 mg Q8 PRN PO for itching Last administered on 12/08/18 01:31; Admin Dose 50 MG; Start 12/03/18 at 01:00 Docusate Sodium (Colace) 100 mg BID PO Last administered on 12/08/18 09:36; Admin Dose 100 MG; Start 12/03/18 at 09:00 Donepezil HCl (Aricept) 10 mg 2100 PO Last administered on 12/07/18 20:18; Admin Dose 10 MG; Start 12/03/18 at 21:00 Duloxetine HCl (Cymbalta) 20 mg BID PO Last administered on 12/08/18 09:36; Admin Dose 20 MG; Start 12/03/18 at 09:00 Cholecalciferol (Vitamin D) 1,000 unit DAILY PO Last administered on 12/08/18 09:35; Admin Dose 1,000 UNIT; Start 12/03/18 at 09:00 Lactulose (Enulose) 20 gm DAILY PO Last administered on 12/08/18 09:37; Admin Dose 20 GM; Start 12/03/18 at 09:00 Metoclopramide HCl (Reglan) 5 mg Q6H PRN IV NAUSEA; Start 12/03/18 at 04:00 Metoprolol Tartrate (Lopressor) 25 mg BID PO Last administered on 12/08/18 09:36; Admin Dose 25 MG; Start 12/03/18 at 09:00 Miconazole Nitrate (Miconazole 2% Cr) 1 applic BID TOP Last administered on 12/08/18 09:39; Admin Dose 1 APPLIC; Start 12/03/18 at 09:00 Morphine Sulfate (morphine) 6 mg Q4H PRN PO SEVERE PAIN LEVEL 7-10 Last administered on 12/06/18 20:27; Admin Dose 6 MG; Start 12/03/18 at 04:00 Pantoprazole (Protonix Tab) 40 mg DAILY@06 PO Last administered on 12/08/18 06:38; Admin Dose 40 MG; Start 12/03/18 at 06:00 Phenol (Cepastat Lozenge) 1 lozenge Q1H PRN MT SORE THROAT; Start 12/03/18 at 04:00 Primidone (Mysoline) 100 mg TID PO Last administered on 12/08/18 09:37; Admin Dose 100 MG; Start 12/03/18 at 09:00 Rivaroxaban (Xarelto) 15 mg WITH DINNER PO Last administered on 12/07/18 17:27; Admin Dose 15 MG; Start 12/03/18 at 17:35 Diagnostic Test (Pha) (Accu-Chek) 1 ea XX Last administered on 12/06/18 02:00; Admin Dose 1 EA; Start 12/04/18 at 02:00 Guaifenesin (Mucinex) 1,200 mg BID PO Last administered on 12/08/18 09:37; Admin Dose 1,200 MG; Start 12/03/18 at 09:00 Digoxin (Digoxin) 0.125 mg DAILY@13 PO Last administered on 12/07/18 14:04; Admin Dose 0.125 MG; Start 12/03/18 at 13:00 Roflumilast (Daliresp) 500 mcg DAILY PO Last administered on 12/08/18 09:36; Admin Dose 500 MCG; Start 12/03/18 at 09:00 Sacubitril/ Valsartan (Entresto 24 Mg-26 Mg) 1 tab BID PO Last administered on 12/08/18 09:36; Admin Dose 1 TAB; Start 12/03/18 at 09:00 Simethicone (Mylicon) 80 mg Q6H PRN PO DISTENSION/GAS/BLOATING Last administered on 12/06/18 18:25; Admin Dose 80 MG; Start 12/03/18 at 05:00 Sodium Chloride (Nacl) 2 gm MONWEDFRI PO Last administered on 12/04/18 09:43; Admin Dose 2 GM; Start 12/04/18 at 09:00 Cyanocobalamin (Vitamin B12) 5,000 mcg Q48H PO Last administered on 12/07/18 10:20; Admin Dose 5,000 MCG; Start 12/03/18 at 09:00 Diagnostic Test (Pha) (Accu-Chek) 1 ea 02 XX Last administered on 12/06/18 02:00; Admin Dose 1 EA; Start 12/04/18 at 02:00 Insulin Aspart (Novolog Insulin Pen) NOVOLOG *MILD* ALGORITHM WITH MEALS BEDTIME SC Last administered on 12/07/18 17:29; Admin Dose 1 UNIT; Start 12/03/18 at 07:35 Miscellaneous Information 1 ea NOTE XX Last administered on 12/03/18 09:25; Admin Dose 1 EA; Start 12/03/18 at 08:00 Glucose (Glutose) 15 gm Q15M PRN PO DECREASED GLUCOSE Last administered on 12/03/18 09:18; Admin Dose 15 GM; Start 12/03/18 at 08:00 Glucose (Glutose) 22.5 gm Q15M PRN PO DECREASED GLUCOSE Last administered on 12/06/18 08:52; Admin Dose 22.5 GM; Start 12/03/18 at 08:00 Dextrose (D50w Syringe) 25 ml Q15M PRN IV DECREASED GLUCOSE; Start 12/03/18 at 08:00 Dextrose (D50w Syringe) 50 ml Q15M PRN IV DECREASED GLUCOSE Last administered on 12/06/18 11:18; Admin Dose 50 ML; Start 12/03/18 at 08:00 Glucagon (Glucagen) 1 mg Q15M PRN IM DECREASED GLUCOSE; Start 12/03/18 at 08:00 Glucose (Glutose) 15 gm Q15M PRN BUCCAL DECREASED GLUCOSE Last administered on 12/05/18 09:40; Admin Dose 15 GM; Start 12/03/18 at 08:00 Miscellaneous Information (Pending [facility] Order For Wound Care) This patient sewell... PRN PRN XX WOUND CARE; Start 12/04/18 at 03:30 Levothyroxine Sodium (Synthroid) 50 mcg DAILY@06 PO Last administered on 12/08/18 06:38; Admin Dose 50 MCG; Start 12/05/18 at 06:00 Melatonin (Melatonin) 3 mg HS PO Last administered on 12/07/18 22:17; Admin Dose 3 MG; Start 12/04/18 at 21:00 Mupirocin (Bactroban) 1 applic BID TOP Last administered on 12/08/18 09:40; Admin Dose 1 APPLIC; Start 12/06/18 at 13:00; Stop 12/13/18 at 12:59 Furosemide (Lasix) 20 mg DAILY@0600 PO Last administered on 12/08/18at 06:40; Admin Dose 20 MG; Start 12/06/18 at 12:00 Insulin Glargine (Lantus) 6 units DAILY@2000 SC Last administered on 12/07/18at 20:32; Admin Dose 6 UNITS; Start 12/06/18 at 20:00 Methylprednisolone Sodium Succinate (Solu-Medrol) 40 mg Q8 IV Last administered on 12/08/18at 06:38; Admin Dose 40 MG; Start 12/06/18 at 16:30 Sodium Chloride 1,000 ml @ 50 mls/hr Q20H IV Last administered on 12/07/18at 1 4:39; Admin Dose 50 MLS/HR; Start 12/07/18 at 13:00 NEFTALI WESTON Dec 08, 2018 12:07
[2018-12-08] MEDS ORDERED: FUROSEMIDE 20 MG INJ IV ONE (12:30)
[2018-12-08] MEDS: SOD CHLORIDE 0.45% 1,000 ML IV SCH (12:31)
[2018-12-08] MEDS: DIGOXIN 0.125 MG TAB PO SCH (12:35)
[2018-12-08 14:00] VITALS: BP 117/55; PULSE 82; RESP 20
--- NOTE | 2018-12-08 16:57 | CONS ---
Assessment/Plan Cardiology NYHA: II Heart Failure Type: Acute Heart Failure Type: Diastolic Assessment/Plan Hospital Course (Demo Recall) COPD exacerbation Acute decompensated diastolic congestive heart failure Atrial fibrillation, on anticoagulation Recent pneumonia Hypertension Dyslipidemia Preserved ejection fraction Possible conjunctival hemorrhage-improved -Patient thinks respiratory status is minimally improved. Continue maintenance Lasix. Otherwise pulmonary meds as per our pulmonary colleagues -Continue Cardizem and metoprolol for heart rate control and titrate based on heart rate and blood pressure -Continue digoxin as tolerated Consultation Date/Type/Reason Admit Date/Time Dec 02, 2018 at 22:56 Initial Consult Date Type of Consult Cardiology Date/Time of Note DATE: 12/08/18 TIME: 16:55 24 HR Interval Summary Free Text/Dictation Shortness of the same, still coughing Exam/Review of Systems Vital Signs Vitals Vital Signs Date Temp Pulse Resp B/P (MAP) Pulse Ox O2 O2 Flow FiO2 Time Delivery Rate 12/08/18 75 20 96 Nasal 2.0 13:34 Cannula 12/08/18 98.2 148/67 07:00 (94) Intake and Output 12/07/18 12/07/18 12/08/18 1515:00 23:00 07:00 IntakeIntake Total 1000 ml 1540 ml BalanceBalance 1000 ml 1540 ml Exam Constitutional: alert, oriented (No apparent distress) Respiratory: other (Coarse breath sounds bilaterally, no wheezing) Cardiovascular: irregular rhythm (S1-S2 heard) Gastrointestinal: soft, non-tender, bowel sounds Extremities: other (No significant edema) Labs Result Diagram: 12/08/18 0646 12/08/18 0646 Results 24hrs Laboratory Tests Test 12/07/18 17:25 12/07/18 20:16 12/08/18 06:46 12/08/18 07:45 Bedside Glucose 141 134 99 White Blood Count 10.6 Red Blood Count 3.91 L Hemoglobin 10.6 L Hematocrit 32.9 L Mean Corpuscular 84.1 Volume Mean Corpuscular 27.1 L Hemoglobin Mean Corpuscular 32.2 Hemoglobin Concent Red Cell 25.4 H Distribution Width Platelet Count 184 # Mean Platelet Volume 10.1 Immature 9.000 H Granulocytes % Neutrophils % Segmented 77 Neutrophils % (Manual) Band Neutrophils % 14 H (Manual) Lymphocytes % Lymphocytes % 2 L (Manual) Reactive Lymphocytes 2 H % (Manual) Monocytes % Monocytes % (Manual) 3 Eosinophils % Basophils % Metamyelocytes % 1 H (manual) Myelocytes % 1 H (Manual) Nucleated Red Blood 1 H Cells % Immature 0.950 H Granulocytes # Neutrophils # Neutrophils # 8.3 H (Manual) Band Neutrophils # 1.4 H Lymphocytes (Manual) 0.2 L Lymphocytes # Reactive Lymphocytes 0.2 H # Monocytes # Monocytes # (Manual) 0.3 Eosinophils # Basophils # Metamyelocytes # 0.1 H Myelocytes # 0.1 H Nucleated Red Blood Cells # Platelet Estimate NORMAL Polychromasia 3+ Poikilocytosis 3+ Anisocytosis 3+ Microcytosis 3+ Sodium Level 134 L Potassium Level 4.3 Chloride Level 96 L Carbon Dioxide Level 31 Anion Gap 7 Blood Urea Nitrogen 40 H Creatinine 1.06 H Est Glomerular Filtrat Rate mL/min Glucose Level 100 Calcium Level 7.9 L Test 12/08/18 12:12 Bedside Glucose 91 Medications Medications Current Medications Acetaminophen (Tylenol Tab) 650 mg Q4H PRN PO PAIN Last administered on 12/03/18 23:14; Admin Dose 650 MG; Start 12/03/18 at 01:00 Al Hydrox/Mg Hydrox/Simethicone (Mag-Al Plus) 15 ml Q6H PRN PO GASTROINTESTINAL UPSET Last administered on 12/06/18 18:25; Admin Dose 15 ML; Start 12/03/18 at 01:00 Albuterol/ Ipratropium (Duoneb) 3 ml Q2H RESP THERAPY PRN HHN SHORTNESS OF BREATH Last administered on 12/08/18 10:25; Admin Dose 3 ML; Start 12/03/18 at 01:00 Albuterol/ Ipratropium (Duoneb) 3 ml Q4HWA RESP THERAPY HHN Last administered on 12/08/18 16:51; Admin Dose 3 ML; Start 12/03/18 at 09:00 Alprazolam (Xanax) 0.5 mg Q8H PRN PO ANXIETY Last administered on 12/07/18 22:17; Admin Dose 0.5 MG; Start 12/03/18 at 01:00 Eye Lubricant (Artificial Tears Oph) 2 drop Q8 BOTH EYES Last administered on 12/08/18 13:33; Admin Dose 2 DROP; Start 12/03/18 at 06:00 Atorvastatin Calcium (Lipitor) 10 mg HS PO Last administered on 12/07/18 20:18; Admin Dose 10 MG; Start 12/03/18 at 21:00 Calcium Carbonate (Tums) 500 mg HS PO Last administered on 12/07/18 20:18; Admin Dose 500 MG; Start 12/03/18 at 21:00 Cholecalciferol (Vitamin D) 4,000 unit DAILY PO Last administered on 12/08/18 09:35; Admin Dose 4,000 UNIT; Start 12/03/18 at 09:00 Diltiazem HCl (Cardizem Cd) 180 mg BID PO Last administered on 12/08/18 09:35; Admin Dose 180 MG; Start 12/03/18 at 09:00 Diphenhydramine HCl (Benadryl) 50 mg Q8 PRN PO for itching Last administered on 12/08/18 01:31; Admin Dose 50 MG; Start 12/03/18 at 01:00 Docusate Sodium (Colace) 100 mg BID PO Last administered on 12/08/18 09:36; Admin Dose 100 MG; Start 12/03/18 at 09:00 Donepezil HCl (Aricept) 10 mg 2100 PO Last administered on 12/07/18 20:18; Admin Dose 10 MG; Start 12/03/18 at 21:00 Duloxetine HCl (Cymbalta) 20 mg BID PO Last administered on 12/08/18 09:36; Admin Dose 20 MG; Start 12/03/18 at 09:00 Cholecalciferol (Vitamin D) 1,000 unit DAILY PO Last administered on 12/08/18 09:35; Admin Dose 1,000 UNIT; Start 12/03/18 at 09:00 Lactulose (Enulose) 20 gm DAILY PO Last administered on 12/08/18 09:37; Admin Dose 20 GM; Start 12/03/18 at 09:00 Metoclopramide HCl (Reglan) 5 mg Q6H PRN IV NAUSEA; Start 12/03/18 at 04:00 Metoprolol Tartrate (Lopressor) 25 mg BID PO Last administered on 12/08/18 09:36; Admin Dose 25 MG; Start 12/03/18 at 09:00 Miconazole Nitrate (Miconazole 2% Cr) 1 applic BID TOP Last administered on 12/08/18 09:39; Admin Dose 1 APPLIC; Start 12/03/18 at 09:00 Morphine Sulfate (morphine) 6 mg Q4H PRN PO SEVERE PAIN LEVEL 7-10 Last a dministered on 12/06/18 20:27; Admin Dose 6 MG; Start 12/03/18 at 04:00 Pantoprazole (Protonix Tab) 40 mg DAILY@06 PO Last administered on 12/08/18 06:38; Admin Dose 40 MG; Start 12/03/18 at 06:00 Phenol (Cepastat Lozenge) 1 lozenge Q1H PRN MT SORE THROAT; Start 12/03/18 at 04:00 Primidone (Mysoline) 100 mg TID PO Last administered on 12/08/18 12:31; Admin Dose 100 MG; Start 12/03/18 at 09:00 Rivaroxaban (Xarelto) 15 mg WITH DINNER PO Last administered on 12/07/18 17:27; Admin Dose 15 MG; Start 12/03/18 at 17:35 Diagnostic Test (Pha) (Accu-Chek) 1 ea 02 XX Last administered on 12/06/18 02:00; Admin Dose 1 EA; Start 12/04/18 at 02:00 Guaifenesin (Mucinex) 1,200 mg BID PO Last administered on 12/08/18 09:37; Admin Dose 1,200 MG; Start 12/03/18 at 09:00 Digoxin (Digoxin) 0.125 mg DAILY@13 PO Last administered on 12/08/18 12:35; Admin Dose 0.125 MG; Start 12/03/18 at 13:00 Roflumilast (Daliresp) 500 mcg DAILY PO Last administered on 12/08/18 09:36; Admin Dose 500 MCG; Start 12/03/18 at 09:00 Sacubitril/ Valsartan (Entresto 24 Mg-26 Mg) 1 tab BID PO Last administered on 12/08/18 09:36; Admin Dose 1 TAB; Start 12/03/18 at 09:00 Simethicone (Mylicon) 80 mg Q6H PRN PO DISTENSION/GAS/BLOATING Last administered on 12/06/18 18:25; Admin Dose 80 MG; Start 12/03/18 at 05:00 Sodium Chloride (Nacl) 2 gm MONWEDFRI PO Last administered on 12/04/18 09:43; Admin Dose 2 GM; Start 12/04/18 at 09:00 Cyanocobalamin (Vitamin B12) 5,000 mcg Q48H PO Last administered on 12/07/18at 10:20; Admin Dose 5,000 MCG; Start 12/03/18 at 09:00 Diagnostic Test (Pha) (Accu-Chek) 1 ea 02 XX Last administered on 12/06/18at 02:00; Admin Dose 1 EA; Start 12/04/18 at 02:00 Insulin Aspart (Novolog Insulin Pen) NOVOLOG *MILD* ALGORITHM WITH MEALS BEDTIME SC Last administered on 12/07/18 17:29; Admin Dose 1 UNIT; Start 12/03/18 at 07:35 Miscellaneous Information 1 ea NOTE XX Last administered on 12/03/18 09:25; Admin Dose 1 EA; Start 12/03/18 at 08:00 Glucose (Glutose) 15 gm Q15M PRN PO DECREASED GLUCOSE Last administered on 12/03/18 09:18; Admin Dose 15 GM; Start 12/03/18 at 08:00 Glucose (Glutose) 22.5 gm Q15M PRN PO DECREASED GLUCOSE Last administered on 12/06/18 08:52; Admin Dose 22.5 GM; Start 12/03/18 at 08:00 Dextrose (D50w Syringe) 25 ml Q15M PRN IV DECREASED GLUCOSE; Start 12/03/18 at 08:00 Dextrose (D50w Syringe) 50 ml Q15M PRN IV DECREASED GLUCOSE Last administered on 12/06/18 11:18; Admin Dose 50 ML; Start 12/03/18 at 08:00 Glucagon (Glucagen) 1 mg Q15M PRN IM DECREASED GLUCOSE; Start 12/03/18 at 08:00 Glucose (Glutose) 15 gm Q15M PRN BUCCAL DECREASED GLUCOSE Last administered on 12/05/18 09:40; Admin Dose 15 GM; Start 12/03/18 at 08:00 Miscellaneous Information (Pending [facility] Order For Wound Care) This patient sewell... PRN PRN XX WOUND CARE; Start 12/04/18 at 03:30 Levothyroxine Sodium (Synthroid) 50 mcg DAILY@06 PO Last administered on 12/08/18 06:38; Admin Dose 50 MCG; Start 12/05/18 at 06:00 Melatonin (Melatonin) 3 mg HS PO Last administered on 12/07/18 22:17; Admin Dose 3 MG; Start 12/04/18 at 21:00 Mupirocin (Bactroban) 1 applic BID TOP Last administered on 12/08/18 09:40; Admin Dose 1 APPLIC; Start 12/06/18 at 13:00; Stop 12/13/18 at 12:59 Furosemide (Lasix) 20 mg DAILY@0600 PO Last administered on 12/08/18 06:40; Admin Dose 20 MG; Start 12/06/18 at 12:00 Insulin Glargine (Lantus) 6 units DAILY@2000 SC Last administered on 12/07/18 20:32; Admin Dose 6 UNITS; Start 12/06/18 at 20:00 Methylprednisolone Sodium Succinate (Solu-Medrol) 40 mg Q8 IV Last administered on 12/08/18at 13:33; Admin Dose 40 MG; Start 12/06/18 at 16:30 Sodium Chloride 1,000 ml @ 50 mls/hr Q20H IV Last administered on 12/08/18 12:31; Admin Dose 50 MLS/HR; Start 12/07/18 at 13:00 Bird Herrera DO Dec 08, 2018 16:57
[2018-12-08] MEDS: RIVAROXABAN 15 MG TABLET PO SCH (17:38)
[2018-12-08 20:00] VITALS: BP 111/53; PULSE 90; RESP 18
[2018-12-08] MEDS: MELATONIN 3 MG TABLET PO SCH (21:00)
--- NOTE | 2018-12-08 21:09 | CONS ---
Assessment/Plan Assessment/Plan Assessment/Plan (Daily) 1. 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 acute CHF, diastolic CHF 3. Acute COPD exacerbation 4. H/o HTN 5. H/O CKD Plan: S/p Lasix 20mg IV X 1 dose today, alson on lasix 20mg po daily IV solu-medrol 40mg Q 8 hr BP stable,a febrile Thanks for consultation, i will continue to follow up Consultation Date/Type/Reason Admit Date/Time Dec 02, 2018 at 22:56 Date of Consultation: Dec 08, 2018 Type of Consult NEPHROLOGY Reason for Consultation Acute kidney injury Requesting Provider: LISSETTE ESPOSITO MD Date/Time of Note DATE: 12/08/18 TIME: 21:08 Hx of Present Illness 78-year-old female well-known to me from recent previous admission at [facility] who was transferred to [facility] rehab for further therapy. Patient with recent illness with COPD exacerbation, CHF, pneumonia and atrial fibrillation with uncontrolled rates. Patient currently is feeling better. She has less shortness of breath. She still has a cough which is minimally productive. She denies any palpitations, chest pain, dizziness or lightheadedness. 12 point review of systems was performed with all pertinent positives and negatives mentioned above and all else is negative pt has been on IV solumedrol for COPD exacerbation and on lasix for her Diastolic heart failure Renal has been consulted for managemnet of diuretics and MARIANN Constitutional: no complaints Eyes: no complaints ENT: no complaints Respiratory: cough, pleuritic pain, shortness of breath Cardiovascular: no complaints Gastrointestinal: no complaints Genitourinary: no complaints Musculoskeletal: no complaints Skin: no complaints Neurologic: no complaints Endocrine: no complaints Lymphatic: no complaints Psychological: no complaints Immunologic: no complaints Past Medical History Medical History: congestive heart failure, coronary artery disease, diabetes, hypertension, renal disease, other (COPD) Home Meds Reported Medications Melatonin (Melatonin) 5 Mg Tablet, 5 MG PO AM 09/09/13 Roflumilast (Daliresp) 500 Mcg Tablet, 500 MCG JT AM 09/09/13 Ferrous Sulfate* (Ferrous Sulfate*) 325 Mg Tabec, 325 MG PO AM 09/09/13 Potassium Chloride* (Klor-Con*) 20 Meq Tabsr, 20 MEQ PO AM 12/17/13 Magaldrate/Simethicone* (Mylanta*) 355 Ml Susp, 355 ML PO 04/19/12 Diphenhydramine Hcl* (Benadryl*) 50 Mg Cap, 50 MG PO DAILY 04/19/12 Acetaminophen (Tylenol Extra Strength) 500 Mg Tablet, 500 MG PO 04/19/12 Sennosides/Docusate Sodium (Stool Soft & Stimulant Lax Tab) 1 Tab Tablet, 1 TAB PO QID 04/19/12 Multivitamins/Minerals (Centrum Silver) 1 Tab Tab, 1 TAB PO DAILY 04/19/12 Ascorbic Acid (Vitamin C + [place] Hips) 500 Mg Tablet, 500 MG PO BID 04/19/12 [[place] Bioflavanoid] No Conflict Check, PO BID 04/19/12 Guaifenesin* (Mucinex* ER) 1,200 Mg/Bottle Tbmp.12hr, 1200 MG PO DAILY 04/19/12 Acetaminophen (Tylenol Arthritis) 650 Mg Tablet.sa, 650 MG PO HS 04/19/12 Polyethylene Glycol (Miralax) 17 Gm/Pkt Liq, 17 GM PO DAILY 04/19/12 Cyanocobalamin* (Vitamin B12*) 500 Mcg Tab, 500 MCG PO DAILY 04/19/12 Loratadine (Loratadine) 10 Mg Tablet, 10 MG PO DAILY 04/19/12 Aspirin (Aspirin) 81 Mg Tablet, 81 MG PO DAILY 04/19/12 Albuterol Sulfate* (Albuterol Sulfate* Neb) 20 Ml Nebu, 20 ML IH DAILY 04/19/12 Albuterol Sulfate* (Ventolin HFA*) 18 Gm Hfa.aer.ad, 18 GM IH BID 04/19/12 Tiotropium [place]* (Spiriva*) 18 Mcg Cap.w.dev, 18 MCG IH DAILY 04/19/12 [Advair] No Conflict Check 04/19/12 Epinephrine (Epipen) 0.3 Mg/0.3/Syringe Pen.injctr, 0.3 MG IM 04/19/12 Nitroglycerin (Nitroquick) 0.4 Mg Tab.subl, 0.4 MG SL 04/19/12 Alprazolam* (Alprazolam*) 0.5 Mg Tablet, 0.5 MG PO Q4 04/19/12 Oxycodone Hcl* (IR) (Oxycodone Hcl*) 15 Mg Tablet, 15 MG PO QID 04/19/12 Hydromorphone Hcl* (Hydromorphone Hcl*) 2 Mg Tablet, 2 MG PO Q4 04/19/12 Zaleplon (Zaleplon) 10 Mg Capsule, 10 MG PO HS 04/19/12 Montelukast Sodium* (Singulair*) 10 Mg Tablet, 10 MG PO HS 04/19/12 Pravastatin Sodium* (Pravastatin Sodium*) 40 Mg Tablet, 40 MG PO HS 04/19/12 [Amphetimine Salts] No Conflict Check, 15 MG PO DAILY 04/19/12 Omeprazole* (Omeprazole*) 20 Mg Capsule.dr, 20 MG PO DAILY 04/19/12 Levothyroxine Sodium* (Levothyroxine Sodium*) 112 Mcg Tablet, 112 MCG PO DAILY 04/19/12 Citalopram Hydrobromide* (Citalopram Hydrobromide*) 40 Mg Tablet, 40 MG PO DAILY 04/19/12 Estradiol (Estradiol) 1 Mg Tablet, 1 MG PO DAILY 04/19/12 Spironolactone* (Aldactone*) 25 Mg Tablet, 25 MG PO DAILY 04/19/12 Losartan Potassium* (Cozaar*) 100 Mg Tablet, 100 MG PO DAILY 04/19/12 Bumetanide* (Bumetanide*) 2 Mg Tablet, 2 MG PO TID 04/19/12 Gabapentin* (Gabapentin*) 600 Mg Tablet, 600 MG PO TID 04/19/12 [Fentanyl Patch] No Conflict Check, TOP 04/19/12 Medications Current Medications Acetaminophen (Tylenol Tab) 650 mg Q4H PRN PO PAIN Last administered on 12/03/18at 23:14; Admin Dose 650 MG; Start 12/03/18 at 01:00 Al Hydrox/Mg Hydrox/Simethicone (Mag-Al Plus) 15 ml Q6H PRN PO GASTROINTESTINAL UPSET Last administered on 12/06/18at 18:25; Admin Dose 15 ML; Start 12/03/18 at 01:00 Albuterol/ Ipratropium (Duoneb) 3 ml Q2H RESP THERAPY PRN HHN SHORTNESS OF BREATH Last administered on 12/08/18at 10:25; Admin Dose 3 ML; Start 12/03/18 at 01:00 Albuterol/ Ipratropium (Duoneb) 3 ml Q4HWA RESP THERAPY HHN Last administered on 12/08/18 19:50; Admin Dose 3 ML; Start 12/03/18 at 09:00 Alprazolam (Xanax) 0.5 mg Q8H PRN PO ANXIETY Last administered on 12/07/18 22:17; Admin Dose 0.5 MG; Start 12/03/18 at 01:00 Eye Lubricant (Artificial Tears Oph) 2 drop Q8 BOTH EYES Last administered on 12/08/18 13:33; Admin Dose 2 DROP; Start 12/03/18 at 06:00 Atorvastatin Calcium (Lipitor) 10 mg HS PO Last administered on 12/07/18 20:18; Admin Dose 10 MG; Start 12/03/18 at 21:00 Calcium Carbonate (Tums) 500 mg HS PO Last administered on 12/07/18 20:18; Ad min Dose 500 MG; Start 12/03/18 at 21:00 Cholecalciferol (Vitamin D) 4,000 unit DAILY PO Last administered on 12/08/18 09:35; Admin Dose 4,000 UNIT; Start 12/03/18 at 09:00 Diltiazem HCl (Cardizem Cd) 180 mg BID PO Last administered on 12/08/18 09:35; Admin Dose 180 MG; Start 12/03/18 at 09:00 Diphenhydramine HCl (Benadryl) 50 mg Q8 PRN PO for itching Last administered on 12/08/18 01:31; Admin Dose 50 MG; Start 12/03/18 at 01:00 Docusate Sodium (Colace) 100 mg BID PO Last administered on 12/08/18 09:36; Admin Dose 100 MG; Start 12/03/18 at 09:00 Donepezil HCl (Aricept) 10 mg 2100 PO Last administered on 12/07/18 20:18; Admin Dose 10 MG; Start 12/03/18 at 21:00 Duloxetine HCl (Cymbalta) 20 mg BID PO Last administered on 12/08/18 09:36; Admin Dose 20 MG; Start 12/03/18 at 09:00 Cholecalciferol (Vitamin D) 1,000 unit DAILY PO Last administered on 12/08/18 09:35; Admin Dose 1,000 UNIT; Start 12/03/18 at 09:00 Lactulose (Enulose) 20 gm DAILY PO Last administered on 12/08/18 09:37; Admin Dose 20 GM; Start 12/03/18 at 09:00 Metoclopramide HCl (Reglan) 5 mg Q6H PRN IV NAUSEA; Start 12/03/18 at 04:00 Metoprolol Tartrate (Lopressor) 25 mg BID PO Last administered on 12/08/18 09:36; Admin Dose 25 MG; Start 12/03/18 at 09:00 Miconazole Nitrate (Miconazole 2% Cr) 1 applic BID TOP Last administered on 12/08/18 09:39; Admin Dose 1 APPLIC; Start 12/03/18 at 09:00 Morphine Sulfate (morphine) 6 mg Q4H PRN PO SEVERE PAIN LEVEL 7-10 Last administered on 12/06/18 20:27; Admin Dose 6 MG; Start 12/03/18 at 04:00 Pantoprazole (Protonix Tab) 40 mg DAILY@06 PO Last administered on 12/08/18 06:38; Admin Dose 40 MG; Start 12/03/18 at 06:00 Phenol (Cepastat Lozenge) 1 lozenge Q1H PRN MT SORE THROAT; Start 12/03/18 at 04:00 Primidone (Mysoline) 100 mg TID PO Last administered on 12/08/18 12:31; Admin Dose 100 MG; Start 12/03/18 at 09:00 Rivaroxaban (Xarelto) 15 mg WITH DINNER PO Last administered on 12/08/18 17:38; Admin Dose 15 MG; Start 12/03/18 at 17:35 Diagnostic Test (Pha) (Accu-Chek) 1 ea 02 XX Last administered on 12/06/18 02:00; Admin Dose 1 EA; Start 12/04/18 at 02:00 Guaifenesin (Mucinex) 1,200 mg BID PO Last administered on 12/08/18 09:37; Admin Dose 1,200 MG; Start 12/03/18 at 09:00 Digoxin (Digoxin) 0.125 mg DAILY@13 PO Last administered on 12/08/18 12:35; Admin Dose 0.125 MG; Start 12/03/18 at 13:00 Roflumilast (Daliresp) 500 mcg DAILY PO Last administered on 12/08/18 09:36; Admin Dose 500 MCG; Start 12/03/18 at 09:00 Sacubitril/ Valsartan (Entresto 24 Mg-26 Mg) 1 tab BID PO Last administered on 12/08/18 09:36; Admin Dose 1 TAB; Start 12/03/18 at 09:00 Simethicone (Mylicon) 80 mg Q6H PRN PO DISTENSION/GAS/BLOATING Last adminis tered on 12/06/18 18:25; Admin Dose 80 MG; Start 12/03/18 at 05:00 Sodium Chloride (Nacl) 2 gm MONWEDFRI PO Last administered on 12/04/18 09:43; Admin Dose 2 GM; Start 12/04/18 at 09:00 Cyanocobalamin (Vitamin B12) 5,000 mcg Q48H PO Last administered on 12/07/18 10:20; Admin Dose 5,000 MCG; Start 12/03/18 at 09:00 Diagnostic Test (Pha) (Accu-Chek) 1 ea 02 XX Last administered on 12/06/18 02 :00; Admin Dose 1 EA; Start 12/04/18 at 02:00 Insulin Aspart (Novolog Insulin Pen) NOVOLOG *MILD* ALGORITHM WITH MEALS BEDTIME SC Last administered on 12/08/18 17:38; Admin Dose 2 UNIT; Start 12/03 at 07:35 Miscellaneous Information 1 ea NOTE XX Last administered on 12/03/18 09:25; Admin Dose 1 EA; Start 12/03/18 at 08:00 Glucose (Glutose) 15 gm Q15M PRN PO DECREASED GLUCOSE Last administered on 12/03/18 09:18; Admin Dose 15 GM; Start 12/03/18 at 08:00 Glucose (Glutose) 22.5 gm Q15M PRN PO DECREASED GLUCOSE Last administered on 12/06/18 08:52; Admin Dose 22.5 GM; Start 12/03/18 at 08:00 Dextrose (D50w Syringe) 25 ml Q15M PRN IV DECREASED GLUCOSE; Start 12/03/18 at 08:00 Dextrose (D50w Syringe) 50 ml Q15M PRN IV DECREASED GLUCOSE Last administered on 12/06/18 11:18; Admin Dose 50 ML; Start 12/03/18 at 08:00 Glucagon (Glucagen) 1 mg Q15M PRN IM DECREASED GLUCOSE; Start 12/03/18 at 08:00 Glucose (Glutose) 15 gm Q15M PRN BUCCAL DECREASED GLUCOSE Last administered on 12/05/18 09:40; Admin Dose 15 GM; Start 12/03/18 at 08:00 [facility]isc[facility] Information [facility] This patient sewell... PRN PRN XX WOUND CARE; Start 12/04/18 at 03:30 Levothyroxine Sodium (Synthroid) 50 mcg DAILY@06 PO Last administered on 12/08/18 06:38; Admin Dose 50 MCG; Start 12/05/18 at 06:00 Melatonin (Melatonin) 3 mg HS PO Last administered on 12/07/18 22:17; Admin Dose 3 MG; Start 12/04/18 at 21:00 Mupirocin (Bactroban) 1 applic BID TOP Last administered on 12/08/18 09:40; Admin Dose 1 APPLIC; Start 12/06/18 at 13:00; Stop 12/13/18 at 12:59 Furosemide (Lasix) 20 mg DAILY@0600 PO Last administered on 12/08/18 06:40; Admin Dose 20 MG; Start 12/06/18 at 12:00 Insulin Glargine (Lantus) 6 units DAILY@2000 SC Last administered on 12/07/18 20:32; Admin Dose 6 UNITS; Start 12/06/18 at 20:00 Methylprednisolone Sodium Succinate (Solu-Medrol) 40 mg Q8 IV Last administered on 12/08/18 13:33; Admin Dose 40 MG; Start 12/06/18 at 16:30 Sodium Chloride 1,000 ml @ 50 mls/hr Q20H IV Last administered on 12/08/18 12:31; Admin Dose 50 MLS/HR; Start 12/07/18 at 13:00 Allergies: Coded Allergies: KEV Inhibitors (Unverified Allergy, Unknown, 11/15/18) Penicillins (Verified Allergy, Unknown, 11/14/18) Sulfa (Sulfonamide Antibiotics) (Unverified Allergy, Unknown, 11/15/18) Tetanus Vaccines and Toxoid (Verified Allergy, Unknown, 11/14/18) adhesive tape (Verified Allergy, Unknown, 11/14/18) amitriptyline (Verified Allergy, Unknown, 11/14/18) budesonide (Verified Allergy, Unknown, 11/14/18) cefuroxime (Verified Allergy, Unknown, 11/14/18) levofloxacin (Unverified Allergy, Unknown, 11/15/18) lisinopril (Verified Allergy, Unknown, 11/14/18) trimethoprim (Verified Allergy, Unknown, 11/14/18) Past Surgical History Past Surgical Hx: other (Coronary artery disease with history of stent placement details are not available, status post stent placement for bilateral carotid artery stenosis, status post appendectomy, status post rotator cuff surgery, status post lumbar fusion surgery, status post left hip surgery,) Family History Significant Family History: no pertinent family hx Social History Alcohol Use: none Smoking Status: Former smoker (More than 30 years history of smoking currently non-smoker) Drug Use: none Exam/Review of Systems Exam Vitals Vital Signs Date Temp Pulse Resp B/P (MAP) Pulse Ox O2 O2 Flow FiO2 Time Delivery Rate 12/08/18 2.0 19:51 12/08/18 84 20 99 Nasal 19:51 Cannula 12/08/18 97.6 117/55 14:00 (75) Intake and Output 12/07/18 12/07/18 12/08/18 1515:00 23:00 07:00 IntakeIntake Total 1000 ml 1540 ml BalanceBalance 1000 ml 1540 ml Constitutional: distress Psych: no complaints Head: normocephalic Eyes: nl conjunctiva ENMT: nl external ears & nose Neck: supple, non-tender Respiratory: clear to auscultation, normal air movement Cardiovascular: regular rate and rhythm, nl pulses Gastrointestinal: soft Musculoskeletal: nl extremities to inspection Extremities: normal pulses 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, nl mental status Results Result Diagram: 12/08/18 0646 12/08/18 0646 Results 24hrs Laboratory Tests Test 12/08/18 06:46 12/08/18 07:45 12/08/18 12:12 12/08/18 17:19 White Blood Count 10.6 Red Blood Count 3.91 L Hemoglobin 10.6 L Hematocrit 32.9 L Mean Corpuscular 84.1 Volume Mean Corpuscular 27.1 L Hemoglobin Mean Corpuscular 32.2 Hemoglobin Concent Red Cell 25.4 H Distribution Width Platelet Count 184 # Mean Platelet Volume 10.1 Immature 9.000 H Granulocytes % Neutrophils % Segmented 77 Neutrophils % (Manual) Band Neutrophils % 14 H (Manual) Lymphocytes % Lymphocytes % 2 L (Manual) Reactive Lymphocytes 2 H % (Manual) Monocytes % Monocytes % (Manual) 3 Eosinophils % Basophils % Metamyelocytes % 1 H (manual) Myelocytes % 1 H (Manual) Nucleated Red Blood 1 H Cells % Immature 0.950 H Granulocytes # Neutrophils # Neutrophils # 8.3 H (Manual) Band Neutrophils # 1.4 H Lymphocytes (Manual) 0.2 L Lymphocytes # Reactive Lymphocytes 0.2 H # Monocytes # Monocytes # (Manual) 0.3 Eosinophils # Basophils # Metamyelocytes # 0.1 H Myelocytes # 0.1 H Nucleated Red Blood Cells # Platelet Estimate NORMAL Polychromasia 3+ Poikilocytosis 3+ Anisocytosis 3+ Microcytosis 3+ Sodium Level 134 L Potassium Level 4.3 Chloride Level 96 L Carbon Dioxide Level 31 Anion Gap 7 Blood Urea Nitrogen 40 H Creatinine 1.06 H Est Glomerular Filtrat Rate mL/min Glucose Level 100 Calcium Level 7.9 L Bedside Glucose 99 91 208 Test 12/08/18 21:00 Bedside Glucose 218 Medications Medication Current Medications Acetaminophen (Tylenol Tab) 650 mg Q4H PRN PO PAIN Last administered on 12/03/18at 23:14; Admin Dose 650 MG; Start 12/03/18 at 01:00 Al Hydrox/Mg Hydrox/Simethicone (Mag-Al Plus) 15 ml Q6H PRN PO GASTROINTESTINAL UPSET Last administered on 12/06/18 18:25; Admin Dose 15 ML; Start 12/03/18 at 01:00 Albuterol/ Ipratropium (Duoneb) 3 ml Q2H RESP THERAPY PRN HHN SHORTNESS OF BREATH Last administered on 12/08/18at 10:25; Admin Dose 3 ML; Start 12/03/18 at 01:00 Albuterol/ Ipratropium (Duoneb) 3 ml Q4HWA RESP THERAPY HHN Last administered on 12/08/18 19:50; Admin Dose 3 ML; Start 12/03/18 at 09:00 Alprazolam (Xanax) 0.5 mg Q8H PRN PO ANXIETY Last administered on 12/07/18 22:17; Admin Dose 0.5 MG; Start 12/03/18 at 01:00 Eye Lubricant (Artificial Tears Oph) 2 drop Q8 BOTH EYES Last administered on 13:33; Admin Dose 2 DROP; Start 12/03/18 at 06:00 Atorvastatin Calcium (Lipitor) 10 mg HS PO Last administered on 12/07/18 20:18; Admin Dose 10 MG; Start 12/03/18 at 21:00 Calcium Carbonate (Tums) 500 mg HS PO Last administered on 12/07/18 20:18; Admin Dose 500 MG; Start 12/03/18 at 21:00 Cholecalciferol (Vitamin D) 4,000 unit DAILY PO Last administered on 12/08/18 09:35; Admin Dose 4,000 UNIT; Start 12/03/18 at 09:00 Diltiazem HCl (Cardizem Cd) 180 mg BID PO Last administered on 12/08/18 09:35; Admin Dose 180 MG; Start 12/03/18 at 09:00 Diphenhydramine HCl (Benadryl) 50 mg Q8 PRN PO for itching Last administered on 12/08/18 01:31; Admin Dose 50 MG; Start 12/03/18 at 01:00 Docusate Sodium (Colace) 100 mg BID PO Last administered on 12/08/18 09:36; Admin Dose 100 MG; Start 12/03/18 at 09:00 Donepezil HCl (Aricept) 10 mg 2100 PO Last administered on 12/07/18 20:18; A dmin Dose 10 MG; Start 12/03/18 at 21:00 Duloxetine HCl (Cymbalta) 20 mg BID PO Last administered on 12/08/18 09:36; Admin Dose 20 MG; Start 12/03/18 at 09:00 Cholecalciferol (Vitamin D) 1,000 unit DAILY PO Last administered on 12/08/18 09:35; Admin Dose 1,000 UNIT; Start 12/03/18 at 09:00 Lactulose (Enulose) 20 gm DAILY PO Last administered on 12/08/18 09:37; Admin Dose 20 GM; Start 12/03/18 at 09:00 Metoclopramide HCl (Reglan) 5 mg Q6H PRN IV NAUSEA; Start 12/03/18 at 04:00 Metoprolol Tartrate (Lopressor) 25 mg BID PO Last administered on 12/08/18 09:36; Admin Dose 25 MG; Start 12/03/18 at 09:00 Miconazole Nitrate (Miconazole 2% Cr) 1 applic BID TOP Last administered on 12/08/18 09:39; Admin Dose 1 APPLIC; Start 12/03/18 at 09:00 Morphine Sulfate (morphine) 6 mg Q4H PRN PO SEVERE PAIN LEVEL 7-10 Last administered on 12/06/18 20:27; Admin Dose 6 MG; Start 12/03/18 at 04:00 Pantoprazole (Protonix Tab) 40 mg DAILY@06 PO Last administered on 12/08/18 06:38; Admin Dose 40 MG; Start 12/03/18 at 06:00 Phenol (Cepastat Lozenge) 1 lozenge Q1H PRN MT SORE THROAT; Start 12/03/18 at 04:00 Primidone (Mysoline) 100 mg TID PO Last administered on 12/08/18 12:31; Admin Dose 100 MG; Start 12/03/18 at 09:00 Rivaroxaban (Xarelto) 15 mg WITH DINNER PO Last administered on 12/08/18 17:38; Admin Dose 15 MG; Start 12/03/18 at 17:35 Diagnostic Test (Pha) (Accu-Chek) 1 ea 02 XX Last administered on 12/06/18 02:00; Admin Dose 1 EA; Start 12/04/18 at 02:00 Guaifenesin (Mucinex) 1,200 mg BID PO Last administered on 12/08/18 09:37; Admin Dose 1,200 MG; Start 12/03/18 at 09:00 Digoxin (Digoxin) 0.125 mg DAILY@13 PO Last administered on 12/08/18 12:35; Admin Dose 0.125 MG; Start 12/03/18 at 13:00 Roflumilast (Daliresp) 500 mcg DAILY PO Last administered on 12/08/18 09:36; Admin Dose 500 MCG; Start 12/03/18 at 09:00 Sacubitril/ Valsartan (Entresto 24 Mg-26 Mg) 1 tab BID PO Last administered on 12/08/18 09:36; Admin Dose 1 TAB; Start 12/03/18 at 09:00 Simethicone (Mylicon) 80 mg Q6H PRN PO DISTENSION/GAS/BLOATING Last administered on 12/06/18 18:25; Admin Dose 80 MG; Start 12/03/18 at 05:00 Sodium Chloride (Nacl) 2 gm MONWEDFRI PO Last administered on 12/04/18 09:43; Admin Dose 2 GM; Start 12/04/18 at 09:00 Cyanocobalamin (Vitamin B12) 5,000 mcg Q48H PO Last administered on 12/07/18 10:20; Admin Dose 5,000 MCG; Start 12/03/18 at 09:00 Diagnostic Test (Pha) (Accu-Chek) 1 ea 02 XX Last administered on 12/06/18 02:00; Admin Dose 1 EA; Start 12/04/18 at 02:00 Insulin Aspart (Novolog Insulin Pen) NOVOLOG *MILD* ALGORITHM WITH MEALS BEDTIME SC Last administered on 12/08/18 17:38; Admin Dose 2 UNIT; Start 12/03/18 at 07:35 Miscellaneous Information 1 ea NOTE XX Last administered on 12/03/18 09:25; Admin Dose 1 EA; Start 12/03/18 at 08:00 Glucose (Glutose) 15 gm Q15M PRN PO DECREASED GLUCOSE Last administered on 12/03/18 09:18; Admin Dose 15 GM; Start 12/03/18 at 08:00 Glucose (Glutose) 22.5 gm Q15M PRN PO DECREASED GLUCOSE Last administered on 12/06/18 08:52; Admin Dose 22.5 GM; Start 12/03/18 at 08:00 Dextrose (D50w Syringe) 25 ml Q15M PRN IV DECREASED GLUCOSE; Start 12/03/18 at 08:00 Dextrose (D50w Syringe) 50 ml Q15M PRN IV DECREASED GLUCOSE Last administered on 12/06/18 11:18; Admin Dose 50 ML; Start 12/03/18 at 08:00 Glucagon (Glucagen) 1 mg Q15M PRN IM DECREASED GLUCOSE; Start 12/03/18 at 08:00 Glucose (Glutose) 15 gm Q15M PRN BUCCAL DECREASED GLUCOSE Last administered on 12/05/18 09:40; Admin Dose 15 GM; Start 12/03/18 at 08:00 Miscellaneous Information [facility] This patient sewell... PRN PRN XX WOUND CARE; Start 12/04/18 at 03:30 Levothyroxine Sodium (Synthroid) 50 mcg DAILY@06 PO Last administered on 12/08/18 06:38; Admin Dose 50 MCG; Start 12/05/18 at 06:00 Melatonin (Melatonin) 3 mg HS PO Last administered on 12/07/18 22:17; Admin Dose 3 MG; Start 12/04/18 at 21:00 Mupirocin (Bactroban) 1 applic BID TOP Last administered on 12/08/18 09:40; Admin Dose 1 APPLIC; Start 12/06/18 at 13:00; Stop 12/13/18 at 12:59 Furosemide (Lasix) 20 mg DAILY@0600 PO Last administered on 12/08/18 06:40; Admin Dose 20 MG; Start 12/06/18 at 12:00 Insulin Glargine (Lantus) 6 units DAILY@2000 SC Last administered on 12/07/18 20:32; Admin Dose 6 UNITS; Start 12/06/18 at 20:00 Methylprednisolone Sodium Succinate (Solu-Medrol) 40 mg Q8 IV Last administered on 12/08/18 13:33; Admin Dose 40 MG; Start 12/06/18 at 16:30 Sodium Chloride 1,000 ml @ 50 mls/hr Q20H IV Last administered on 12/08/18 12:31; Admin Dose 50 MLS/HR; Start 12/07/18 at 13:00 ANA GE MD Dec 08, 2018 21:09
[2018-12-08] MEDS: ATORVASTATIN 10 MG TAB PO SCH (21:18)
[2018-12-08] MEDS: CALCIUM CARBONATE 500 MG CHEW TAB PO SCH (21:18)
[2018-12-08] MEDS: DONEPEZIL 10 MG TAB PO SCH (21:19)
[2018-12-08] MEDS: morphine LIQ (10 MG/5 ML) CUP PO PRN (21:20)
[2018-12-08] MEDS: INSULIN GLARGINE [LANTus] (100 UNITS/ML) SYG SC SCH (21:25)
[2018-12-08] MEDS: ALPRAZOLAM 0.25 MG TAB PO PRN (22:52)
[2018-12-09 02:00] VITALS: BP 145/78; PULSE 83; RESP 18
[2018-12-09] MEDS: ACCU-CHEK XX SCH ×2 (02:00)
[2018-12-09] MEDS: morphine LIQ (10 MG/5 ML) CUP PO PRN ×2 (04:15→19:44)
[2018-12-09] MEDS: DIPHENHYDRAMINE 50 MG CAP PO PRN (04:15)
[2018-12-09] MEDS: SOD CHLORIDE 0.45% 1,000 ML IV SCH (05:09)
[2018-12-09] MEDS: METHYLPREDNISOLONE 40 MG INJ IV SCH ×3 (06:40→22:14)
[2018-12-09] MEDS: PANTOPRAZOLE (EC) 40 MG TAB PO SCH (06:40)
[2018-12-09] MEDS: ARTIFICIAL TEARS 15 ML OPH BOTH EYES SCH ×3 (06:40→22:17)
[2018-12-09] MEDS: LEVOTHYROXINE 50 MCG TAB PO SCH (06:40)
[2018-12-09] MEDS: FUROSEMIDE 20 MG TAB PO SCH (06:47)
[2018-12-09 07:30] VITALS: BP 140/59; PULSE 84; RESP 20
[2018-12-09] MEDS: INSULIN ASPART [NOVOLOG] 3 ML PEN SC SCH ×2 (07:35→12:00)
[2018-12-09] MEDS: ALBUTEROL/IPRATROPIUM (NEB) 3 ML AMP HHN SCH ×4 (07:54→20:09)
[2018-12-09] MEDS: GUAIFENESIN LA 600 MG TABSR PO SCH ×2 (08:59→22:15)
[2018-12-09] MEDS: LACTULOSE 30ML CUP PO SCH (08:59)
[2018-12-09] MEDS: CHOLECALCIFEROL 2,000 UNIT CAP PO SCH (09:00)
[2018-12-09] MEDS: METOPROLOL 25 MG TAB PO SCH ×2 (09:00→22:16)
[2018-12-09] MEDS: SODIUM CHLORIDE 1 GM TAB PO SCH (09:00)
[2018-12-09] MEDS: CHOLECALCIFEROL 1,000 UNIT TAB PO SCH (09:01)
[2018-12-09] MEDS: CYANOCOBALAMIN 500 MCG TAB PO SCH (09:01)
[2018-12-09] MEDS: DULOXETINE 20 MG CAP DR PO SCH ×2 (09:01→22:14)
[2018-12-09] MEDS: PRIMIDONE 50 MG TAB PO SCH ×3 (09:01→22:15)
[2018-12-09] MEDS: DOCUSATE SODIUM 100 MG CAP PO SCH ×2 (09:01→22:16)
[2018-12-09] MEDS: ROFLUMILAST 500 MCG TABLET PO SCH (09:02)
[2018-12-09] MEDS: DILTIAZEM (CD) 180 MG CAP PO SCH ×2 (09:02→22:15)
[2018-12-09] MEDS: SACUBITRIL/VALSARTAN (24mg-26mg) TABLET PO SCH ×2 (09:02→22:15)
[2018-12-09] MEDS: MUPIROCIN 2% 22 GM OINT TOP SCH ×2 (09:03→22:17)
[2018-12-09] MEDS: MICONAZOLE 2% 30 GM CR TOP SCH ×2 (09:03→22:17)
--- NOTE | 2018-12-09 12:35 | CONS ---
Assessment/Plan Cardiology NYHA: II Heart Failure Type: Acute Heart Failure Type: Diastolic Assessment/Plan Hospital Course (Demo Recall) COPD exacerbation Acute decompensated diastolic congestive heart failure Atrial fibrillation, on anticoagulation Recent pneumonia Hypertension Dyslipidemia Preserved ejection fraction Possible conjunctival hemorrhage-improved -Diuretics being adjusted by our nephrology colleague -Continue Cardizem and metoprolol for heart rate control and titrate based on heart rate and blood pressure -Continue digoxin as tolerated Consultation Date/Type/Reason Admit Date/Time Dec 02, 2018 at 22:56 Initial Consult Date Type of Consult Cardiology Requesting Provider: LISSETTE ESPOSITO MD Date/Time of Note DATE: 12/09/18 TIME: 12:34 24 HR Interval Summary Free Text/Dictation Shortness of breath is slightly better. Still with cough. Denies palpitations Exam/Review of Systems Vital Signs Vitals Vital Signs Date Temp Pulse Resp B/P (MAP) Pulse Ox O2 O2 Flow FiO2 Time Delivery Rate 12/09/18 2.0 07:57 12/09/18 82 18 98 Nasal 07:57 Cannula 12/09/18 97.6 140/59 07:30 (86) Intake and Output 12/08/18 12/08/18 12/09/18 1515:00 23:00 07:00 IntakeIntake Total 250 ml 840 ml 500 ml OutputOutput Total 300 ml BalanceBalance 250 ml 840 ml 200 ml Exam Constitutional: alert, oriented (Eating breakfast, no apparent distress) Respiratory: other (Coarse breath sounds with scattered rhonchi and wheezing) Cardiovascular: irregular rhythm (S1-S2 heard) Gastrointestinal: soft, non-tender, bowel sounds Extremities: other (No significant edema) Labs Result Diagram: 12/09/18 0714 12/09/18 0714 Results 24hrs Laboratory Tests Test 12/08/18 17:19 12/08/18 21:00 12/09/18 02:03 12/09/18 07:14 Bedside Glucose 208 218 174 White Blood Count 9.7 Red Blood Count 4.14 L Hemoglobin 11.1 L Hematocrit 34.5 L Mean Corpuscular 83.3 Volume Mean Corpuscular 26.8 L Hemoglobin Mean Corpuscular 32.2 Hemoglobin Concent Red Cell 25.4 H Distribution Width Platelet Count 149 Mean Platelet Volume 9.2 Immature 7.900 H Granulocytes % Neutrophils % 83.3 H Segmented 80 H Neutrophils % (Manual) Band Neutrophils % 8 H (Manual) Lymphocytes % 5.2 L Lymphocytes % 6 L (Manual) Monocytes % 3.1 Eosinophils % 0.0 Basophils % 0.5 Metamyelocytes % 1 H (manual) Myelocytes % 3 H (Manual) Promyelocytes % 2 H (Manual) Nucleated Red Blood 0.0 Cells % Immature 0.770 H Granulocytes # Neutrophils # 8.1 H Neutrophils # 7.8 H (Manual) Band Neutrophils # 0.7 H Lymphocytes (Manual) 0.5 L Lymphocytes # 0.5 L Monocytes # 0.3 Eosinophils # 0.0 Basophils # 0.1 Metamyelocytes # 0.0 Myelocytes # 0.2 H Promyelocytes # 0.1 H Nucleated Red Blood 0.0 Cells # Platelet Estimate NORMAL Giant Platelets 1 H Polychromasia 2+ Poikilocytosis 2+ Anisocytosis 3+ Microcytosis 3+ Target Cells 1+ Ovalocytes 1+ Sodium Level 134 L Potassium Level 4.2 Chloride Level 98 Carbon Dioxide Level 29 Anion Gap 7 Blood Urea Nitrogen 37 H Creatinine 0.90 Est Glomerular Filtrat Rate mL/min Glucose Level 122 Calcium Level 7.6 L B-Type Natriuretic 1100 H Peptide Test 12/09/18 07:44 12/09/18 12:10 Bedside Glucose 119 126 Medications Medications Current Medications Acetaminophen (Tylenol Tab) 650 mg Q4H PRN PO PAIN Last administered on 12/03/18 23:14; Admin Dose 650 MG; Start 12/03/18 at 01:00 Al Hydrox/Mg Hydrox/Simethicone (Mag-Al Plus) 15 ml Q6H PRN PO GASTROINTESTINAL UPSET Last administered on 12/06/18 18:25; Admin Dose 15 ML; Start 12/03/18 at 01:00 Albuterol/ Ipratropium (Duoneb) 3 ml Q2H RESP THERAPY PRN HHN SHORTNESS OF BREATH Last administered on 12/08/18 10:25; Admin Dose 3 ML; Start 12/03/18 at 01:00 Albuterol/ Ipratropium (Duoneb) 3 ml Q4HWA RESP THERAPY HHN Last administered on 12/09/18 07:54; Admin Dose 3 ML; Start 12/03/18 at 09:00 Alprazolam (Xanax) 0.5 mg Q8H PRN PO ANXIETY Last administered on 12/08/18 22:52; Admin Dose 0.5 MG; Start 12/03/18 at 01:00 Eye Lubricant (Artificial Tears Oph) 2 drop Q8 BOTH EYES Last administered on 12/09/18 06:40; Admin Dose 2 DROP; Start 12/03/18 at 06:00 Atorvastatin Calcium (Lipitor) 10 mg HS PO Last administered on 12/08/18 21:18; Admin Dose 10 MG; Start 12/03/18 at 21:00 Calcium Carbonate (Tums) 500 mg HS PO Last administered on 12/08/18 21:18; Admin Dose 500 MG; Start 12/03/18 at 21:00 Cholecalciferol (Vitamin D) 4,000 unit DAILY PO Last administered on 12/09/18 09:00; Admin Dose 4,000 UNIT; Start 12/03/18 at 09:00 Diltiazem HCl (Cardizem Cd) 180 mg BID PO Last administered on 12/09/18 09:02; Admin Dose 180 MG; Start 12/03/18 at 09:00 Diphenhydramine HCl (Benadryl) 50 mg Q8 PRN PO for itching Last administered on 12/09/18 04:15; Admin Dose 50 MG; Start 12/03/18 at 01:00 Docusate Sodium (Colace) 100 mg BID PO Last administered on 12/09/18 09:01; Admin Dose 100 MG; Start 12/03/18 at 09:00 Donepezil HCl (Aricept) 10 mg 2100 PO Last administered on 12/08/18 21:19; Admin Dose 10 MG; Start 12/03/18 at 21:00 Duloxetine HCl (Cymbalta) 20 mg BID PO Last administered on 12/09/18 09:01; Admin Dose 20 MG; Start 12/03/18 at 09:00 Cholecalciferol (Vitamin D) 1,000 unit DAILY PO Last administered on 12/09/18 09:01; Admin Dose 1,000 UNIT; Start 12/03/18 at 09:00 Lactulose (Enulose) 20 gm DAILY PO Last administered on 12/09/18 08:59; Admin Dose 20 GM; Start 12/03/18 at 09:00 Metoclopramide HCl (Reglan) 5 mg Q6H PRN IV NAUSEA; Start 12/03/18 at 04:00 Metoprolol Tartrate (Lopressor) 25 mg BID PO Last administered on 12/09/18 09:00; Admin Dose 25 MG; Start 12/03/18 at 09:00 Miconazole Nitrate (Miconazole 2% Cr) 1 applic BID TOP Last administered on 12/09/18 09:03; Admin Dose 1 APPLIC; Start 12/03/18 at 09:00 Morphine Sulfate (morphine) 6 mg Q4H PRN PO SEVERE PAIN LEVEL 7-10 Last administered on 12/09/18 04:15; Admin Dose 6 MG; Start 12/03/18 at 04:00 Pantoprazole (Protonix Tab) 40 mg DAILY@06 PO Last administered on 12/09/18 06:40; Admin Dose 40 MG; Start 12/03/18 at 06:00 Phenol (Cepastat Lozenge) 1 lozenge Q1H PRN MT SORE THROAT; Start 12/03/18 at 04:00 Primidone (Mysoline) 100 mg TID PO Last administered on 12/09/18 09:01; Admin Dose 100 MG; Start 12/03/18 at 09:00 Rivaroxaban (Xarelto) 15 mg WITH DINNER PO Last administered on 12/08/18 17:38; Admin Dose 15 MG; Start 12/03/18 at 17:35 Diagnostic Test (Pha) (Accu-Chek) 1 ea 02 XX Last administered on 12/09/18 02:00; Admin Dose 1 EA; Start 12/04/18 at 02:00 Guaifenesin (Mucinex) 1,200 mg BID PO Last administered on 12/09/18 08:59; Admin Dose 1,200 MG; Start 12/03/18 at 09:00 Digoxin (Digoxin) 0.125 mg DAILY@13 PO Last administered on 12/08/18 12:35; Admin Dose 0.125 MG; Start 12/03/18 at 13:00 Roflumilast (Daliresp) 500 mcg DAILY PO Last administered on 12/09/18 09:02; Admin Dose 500 MCG; Start 12/03/18 at 09:00 Sacubitril/ Valsartan (Entresto 24 Mg-26 Mg) 1 tab BID PO Last administered on 12/09/18 09:02; Admin Dose 1 TAB; Start 12/03/18 at 09:00 Simethicone (Mylicon) 80 mg Q6H PRN PO DISTENSION/GAS/BLOATING Last administered on 12/06/18 18:25; Admin Dose 80 MG; Start 12/03/18 at 05:00 Sodium Chloride (Nacl) 2 gm MONWEDFRI PO Last administered on 12/09/18 09:00; Admin Dose 2 GM; Start 12/04/18 at 09:00 Cyanocobalamin (Vitamin B12) 5,000 mcg Q48H PO Last administered on 12/09/18 09:01; Admin Dose 5,000 MCG; Start 12/03/18 at 09:00 Diagnostic Test (Pha) (Accu-Chek) 1 ea 02 XX Last administered on 12/09/18 02:00; Admin Dose 1 EA; Start 12/04/18 at 02:00 Insulin Aspart (Novolog Insulin Pen) NOVOLOG *MILD* ALGORITHM WITH MEALS BEDTIME SC Last administered on 12/08/18 21:26; Admin Dose 1 UNIT; Start 12/03/18 at 07:35 Miscellaneous Information 1 ea NOTE XX Last administered on 12/03/18 09:25; Admin Dose 1 EA; Start 12/03/18 at 08:00 Glucose (Glutose) 15 gm Q15M PRN PO DECREASED GLUCOSE Last administered on 12/03/18 09:18; Admin Dose 15 GM; Start 12/03/18 at 08:00 Glucose (Glutose) 22.5 gm Q15M PRN PO DECREASED GLUCOSE Last administered on 12/06/18 08:52; Admin Dose 22.5 GM; Start 12/03/18 at 08:00 Dextrose (D50w Syringe) 25 ml Q15M PRN IV DECREASED GLUCOSE; Start 12/03/18 at 08:00 Dextrose (D50w Syringe) 50 ml Q15M PRN IV DECREASED GLUCOSE Last administered on 12/06/18 11:18; Admin Dose 50 ML; Start 12/03/18 at 08:00 Glucagon (Glucagen) 1 mg Q15M PRN IM DECREASED GLUCOSE; Start 12/03/18 at 08:00 Glucose (Glutose) 15 gm Q15M PRN BUCCAL DECREASED GLUCOSE Last administered on 12/05/18 09:40; Admin Dose 15 GM; Start 12/03/18 at 08:00 Miscellaneous Information (Pending [facility] Order For Wound Care) This patient sewell... PRN PRN XX WOUND CARE; Start 12/04/18 at 03:30 Levothyroxine Sodium (Synthroid) 50 mcg DAILY@06 PO Last administered on 12/09/18 06:40; Admin Dose 50 MCG; Start 12/05/18 at 06:00 Melatonin (Melatonin) 3 mg HS PO Last administered on 12/07/18 22:17; Admin Dose 3 MG; Start 12/04/18 at 21:00 Mupirocin (Bactroban) 1 applic BID TOP Last administered on 12/09/18 09:03; Admin Dose 1 APPLIC; Start 12/06/18 at 13:00; Stop 12/13/18 at 12:59 Furosemide (Lasix) 20 mg DAILY@0600 PO Last administered on 12/09/18 06:47; Admin Dose 20 MG; Start 12/06/18 at 12:00 Insulin Glargine (Lantus) 6 units DAILY@2000 SC Last administered on 12/08/18 21:25; Admin Dose 6 UNITS; Start 12/06/18 at 20:00 Methylprednisolone Sodium Succinate (Solu-Medrol) 40 mg Q8 IV Last administered on 12/09/18 06:40; Admin Dose 40 MG; Start 12/06/18 at 16:30 Sodium Chloride 1,000 ml @ 50 mls/hr Q20H IV Last administered on 12/09/18 05:09; Admin Dose 50 MLS/HR; Start 12/07/18 at 13:00 Bird Herrera DO Dec 09, 2018 12:35
[2018-12-09] MEDS: DIGOXIN 0.125 MG TAB PO SCH (12:38)
--- NOTE | 2018-12-09 13:07 | PN ---
Date/Time of Note Date/Time of Note DATE: 12/09/18 TIME: 13:07 Objective Vital Signs Date Temp Pulse Resp B/P (MAP) Pulse Ox O2 O2 Flow FiO2 Time Delivery Rate 12/09/18 2.0 07:57 12/09/18 82 18 98 Nasal 07:57 Cannula 12/09/18 97.6 140/59 07:30 (86) Intake and Output 12/08/18 12/08/18 12/09/18 1515:00 23:00 07:00 IntakeIntake Total 250 ml 840 ml 500 ml OutputOutput Total 300 ml BalanceBalance 250 ml 840 ml 200 ml Exam INTERDISCIPLINARY TEAM CONFERENCE Physical Exam: Abd-soft BOWEL- Cont BLADDER-Cont SKIN- echymosis OT- DRESSING-min/mod BATHING-min/mod TOILETING-min/mod PT- BED MOBILITY-min TRANSFERS-mod AMBULATION-min 45 feet A/P- Interdisciplinary team conference held today. Please see interdisciplinary sheet. Working toward d.c. on 12/13 with post discharge follow up of physical therapy, occupational therapy. Results/Medications Result Diagram: 12/09/18 0714 12/09/18 0714 Results 24 hrs Laboratory Tests Test 12/08/18 17:19 12/08/18 21:00 12/09/18 02:03 12/09/18 07:14 Bedside Glucose 208 218 174 White Blood Count 9.7 Red Blood Count 4.14 L Hemoglobin 11.1 L Hematocrit 34.5 L Mean Corpuscular 83.3 Volume Mean Corpuscular 26.8 L Hemoglobin Mean Corpuscular 32.2 Hemoglobin Concent Red Cell 25.4 H Distribution Width Platelet Count 149 Mean Platelet Volume 9.2 Immature 7.900 H Granulocytes % Neutrophils % 83.3 H Segmented 80 H Neutrophils % (Manual) Band Neutrophils % 8 H (Manual) Lymphocytes % 5.2 L Lymphocytes % 6 L (Manual) Monocytes % 3.1 Eosinophils % 0.0 Basophils % 0.5 Metamyelocytes % 1 H (manual) Myelocytes % 3 H (Manual) Promyelocytes % 2 H (Manual) Nucleated Red Blood 0.0 Cells % Immature 0.770 H Granulocytes # Neutrophils # 8.1 H Neutrophils # 7.8 H (Manual) Band Neutrophils # 0.7 H Lymphocytes (Manual) 0.5 L Lymphocytes # 0.5 L Monocytes # 0.3 Eosinophils # 0.0 Basophils # 0.1 Metamyelocytes # 0.0 Myelocytes # 0.2 H Promyelocytes # 0.1 H Nucleated Red Blood 0.0 Cells # Platelet Estimate NORMAL Giant Platelets 1 H Polychromasia 2+ Poikilocytosis 2+ Anisocytosis 3+ Microcytosis 3+ Target Cells 1+ Ovalocytes 1+ Sodium Level 134 L Potassium Level 4.2 Chloride Level 98 Carbon Dioxide Level 29 Anion Gap 7 Blood Urea Nitrogen 37 H Creatinine 0.90 Est Glomerular Filtrat Rate mL/min Glucose Level 122 Calcium Level 7.6 L B-Type Natriuretic 1100 H Peptide Test 12/09/18 07:44 12/09/18 12:10 Bedside Glucose 119 126 Medications Current Medications Acetaminophen (Tylenol Tab) 650 mg Q4H PRN PO PAIN Last administered on 12/03/18 23:14; Admin Dose 650 MG; Start 12/03/18 at 01:00 Al Hydrox/Mg Hydrox/Simethicone (Mag-Al Plus) 15 ml Q6H PRN PO GASTROINTESTINAL UPSET Last administered on 12/06/18 18:25; Admin Dose 15 ML; Start 12/03/18 at 01:00 Albuterol/ Ipratropium (Duoneb) 3 ml Q2H RESP THERAPY PRN HHN SHORTNESS OF BREATH Last administered on 12/08/18 10:25; Admin Dose 3 ML; Start 12/03/18 at 01:00 Albuterol/ Ipratropium (Duoneb) 3 ml Q4HWA RESP THERAPY HHN Last administered on 12/09/18 07:54; Admin Dose 3 ML; Start 12/03/18 at 09:00 Alprazolam (Xanax) 0.5 mg Q8H PRN PO ANXIETY Last administered on 12/08/18 22:52; Admin Dose 0.5 MG; Start 12/03/18 at 01:00 Eye Lubricant (Artificial Tears Oph) 2 drop Q8 BOTH EYES Last administered on 12/09/18 12:38; Admin Dose 2 DROP; Start 12/03/18 at 06:00 Atorvastatin Calcium (Lipitor) 10 mg HS PO Last administered on 12/08/18 21:18 ; Admin Dose 10 MG; Start 12/03/18 at 21:00 Calcium Carbonate (Tums) 500 mg HS PO Last administered on 12/08/18 21:18; Admin Dose 500 MG; Start 12/03/18 at 21:00 Cholecalciferol (Vitamin D) 4,000 unit DAILY PO Last administered on 12/09/18 09:00; Admin Dose 4,000 UNIT; Start 12/03/18 at 09:00 Diltiazem HCl (Cardizem Cd) 180 mg BID PO Last administered on 12/09/18 09:02; Admin Dose 180 MG; Start 12/03/18 at 09:00 Diphenhydramine HCl (Benadryl) 50 mg Q8 PRN PO for itching Last administered on 12/09/18 04:15; Admin Dose 50 MG; Start 12/03/18 at 01:00 Docusate Sodium (Colace) 100 mg BID PO Last administered on 12/09/18 09:01; Admin Dose 100 MG; Start 12/03/18 at 09:00 Donepezil HCl (Aricept) 10 mg 2100 PO Last administered on 12/08/18 21:19; Admin Dose 10 MG; Start 12/03/18 at 21:00 Duloxetine HCl (Cymbalta) 20 mg BID PO Last administered on 12/09/18 09:01; Admin Dose 20 MG; Start 12/03/18 at 09:00 Cholecalciferol (Vitamin D) 1,000 unit DAILY PO Last administered on 12/09/18 09:01; Admin Dose 1,000 UNIT; Start 12/03/18 at 09:00 Lactulose (Enulose) 20 gm DAILY PO Last administered on 12/09/18 08:59; Admin Dose 20 GM; Start 12/03/18 at 09:00 Metoclopramide HCl (Reglan) 5 mg Q6H PRN IV NAUSEA; Start 12/03/18 at 04:00 Metoprolol Tartrate (Lopressor) 25 mg BID PO Last administered on 12/09/18 09:00; Admin Dose 25 MG; Start 12/03/18 at 09:00 Miconazole Nitrate (Miconazole 2% Cr) 1 applic BID TOP Last administered on 12/09/18 09:03; Admin Dose 1 APPLIC; Start 12/03/18 at 09:00 Morphine Sulfate (morphine) 6 mg Q4H PRN PO SEVERE PAIN LEVEL 7-10 Last administered on 12/09/18 04:15; Admin Dose 6 MG; Start 12/03/18 at 04:00 Pantoprazole (Protonix Tab) 40 mg DAILY@06 PO Last administered on 12/09/18 06:40; Admin Dose 40 MG; Start 12/03/18 at 06:00 Phenol (Cepastat Lozenge) 1 lozenge Q1H PRN MT SORE THROAT; Start 12/03/18 at 04:00 Primidone (Mysoline) 100 mg TID PO Last administered on 12/09/18 12:38; Admin Dose 100 MG; Start 12/03/18 at 09:00 Rivaroxaban (Xarelto) 15 mg WITH DINNER PO Last administered on 12/08/18 17:38; Admin Dose 15 MG; Start 12/03/18 at 17:35 Diagnostic Test (Pha) (Accu-Chek) 1 ea 02 XX Last administered on 12/09/18 02:00; Admin Dose 1 EA; Start 12/04/18 at 02:00 Guaifenesin (Mucinex) 1,200 mg BID PO Last administered on 12/09/18 08:59; Admin Dose 1,200 MG; Start 12/03/18 at 09:00 Digoxin (Digoxin) 0.125 mg DAILY@13 PO Last administered on 12/09/18 12:38; Admin Dose 0.125 MG; Start 12/03/18 at 13:00 Roflumilast (Daliresp) 500 mcg DAILY PO Last administered on 12/09/18 09:02; Admin Dose 500 MCG; Start 12/03/18 at 09:00 Sacubitril/ Valsartan (Entresto 24 Mg-26 Mg) 1 tab BID PO Last administered on 12/09/18 09:02; Admin Dose 1 TAB; Start 12/03/18 at 09:00 Simethicone (Mylicon) 80 mg Q6H PRN PO DISTENSION/GAS/BLOATING Last administered on 12/06/18 18:25; Admin Dose 80 MG; Start 12/03/18 at 05:00 Sodium Chloride (Nacl) 2 gm MONWEDFRI PO Last administered on 12/09/18 09:00; Admin Dose 2 GM; Start 12/04/18 at 09:00 Cyanocobalamin (Vitamin B12) 5,000 mcg Q48H PO Last administered on 12/09/18 09:01; Admin Dose 5,000 MCG; Start 12/03/18 at 09:00 Diagnostic Test (Pha) (Accu-Chek) 1 ea 02 XX Last administered on 12/09/18 02:00; Admin Dose 1 EA; Start 12/04/18 at 02:00 Insulin Aspart (Novolog Insulin Pen) NOVOLOG *MILD* ALGORITHM WITH MEALS BEDTIME SC Last administered on 12/08/18 21:26; Admin Dose 1 UNIT; Start 12/03/18 at 07:35 Miscellaneous Information 1 ea NOTE XX Last administered on 12/03/18 09:25; Admin Dose 1 EA; Start 12/03/18 at 08:00 Glucose (Glutose) 15 gm Q15M PRN PO DECREASED GLUCOSE Last administered on 12/03/18 09:18; Admin Dose 15 GM; Start 12/03/18 at 08:00 Glucose (Glutose) 22.5 gm Q15M PRN PO DECREASED GLUCOSE Last administered on 12/06/18 08:52; Admin Dose 22.5 GM; Start 12/03/18 at 08:00 Dextrose (D50w Syringe) 25 ml Q15M PRN IV DECREASED GLUCOSE; Start 12/03/18 at 08:00 Dextrose (D50w Syringe) 50 ml Q15M PRN IV DECREASED GLUCOSE Last administered on 12/06/18 11:18; Admin Dose 50 ML; Start 12/03/18 at 08:00 Glucagon (Glucagen) 1 mg Q15M PRN IM DECREASED GLUCOSE; Start 12/03/18 at 08:00 Glucose (Glutose) 15 gm Q15M PRN BUCCAL DECREASED GLUCOSE Last administered on 12/05/18 09:40; Admin Dose 15 GM; Start 12/03/18 at 08:00 Miscellaneous Information (Pending Santyl Order For Wound Care) This patient sewell... PRN PRN XX WOUND CARE; Start 12/04/18 at 03:30 Levothyroxine Sodium (Synthroid) 50 mcg DAILY@06 PO Last administered on 12/09/18 06:40; Admin Dose 50 MCG; Start 12/05/18 at 06:00 Melatonin (Melatonin) 3 mg HS PO Last administered on 12/07/18 22:17; Admin Dose 3 MG; Start 12/04/18 at 21:00 Mupirocin (Bactroban) 1 applic BID TOP Last administered on 12/09/18 09:03; Admin Dose 1 APPLIC; Start 12/06/18 at 13:00; Stop 12/13/18 at 12:59 Furosemide (Lasix) 20 mg DAILY@0600 PO Last administered on 12/09/18 06:47; Admin Dose 20 MG; Start 12/06/18 at 12:00 Insulin Glargine (Lantus) 6 units DAILY@2000 SC Last administered on 12/08/18 21:25; Admin Dose 6 UNITS; Start 12/06/18 at 20:00 Methylprednisolone Sodium Succinate (Solu-Medrol) 40 mg Q8 IV Last administered on 12/09/18at 12:38; Admin Dose 40 MG; Start 12/06/18 at 16:30 Sodium Chloride 1,000 ml @ 50 mls/hr Q20H IV Last administered on 12/09/18 05:09; Admin Dose 50 MLS/HR; Start 12/07/18 at 13:00 KINGSLEY HENLEY MD Dec 09, 2018 13:07
--- NOTE | 2018-12-09 16:56 | PN ---
Date/Time of Note Date/Time of Note DATE: 12/09/18 TIME: 16:53 Assessment/Plan VTE Prophylaxis Risk score (from Ns)>0 risk: 6 SCD applied (from [facility]): No SCD contraindicated: patient refusal Pharmacological prophylaxis: rivaroxaban Lines/Catheters IV Catheter Type ([facility] Saline Lock Urinary Cath still in place: No Assessment/Plan Hospital Course Patient looks comfortable on supplemental oxygen at rest, will DC IV fluids, restart metformin and Tradjenta, stop insulin continue to monitor Accu-Chek q. before meals and at bedtime. Assessment/Plan -Status post acute hypoxemic and hypercapnic respiratory failure secondary to COPD exacerbation. Dr. Zapata is following in pulmonology consultation. -COPD -Decompensated diastolic congestive heart failure, continue Lasix, monitor electrolytes. -Chronic atrial fibrillation. Continue digoxin, Cardizem and Xarelto. -Diabetes mellitus type 2. Continue Lantus and NovoLog. -Anemia of chronic disease -Hypothyroidism, started on levothyroxine Further recommendations based on clinical course. Plan of care discussed with Dr. Olivares. Result Diagram: 12/09/18 0714 12/09/18 0714 Results 24hrs Laboratory Tests Test 12/08/18 17:19 12/08/18 21:00 12/09/18 02:03 12/09/18 07:14 Bedside Glucose 208 218 174 White Blood Count 9.7 Red Blood Count 4.14 L Hemoglobin 11.1 L Hematocrit 34.5 L Mean Corpuscular 83.3 Volume Mean Corpuscular 26.8 L Hemoglobin Mean Corpuscular 32.2 Hemoglobin Concent Red Cell 25.4 H Distribution Width Platelet Count 149 Mean Platelet Volume 9.2 Immature 7.900 H Granulocytes % Neutrophils % 83.3 H Segmented 80 H Neutrophils % (Manual) Band Neutrophils % 8 H (Manual) Lymphocytes % 5.2 L Lymphocytes % 6 L (Manual) Monocytes % 3.1 Eosinophils % 0.0 Basophils % 0.5 Metamyelocytes % 1 H (manual) Myelocytes % 3 H (Manual) Promyelocytes % 2 H (Manual) Nucleated Red Blood 0.0 Cells % Immature 0.770 H Granulocytes # Neutrophils # 8.1 H Neutrophils # 7.8 H (Manual) Band Neutrophils # 0.7 H Lymphocytes (Manual) 0.5 L Lymphocytes # 0.5 L Monocytes # 0.3 Eosinophils # 0.0 Basophils # 0.1 Metamyelocytes # 0.0 Myelocytes # 0.2 H Promyelocytes # 0.1 H Nucleated Red Blood 0.0 Cells # Platelet Estimate NORMAL Giant Platelets 1 H Polychromasia 2+ Poikilocytosis 2+ Anisocytosis 3+ Microcytosis 3+ Target Cells 1+ Ovalocytes 1+ Sodium Level 134 L Potassium Level 4.2 Chloride Level 98 Carbon Dioxide Level 29 Anion Gap 7 Blood Urea Nitrogen 37 H Creatinine 0.90 Est Glomerular Filtrat Rate mL/min Glucose Level 122 Calcium Level 7.6 L B-Type Natriuretic 1100 H Peptide Test 12/09/18 07:44 12/09/18 12:10 Bedside Glucose 119 126 Exam/Review of Systems Exam Vitals Vital Signs Date Temp Pulse Resp B/P (MAP) Pulse Ox O2 O2 Flow FiO2 Time Delivery Rate 12/09/18 80 0 97 Aerosol 2.0 14:16 Mask 12/09/18 97.6 140/59 07:30 (86) Intake and Output 12/08/18 12/08/18 12/09/18 1515:00 23:00 07:00 IntakeIntake Total 250 ml 840 ml 500 ml OutputOutput Total 300 ml BalanceBalance 250 ml 840 ml 200 ml Exam Constitutional: alert, oriented Respiratory: diminished breath sounds Cardiovascular: irregular rhythm Gastrointestinal: soft, non-tender Extremities: normal pulses Neurological: nl mental status Results Results 24hrs Laboratory Tests Test 12/08/18 17:19 12/08/18 21:00 12/09/18 02:03 12/09/18 07:14 Bedside Glucose 208 218 174 White Blood Count 9.7 Red Blood Count 4.14 L Hemoglobin 11.1 L Hematocrit 34.5 L Mean Corpuscular 83.3 Volume Mean Corpuscular 26.8 L Hemoglobin Mean Corpuscular 32.2 Hemoglobin Concent Red Cell 25.4 H Distribution Width Platelet Count 149 Mean Platelet Volume 9.2 Immature 7.900 H Granulocytes % Neutrophils % 83.3 H Segmented 80 H Neutrophils % (Manual) Band Neutrophils % 8 H (Manual) Lymphocytes % 5.2 L Lymphocytes % 6 L (Manual) Monocytes % 3.1 Eosinophils % 0.0 Basophils % 0.5 Metamyelocytes % 1 H (manual) Myelocytes % 3 H (Manual) Promyelocytes % 2 H (Manual) Nucleated Red Blood 0.0 Cells % Immature 0.770 H Granulocytes # Neutrophils # 8.1 H Neutrophils # 7.8 H (Manual) Band Neutrophils # 0.7 H Lymphocytes (Manual) 0.5 L Lymphocytes # 0.5 L Monocytes # 0.3 Eosinophils # 0.0 Basophils # 0.1 Metamyelocytes # 0.0 Myelocytes # 0.2 H Promyelocytes # 0.1 H Nucleated Red Blood 0.0 Cells # Platelet Estimate NORMAL Giant Platelets 1 H Polychromasia 2+ Poikilocytosis 2+ Anisocytosis 3+ Microcytosis 3+ Target Cells 1+ Ovalocytes 1+ Sodium Level 134 L Potassium Level 4.2 Chloride Level 98 Carbon Dioxide Level 29 Anion Gap 7 Blood Urea Nitrogen 37 H Creatinine 0.90 Est Glomerular Filtrat Rate mL/min Glucose Level 122 Calcium Level 7.6 L B-Type Natriuretic 1100 H Peptide Test 12/09/18 07:44 12/09/18 12:10 Bedside Glucose 119 126 Medications Medication Current Medications Acetaminophen (Tylenol Tab) 650 mg Q4H PRN PO PAIN Last administered on 9at 23:14; Admin Dose 650 MG; Start 12/03/18 at 01:00 Al Hydrox/Mg Hydrox/Simethicone (Mag-Al Plus) 15 ml Q6H PRN PO GASTROINTESTINAL UPSET Last administered on 12/06/18 18:25; Admin Dose 15 ML; Start 12/03/18 at 01:00 Albuterol/ Ipratropium (Duoneb) 3 ml Q2H RESP THERAPY PRN HHN SHORTNESS OF MARIA ELENA ATH Last administered on 12/08/18 10:25; Admin Dose 3 ML; Start 12/03/18 at 01:00 Albuterol/ Ipratropium (Duoneb) 3 ml Q4HWA RESP THERAPY HHN Last administered on 12/09/18 14:09; Admin Dose 3 ML; Start 12/03/18 at 09:00 Alprazolam (Xanax) 0.5 mg Q8H PRN PO ANXIETY Last administered on 12/08/18at 22:52; Admin Dose 0.5 MG; Start 12/03/18 at 01:00 Eye Lubricant (Artificial Tears Oph) 2 drop Q8 BOTH EYES Last administered on 12/09/18at 12:38; Admin Dose 2 DROP; Start 12/03/18 at 06:00 Atorvastatin Calcium (Lipitor) 10 mg HS PO Last administered on 12/08/18 21:18; Admin Dose 10 MG; Start 12/03/18 at 21:00 Calcium Carbonate (Tums) 500 mg HS PO Last administered on 12/08/18 21:18; Admin Dose 500 MG; Start 12/03/18 at 21:00 Cholecalciferol (Vitamin D) 4,000 unit DAILY PO Last administered on 12/09/18 09:00; Admin Dose 4,000 UNIT; Start 12/03/18 at 09:00 Diltiazem HCl (Cardizem Cd) 180 mg BID PO Last administered on 12/09/18 09:02; Admin Dose 180 MG; Start 12/03/18 at 09:00 Diphenhydramine HCl (Benadryl) 50 mg Q8 PRN PO for itching Last administered on 12/09/18 04:15; Admin Dose 50 MG; Start 12/03/18 at 01:00 Docusate Sodium (Colace) 100 mg BID PO Last administered on 12/09/18 09:01; Admin Dose 100 MG; Start 12/03/18 at 09:00 Donepezil HCl (Aricept) 10 mg 2100 PO Last administered on 12/08/18 21:19; Admin Dose 10 MG; Start 12/03/18 at 21:00 Duloxetine HCl (Cymbalta) 20 mg BID PO Last administered on 12/09/18 09:01; Admin Dose 20 MG; Start 12/03/18 at 09:00 Cholecalciferol (Vitamin D) 1,000 unit DAILY PO Last administered on 12/09/18 09:01; Admin Dose 1,000 UNIT; Start 12/03/18 at 09:00 Lactulose (Enulose) 20 gm DAILY PO Last administered on 12/09/18 08:59; Admin Dose 20 GM; Start 12/03/18 at 09:00 Metoclopramide HCl (Reglan) 5 mg Q6H PRN IV NAUSEA; Start 12/03/18 at 04:00 Metoprolol Tartrate (Lopressor) 25 mg BID PO Last administered on 12/09/18 09:00; Admin Dose 25 MG; Start 12/03/18 at 09:00 Miconazole Nitrate (Miconazole 2% Cr) 1 applic BID TOP Last administered on 12/09/18 09:03; Admin Dose 1 APPLIC; Start 12/03/18 at 09:00 Morphine Sulfate (morphine) 6 mg Q4H PRN PO SEVERE PAIN LEVEL 7-10 Last administered on 12/09/18 04:15; Admin Dose 6 MG; Start 12/03/18 at 04:00 Pantoprazole (Protonix Tab) 40 mg DAILY@06 PO Last administered on 12/09/18 06:40; Admin Dose 40 MG; Start 12/03/18 at 06:00 Phenol (Cepastat Lozenge) 1 lozenge Q1H PRN MT SORE THROAT; Start 12/03/18 at 04:00 Primidone (Mysoline) 100 mg TID PO Last administered on 12/09/18 12:38; Admin Dose 100 MG; Start 12/03/18 at 09:00 Rivaroxaban (Xarelto) 15 mg WITH DINNER PO Last administered on 12/08/18 17:38; Admin Dose 15 MG; Start 12/03/18 at 17:35 Guaifenesin (Mucinex) 1,200 mg BID PO Last administered on 12/09/18 08:59; Admin Dose 1,200 MG; Start 12/03/18 at 09:00 Digoxin (Digoxin) 0.125 mg DAILY@13 PO Last administered on 12/09/18 12:38; Admin Dose 0.125 MG; Start 12/03/18 at 13:00 Roflumilast (Daliresp) 500 mcg DAILY PO Last administered on 12/09/18 09:02; Admin Dose 500 MCG; Start 12/03/18 at 09:00 Sacubitril/ Valsartan (Entresto 24 Mg-26 Mg) 1 tab BID PO Last administered on 12/09/18 09:02; Admin Dose 1 TAB; Start 12/03/18 at 09:00 Simethicone (Mylicon) 80 mg Q6H PRN PO DISTENSION/GAS/BLOATING Last administered on 12/06/18 18:25; Admin Dose 80 MG; Start 12/03/18 at 05:00 Sodium Chloride (Nacl) 2 gm MONWEDFRI PO Last administered on 12/09/18 09:00; Admin Dose 2 GM; Start 12/04/18 at 09:00 Cyanocobalamin (Vitamin B12) 5,000 mcg Q48H PO Last administered on 12/09/18 09:01; Admin Dose 5,000 MCG; Start 12/03/18 at 09:00 Miscellaneous Information 1 ea NOTE XX Last administered on 12/03/18 09:25; Admin Dose 1 EA; Start 12/03/18 at 08:00 Glucose (Glutose) 15 gm Q15M PRN PO DECREASED GLUCOSE Last administered on 12/03/18 09:18; Admin Dose 15 GM; Start 12/03/18 at 08:00 Glucose (Glutose) 22.5 gm Q15M PRN PO DECREASED GLUCOSE Last administered on 12/06/18at 08:52; Admin Dose 22.5 GM; Start 12/03/18 at 08:00 Dextrose (D50w Syringe) 25 ml Q15M PRN IV DECREASED GLUCOSE; Start 12/03/18 at 08:00 Dextrose (D50w Syringe) 50 ml Q15M PRN IV DECREASED GLUCOSE Last administered on 12/06/18at 11:18; Admin Dose 50 ML; Start 12/03/18 at 08:00 Glucagon (Glucagen) 1 mg Q15M PRN IM DECREASED GLUCOSE; Start 12/03/18 at 08:00 Glucose (Glutose) 15 gm Q15M PRN BUCCAL DECREASED GLUCOSE Last administered on 12/05/18at 09:40; Admin Dose 15 GM; Start 12/03/18 at 08:00 Miscellaneous Information (Pending [facility] Order For Wound Care) This patient sewell... PRN PRN XX WOUND CARE; Start 12/04/18 at 03:30 Levothyroxine Sodium (Synthroid) 50 mcg DAILY@06 PO Last administered on 12/09/18 06:40; Admin Dose 50 MCG; Start 12/05/18 at 06:00 Melatonin (Melatonin) 3 mg HS PO Last administered on 12/07/18at 22:17; Admin Dose 3 MG; Start 12/04/18 at 21:00 Mupirocin (Bactroban) 1 applic BID TOP Last administered on 12/09/18at 09:03; Admin Dose 1 APPLIC; Start 12/06/18 at 13:00; Stop 12/13/18 at 12:59 Furosemide (Lasix) 20 mg DAILY@0600 PO Last administered on 12/09/18at 06:47; Admin Dose 20 MG; Start 12/06/18 at 12:00 Methylprednisolone Sodium Succinate (Solu-Medrol) 40 mg Q8 IV Last administered on 12/09/18at 12:38; Admin Dose 40 MG; Start 12/06/18 at 16:30 Metformin HCl (Glucophage) 500 mg BID WITH MEALS PO ; Start 12/09/18 at 17:35 Linagliptin (Tradjenta) 5 mg DAILY PO ; Start 12/10/18 at 09:00 AMEYA MAN Dec 09, 2018 16:56
[2018-12-09] MEDS: metFORMIN 500 MG TAB PO SCH (17:28)
[2018-12-09] MEDS: RIVAROXABAN 15 MG TABLET PO SCH (17:28)
[2018-12-09 20:00] VITALS: BP 112/61; PULSE 98; RESP 18
[2018-12-09] MEDS: MELATONIN 3 MG TABLET PO SCH (22:13)
[2018-12-09] MEDS: ALPRAZOLAM 0.25 MG TAB PO PRN (22:14)
[2018-12-09] MEDS: DONEPEZIL 10 MG TAB PO SCH (22:15)
[2018-12-09] MEDS: CALCIUM CARBONATE 500 MG CHEW TAB PO SCH (22:15)
[2018-12-09] MEDS: ATORVASTATIN 10 MG TAB PO SCH (22:15)
[2018-12-10] MEDS: morphine LIQ (10 MG/5 ML) CUP PO PRN ×3 (00:46→22:46)
[2018-12-10] MEDS: DIPHENHYDRAMINE 50 MG CAP PO PRN (00:46)
[2018-12-10 02:00] VITALS: BP 126/67; PULSE 87; RESP 18
[2018-12-10] MEDS: PANTOPRAZOLE (EC) 40 MG TAB PO SCH (06:42)
[2018-12-10] MEDS: LEVOTHYROXINE 50 MCG TAB PO SCH (06:42)
[2018-12-10] MEDS: METHYLPREDNISOLONE 40 MG INJ IV SCH ×3 (06:42→22:09)
[2018-12-10] MEDS: ARTIFICIAL TEARS 15 ML OPH BOTH EYES SCH ×3 (06:43→22:06)
[2018-12-10] MEDS: FUROSEMIDE 20 MG TAB PO SCH (06:43)
[2018-12-10 07:00] VITALS: BP_SYST 119; BP_SYST 129; BP_DIAS 56; BP_DIAS 60; PULSE 62; PULSE 65; RESP 18
[2018-12-10] MEDS: ALBUTEROL/IPRATROPIUM (NEB) 3 ML AMP HHN SCH ×4 (09:00→21:07)
[2018-12-10] MEDS: DILTIAZEM (CD) 180 MG CAP PO SCH ×2 (09:00→20:50)
[2018-12-10] MEDS: METOPROLOL 25 MG TAB PO SCH ×2 (09:00→20:51)
[2018-12-10] MEDS ORDERED: predniSONE 10 MG TAB PO SCH (09:00)
[2018-12-10] MEDS: metFORMIN 500 MG TAB PO SCH ×2 (09:10→17:39)
[2018-12-10] MEDS: CHOLECALCIFEROL 2,000 UNIT CAP PO SCH (09:11)
[2018-12-10] MEDS: LACTULOSE 30ML CUP PO SCH (09:11)
[2018-12-10] MEDS: DOCUSATE SODIUM 100 MG CAP PO SCH ×2 (09:11→20:52)
[2018-12-10] MEDS: CHOLECALCIFEROL 1,000 UNIT TAB PO SCH (09:11)
[2018-12-10] MEDS: LINAGLIPTIN 5 MG TABLET PO SCH (09:12)
[2018-12-10] MEDS: SACUBITRIL/VALSARTAN (24mg-26mg) TABLET PO SCH ×2 (09:12→21:09)
[2018-12-10] MEDS: ROFLUMILAST 500 MCG TABLET PO SCH (09:12)
[2018-12-10] MEDS: PRIMIDONE 50 MG TAB PO SCH ×3 (09:12→20:50)
[2018-12-10] MEDS: MUPIROCIN 2% 22 GM OINT TOP SCH ×2 (09:16→20:53)
[2018-12-10] MEDS: MICONAZOLE 2% 30 GM CR TOP SCH ×2 (09:16→20:51)
--- NOTE | 2018-12-10 11:53 | CONS ---
Assessment/Plan Assessment/Plan Assessment/Plan (Daily) 1. 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 acute CHF, diastolic CHF 3. Acute COPD exacerbation 4. H/o HTN 5. H/O CKD Plan: Na 134, BUn/Cr imporved to normal, on lasix 20mg po daily IV solu-medrol 40mg Q 8 hr will follow up Consultation Date/Type/Reason Admit Date/Time Dec 02, 2018 at 22:56 Initial Consult Date 12/08/18 Type of Consult NEPHROLOGY Requesting Provider: LISSETTE ESPOSITO MD Date/Time of Note DATE: 12/10/18 TIME: 11:53 Exam/Review of Systems Exam Vitals Vital Signs Date Temp Pulse Resp B/P (MAP) Pulse Ox O2 O2 Flow FiO2 Time Delivery Rate 12/10/18 Nasal 2.0 08:30 Cannula 12/10/18 07:00 Intake and Output 12/09/18 12/09/18 12/10/18 1515:00 23:00 07:00 IntakeIntake Total 200 ml 740 ml OutputOutput Total 200 ml BalanceBalance 200 ml 740 ml -200 ml Exam Constitutional: distress Psych: no complaints Head: normocephalic Eyes: nl conjunctiva ENMT: nl external ears & nose Neck: supple, non-tender Respiratory: clear to auscultation, normal air movement Cardiovascular: regular rate and rhythm, nl pulses Gastrointestinal: soft Musculoskeletal: nl extremities to inspection Extremities: normal pulses Neurological: [employer] II-XII intact, nl mental status Results Result Diagram: 12/09/18 0714 12/09/18 0714 Results 24hrs Laboratory Tests Test 12/09/18 12:10 12/09/18 17:07 12/10/18 07:40 Bedside Glucose 126 272 H 156 Medications Medication Current Medications Acetaminophen (Tylenol Tab) 650 mg Q4H PRN PO PAIN Last administered on 12/03/18at 23:14; Admin Dose 650 MG; Start 12/03/18 at 01:00 Al Hydrox/Mg Hydrox/Simethicone (Mag-Al Plus) 15 ml Q6H PRN PO GASTROINTESTINAL UPSET Last administered on 12/06/18at 18:25; Admin Dose 15 ML; Start 12/03/18 at 01:00 Albuterol/ Ipratropium (Duoneb) 3 ml Q2H RESP THERAPY PRN HHN SHORTNESS OF BREATH Last administered on 12/08/18 10:25; Admin Dose 3 ML; Start 12/03/18 at 01:00 Albuterol/ Ipratropium (Duoneb) 3 ml Q4HWA RESP THERAPY HHN Last administered on 12/09/18 20:09; Admin Dose 3 ML; Start 12/03/18 at 09:00 Alprazolam (Xanax) 0.5 mg Q8H PRN PO ANXIETY Last administered on 12/09/18 22:14; Admin Dose 0.5 MG; Start 12/03/18 at 01:00 Eye Lubricant (Artificial Tears Oph) 2 drop Q8 BOTH EYES Last administered on 12/10/18 06:43; Admin Dose 2 DROP; Start 12/03/18 at 06:00 Atorvastatin Calcium (Lipitor) 10 mg HS PO Last administered on 12/09/18 22:15; Admin Dose 10 MG; Start 12/03/18 at 21:00 Calcium Carbonate (Tums) 500 mg HS PO Last administered on 12/09/18 22:15; Admin Dose 500 MG; Start 12/03/18 at 21:00 Cholecalciferol (Vitamin D) 4,000 unit DAILY PO Last administered on 12/10/18 09:11; Admin Dose 4,000 UNIT; Start 12/03/18 at 09:00 Diltiazem HCl (Cardizem Cd) 180 mg BID PO Last administered on 12/09/18 22:15; Admin Dose 180 MG; Start 12/03/18 at 09:00 Diphenhydramine HCl (Benadryl) 50 mg Q8 PRN PO for itching Last administered on 12/10/18 00:46; Admin Dose 50 MG; Start 12/03/18 at 01:00 Docusate Sodium (Colace) 100 mg BID PO Last administered on 12/10/18 09:11; Admin Dose 100 MG; Start 12/03/18 at 09:00 Donepezil HCl (Aricept) 10 mg 2100 PO Last administered on 12/09/18 22:15; Admin Dose 10 MG; Start 12/03/18 at 21:00 Duloxetine HCl (Cymbalta) 20 mg BID PO Last administered on 12/09/18 22:14; Admin Dose 20 MG; Start 12/03/18 at 09:00 Cholecalciferol (Vitamin D) 1,000 unit DAILY PO Last administered on 12/10/18 09:11; Admin Dose 1,000 UNIT; Start 12/03/18 at 09:00 Lactulose (Enulose) 20 gm DAILY PO Last administered on 12/10/18 09:11; Admin Dose 20 GM; Start 12/03/18 at 09:00 Metoclopramide HCl (Reglan) 5 mg Q6H PRN IV NAUSEA; Start 12/03/18 at 04:00 Metoprolol Tartrate (Lopressor) 25 mg BID PO Last administered on 12/09/18 22:16; Admin Dose 25 MG; Start 12/03/18 at 09:00 Miconazole Nitrate (Miconazole 2% Cr) 1 applic BID TOP Last administered on 12/10/18 09:16; Admin Dose 1 APPLIC; Start 12/03/18 at 09:00 Morphine Sulfate (morphine) 6 mg Q4H PRN PO SEVERE PAIN LEVEL 7-10 Last administered on 12/10/18 09:05; Admin Dose 6 MG; Start 12/03/18 at 04:00 Pantoprazole (Protonix Tab) 40 mg DAILY@06 PO Last administered on 12/10/18 06:42; Admin Dose 40 MG; Start 12/03/18 at 06:00 Phenol (Cepastat Lozenge) 1 lozenge Q1H PRN MT SORE THROAT; Start 12/03/18 at 04:00 Primidone (Mysoline) 100 mg TID PO Last administered on 12/10/18 09:12; Admin Dose 100 MG; Start 12/03/18 at 09:00 Rivaroxaban (Xarelto) 15 mg WITH DINNER PO Last administered on 12/09/18 17:28; Admin Dose 15 MG; Start 12/03/18 at 17:35 Guaifenesin (Mucinex) 1,200 mg BID PO Last administered on 12/09/18 22:15; Admin Dose 1,200 MG; Start 12/03/18 at 09:00 Digoxin (Digoxin) 0.125 mg DAILY@13 PO Last administered on 12/09/18 12:38; Admin Dose 0.125 MG; Start 12/03/18 at 13:00 Roflumilast (Daliresp) 500 mcg DAILY PO Last administered on 12/10/18 09:12; Admin Dose 500 MCG; Start 12/03/18 at 09:00 Sacubitril/ Valsartan (Entresto 24 Mg-26 Mg) 1 tab BID PO Last administered on 12/10/18 09:12; Admin Dose 1 TAB; Start 12/03/18 at 09:00 Simethicone (Mylicon) 80 mg Q6H PRN PO DISTENSION/GAS/BLOATING Last administered on 12/06/18 18:25; Admin Dose 80 MG; Start 12/03/18 at 05:00 Sodium Chloride (Nacl) 2 gm MONWEDFRI PO Last administered on 12/09/18 09:00; Admin Dose 2 GM; Start 12/04/18 at 09:00 Cyanocobalamin (Vitamin B12) 5,000 mcg Q48H PO Last administered on 12/09/18 09:01; Admin Dose 5,000 MCG; Start 12/03/18 at 09:00 Miscellaneous Information 1 ea NOTE XX Last administered on 12/03/18 09:25; Admin Dose 1 EA; Start 12/03/18 at 08:00 Glucose (Glutose) 15 gm Q15M PRN PO DECREASED GLUCOSE Last administered on 12/03/18 09:18; Admin Dose 15 GM; Start 12/03/18 at 08:00 Glucose (Glutose) 22.5 gm Q15M PRN PO DECREASED GLUCOSE Last administered on 12/06/18 08:52; Admin Dose 22.5 GM; Start 12/03/18 at 08:00 Dextrose (D50w Syringe) 25 ml Q15M PRN IV DECREASED GLUCOSE; Start 12/03/18 at 08:00 Dextrose (D50w Syringe) 50 ml Q15M PRN IV DECREASED GLUCOSE Last administered on 12/06/18 11:18; Admin Dose 50 ML; Start 12/03/18 at 08:00 Glucagon (Glucagen) 1 mg Q15M PRN IM DECREASED GLUCOSE; Start 12/03/18 at 08:00 Glucose (Glutose) 15 gm Q15M PRN BUCCAL DECREASED GLUCOSE Last administered on 12/05/18 09:40; Admin Dose 15 GM; Start 12/03/18 at 08:00 Miscellaneous Information (Pending [facility]yl Order For Wound Care) This patient sewell... PRN PRN XX WOUND CARE; Start 12/04/18 at 03:30 Levothyroxine Sodium (Synthroid) 50 mcg DAILY@06 PO Last administered on 12/10/18 06:42; Admin Dose 50 MCG; Start 12/05/18 at 06:00 Melatonin (Melatonin) 3 mg HS PO Last administered on 12/09/18 22:13; Admin Dose 3 MG; Start 12/04/18 at 21:00 Mupirocin (Bactroban) 1 applic BID TOP Last administered on 12/10/18 09:16; Admin Dose 1 APPLIC; Start 12/06/18 at 13:00; Stop 12/13/18 at 12:59 Furosemide (Lasix) 20 mg DAILY@0600 PO Last administered on 12/10/18 06:43; Admin Dose 20 MG; Start 12/06/18 at 12:00 Methylprednisolone Sodium Succinate (Solu-Medrol) 40 mg Q8 IV Last administered on 12/10/18 06:42; Admin Dose 40 MG; Start 12/06/18 at 16:30 Metformin HCl (Glucophage) 500 mg BID WITH MEALS PO Last administered on 12/10/18 09:10; Admin Dose 500 MG; Start 12/09/18 at 17:35 Linagliptin (Tradjenta) 5 mg DAILY PO Last administered on 12/10/18 09:12; Admin Dose 5 MG; Start 12/10/18 at 09:00 ANA GE MD Dec 10, 2018 11:53
[2018-12-10] MEDS: DULOXETINE 20 MG CAP DR PO SCH ×2 (12:47→20:49)
[2018-12-10] MEDS: GUAIFENESIN LA 600 MG TABSR PO SCH ×2 (12:47→20:50)
[2018-12-10] MEDS: DIGOXIN 0.125 MG TAB PO SCH (12:48)
[2018-12-10] MEDS: AL HYDROX/MG HYDROX/SIMETH 30 ML CUP PO PRN (13:03)
--- NOTE | 2018-12-10 13:15 | PN ---
Date/Time of Note Date/Time of Note DATE: 12/10/18 TIME: 13:15 Subjective No new complaints Objective Vital Signs Date Temp Pulse Resp B/P (MAP) Pulse Ox O2 O2 Flow FiO2 Time Delivery Rate 12/10/18 Nasal 2.0 08:30 Cannula 12/10/18 07:00 Intake and Output 12/09/18 12/09/18 12/10/18 1515:00 23:00 07:00 IntakeIntake Total 200 ml 740 ml OutputOutput Total 200 ml BalanceBalance 200 ml 740 ml -200 ml Exam mod transfer abd-soft Results/Medications Result Diagram: 12/09/18 0714 12/09/18 0714 Results 24 hrs Laboratory Tests Test 12/09/18 17:07 12/10/18 07:40 12/10/18 11:58 Bedside Glucose 272 H 156 174 Medications Current Medications Acetaminophen (Tylenol Tab) 650 mg Q4H PRN PO PAIN Last administered on 12/03/18 23:14; Admin Dose 650 MG; Start 12/03/18 at 01:00 Al Hydrox/Mg Hydrox/Simethicone (Mag-Al Plus) 15 ml Q6H PRN PO GASTROINTESTINAL UPSET Last administered on 12/10/18 13:03; Admin Dose 15 ML; Start 12/03/18 at 01:00 Albuterol/ Ipratropium (Duoneb) 3 ml Q2H RESP THERAPY PRN HHN SHORTNESS OF BREATH Last administered on 12/08/18 10:25; Admin Dose 3 ML; Start 12/03/18 at 01:00 Albuterol/ Ipratropium (Duoneb) 3 ml Q4HWA RESP THERAPY HHN Last administered on 12/09/18 20:09; Admin Dose 3 ML; Start 12/03/18 at 09:00 Alprazolam (Xanax) 0.5 mg Q8H PRN PO ANXIETY Last administered on 12/09/18 22:14; Admin Dose 0.5 MG; Start 12/03/18 at 01:00 Eye Lubricant (Artificial Tears Oph) 2 drop Q8 BOTH EYES Last administered on 12/10/18 06:43; Admin Dose 2 DROP; Start 12/03/18 at 06:00 Atorvastatin Calcium (Lipitor) 10 mg HS PO Last administered on 12/09/18 22:15; Admin Dose 10 MG; Start 12/03/18 at 21:00 Calcium Carbonate (Tums) 500 mg HS PO Last administered on 12/09/18 22:15; Admin Dose 500 MG; Start 12/03/18 at 21:00 Cholecalciferol (Vitamin D) 4,000 unit DAILY PO Last administered on 12/10/18 09:11; Admin Dose 4,000 UNIT; Start 12/03/18 at 09:00 Diltiazem HCl (Cardizem Cd) 180 mg BID PO Last administered on 12/09/18 22:15; Admin Dose 180 MG; Start 12/03/18 at 09:00 Diphenhydramine HCl (Benadryl) 50 mg Q8 PRN PO for itching Last administered on 12/10/18 00:46; Admin Dose 50 MG; Start 12/03/18 at 01:00 Docusate Sodium (Colace) 100 mg BID PO Last administered on 12/10/18 09:11; Admin Dose 100 MG; Start 12/03/18 at 09:00 Donepezil HCl (Aricept) 10 mg 2100 PO Last administered on 12/09/18 22:15; Admin Dose 10 MG; Start 12/03/18 at 21:00 Duloxetine HCl (Cymbalta) 20 mg BID PO Last administered on 12/10/18 12:47; Admin Dose 20 MG; Start 12/03/18 at 09:00 Cholecalciferol (Vitamin D) 1,000 unit DAILY PO Last administered on 12/10/18 09:11; Admin Dose 1,000 UNIT; Start 12/03/18 at 09:00 Lactulose (Enulose) 20 gm DAILY PO Last administered on 12/10/18 09:11; Admin Dose 20 GM; Start 12/03/18 at 09:00 Metoclopramide HCl (Reglan) 5 mg Q6H PRN IV NAUSEA; Start 12/03/18 at 04:00 Metoprolol Tartrate (Lopressor) 25 mg BID PO Last administered on 12/09/18 22:16; Admin Dose 25 MG; Start 12/03/18 at 09:00 Miconazole Nitrate (Miconazole 2% Cr) 1 applic BID TOP Last administered on 12/10/18 09:16; Admin Dose 1 APPLIC; Start 12/03/18 at 09:00 Morphine Sulfate (morphine) 6 mg Q4H PRN PO SEVERE PAIN LEVEL 7-10 Last administered on 12/10/18 09:05; Admin Dose 6 MG; Start 12/03/18 at 04:00 Pantoprazole (Protonix Tab) 40 mg DAILY@06 PO Last administered on 12/10/18 06:42; Admin Dose 40 MG; Start 12/03/18 at 06:00 Phenol (Cepastat Lozenge) 1 lozenge Q1H PRN MT SORE THROAT; Start 12/03/18 at 04:00 Primidone (Mysoline) 100 mg TID PO Last administered on 12/10/18 09:12; Admin Dose 100 MG; Start 12/03/18 at 09:00 Rivaroxaban (Xarelto) 15 mg WITH DINNER PO Last administered on 12/09/18 17:28; Admin Dose 15 MG; Start 12/03/18 at 17:35 Guaifenesin (Mucinex) 1,200 mg BID PO Last administered on 12/10/18 12:47; Admin Dose 1,200 MG; Start 12/03/18 at 09:00 Digoxin (Digoxin) 0.125 mg DAILY@13 PO Last administered on 12/10/18 12:48; Admin Dose 0.125 MG; Start 12/03/18 at 13:00 Roflumilast (Daliresp) 500 mcg DAILY PO Last administered on 12/10/18 09:12; Admin Dose 500 MCG; Start 12/03/18 at 09:00 Sacubitril/ Valsartan (Entresto 24 Mg-26 Mg) 1 tab BID PO Last administered on 12/10/18 09:12; Admin Dose 1 TAB; Start 12/03/18 at 09:00 Simethicone (Mylicon) 80 mg Q6H PRN PO DISTENSION/GAS/BLOATING Last administered on 12/06/18 18:25; Admin Dose 80 MG; Start 12/03/18 at 05:00 Sodium Chloride (Nacl) 2 gm MONWEDFRI PO Last administered on 12/09/18 09:00; Admin Dose 2 GM; Start 12/04/18 at 09:00 Cyanocobalamin (Vitamin B12) 5,000 mcg Q48H PO Last administered on 12/09/18 09:01; Admin Dose 5,000 MCG; Start 12/03/18 at 09:00 Miscellaneous Information 1 ea NOTE XX Last administered on 12/03/18 09:25; Admin Dose 1 EA; Start 12/03/18 at 08:00 Glucose (Glutose) 15 gm Q15M PRN PO DECREASED GLUCOSE Last administered on 12/03/18 09:18; Admin Dose 15 GM; Start 12/03/18 at 08:00 Glucose (Glutose) 22.5 gm Q15M PRN PO DECREASED GLUCOSE Last administered on 12/06/18 08:52; Admin Dose 22.5 GM; Start 12/03/18 at 08:00 Dextrose (D50w Syringe) 25 ml Q15M PRN IV DECREASED GLUCOSE; Start 12/03/18 at 08:00 Dextrose (D50w Syringe) 50 ml Q15M PRN IV DECREASED GLUCOSE Last administered on 12/06/18 11:18; Admin Dose 50 ML; Start 12/03/18 at 08:00 Glucagon (Glucagen) 1 mg Q15M PRN IM DECREASED GLUCOSE; Start 12/03/18 at 08:00 Glucose (Glutose) 15 gm Q15M PRN BUCCAL DECREASED GLUCOSE Last administered on 12/05/18 09:40; Admin Dose 15 GM; Start 12/03/18 at 08:00 Miscellaneous Information ([facility]) This patient sewell. .. PRN PRN XX WOUND CARE; Start 12/04/18 at 03:30 Levothyroxine Sodium (Synthroid) 50 mcg DAILY@06 PO Last administered on 12/10/18 06:42; Admin Dose 50 MCG; Start 12/05/18 at 06:00 Melatonin (Melatonin) 3 mg HS PO Last administered on 12/09/18 22:13; Admin Dose 3 MG; Start 12/04/18 at 21:00 Mupirocin (Bactroban) 1 applic BID TOP Last administered on 12/10/18 09:16; Admin Dose 1 APPLIC; Start 12/06/18 at 13:00; Stop 12/13/18 at 12:59 Furosemide (Lasix) 20 mg DAILY@0600 PO Last administered on 12/10/18 06:43; Admin Dose 20 MG; Start 12/06/18 at 12:00 Methylprednisolone Sodium Succinate (Solu-Medrol) 40 mg Q8 IV Last administered on 12/10/18at 06:42; Admin Dose 40 MG; Start 12/06/18 at 16:30 Metformin HCl (Glucophage) 500 mg BID WITH MEALS PO Last administered on 12/10/18at 09:10; Admin Dose 500 MG; Start 12/09/18 at 17:35 Linagliptin (Tradjenta) 5 mg DAILY PO Last administered on 12/10/18at 09:12; Admin Dose 5 MG; Start 12/10/18 at 09:00 Assessment/Plan Additional Assessment/Plan Rehab- Critical Illness Myopathy ;Pulmonary debility status post acute hypoxemic and hypercapnic respiratory failure. Increase activities as tolerated COPD. Coronary artery disease. Carotid stenosis. Hypothyroidism. Chronic low back pain. Chronic kidney disease. CHF. Depression. Diabetes mellitus. KINGSLEY Caldera MD Dec 10, 2018 13:15
[2018-12-10 14:00] VITALS: BP 122/58; PULSE 82; RESP 18
[2018-12-10] MEDS: RIVAROXABAN 15 MG TABLET PO SCH (17:39)
--- NOTE | 2018-12-10 19:30 | CONS ---
Assessment/Plan Cardiology NYHA: II Heart Failure Type: Acute Heart Failure Type: Diastolic Assessment/Plan Hospital Course (Demo Recall) COPD exacerbation Acute decompensated diastolic congestive heart failure Atrial fibrillation, on anticoagulation Recent pneumonia Hypertension Dyslipidemia Preserved ejection fraction Possible conjunctival hemorrhage-improved -Diuretics being adjusted by our nephrology colleague -Continue Cardizem and metoprolol for heart rate control and titrate based on heart rate and blood pressure -Continue digoxin as tolerated Consultation Date/Type/Reason Admit Date/Time Dec 02, 2018 at 22:56 Initial Consult Date Type of Consult Cardiology Requesting Provider: LISSETTE ESPOSITO MD Date/Time of Note DATE: 12/10/18 TIME: 19:29 24 HR Interval Summary Free Text/Dictation sob is the same, no cp, palpitations Exam/Review of Systems Vital Signs Vitals Vital Signs Date Temp Pulse Resp B/P (MAP) Pulse Ox O2 O2 Flow FiO2 Time Delivery Rate 12/10/18 2.0 18:34 12/10/18 98.0 82 18 122/58 99 Room Air 14:00 (79) Intake and Output 12/09/18 12/09/18 12/10/18 1515:00 23:00 07:00 IntakeIntake Total 200 ml 740 ml OutputOutput Total 200 ml BalanceBalance 200 ml 740 ml -200 ml Exam Constitutional: alert, oriented (eating dinner) Respiratory: crackles/rales, wheezing Cardiovascular: irregular rhythm (s1s2) Gastrointestinal: soft, non-tender, bowel sounds Extremities: edema (trace) Labs Result Diagram: 12/09/18 0714 12/09/18 0714 Results 24hrs Laboratory Tests Test 12/10/18 07:40 12/10/18 11:58 12/10/18 17:18 Bedside Glucose 156 174 175 Medications Medications Current Medications Acetaminophen (Tylenol Tab) 650 mg Q4H PRN PO PAIN Last administered on 12/03/18at 23:14; Admin Dose 650 MG; Start 12/03/18 at 01:00 Al Hydrox/Mg Hydrox/Simethicone (Mag-Al Plus) 15 ml Q6H PRN PO GASTROINTESTINAL UPSET Last administered on 12/10/18at 13:03; Admin Dose 15 ML; Start 12/03/18 at 01:00 Albuterol/ Ipratropium (Duoneb) 3 ml Q2H RESP THERAPY PRN HHN SHORTNESS OF BREATH Last administered on 12/08/18 10:25; Admin Dose 3 ML; Start 12/03/18 at 01:00 Albuterol/ Ipratropium (Duoneb) 3 ml Q4HWA RESP THERAPY HHN Last administered on 12/10/18 13:34; Admin Dose 3 ML; Start 12/03/18 at 09:00 Alprazolam (Xanax) 0.5 mg Q8H PRN PO ANXIETY Last administered on 12/09/18 22:14; Admin Dose 0.5 MG; Start 12/03/18 at 01:00 Eye Lubricant (Artificial Tears Oph) 2 drop Q8 BOTH EYES Last administered on 12/10/18 14:49; Admin Dose 2 DROP; Start 12/03/18 at 06:00 Atorvastatin Calcium (Lipitor) 10 mg HS PO Last administered on 12/09/18 22:15; Admin Dose 10 MG; Start 12/03/18 at 21:00 Calcium Carbonate (Tums) 500 mg HS PO Last administered on 12/09/18 22:15; Admin Dose 500 MG; Start 12/03/18 at 21:00 Cholecalciferol (Vitamin D) 4,000 unit DAILY PO Last administered on 12/10/18 09:11; Admin Dose 4,000 UNIT; Start 12/03/18 at 09:00 Diltiazem HCl (Cardizem Cd) 180 mg BID PO Last administered on 12/09/18 22:15; Admin Dose 180 MG; Start 12/03/18 at 09:00 Diphenhydramine HCl (Benadryl) 50 mg Q8 PRN PO for itching Last administered on 12/10/18 00:46; Admin Dose 50 MG; Start 12/03/18 at 01:00 Docusate Sodium (Colace) 100 mg BID PO Last administered on 12/10/18 09:11; Admin Dose 100 MG; Start 12/03/18 at 09:00 Donepezil HCl (Aricept) 10 mg 2100 PO Last administered on 12/09/18 22:15; Admin Dose 10 MG; Start 12/03/18 at 21:00 Duloxetine HCl (Cymbalta) 20 mg BID PO Last administered on 12/10/18 12:47; Admin Dose 20 MG; Start 12/03/18 at 09:00 Cholecalciferol (Vitamin D) 1,000 unit DAILY PO Last administered on 12/10/18 09:11; Admin Dose 1,000 UNIT; Start 12/03/18 at 09:00 Lactulose (Enulose) 20 gm DAILY PO Last administered on 12/10/18 09:11; Admin Dose 20 GM; Start 12/03/18 at 09:00 Metoclopramide HCl (Reglan) 5 mg Q6H PRN IV NAUSEA; Start 12/03/18 at 04:00 Metoprolol Tartrate (Lopressor) 25 mg BID PO Last administered on 12/09/18 22:16; Admin Dose 25 MG; Start 12/03/18 at 09:00 Miconazole Nitrate (Miconazole 2% Cr) 1 applic BID TOP Last administered on 12/10/18 09:16; Admin Dose 1 APPLIC; Start 12/03/18 at 09:00 Morphine Sulfate (morphine) 6 mg Q4H PRN PO SEVERE PAIN LEVEL 7-10 Last administered on 12/10/18 09:05; Admin Dose 6 MG; Start 12/03/18 at 04:00 Pantoprazole (Protonix Tab) 40 mg DAILY@06 PO Last administered on 12/10/18 06:42; Admin Dose 40 MG; Start 12/03/18 at 06:00 Phenol (Cepastat Lozenge) 1 lozenge Q1H PRN MT SORE THROAT; Start 12/03/18 at 04:00 Primidone (Mysoline) 100 mg TID PO Last administered on 12/10/18 14:48; Admin Dose 100 MG; Start 12/03/18 at 09:00 Rivaroxaban (Xarelto) 15 mg WITH DINNER PO Last administered on 12/10/18 17:39; Admin Dose 15 MG; Start 12/03/18 at 17:35 Guaifenesin (Mucinex) 1,200 mg BID PO Last administered on 12/10/18 12:47; Admin Dose 1,200 MG; Start 12/03/18 at 09:00 Digoxin (Digoxin) 0.125 mg DAILY@13 PO Last administered on 12/10/18 12:48; Admin Dose 0.125 MG; Start 12/03/18 at 13:00 Roflumilast (Daliresp) 500 mcg DAILY PO Last administered on 12/10/18 09:12; Admin Dose 500 MCG; Start 12/03/18 at 09:00 Sacubitril/ Valsartan (Entresto 24 Mg-26 Mg) 1 tab BID PO Last administered on 12/10/18 09:12; Admin Dose 1 TAB; Start 12/03/18 at 09:00 Simethicone (Mylicon) 80 mg Q6H PRN PO DISTENSION/GAS/BLOATING Last administered on 12/06/18 18:25; Admin Dose 80 MG; Start 12/03/18 at 05:00 Sodium Chloride (Nacl) 2 gm MONWEDFRI PO Last administered on 12/09/18 09:00; Admin Dose 2 GM; Start 12/04/18 at 09:00 Cyanocobalamin (Vitamin B12) 5,000 mcg Q48H PO Last administered on 12/09/18 09:01; Admin Dose 5,000 MCG; Start 12/03/18 at 09:00 Miscellaneous Information 1 ea NOTE XX Last administered on 12/03/18 09:25; Admin Dose 1 EA; Start 12/03/18 at 08:00 Glucose (Glutose) 15 gm Q15M PRN PO DECREASED GLUCOSE Last administered on 12/03/18 09:18; Admin Dose 15 GM; Start 12/03/18 at 08:00 Glucose (Glutose) 22.5 gm Q15M PRN PO DECREASED GLUCOSE Last administered on 12/06/18 08:52; Admin Dose 22.5 GM; Start 12/03/18 at 08:00 Dextrose (D50w Syringe) 25 ml Q15M PRN IV DECREASED GLUCOSE; Start 12/03/18 at 08:00 Dextrose (D50w Syringe) 50 ml Q15M PRN IV DECREASED GLUCOSE Last administered on 12/06/18 11:18; Admin Dose 50 ML; Start 12/03/18 at 08:00 Glucagon (Glucagen) 1 mg Q15M PRN IM DECREASED GLUCOSE; Start 12/03/18 at 08:00 Glucose (Glutose) 15 gm Q15M PRN BUCCAL DECREASED GLUCOSE Last administered on 12/05/18 09:40; Admin Dose 15 GM; Start 12/03/18 at 08:00 Miscellaneous Information (Pending [facility] Order For Wound Care) This patient sewell... PRN PRN XX WOUND CARE; Start 12/04/18 at 03:30 Levothyroxine Sodium (Synthroid) 50 mcg DAILY@06 PO Last administered on 12/10/18 06:42; Admin Dose 50 MCG; Start 12/05/18 at 06:00 Melatonin (Melatonin) 3 mg HS PO Last administered on 12/09/18 22:13; Admin Dose 3 MG; Start 12/04/18 at 21:00 Mupirocin (Bactroban) 1 applic BID TOP Last administered on 12/10/18 09:16; Admin Dose 1 APPLIC; Start 12/06/18 at 13:00; Stop 12/13/18 at 12:59 Furosemide (Lasix) 20 mg DAILY@0600 PO Last administered on 12/10/18at 06:43; Admin Dose 20 MG; Start 12/06/18 at 12:00 Methylprednisolone Sodium Succinate (Solu-Medrol) 40 mg Q8 IV Last administered on 12/10/18at 14:50; Admin Dose 40 MG; Start 12/06/18 at 16:30 Metformin HCl (Glucophage) 500 mg BID WITH MEALS PO Last administered on 12/10/18 17:39; Admin Dose 500 MG; Start 12/09/18 at 17:35 Linagliptin (Tradjenta) 5 mg DAILY PO Last administered on 12/10/18 09:12; Admin Dose 5 MG; Start 12/10/18 at 09:00 Bird Herrera DO Dec 10, 2018 19:30
[2018-12-10 20:11] VITALS: BP 138/56; PULSE 84; RESP 18
[2018-12-10] MEDS: DONEPEZIL 10 MG TAB PO SCH (20:50)
[2018-12-10] MEDS: ATORVASTATIN 10 MG TAB PO SCH (20:50)
[2018-12-10] MEDS: CALCIUM CARBONATE 500 MG CHEW TAB PO SCH (20:51)
[2018-12-10] MEDS: MELATONIN 3 MG TABLET PO SCH (20:51)
--- NOTE | 2018-12-10 21:33 | PN ---
Date/Time of Note Date/Time of Note DATE: 12/10/18 TIME: 21:29 Assessment/Plan VTE Prophylaxis Risk score (from Ns)>0 risk: 6 SCD applied (from Ns): No SCD contraindicated: patient refusal Pharmacological prophylaxis: rivaroxaban Lines/Catheters IV C[facility]ter Type (from [email or web address] Urinary Cath still in place: No Assessment/Plan Hospital Course Blood sugar is better controlled, patient continues on supplemental oxygen without acute distress. Assessment/Plan -Status post acute hypoxemic and hypercapnic respiratory failure secondary to COPD exacerbation. Dr. Zapata is following in pulmonology consultation. -COPD -Decompensated diastolic congestive heart failure, continue Lasix, monitor electrolytes. -Chronic atrial fibrillation. Continue digoxin, Cardizem and Xarelto. -Diabetes mellitus type 2. Continue metformin and Tradjenta. -Anemia of chronic disease -Hypothyroidism, started on levothyroxine Further recommendations based on clinical course. Plan of care discussed with Dr. Olivares. Result Diagram: 12/09/1871312/09/1814 Results 24hrs Laboratory Tests Test 12/10/18 07:40 12/10/18 11:58 12/10/18 17:18 Bedside Glucose 156 174 175 Exam/Review of Systems Exam Vitals Vital Signs Date Temp Pulse Resp B/P (MAP) Pulse Ox O2 O2 Flow FiO2 Time Delivery Rate 12/10/18 90 20 95 Nasal 2.0 21:07 Cannula 12/10/18 97.5 138/56 20:11 (83) Intake and Output 12/09/18 12/09/18 12/10/18 1515:00 23:00 07:00 IntakeIntake Total 200 ml 740 ml OutputOutput Total 200 ml BalanceBalance 200 ml 740 ml -200 ml Exam Constitutional: alert, oriented Respiratory: diminished breath sounds Cardiovascular: irregular rhythm Gastrointestinal: soft, non-tender Extremities: normal pulses Neurological: nl mental status Results Results 24hrs Laboratory Tests Test 12/10/18 07:40 12/10/18 11:58 12/10/18 17:18 Bedside Glucose 156 174 175 Medications Medication Current Medications Acetaminophen (Tylenol Tab) 650 mg Q4H PRN PO PAIN Last administered on 12/03/18at 23:14; Admin Dose 650 MG; Start 12/03/18 at 01:00 Al Hydrox/Mg Hydrox/Simethicone (Mag-Al Plus) 15 ml Q6H PRN PO GASTROINTESTINAL UPSET Last administered on 12/10/18 13:03; Admin Dose 15 ML; Start 12/03/18 at 01:00 Albuterol/ Ipratropium (Duoneb) 3 ml Q2H RESP THERAPY PRN HHN SHORTNESS OF BREATH Last administered on 12/08/18 10:25; Admin Dose 3 ML; Start 12/03/18 at 01:00 Albuterol/ Ipratropium (Duoneb) 3 ml Q4HWA RESP THERAPY HHN Last administered on 12/10/18 21:07; Admin Dose 3 ML; Start 12/03/18 at 09:00 Alprazolam (Xanax) 0.5 mg Q8H PRN PO ANXIETY Last administered on 12/09/18 22:14; Admin Dose 0.5 MG; Start 12/03/18 at 01:00 Eye Lubricant (Artificial Tears Oph) 2 drop Q8 BOTH EYES Last administered on 12/10/18 14:49; Admin Dose 2 DROP; Start 12/03/18 at 06:00 Atorvastatin Calcium (Lipitor) 10 mg HS PO Last administered on 12/10/18 20:50; Admin Dose 10 MG; Start 12/03/18 at 21:00 Calcium Carbonate (Tums) 500 mg HS PO Last administered on 12/10/18 20:51; Admin Dose 500 MG; Start 12/03/18 at 21:00 Cholecalciferol (Vitamin D) 4,000 unit DAILY PO Last administered on 12/10/18 09:11; Admin Dose 4,000 UNIT; Start 12/03/18 at 09:00 Diltiazem HCl (Cardizem Cd) 180 mg BID PO Last administered on 12/10/18 20:50; Admin Dose 180 MG; Start 12/03/18 at 09:00 Diphenhydramine HCl (Benadryl) 50 mg Q8 PRN PO for itching Last administered on 12/10/18 00:46; Admin Dose 50 MG; Start 12/03/18 at 01:00 Docusate Sodium (Colace) 100 mg BID PO Last administered on 12/10/18 20:52; Admin Dose 100 MG; Start 12/03/18 at 09:00 Donepezil HCl (Aricept) 10 mg 2100 PO Last administered on 12/10/18 20:50; Admin Dose 10 MG; Start 12/03/18 at 21:00 Duloxetine HCl (Cymbalta) 20 mg BID PO Last administered on 12/10/18 20:49; Admin Dose 20 MG; Start 12/03/18 at 09:00 Cholecalciferol (Vitamin D) 1,000 unit DAILY PO Last administered on 12/10/18 09:11; Admin Dose 1,000 UNIT; Start 12/03/18 at 09:00 Lactulose (Enulose) 20 gm DAILY PO Last administered on 12/10/18 09:11; Admin Dose 20 GM; Start 12/03/18 at 09:00 Metoclopramide HCl (Reglan) 5 mg Q6H PRN IV NAUSEA; Start 12/03/18 at 04:00 Metoprolol Tartrate (Lopressor) 25 mg BID PO Last administered on 12/10/18 20:51; Admin Dose 25 MG; Start 12/03/18 at 09:00 Miconazole Nitrate (Miconazole 2% Cr) 1 applic BID TOP Last administered on 12/10/18 20:51; Admin Dose 1 APPLIC; Start 12/03/18 at 09:00 Morphine Sulfate (morphine) 6 mg Q4H PRN PO SEVERE PAIN LEVEL 7-10 Last adminis tered on 12/10/18 09:05; Admin Dose 6 MG; Start 12/03/18 at 04:00 Pantoprazole (Protonix Tab) 40 mg DAILY@06 PO Last administered on 12/10/18 06:42; Admin Dose 40 MG; Start 12/03/18 at 06:00 Phenol (Cepastat Lozenge) 1 lozenge Q1H PRN MT SORE THROAT; Start 12/03/18 at 04:00 Primidone (Mysoline) 100 mg TID PO Last administered on 12/10/18 20:50; Admin Dose 100 MG; Start 12/03/18 at 09:00 Rivaroxaban (Xarelto) 15 mg WITH DINNER PO Last administered on 12/10/18 17:39; Admin Dose 15 MG; Start 12/03/18 at 17:35 Guaifenesin (Mucinex) 1,200 mg BID PO Last administered on 12/10/18 20:50; Ad min Dose 1,200 MG; Start 12/03/18 at 09:00 Digoxin (Digoxin) 0.125 mg DAILY@13 PO Last administered on 12/10/18 12:48; Admin Dose 0.125 MG; Start 12/03/18 at 13:00 Roflumilast (Daliresp) 500 mcg DAILY PO Last administered on 12/10/18 09:12; Admin Dose 500 MCG; Start 12/03/18 at 09:00 Sacubitril/ Valsartan (Entresto 24 Mg-26 Mg) 1 tab BID PO Last administered on 12/10/18 21:09; Admin Dose 1 TAB; Start 12/03/18 at 09:00 Simethicone (Mylicon) 80 mg Q6H PRN PO DISTENSION/GAS/BLOATING Last adm inistered on 12/06/18 18:25; Admin Dose 80 MG; Start 12/03/18 at 05:00 Sodium Chloride (Nacl) 2 gm MONWEDFRI PO Last administered on 12/09/18 09:00; Admin Dose 2 GM; Start 12/04/18 at 09:00 Cyanocobalamin (Vitamin B12) 5,000 mcg Q48H PO Last administered on 12/09/18 09:01; Admin Dose 5,000 MCG; Start 12/03/18 at 09:00 Miscellaneous Information 1 ea NOTE XX Last administered on 12/03/18 09:25; Admin Dose 1 EA; Start 12/03/18 at 08:00 Glucose (Glutose) 15 gm Q15M PRN PO DECREASED GLUCOSE Last administered on 12/03/18 09:18; Admin Dose 15 GM; Start 12/03/18 at 08:00 Glucose (Glutose) 22.5 gm Q15M PRN PO DECREASED GLUCOSE Last administered on 12/06/18 08:52; Admin Dose 22.5 GM; Start 12/03/18 at 08:00 Dextrose (D50w Syringe) 25 ml Q15M PRN IV DECREASED GLUCOSE; Start 12/03/18 at 08:00 Dextrose (D50w Syringe) 50 ml Q15M PRN IV DECREASED GLUCOSE Last administered on 12/06/18 11:18; Admin Dose 50 ML; Start 12/03/18 at 08:00 Glucagon (Glucagen) 1 mg Q15M PRN IM DECREASED GLUCOSE; Start 12/03/18 at 08:00 Glucose (Glutose) 15 gm Q15M PRN BUCCAL DECREASED GLUCOSE Last administered on 12/05/18 09:40; Admin Dose 15 GM; Start 12/03/18 at 08:00 Miscellaneous Information (Pending [facility] Order For Wound Care) This patient sewell... PRN PRN XX WOUND CARE; Start 12/04/18 at 03:30 Levothyroxine Sodium (Synthroid) 50 mcg DAILY@06 PO Last administered on 12/10/18 06:42; Admin Dose 50 MCG; Start 12/05/18 at 06:00 Melatonin (Melatonin) 3 mg HS PO Last administered on 12/10/18 20:51; Admin Dose 3 MG; Start 12/04/18 at 21:00 Mupirocin (Bactroban) 1 applic BID TOP Last administered on 12/10/18 20:53; Admin Dose 1 APPLIC; Start 12/06/18 at 13:00; Stop 12/13/18 at 12:59 Furosemide (Lasix) 20 mg DAILY@0600 PO Last administered on 12/10/18 06:43; Admin Dose 20 MG; Start 12/06/18 at 12:00 Methylprednisolone Sodium Succinate (Solu-Medrol) 40 mg Q8 IV Last administered on 12/10/18 14:50; Admin Dose 40 MG; Start 12/06/18 at 16:30 Metformin HCl (Glucophage) 500 mg BID WITH MEALS PO Last administered on 12/10/18 17:39; Admin Dose 500 MG; Start 12/09/18 at 17:35 Linagliptin (Tradjenta) 5 mg DAILY PO Last administered on 12/10/18 09:12; Admin Dose 5 MG; Start 12/10/18 at 09:00 AMEYA MAN Dec 10, 2018 21:33
[2018-12-10] MEDS: ALPRAZOLAM 0.25 MG TAB PO PRN (21:43)
[2018-12-11] VITALS (8 sets, daily range): BP systolic 107–145; BP diastolic 53–66; PULSE 60–88; RESP 18
[2018-12-11] MEDS: PANTOPRAZOLE (EC) 40 MG TAB PO SCH (06:07)
[2018-12-11] MEDS: METHYLPREDNISOLONE 40 MG INJ IV SCH ×3 (06:07→21:24)
[2018-12-11] MEDS: LEVOTHYROXINE 50 MCG TAB PO SCH (06:08)
[2018-12-11] MEDS: ARTIFICIAL TEARS 15 ML OPH BOTH EYES SCH ×3 (06:08→21:24)
[2018-12-11] MEDS: FUROSEMIDE 20 MG TAB PO SCH (06:08)
[2018-12-11] MEDS: metFORMIN 500 MG TAB PO SCH ×2 (08:27→17:54)
[2018-12-11] MEDS: LINAGLIPTIN 5 MG TABLET PO SCH (08:27)
[2018-12-11] MEDS: GUAIFENESIN LA 600 MG TABSR PO SCH ×2 (08:28→20:41)
[2018-12-11] MEDS: CYANOCOBALAMIN 500 MCG TAB PO SCH (08:28)
[2018-12-11] MEDS: DOCUSATE SODIUM 100 MG CAP PO SCH ×2 (08:28→20:41)
[2018-12-11] MEDS: CHOLECALCIFEROL 1,000 UNIT TAB PO SCH (08:59)
[2018-12-11] MEDS: LACTULOSE 30ML CUP PO SCH (08:59)
[2018-12-11] MEDS: METOPROLOL 25 MG TAB PO SCH ×2 (09:00→20:43)
[2018-12-11] MEDS: ALBUTEROL/IPRATROPIUM (NEB) 3 ML AMP HHN SCH ×4 (09:00→20:25)
[2018-12-11] MEDS: ROFLUMILAST 500 MCG TABLET PO SCH (09:00)
[2018-12-11] MEDS: CHOLECALCIFEROL 2,000 UNIT CAP PO SCH (09:00)
[2018-12-11] MEDS: PRIMIDONE 50 MG TAB PO SCH ×3 (09:00→20:41)
[2018-12-11] MEDS: DILTIAZEM (CD) 180 MG CAP PO SCH ×2 (09:00→20:42)
[2018-12-11] MEDS: DULOXETINE 20 MG CAP DR PO SCH ×2 (09:00→20:41)
[2018-12-11] MEDS: SACUBITRIL/VALSARTAN (24mg-26mg) TABLET PO SCH ×2 (09:01→20:41)
[2018-12-11] MEDS: MICONAZOLE 2% 30 GM CR TOP SCH ×2 (09:09→20:44)
[2018-12-11] MEDS: MUPIROCIN 2% 22 GM OINT TOP SCH ×2 (09:09→20:44)
--- NOTE | 2018-12-11 09:14 | CONS ---
Assessment/Plan Assessment/Plan Assessment/Plan (Daily) 1. 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 acute CHF, diastolic CHF 3. Acute COPD exacerbation 4. H/o HTN 5. H/O CKD Plan: Na 134, BUn/Cr imporved to normal, on lasix 20mg po daily - no labs today to reivew yet IV solu-medrol for COPD exacerbation Na chloride tablet 1 gram MWF will follow up Consultation Date/Type/Reason Admit Date/Time Dec 02, 2018 at 22:56 Initial Consult Date 12/08/18 Type of Consult NEPHROLOGY Requesting Provider: LISSETTE ESPOSITO MD Date/Time of Note DATE: 12/11/18 TIME: 09:14 Exam/Review of Systems Exam Vitals Vital Signs Date Temp Pulse Resp B/P (MAP) Pulse Ox O2 O2 Flow FiO2 Time Delivery Rate 12/11/18 2.0 06:49 12/11/18 77 145/63 06:08 (90) 12/11/18 97.8 18 99 Nasal 02:00 Cannula Intake and Output 12/10/18 12/10/18 12/11/18 1515:00 23:00 07:00 IntakeIntake Total 1200 ml 700 ml OutputOutput Total 600 ml 200 ml BalanceBalance 600 ml 500 ml Exam Constitutional: alert, wake, no distress Respiratory: clear to auscultation, normal air movement Cardiovascular: regular rate and rhythm, nl pulses Gastrointestinal: soft Musculoskeletal: nl extremities to inspection Extremities: normal pulses Neurological: [employer] II-XII intact, nl mental status Results Result Diagram: 12/09/18 0714 12/09/18 0714 Results 24hrs Laboratory Tests Test 12/10/18 11:58 12/10/18 17:18 12/11/18 07:48 Bedside Glucose 174 175 135 Medications Medication Current Medications Acetaminophen (Tylenol Tab) 650 mg Q4H PRN PO PAIN Last administered on 12/03/18at 23:14; Admin Dose 650 MG; Start 12/03/18 at 01:00 Al Hydrox/Mg Hydrox/Simethicone (Mag-Al Plus) 15 ml Q6H PRN PO GASTROINTESTINAL UPSET Last administered on 12/10/18at 13:03; Admin Dose 15 ML; Start 12/03/18 at 01:00 Albuterol/ Ipratropium (Duoneb) 3 ml Q2H RESP THERAPY PRN HHN SHORTNESS OF BREATH Last administered on 12/08/18 10:25; Admin Dose 3 ML; Start 12/03/18 at 01:00 Albuterol/ Ipratropium (Duoneb) 3 ml Q4HWA RESP THERAPY HHN Last administered on 12/10/18 21:07; Admin Dose 3 ML; Start 12/03/18 at 09:00 Alprazolam (Xanax) 0.5 mg Q8H PRN PO ANXIETY Last administered on 12/10/18 21:43; Admin Dose 0.5 MG; Start 12/03/18 at 01:00 Eye Lubricant (Artificial Tears Oph) 2 drop Q8 BOTH EYES Last administered on 12/11/18 06:08; Admin Dose 2 DROP; Start 12/03/18 at 06:00 Atorvastatin Calcium (Lipitor) 10 mg HS PO Last administered on 12/10/18 20:50; Admin Dose 10 MG; Start 12/03/18 at 21:00 Calcium Carbonate (Tums) 500 mg HS PO Last administered on 12/10/18 20:51; Admin Dose 500 MG; Start 12/03/18 at 21:00 Cholecalciferol (Vitamin D) 4,000 unit DAILY PO Last administered on 12/11/18 09:00; Admin Dose 4,000 UNIT; Start 12/03/18 at 09:00 Diltiazem HCl (Cardizem Cd) 180 mg BID PO Last administered on 12/10/18 20:50; Admin Dose 180 MG; Start 12/03/18 at 09:00 Diphenhydramine HCl (Benadryl) 50 mg Q8 PRN PO for itching Last administered on 12/10/18 00:46; Admin Dose 50 MG; Start 12/03/18 at 01:00 Docusate Sodium (Colace) 100 mg BID PO Last administered on 12/11/18 08:28; Admin Dose 100 MG; Start 12/03/18 at 09:00 Donepezil HCl (Aricept) 10 mg 2100 PO Last administered on 12/10/18 20:50; Admin Dose 10 MG; Start 12/03/18 at 21:00 Duloxetine HCl (Cymbalta) 20 mg BID PO Last administered on 12/11/18 09:00; Admin Dose 20 MG; Start 12/03/18 at 09:00 Cholecalciferol (Vitamin D) 1,000 unit DAILY PO Last administered on 12/11/18 08:59; Admin Dose 1,000 UNIT; Start 12/03/18 at 09:00 Lactulose (Enulose) 20 gm DAILY PO Last administered on 12/11/18 08:59; Admin Dose 20 GM; Start 12/03/18 at 09:00 Metoclopramide HCl (Reglan) 5 mg Q6H PRN IV NAUSEA; Start 12/03/18 at 04:00 Metoprolol Tartrate (Lopressor) 25 mg BID PO Last administered on 12/10/18 20:51; Admin Dose 25 MG; Start 12/03/18 at 09:00 Miconazole Nitrate (Miconazole 2% Cr) 1 applic BID TOP Last administered on 12/10/18 20:51; Admin Dose 1 APPLIC; Start 12/03/18 at 09:00 Morphine Sulfate (morphine) 6 mg Q4H PRN PO SEVERE PAIN LEVEL 7-10 Last administered on 12/10/18 22:46; Admin Dose 6 MG; Start 12/03/18 at 04:00 Pantoprazole (Protonix Tab) 40 mg DAILY@06 PO Last administered on 12/11/18 06:07; Admin Dose 40 MG; Start 12/03/18 at 06:00 Phenol (Cepastat Lozenge) 1 lozenge Q1H PRN MT SORE THROAT; Start 12/03/18 at 04:00 Primidone (Mysoline) 100 mg TID PO Last administered on 12/11/18 09:00; Admin Dose 100 MG; Start 12/03/18 at 09:00 Rivaroxaban (Xarelto) 15 mg WITH DINNER PO Last administered on 12/10/18 17:39; Admin Dose 15 MG; Start 12/03/18 at 17:35 Guaifenesin (Mucinex) 1,200 mg BID PO Last administered on 12/11/18 08:28; Admin Dose 1,200 MG; Start 12/03/18 at 09:00 Digoxin (Digoxin) 0.125 mg DAILY@13 PO Last administered on 12/10/18 12:48; Admin Dose 0.125 MG; Start 12/03/18 at 13:00 Roflumilast (Daliresp) 500 mcg DAILY PO Last administered on 12/11/18 09:00; Admin Dose 500 MCG; Start 12/03/18 at 09:00 Sacubitril/ Valsartan (Entresto 24 Mg-26 Mg) 1 tab BID PO Last administered on 12/11/18 09:01; Admin Dose 1 TAB; Start 12/03/18 at 09:00 Simethicone (Mylicon) 80 mg Q6H PRN PO DISTENSION/GAS/BLOATING Last administered on 12/06/18 18:25; Admin Dose 80 MG; Start 12/03/18 at 05:00 Sodium Chloride (Nacl) 2 gm MONWEDFRI PO Last administered on 12/09/18 09:00; Admin Dose 2 GM; Start 12/04/18 at 09:00 Cyanocobalamin (Vitamin B12) 5,000 mcg Q48H PO Last administered on 12/11/18 08:28; Admin Dose 5,000 MCG; Start 12/03/18 at 09:00 Miscellaneous Information 1 ea NOTE XX Last administered on 12/03/18 09:25; Admin Dose 1 EA; Start 12/03/18 at 08:00 Glucose (Glutose) 15 gm Q15M PRN PO DECREASED GLUCOSE Last administered on 12/03/18 09:18; Admin Dose 15 GM; Start 12/03/18 at 08:00 Glucose (Glutose) 22.5 gm Q15M PRN PO DECREASED GLUCOSE Last administered on 12/06/18 08:52; Admin Dose 22.5 GM; Start 12/03/18 at 08:00 Dextrose (D50w Syringe) 25 ml Q15M PRN IV DECREASED GLUCOSE; Start 12/03/18 at 08:00 Dextrose (D50w Syringe) 50 ml Q15M PRN IV DECREASED GLUCOSE Last administered on 12/06/18 11:18; Admin Dose 50 ML; Start 12/03/18 at 08:00 Glucagon (Glucagen) 1 mg Q15M PRN IM DECREASED GLUCOSE; Start 12/03/18 at 08:00 Glucose (Glutose) 15 gm Q15M PRN BUCCAL DECREASED GLUCOSE Last administered on 12/05/18 09:40; Admin Dose 15 GM; Start 12/03/18 at 08:00 Miscellaneous Information (Pending Santyl Order For Wound Care) This patient sewell... PRN PRN XX WOUND CARE; Start 12/04/18 at 03:30 Levothyroxine Sodium (Synthroid) 50 mcg DAILY@06 PO Last administered on 12/11/18 06:08; Admin Dose 50 MCG; Start 12/05/18 at 06:00 Melatonin (Melatonin) 3 mg HS PO Last administered on 12/10/18 20:51; Admin Dose 3 MG; Start 12/04/18 at 21:00 Mupirocin (Bactroban) 1 applic BID TOP Last administered on 12/10/18 20:53; Admin Dose 1 APPLIC; Start 12/06/18 at 13:00; Stop 12/13/18 at 12:59 Furosemide (Lasix) 20 mg DAILY@0600 PO Last administered on 12/11/18 06:08; Admin Dose 20 MG; Start 12/06/18 at 12:00 Methylprednisolone Sodium Succinate (Solu-Medrol) 40 mg Q8 IV Last administered on 12/11/18 06:07; Admin Dose 40 MG; Start 12/06/18 at 16:30 Metformin HCl (Glucophage) 500 mg BID WITH MEALS PO Last administered on 12/11/18 08:27; Admin Dose 500 MG; Start 12/09/18 at 17:35 Linagliptin (Tradjenta) 5 mg DAILY PO Last administered on 12/11/18 08:27; Admin Dose 5 MG; Start 12/10/18 at 09:00 ANA GE MD Dec 11, 2018 09:14
[2018-12-11] MEDS: SODIUM CHLORIDE 1 GM TAB PO SCH (09:17)
--- NOTE | 2018-12-11 12:57 | PN ---
Date/Time of Note Date/Time of Note DATE: 12/11/18 TIME: 12:46 Assessment/Plan VTE Prophylaxis Risk score (from Nsg)>0 risk: 6 SCD applied (from Nsg): No Lines/Catheters IV Catheter Type (from Nrsg): Saline Lock Urinary Cath still in place: No Assessment/Plan Assessment/Plan - URI- - Breathing treatment - Levaquin - CXR - am LABS -Status post acute hypoxemic and hypercapnic respiratory failure secondary to COPD exacerbation. -Dr. Zapata is following in pulmonology consultation. -COPD -Decompensated diastolic congestive heart failure, continue Lasix, monitor electrolytes. -Chronic atrial fibrillation. Continue digoxin, Cardizem and Xarelto. -Diabetes mellitus type 2. Continue metformin and Tradjenta. -Anemia of chronic disease -Hypothyroidism, started on levothyroxine Further recommendations based on clinical course. Plan of care discussed with Dr. Olivares. Result Diagram: 12/09/1814 12/09/1814 Results 24hrs Laboratory Tests Test 12/10/18 17:18 12/11/18 07:48 12/11/18 11:43 Bedside Glucose 175 135 139 Exam/Review of Systems Exam Vitals Vital Signs Date Temp Pulse Resp B/P (MAP) Pulse Ox O2 O2 Flow FiO2 Time Delivery Rate 12/11/18 Nasal 2.0 08:30 Cannula 12/11/18 98.0 60 18 142/63 94 07:00 (89) Intake and Output 12/10/18 12/10/18 12/11/18 1515:00 23:00 07:00 IntakeIntake Total 1200 ml 700 ml OutputOutput Total 600 ml 200 ml BalanceBalance 600 ml 500 ml Constitutional: alert, well developed Psych: nl mood/affect Eyes: nl lids, nl sclera ENMT: nl external ears & nose Respiratory: diminished breath sounds Gastrointestinal: soft, non-tender Musculoskeletal: muscle weakness Neurological: nl speech Skin: nl turgor Lymph: nontender Results Results 24hrs Laboratory Tests Test 12/10/18 17:18 12/11/18 07:48 12/11/18 11:43 Bedside Glucose 175 135 139 Medications Medication Current Medications Acetaminophen (Tylenol Tab) 650 mg Q4H PRN PO PAIN Last administered on 12/03/18at 23:14; Admin Dose 650 MG; Start 12/03/18 at 01:00 Al Hydrox/Mg Hydrox/Simethicone (Mag-Al Plus) 15 ml Q6H PRN PO GASTROINTESTINAL UPSET Last administered on 12/10/18 13:03; Admin Dose 15 ML; Start 12/03/18 at 01:00 Albuterol/ Ipratropium (Duoneb) 3 ml Q2H RESP THERAPY PRN HHN SHORTNESS OF BREATH Last administered on 12/08/18 10:25; Admin Dose 3 ML; Start 12/03/18 at 01:00 Albuterol/ Ipratropium (Duoneb) 3 ml Q4HWA RESP THERAPY HHN Last administered on 12/10/18 21:07; Admin Dose 3 ML; Start 12/03/18 at 09:00 Alprazolam (Xanax) 0.5 mg Q8H PRN PO ANXIETY Last administered on 12/10/18 21:43; Admin Dose 0.5 MG; Start 12/03/18 at 01:00 Eye Lubricant (Artificial Tears Oph) 2 drop Q8 BOTH EYES Last administered on 12/11/18 06:08; Admin Dose 2 DROP; Start 12/03/18 at 06:00 Atorvastatin Calcium (Lipitor) 10 mg HS PO Last administered on 12/10/18 20:50; Admin Dose 10 MG; Start 12/03/18 at 21:00 Calcium Carbonate (Tums) 500 mg HS PO Last administered on 12/10/18 20:51; Admin Dose 500 MG; Start 12/03/18 at 21:00 Cholecalciferol (Vitamin D) 4,000 unit DAILY PO Last administered on 12/11/18 09:00; Admin Dose 4,000 UNIT; Start 12/03/18 at 09:00 Diltiazem HCl (Cardizem Cd) 180 mg BID PO Last administered on 12/10/18 20:50; Admin Dose 180 MG; Start 12/03/18 at 09:00 Diphenhydramine HCl (Benadryl) 50 mg Q8 PRN PO for itching Last administered on 12/10/18 00:46; Admin Dose 50 MG; Start 12/03/18 at 01:00 Docusate Sodium (Colace) 100 mg BID PO Last administered on 12/11/18 08:28; Admin Dose 100 MG; Start 12/03/18 at 09:00 Donepezil HCl (Aricept) 10 mg 2100 PO Last administered on 12/10/18 20:50; Admin Dose 10 MG; Start 12/03/18 at 21:00 Duloxetine HCl (Cymbalta) 20 mg BID PO Last administered on 12/11/18 09:00; Admin Dose 20 MG; Start 12/03/18 at 09:00 Cholecalciferol (Vitamin D) 1,000 unit DAILY PO Last administered on 12/11/18 08:59; Admin Dose 1,000 UNIT; Start 12/03/18 at 09:00 Lactulose (Enulose) 20 gm DAILY PO Last administered on 12/11/18 08:59; Admin Dose 20 GM; Start 12/03/18 at 09:00 Metoclopramide HCl (Reglan) 5 mg Q6H PRN IV NAUSEA; Start 12/03/18 at 04:00 Metoprolol Tartrate (Lopressor) 25 mg BID PO Last administered on 12/10/18 20:51; Admin Dose 25 MG; Start 12/03/18 at 09:00 Miconazole Nitrate (Miconazole 2% Cr) 1 applic BID TOP Last administered on 12/11/18 09:09; Admin Dose 1 APPLIC; Start 12/03/18 at 09:00 Morphine Sulfate (morphine) 6 mg Q4H PRN PO SEVERE PAIN LEVEL 7-10 Last administered on 12/10/18 22:46; Admin Dose 6 MG; Start 12/03/18 at 04:00 Pantoprazole (Protonix Tab) 40 mg DAILY@06 PO Last administered on 12/11/18 06:07; Admin Dose 40 MG; Start 12/03/18 at 06:00 Phenol (Cepastat Lozenge) 1 lozenge Q1H PRN MT SORE THROAT; Start 12/03/18 at 04:00 Primidone (Mysoline) 100 mg TID PO Last administered on 12/11/18 09:00; Admin Dose 100 MG; Start 12/03/18 at 09:00 Rivaroxaban (Xarelto) 15 mg WITH DINNER PO Last administered on 12/10/18 17:39; Admin Dose 15 MG; Start 12/03/18 at 17:35 Guaifenesin (Mucinex) 1,200 mg BID PO Last administered on 12/11/18 08:28; Admin Dose 1,200 MG; Start 12/03/18 at 09:00 Digoxin (Digoxin) 0.125 mg DAILY@13 PO Last administered on 12/10/18 12:48; Admin Dose 0.125 MG; Start 12/03/18 at 13:00 Roflumilast (Daliresp) 500 mcg DAILY PO Last administered on 12/11/18 09:00; Admin Dose 500 MCG; Start 12/03/18 at 09:00 Sacubitril/ Valsartan (Entresto 24 Mg-26 Mg) 1 tab BID PO Last administered on 12/11/18 09:01; Admin Dose 1 TAB; Start 12/03/18 at 09:00 Simethicone (Mylicon) 80 mg Q6H PRN PO DISTENSION/GAS/BLOATING Last administered on 12/06/18 18:25; Admin Dose 80 MG; Start 12/03/18 at 05:00 Sodium Chloride (Nacl) 2 gm MONWEDFRI PO Last administered on 12/11/18 09:17; Admin Dose 2 GM; Start 12/04/18 at 09:00 Cyanocobalamin (Vitamin B12) 5,000 mcg Q48H PO Last administered on 12/11/18 08:28; Admin Dose 5,000 MCG; Start 12/03/18 at 09:00 Miscellaneous Information 1 ea NOTE XX Last administered on 12/03/18 09:25; Admin Dose 1 EA; Start 12/03/18 at 08:00 Glucose (Glutose) 15 gm Q15M PRN PO DECREASED GLUCOSE Last administered on 12/03/18 09:18; Admin Dose 15 GM; Start 12/03/18 at 08:00 Glucose (Glutose) 22.5 gm Q15M PRN PO DECREASED GLUCOSE Last administered on 12/06/18 08:52; Admin Dose 22.5 GM; Start 12/03/18 at 08:00 Dextrose (D50w Syringe) 25 ml Q15M PRN IV DECREASED GLUCOSE; Start 12/03/18 at 08:00 Dextrose (D50w Syringe) 50 ml Q15M PRN IV DECREASED GLUCOSE Last administered on 12/06/18 11:18; Admin Dose 50 ML; Start 12/03/18 at 08:00 Glucagon (Glucagen) 1 mg Q15M PRN IM DECREASED GLUCOSE; Start 12/03/18 at 08:00 Glucose (Glutose) 15 gm Q15M PRN BUCCAL DECREASED GLUCOSE Last administered on 12/05/18 09:40; Admin Dose 15 GM; Start 12/03/18 at 08:00 Miscellaneous Information (Pending Santyl Order For Wound Care) This patient sewell... PRN PRN XX WOUND CARE; Start 12/04/18 at 03:30 Levothyroxine Sodium (Synthroid) 50 mcg DAILY@06 PO Last administered on 12/11/18 06:08; Admin Dose 50 MCG; Start 12/05/18 at 06:00 Melatonin (Melatonin) 3 mg HS PO Last administered on 12/10/18 20:51; Admin Dose 3 MG; Start 12/04/18 at 21:00 Mupirocin (Bactroban) 1 applic BID TOP Last administered on 12/11/18 09:09; Admin Dose 1 APPLIC; Start 12/06/18 at 13:00; Stop 12/13/18 at 12:59 Furosemide (Lasix) 20 mg DAILY@0600 PO Last administered on 12/11/18 06:08; Admin Dose 20 MG; Start 12/06/18 at 12:00 Methylprednisolone Sodium Succinate (Solu-Medrol) 40 mg Q8 IV Last administered on 12/11/18 06:07; Admin Dose 40 MG; Start 12/06/18 at 16:30 Metformin HCl (Glucophage) 500 mg BID WITH MEALS PO Last administered on 12/11/18 08:27; Admin Dose 500 MG; Start 12/09/18 at 17:35 Linagliptin (Tradjenta) 5 mg DAILY PO Last administered on 12/11/18 08:27; Admin Dose 5 MG; Start 12/10/18 at 09:00 NEFTALI WESTON Dec 11, 2018 12:56
--- NOTE | 2018-12-11 13:14 | PN ---
Date/Time of Note Date/Time of Note DATE: 12/11/18 TIME: 13:14 Subjective No new complaints Objective Vital Signs Date Temp Pulse Resp B/P (MAP) Pulse Ox O2 O2 Flow FiO2 Time Delivery Rate 12/11/18 68 22 96 Nasal 2.0 12:52 Cannula 12/11/18 98.0 142/63 07:00 (89) Intake and Output 12/10/18 12/10/18 12/11/18 1515:00 23:00 07:00 IntakeIntake Total 1200 ml 700 ml OutputOutput Total 600 ml 200 ml BalanceBalance 600 ml 500 ml Exam abd-soft mod/min ambulation Results/Medications Result Diagram: 12/09/18 0714 12/09/1814 Results 24 hrs Laboratory Tests Test 12/10/18 17:18 12/11/18 07:48 12/11/18 11:43 Bedside Glucose 175 135 139 Medications Current Medications Acetaminophen (Tylenol Tab) 650 mg Q4H PRN PO PAIN Last administered on 12/03/18 23:14; Admin Dose 650 MG; Start 12/03/18 at 01:00 Al Hydrox/Mg Hydrox/Simethicone (Mag-Al Plus) 15 ml Q6H PRN PO GASTROINTESTINAL UPSET Last administered on 12/10/18 13:03; Admin Dose 15 ML; Start 12/03/18 at 01:00 Albuterol/ Ipratropium (Duoneb) 3 ml Q2H RESP THERAPY PRN HHN SHORTNESS OF BREATH Last administered on 12/08/18at 10:25; Admin Dose 3 ML; Start 12/03/18 at 01:00 Albuterol/ Ipratropium (Duoneb) 3 ml Q4HWA RESP THERAPY HHN Last administered on 12/11/18at 12:51; Admin Dose 3 ML; Start 12/03/18 at 09:00 Alprazolam (Xanax) 0.5 mg Q8H PRN PO ANXIETY Last administered on 12/10/18 21:43; Admin Dose 0.5 MG; Start 12/03/18 at 01:00 Eye Lubricant (Artificial Tears Oph) 2 drop Q8 BOTH EYES Last administered on 12/11/18 06:08; Admin Dose 2 DROP; Start 12/03/18 at 06:00 Atorvastatin Calcium (Lipitor) 10 mg HS PO Last administered on 12/10/18 20:50; Admin Dose 10 MG; Start 12/03/18 at 21:00 Calcium Carbonate (Tums) 500 mg HS PO Last administered on 12/10/18 20:51; Admin Dose 500 MG; Start 12/03/18 at 21:00 Cholecalciferol (Vitamin D) 4,000 unit DAILY PO Last administered on 12/11/18 09:00; Admin Dose 4,000 UNIT; Start 12/03/18 at 09:00 Diltiazem HCl (Cardizem Cd) 180 mg BID PO Last administered on 12/10/18 20:50; Admin Dose 180 MG; Start 12/03/18 at 09:00 Diphenhydramine HCl (Benadryl) 50 mg Q8 PRN PO for itching Last administered on 12/10/18 00:46; Admin Dose 50 MG; Start 12/03/18 at 01:00 Docusate Sodium (Colace) 100 mg BID PO Last administered on 12/11/18 08:28; Admin Dose 100 MG; Start 12/03/18 at 09:00 Donepezil HCl (Aricept) 10 mg 2100 PO Last administered on 12/10/18 20:50; Admin Dose 10 MG; Start 12/03/18 at 21:00 Duloxetine HCl (Cymbalta) 20 mg BID PO Last administered on 12/11/18 09:00; Admin Dose 20 MG; Start 12/03/18 at 09:00 Cholecalciferol (Vitamin D) 1,000 unit DAILY PO Last administered on 12/11/18 08:59; Admin Dose 1,000 UNIT; Start 12/03/18 at 09:00 Lactulose (Enulose) 20 gm DAILY PO Last administered on 12/11/18 08:59; Admin Dose 20 GM; Start 12/03/18 at 09:00 Metoclopramide HCl (Reglan) 5 mg Q6H PRN IV NAUSEA; Start 12/03/18 at 04:00 Metoprolol Tartrate (Lopressor) 25 mg BID PO Last administered on 12/10/18 20:51; Admin Dose 25 MG; Start 12/03/18 at 09:00 Miconazole Nitrate (Miconazole 2% Cr) 1 applic BID TOP Last administered on 12/11/18 09:09; Admin Dose 1 APPLIC; Start 12/03/18 at 09:00 Morphine Sulfate (morphine) 6 mg Q4H PRN PO SEVERE PAIN LEVEL 7-10 Last administered on 12/10/18 22:46; Admin Dose 6 MG; Start 12/03/18 at 04:00 Pantoprazole (Protonix Tab) 40 mg DAILY@06 PO Last administered on 12/11/18 06:07; Admin Dose 40 MG; Start 12/03/18 at 06:00 Phenol (Cepastat Lozenge) 1 lozenge Q1H PRN MT SORE THROAT; Start 12/03/18 at 04:00 Primidone (Mysoline) 100 mg TID PO Last administered on 12/11/18 09:00; Admin Dose 100 MG; Start 12/03/18 at 09:00 Rivaroxaban (Xarelto) 15 mg WITH DINNER PO Last administered on 12/10/18 17:39; Admin Dose 15 MG; Start 12/03/18 at 17:35 Guaifenesin (Mucinex) 1,200 mg BID PO Last administered on 12/11/18 08:28; Admin Dose 1,200 MG; Start 12/03/18 at 09:00 Digoxin (Digoxin) 0.125 mg DAILY@13 PO Last administered on 12/10/18 12:48; Admin Dose 0.125 MG; Start 12/03/18 at 13:00 Roflumilast (Daliresp) 500 mcg DAILY PO Last administered on 12/11/18 09:00; Admin Dose 500 MCG; Start 12/03/18 at 09:00 Sacubitril/ Valsartan (Entresto 24 Mg-26 Mg) 1 tab BID PO Last administered on 12/11/18 09:01; Admin Dose 1 TAB; Start 12/03/18 at 09:00 Simethicone (Mylicon) 80 mg Q6H PRN PO DISTENSION/GAS/BLOATING Last administered on 12/06/18 18:25; Admin Dose 80 MG; Start 12/03/18 at 05:00 Sodium Chloride (Nacl) 2 gm MONWEDFRI PO Last administered on 12/11/18 09:17; Admin Dose 2 GM; Start 12/04/18 at 09:00 Cyanocobalamin (Vitamin B12) 5,000 mcg Q48H PO Last administered on 12/11/18 08:28; Admin Dose 5,000 MCG; Start 12/03/18 at 09:00 Miscellaneous Information 1 ea NOTE XX Last administered on 12/03/18 09:25; Admin Dose 1 EA; Start 12/03/18 at 08:00 Glucose (Glutose) 15 gm Q15M PRN PO DECREASED GLUCOSE Last administered on 12/03/18 09:18; Admin Dose 15 GM; Start 12/03/18 at 08:00 Glucose (Glutose) 22.5 gm Q15M PRN PO DECREASED GLUCOSE Last administered on 12/06/18 08:52; Admin Dose 22.5 GM; Start 12/03/18 at 08:00 Dextrose (D50w Syringe) 25 ml Q15M PRN IV DECREASED GLUCOSE; Start 12/03/18 at 08:00 Dextrose (D50w Syringe) 50 ml Q15M PRN IV DECREASED GLUCOSE Last administered on 12/06/18 11:18; Admin Dose 50 ML; Start 12/03/18 at 08:00 Glucagon (Glucagen) 1 mg Q15M PRN IM DECREASED GLUCOSE; Start 12/03/18 at 08:00 Glucose (Glutose) 15 gm Q15M PRN BUCCAL DECREASED GLUCOSE Last administered on 12/05/18 09:40; Admin Dose 15 GM; Start 12/03/18 at 08:00 Miscellaneous Information (Pending Santyl Order For Wound Care) This patient sewell... PRN PRN XX WOUND CARE; Start 12/04/18 at 03:30 Levothyroxine Sodium (Synthroid) 50 mcg DAILY@06 PO Last administered on 12/11/18 06:08; Admin Dose 50 MCG; Start 12/05/18 at 06:00 Melatonin (Melatonin) 3 mg HS PO Last administered on 12/10/18 20:51; Admin Dose 3 MG; Start 12/04/18 at 21:00 Mupirocin (Bactroban) 1 applic BID TOP Last administered on 12/11/18 09:09; Admin Dose 1 APPLIC; Start 12/06/18 at 13:00; Stop 12/13/18 at 12:59 Furosemide (Lasix) 20 mg DAILY@0600 PO Last administered on 3/20/19at 06:08; Admin Dose 20 MG; Start 12/06/18 at 12:00 Methylprednisolone Sodium Succinate (Solu-Medrol) 40 mg Q8 IV Last administered on 12/11/18at 06:07; Admin Dose 40 MG; Start 12/06/18 at 16:30 Metformin HCl (Glucophage) 500 mg BID WITH MEALS PO Last administered on 12/11/18at 08:27; Admin Dose 500 MG; Start 12/09/18 at 17:35 Linagliptin (Tradjenta) 5 mg DAILY PO Last administered on 12/11/18at 08:27; Admin Dose 5 MG; Start 12/10/18 at 09:00 Levofloxacin/ Dextrose 50 ml @ 50 mls/hr Q24H IVPB ; Start 12/11/18 at 14:00 Assessment/Plan Additional Assessment/Plan Rehab- Critical Illness Myopathy ;Pulmonary debility status post acute hypoxemic and hypercapnic respiratory failure. Continue rehab treatment plan COPD. Coronary artery disease. Carotid stenosis. Hypothyroidism. Chronic low back pain. Chronic kidney disease. CHF. Depression. Diabetes mellitus. KINGSLEY Caldera MD Dec 11, 2018 13:14
[2018-12-11] MEDS: DIGOXIN 0.125 MG TAB PO SCH (13:31)
[2018-12-11] MEDS ORDERED: LEVOFLOXACIN 250MG/D5W (PMX) 50 ML IVPB SCH (14:00)
--- NOTE | 2018-12-11 15:52 | CONS ---
Assessment/Plan Cardiology NYHA: II Heart Failure Type: Acute Heart Failure Type: Diastolic Assessment/Plan Hospital Course (Demo Recall) COPD exacerbation Acute decompensated diastolic congestive heart failure Atrial fibrillation, on anticoagulation Recent pneumonia Hypertension Dyslipidemia Preserved ejection fraction Possible conjunctival hemorrhage-improved -Respiratory status improved today -Diuretics being adjusted by our nephrology colleague -Continue Cardizem and metoprolol for heart rate control and titrate based on heart rate and blood pressure -Continue digoxin as tolerated Consultation Date/Type/Reason Admit Date/Time Dec 02, 2018 at 22:56 Initial Consult Date Type of Consult Cardiology Requesting Provider: LISSETTE ESPOSITO MD Date/Time of Note DATE: 12/11/18 TIME: 15:51 24 HR Interval Summary Free Text/Dictation Shortness of breath is better today. Denies chest pain, palpitations. Cough is less Exam/Review of Systems Vital Signs Vitals Vital Signs Date Temp Pulse Resp B/P (MAP) Pulse Ox O2 O2 Flow FiO2 Time Delivery Rate 12/11/18 68 22 96 Nasal 2.0 12:52 Cannula 12/11/18 98.0 142/63 07:00 (89) Intake and Output 12/10/18 12/10/18 12/11/18 1414:59 22:59 06:59 IntakeIntake Total 1200 ml 700 ml OutputOutput Total 600 ml 200 ml BalanceBalance 600 ml 500 ml Exam Constitutional: alert, oriented (No apparent distress) Neck: supple Respiratory: other (Coarse breath sounds bilaterally, minimal scattered wheezing) Cardiovascular: irregular rhythm (S1-S2 heard) Gastrointestinal: soft, non-tender, bowel sounds Extremities: other (No significant edema) Labs Result Diagram: 12/09/18 0714 12/09/18 0714 Results 24hrs Laboratory Tests Test 12/10/18 17:18 12/11/18 07:48 12/11/18 11:43 Bedside Glucose 175 135 139 Medications Medications Current Medications Acetaminophen (Tylenol Tab) 650 mg Q4H PRN PO PAIN Last administered on 12/03/18at 23:14; Admin Dose 650 MG; Start 12/03/18 at 01:00 Al Hydrox/Mg Hydrox/Simethicone (Mag-Al Plus) 15 ml Q6H PRN PO GASTROINTESTINAL UPSET Last administered on 12/10/18at 13:03; Admin Dose 15 ML; Start 12/03/18 at 01:00 Albuterol/ Ipratropium (Duoneb) 3 ml Q2H RESP THERAPY PRN HHN SHORTNESS OF BREATH Last administered on 12/08/18 10:25; Admin Dose 3 ML; Start 12/03/18 at 01:00 Albuterol/ Ipratropium (Duoneb) 3 ml Q4HWA RESP THERAPY HHN Last administered on 12/11/18 12:51; Admin Dose 3 ML; Start 12/03/18 at 09:00 Alprazolam (Xanax) 0.5 mg Q8H PRN PO ANXIETY Last administered on 12/10/18 21:43; Admin Dose 0.5 MG; Start 12/03/18 at 01:00 Eye Lubricant (Artificial Tears Oph) 2 drop Q8 BOTH EYES Last administered on 12/11/18 15:12; Admin Dose 2 DROP; Start 12/03/18 at 06:00 Atorvastatin Calcium (Lipitor) 10 mg HS PO Last administered on 12/10/18 20:50; Admin Dose 10 MG; Start 12/03/18 at 21:00 Calcium Carbonate (Tums) 500 mg HS PO Last administered on 12/10/18 20:51; Admin Dose 500 MG; Start 12/03/18 at 21:00 Cholecalciferol (Vitamin D) 4,000 unit DAILY PO Last administered on 12/11/18 09:00; Admin Dose 4,000 UNIT; Start 12/03/18 at 09:00 Diltiazem HCl (Cardizem Cd) 180 mg BID PO Last administered on 12/10/18 20:50; Admin Dose 180 MG; Start 12/03/18 at 09:00 Diphenhydramine HCl (Benadryl) 50 mg Q8 PRN PO for itching Last administered on 12/10/18 00:46; Admin Dose 50 MG; Start 12/03/18 at 01:00 Docusate Sodium (Colace) 100 mg BID PO Last administered on 12/11/18 08:28; Admin Dose 100 MG; Start 12/03/18 at 09:00 Donepezil HCl (Aricept) 10 mg 2100 PO Last administered on 12/10/18 20:50; Admin Dose 10 MG; Start 12/03/18 at 21:00 Duloxetine HCl (Cymbalta) 20 mg BID PO Last administered on 12/11/18 09:00; Admin Dose 20 MG; Start 12/03/18 at 09:00 Cholecalciferol (Vitamin D) 1,000 unit DAILY PO Last administered on 12/11/18 08:59; Admin Dose 1,000 UNIT; Start 12/03/18 at 09:00 Lactulose (Enulose) 20 gm DAILY PO Last administered on 12/11/18 08:59; Admin Dose 20 GM; Start 12/03/18 at 09:00 Metoclopramide HCl (Reglan) 5 mg Q6H PRN IV NAUSEA; Start 12/03/18 at 04:00 Metoprolol Tartrate (Lopressor) 25 mg BID PO Last administered on 12/10/18 20:51; Admin Dose 25 MG; Start 12/03/18 at 09:00 Miconazole Nitrate (Miconazole 2% Cr) 1 applic BID TOP Last administered on 12/11/18 09:09; Admin Dose 1 APPLIC; Start 12/03/18 at 09:00 Morphine Sulfate (morphine) 6 mg Q4H PRN PO SEVERE PAIN LEVEL 7-10 Last administered on 12/10/18 22:46; Admin Dose 6 MG; Start 12/03/18 at 04:00 Pantoprazole (Protonix Tab) 40 mg DAILY@06 PO Last administered on 12/11/18 06:07; Admin Dose 40 MG; Start 12/03/18 at 06:00 Phenol (Cepastat Lozenge) 1 lozenge Q1H PRN MT SORE THROAT; Start 12/03/18 at 04:00 Primidone (Mysoline) 100 mg TID PO Last administered on 12/11/18 13:30; Admin Dose 100 MG; Start 12/03/18 at 09:00 Rivaroxaban (Xarelto) 15 mg WITH DINNER PO Last administered on 12/10/18 17:39; Admin Dose 15 MG; Start 12/03/18 at 17:35 Guaifenesin (Mucinex) 1,200 mg BID PO Last administered on 12/11/18 08:28; Admin Dose 1,200 MG; Start 12/03/18 at 09:00 Digoxin (Digoxin) 0.125 mg DAILY@13 PO Last administered on 12/11/18 13:31; Admin Dose 0.125 MG; Start 12/03/18 at 13:00 Roflumilast (Daliresp) 500 mcg DAILY PO Last administered on 12/11/18 09:00; Admin Dose 500 MCG; Start 12/03/18 at 09:00 Sacubitril/ Valsartan (Entresto 24 Mg-26 Mg) 1 tab BID PO Last administered on 12/11/18 09:01; Admin Dose 1 TAB; Start 12/03/18 at 09:00 Simethicone (Mylicon) 80 mg Q6H PRN PO DISTENSION/GAS/BLOATING Last administered on 12/06/18 18:25; Admin Dose 80 MG; Start 12/03/18 at 05:00 Sodium Chloride (Nacl) 2 gm MONWEDFRI PO Last administered on 12/11/18 09:17; Admin Dose 2 GM; Start 12/04/18 at 09:00 Cyanocobalamin (Vitamin B12) 5,000 mcg Q48H PO Last administered on 12/11/18 08:28; Admin Dose 5,000 MCG; Start 12/03/18 at 09:00 Miscellaneous Information 1 ea NOTE XX Last administered on 12/03/18 09:25; Admin Dose 1 EA; Start 12/03/18 at 08:00 Glucose (Glutose) 15 gm Q15M PRN PO DECREASED GLUCOSE Last administered on 12/03/18 09:18; Admin Dose 15 GM; Start 12/03/18 at 08:00 Glucose (Glutose) 22.5 gm Q15M PRN PO DECREASED GLUCOSE Last administered on 12/06/18 08:52; Admin Dose 22.5 GM; Start 12/03/18 at 08:00 Dextrose (D50w Syringe) 25 ml Q15M PRN IV DECREASED GLUCOSE; Start 12/03/18 at 08:00 Dextrose (D50w Syringe) 50 ml Q15M PRN IV DECREASED GLUCOSE Last administered on 12/06/18 11:18; Admin Dose 50 ML; Start 12/03/18 at 08:00 Glucagon (Glucagen) 1 mg Q15M PRN IM DECREASED GLUCOSE; Start 12/03/18 at 08:00 Glucose (Glutose) 15 gm Q15M PRN BUCCAL DECREASED GLUCOSE Last administered on 12/05/18 09:40; Admin Dose 15 GM; Start 12/03/18 at 08:00 [facility]isc[facility] This patient sewell... PRN PRN XX WOUND CARE; Start 12/04/18 at 03:30 Levothyroxine Sodium (Synthroid) 50 mcg DAILY@06 PO Last administered on 12/11/18 06:08; Admin Dose 50 MCG; Start 12/05/18 at 06:00 Melatonin (Melatonin) 3 mg HS PO Last administered on 12/10/18 20:51; Admin Dose 3 MG; Start 12/04/18 at 21:00 Mupirocin (Bactroban) 1 applic BID TOP Last administered on 12/11/18 09:09; Admin Dose 1 APPLIC; Start 12/06/18 at 13:00; Stop 12/13/18 at 12:59 Furosemide (Lasix) 20 mg DAILY@0600 PO Last administered on 12/11/18 06:08; Admin Dose 20 MG; Start 12/06/18 at 12:00 Methylprednisolone Sodium Succinate (Solu-Medrol) 40 mg Q8 IV Last administered on 12/11/18 15:16; Admin Dose 40 MG; Start 12/06/18 at 16:30 Metformin HCl (Glucophage) 500 mg BID WITH MEALS PO Last administered on 12/11/18 08:27; Admin Dose 500 MG; Start 12/09/18 at 17:35 Linagliptin (Tradjenta) 5 mg DAILY PO Last administered on 12/11/18 08:27; Admin Dose 5 MG; Start 12/10/18 at 09:00 Cefepime HCl 50 ml @ 100 mls/hr Q12 IVPB ; Start 12/11/18 at 21:00 Bird Herrera DO Dec 11, 2018 15:52
[2018-12-11] MEDS: RIVAROXABAN 15 MG TABLET PO SCH (17:54)
[2018-12-11] MEDS: AL HYDROX/MG HYDROX/SIMETH 30 ML CUP PO PRN (18:31)
[2018-12-11] MEDS: CEFEPIME 1GM/50 ML (PMX) 50 ML IVPB SCH (20:30)
[2018-12-11] MEDS: CALCIUM CARBONATE 500 MG CHEW TAB PO SCH (20:41)
[2018-12-11] MEDS: DONEPEZIL 10 MG TAB PO SCH (20:41)
[2018-12-11] MEDS: ATORVASTATIN 10 MG TAB PO SCH (20:41)
[2018-12-11] MEDS: MELATONIN 3 MG TABLET PO SCH (20:42)
[2018-12-11] MEDS: ALPRAZOLAM 0.25 MG TAB PO PRN (21:47)
[2018-12-12] MEDS: morphine LIQ (10 MG/5 ML) CUP PO PRN (01:59)
[2018-12-12 02:00] VITALS: BP 125/67; PULSE 75; RESP 18
[2018-12-12] MEDS: ARTIFICIAL TEARS 15 ML OPH BOTH EYES SCH ×3 (05:39→22:15)
[2018-12-12] MEDS: PANTOPRAZOLE (EC) 40 MG TAB PO SCH (05:39)
[2018-12-12] MEDS: LEVOTHYROXINE 50 MCG TAB PO SCH (05:39)
[2018-12-12] MEDS: METHYLPREDNISOLONE 40 MG INJ IV SCH ×3 (05:40→22:16)
[2018-12-12 05:42] VITALS: BP 142/56; PULSE 78
[2018-12-12] MEDS: FUROSEMIDE 20 MG TAB PO SCH (05:42)
--- NOTE | 2018-12-12 06:53 | PN ---
DATE: 12/11/2018 PSYCHOLOGY -- INDIVIDUAL SESSION -- [id number] This is a followup on a patient who was seen last week. The patient was seen up in her wheelchair. The patient's mood is better. She is preparing to leave and go home on Sunday. She does have still some depression but is feeling that she has made progress in the program. The patient is motivated t o help herself and is trying to do what she can to improve her level of thinking and her mood. Dictated By: FROY SUMNER PHD RK/LANCE Conf#: [id number] DID#: [id number] CC: KINGSLEY HENLEY MD;*End*
[2018-12-12] MEDS: LINAGLIPTIN 5 MG TABLET PO SCH (07:58)
[2018-12-12] MEDS: metFORMIN 500 MG TAB PO SCH ×2 (07:58→17:36)
[2018-12-12 08:00] VITALS: BP 139/67; PULSE 69; RESP 17
[2018-12-12] MEDS: ALBUTEROL/IPRATROPIUM (NEB) 3 ML AMP HHN SCH ×5 (08:10→21:31)
[2018-12-12] MEDS: LACTULOSE 30ML CUP PO SCH (08:39)
[2018-12-12] MEDS: PRIMIDONE 50 MG TAB PO SCH ×3 (08:40→20:21)
[2018-12-12] MEDS: ROFLUMILAST 500 MCG TABLET PO SCH (08:40)
[2018-12-12] MEDS: CHOLECALCIFEROL 1,000 UNIT TAB PO SCH (08:40)
[2018-12-12] MEDS: DOCUSATE SODIUM 100 MG CAP PO SCH ×2 (08:40→20:20)
[2018-12-12] MEDS: DULOXETINE 20 MG CAP DR PO SCH ×2 (08:40→20:21)
[2018-12-12] MEDS: SACUBITRIL/VALSARTAN (24mg-26mg) TABLET PO SCH ×2 (08:40→20:20)
[2018-12-12] MEDS: GUAIFENESIN LA 600 MG TABSR PO SCH ×2 (08:41→20:19)
[2018-12-12] MEDS: CHOLECALCIFEROL 2,000 UNIT CAP PO SCH (08:41)
[2018-12-12] MEDS: METOPROLOL 25 MG TAB PO SCH ×2 (08:42→20:20)
[2018-12-12] MEDS: DILTIAZEM (CD) 180 MG CAP PO SCH ×2 (08:42→20:20)
[2018-12-12] MEDS: MUPIROCIN 2% 22 GM OINT TOP SCH (08:42)
[2018-12-12] MEDS: MICONAZOLE 2% 30 GM CR TOP SCH ×2 (08:43→22:20)
[2018-12-12] MEDS: CEFEPIME 1GM/50 ML (PMX) 50 ML IVPB SCH ×2 (09:13→20:37)
--- NOTE | 2018-12-12 09:34 | PN ---
Date/Time of Note Date/Time of Note DATE: 12/12/18 TIME: 09:33 Assessment/Plan VTE Prophylaxis Risk score (from Nsg)>0 risk: 6 SCD applied (from Nsg): No Lines/Catheters IV Catheter Type (from Nrs): Peripheral IV Urinary Cath still in place: No Assessment/Plan Assessment/Plan - -LLL atelectasis - Breathing treatment - Cefepime - CXR - am LABS -Status post acute hypoxemic and hypercapnic respiratory failure secondary to COPD exacerbation. -Dr. Zapata is following in pulmonology consultation. -COPD -Decompensated diastolic congestive heart failure, continue Lasix, monitor electrolytes. -Chronic atrial fibrillation. Continue digoxin, Cardizem and Xarelto. -Diabetes mellitus type 2. Continue metformin and Tradjenta. -Anemia of chronic disease -Hypothyroidism, started on levothyroxine Further recommendations based on clinical course. Plan of care discussed with Dr. Olivares. Result Diagram: Result Diagram: 12/12/18 0635 12/12/18 0635 Results 24hrs Laboratory Tests Test 12/11/18 11:43 12/11/18 17:39 12/12/18 06:35 12/12/18 07:54 Bedside Glucose 139 160 118 White Blood Count 9.0 Red Blood Count 3.49 L Hemoglobin 9.7 L Hematocrit 29.3 L Mean Corpuscular 84.0 Volume Mean Corpuscular 27.8 L Hemoglobin Mean Corpuscular 33.1 Hemoglobin Concent Red Cell 25.7 H Distribution Width Platelet Count 148 Mean Platelet Volume 9.2 Immature 8.000 H Granulocytes % Neutrophils % Segmented 71 Neutrophils % (Manual) Band Neutrophils % 20 H (Manual) Lymphocytes % Lymphocytes % 1 L (Manual) Reactive Lymphocytes 1 H % (Manual) Monocytes % Monocytes % (Manual) 7 Eosinophils % Basophils % Nucleated Red Blood 1 H Cells % Immature 0.720 H Granulocytes # Neutrophils # Neutrophils # 6.6 (Manual) Band Neutrophils # 1.8 H Lymphocytes (Manual) 0.0 L Lymphocytes # Reactive Lymphocytes 0.0 # Monocytes # Monocytes # (Manual) 0.6 Eosinophils # Basophils # Nucleated Red Blood Cells # Platelet Estimate NORMAL Polychromasia 3+ Poikilocytosis 2+ Anisocytosis 3+ Microcytosis 3+ Spherocytes 1+ Ovalocytes 1+ Sodium Level 138 Potassium Level 4.6 Chloride Level 99 Carbon Dioxide Level 31 Anion Gap 8 Blood Urea Nitrogen 38 H Creatinine 0.89 Est Glomerular Filtrat Rate mL/min Glucose Level 116 Calcium Level 8.8 Exam/Review of Systems Exam Vitals Vital Signs Date Temp Pulse Resp B/P (MAP) Pulse Ox O2 O2 Flow FiO2 Time Delivery Rate 12/12/18 Nasal 2.0 08:00 Cannula 12/12/18 98.1 69 17 139/67 98 08:00 (91) Intake and Output 12/11/18 12/11/18 12/12/18 1515:00 23:00 07:00 IntakeIntake Total 1550 ml 1000 ml OutputOutput Total 600 ml 300 ml BalanceBalance 950 ml 700 ml Results Results 24hrs Laboratory Tests Test 12/11/18 11:43 12/11/18 17:39 12/12/18 06:35 12/12/18 07:54 Bedside Glucose 139 160 118 White Blood Count 9.0 Red Blood Count 3.49 L Hemoglobin 9.7 L Hematocrit 29.3 L Mean Corpuscular 84.0 Volume Mean Corpuscular 27.8 L Hemoglobin Mean Corpuscular 33.1 Hemoglobin Concent Red Cell 25.7 H Distribution Width Platelet Count 148 Mean Platelet Volume 9.2 Immature 8.000 H Granulocytes % Neutrophils % Segmented 71 Neutrophils % (Manual) Band Neutrophils % 20 H (Manual) Lymphocytes % Lymphocytes % 1 L (Manual) Reactive Lymphocytes 1 H % (Manual) Monocytes % Monocytes % (Manual) 7 Eosinophils % Basophils % Nucleated Red Blood 1 H Cells % Immature 0.720 H Granulocytes # Neutrophils # Neutrophils # 6.6 (Manual) Band Neutrophils # 1.8 H Lymphocytes (Manual) 0.0 L Lymphocytes # Reactive Lymphocytes 0.0 # Monocytes # Monocytes # (Manual) 0.6 Eosinophils # Basophils # Nucleated Red Blood Cells # Platelet Estimate NORMAL Polychromasia 3+ Poikilocytosis 2+ Anisocytosis 3+ Microcytosis 3+ Spherocytes 1+ Ovalocytes 1+ Sodium Level 138 Potassium Level 4.6 Chloride Level 99 Carbon Dioxide Level 31 Anion Gap 8 Blood Urea Nitrogen 38 H Creatinine 0.89 Est Glomerular Filtrat Rate mL/min Glucose Level 116 Calcium Level 8.8 Medications Medication Current Medications Acetaminophen (Tylenol Tab) 650 mg Q4H PRN PO PAIN Last administered on 12/03/18at 23:14; Admin Dose 650 MG; Start 12/03/18 at 01:00 Al Hydrox/Mg Hydrox/Simethicone (Mag-Al Plus) 15 ml Q6H PRN PO GASTROINTESTINAL UPSET Last administered on 12/11/18 18:31; Admin Dose 15 ML; Start 12/03/18 at 01:00 Albuterol/ Ipratropium (Duoneb) 3 ml Q2H RESP THERAPY PRN HHN SHORTNESS OF BREATH Last administered on 12/08/18 10:25; Admin Dose 3 ML; Start 12/03/18 at 01:00 Albuterol/ Ipratropium (Duoneb) 3 ml Q4HWA RESP THERAPY HHN Last administered on 12/11/18 20:25; Admin Dose 3 ML; Start 12/03/18 at 09:00 Alprazolam (Xanax) 0.5 mg Q8H PRN PO ANXIETY Last administered on 12/11/18 21:47; Admin Dose 0.5 MG; Start 12/03/18 at 01:00 Eye Lubricant (Artificial Tears Oph) 2 drop Q8 BOTH EYES Last administered on 12/12/18 05:39; Admin Dose 2 DROP; Start 12/03/18 at 06:00 Atorvastatin Calcium (Lipitor) 10 mg HS PO Last administered on 12/11/18 20:41; Admin Dose 10 MG; Start 12/03/18 at 21:00 Calcium Carbonate (Tums) 500 mg HS PO Last administered on 12/11/18 20:41; Admin Dose 500 MG; Start 12/03/18 at 21:00 Cholecalciferol (Vitamin D) 4,000 unit DAILY PO Last administered on 12/12/18 08:41; Admin Dose 4,000 UNIT; Start 12/03/18 at 09:00 Diltiazem HCl (Cardizem Cd) 180 mg BID PO Last administered on 12/12/18 08:42; Admin Dose 180 MG; Start 12/03/18 at 09:00 Diphenhydramine HCl (Benadryl) 50 mg Q8 PRN PO for itching Last administered on 12/10/18 00:46; Admin Dose 50 MG; Start 12/03/18 at 01:00 Docusate Sodium (Colace) 100 mg BID PO Last administered on 12/12/18 08:40; Admin Dose 100 MG; Start 12/03/18 at 09:00 Donepezil HCl (Aricept) 10 mg 2100 PO Last administered on 12/11/18 20:41; Admin Dose 10 MG; Start 12/03/18 at 21:00 Duloxetine HCl (Cymbalta) 20 mg BID PO Last administered on 12/12/18 08:40; Admin Dose 20 MG; Start 12/03/18 at 09:00 Cholecalciferol (Vitamin D) 1,000 unit DAILY PO Last administered on 12/12/18 08:40; Admin Dose 1,000 UNIT; Start 12/03/18 at 09:00 Lactulose (Enulose) 20 gm DAILY PO Last administered on 12/12/18 08:39; Admin Dose 20 GM; Start 12/03/18 at 09:00 Metoclopramide HCl (Reglan) 5 mg Q6H PRN IV NAUSEA; Start 12/03/18 at 04:00 Metoprolol Tartrate (Lopressor) 25 mg BID PO Last administered on 12/12/18 08:42; Admin Dose 25 MG; Start 12/03/18 at 09:00 Miconazole Nitrate (Miconazole 2% Cr) 1 applic BID TOP Last administered on 12/12/18 08:43; Admin Dose 1 APPLIC; Start 12/03/18 at 09:00 Morphine Sulfate (morphine) 6 mg Q4H PRN PO SEVERE PAIN LEVEL 7-10 Last administered on 12/12/18 01:59; Admin Dose 6 MG; Start 12/03/18 at 04:00 Pantoprazole (Protonix Tab) 40 mg DAILY@06 PO Last administered on 12/12/18 05:39; Admin Dose 40 MG; Start 12/03/18 at 06:00 Phenol (Cepastat Lozenge) 1 lozenge Q1H PRN MT SORE THROAT; Start 12/03/18 at 04:00 Primidone (Mysoline) 100 mg TID PO Last administered on 12/12/18 08:40; Admin Dose 100 MG; Start 12/03/18 at 09:00 Rivaroxaban (Xarelto) 15 mg WITH DINNER PO Last administered on 12/11/18 17:54; Admin Dose 15 MG; Start 12/03/18 at 17:35 Guaifenesin (Mucinex) 1,200 mg BID PO Last administered on 12/12/18 08:41; Admin Dose 1,200 MG; Start 12/03/18 at 09:00 Digoxin (Digoxin) 0.125 mg DAILY@13 PO Last administered on 12/11/18 13:31; Admin Dose 0.125 MG; Start 12/03/18 at 13:00 Roflumilast (Daliresp) 500 mcg DAILY PO Last administered on 12/12/18 08:40; Admin Dose 500 MCG; Start 12/03/18 at 09:00 Sacubitril/ Valsartan (Entresto 24 Mg-26 Mg) 1 tab BID PO Last administered on 12/12/18 08:40; Admin Dose 1 TAB; Start 12/03/18 at 09:00 Simethicone (Mylicon) 80 mg Q6H PRN PO DISTENSION/GAS/BLOATING Last administered on 12/06/18 18:25; Admin Dose 80 MG; Start 12/03/18 at 05:00 Sodium Chloride (Nacl) 2 gm MONWEDFRI PO Last administered on 12/11/18 09:17; Admin Dose 2 GM; Start 12/04/18 at 09:00 Cyanocobalamin (Vitamin B12) 5,000 mcg Q48H PO Last administered on 12/11/18 08:28; Admin Dose 5,000 MCG; Start 12/03/18 at 09:00 Miscellaneous Information 1 ea NOTE XX Last administered on 12/03/18 09:25; Admin Dose 1 EA; Start 12/03/18 at 08:00 Glucose (Glutose) 15 gm Q15M PRN PO DECREASED GLUCOSE Last administered on 12/03/18 09:18; Admin Dose 15 GM; Start 12/03/18 at 08:00 Glucose (Glutose) 22.5 gm Q15M PRN PO DECREASED GLUCOSE Last administered on 12/06/18 08:52; Admin Dose 22.5 GM; Start 12/03/18 at 08:00 Dextrose (D50w Syringe) 25 ml Q15M PRN IV DECREASED GLUCOSE; Start 12/03/18 at 08:00 Dextrose (D50w Syringe) 50 ml Q15M PRN IV DECREASED GLUCOSE Last administered on 12/06/18 11:18; Admin Dose 50 ML; Start 12/03/18 at 08:00 Glucagon (Glucagen) 1 mg Q15M PRN IM DECREASED GLUCOSE; Start 12/03/18 at 08:00 Glucose (Glutose) 15 gm Q15M PRN BUCCAL DECREASED GLUCOSE Last administered on 12/05/18 09:40; Admin Dose 15 GM; Start 12/03/18 at 08:00 Miscellaneous Information (Pending [facility] Order For Wound Care) This patient sewell... PRN PRN XX WOUND CARE; Start 12/04/18 at 03:30 Levothyroxine Sodium (Synthroid) 50 mcg DAILY@06 PO Last administered on 12/12/18 05:39; Admin Dose 50 MCG; Start 12/05/18 at 06:00 Melatonin (Melatonin) 3 mg HS PO Last administered on 12/11/18 20:42; Admin Dose 3 MG; Start 12/04/18 at 21:00 Mupirocin (Bactroban) 1 applic BID TOP Last administered on 12/12/18 08:42; Admin Dose 1 APPLIC; Start 12/06/18 at 13:00; Stop 12/13/18 at 12:59 Furosemide (Lasix) 20 mg DAILY@0600 PO Last administered on 12/12/18 05:42; Admin Dose 20 MG; Start 12/06/18 at 12:00 Methylprednisolone Sodium Succinate (Solu-Medrol) 40 mg Q8 IV Last administered on 12/12/18 05:40; Admin Dose 40 MG; Start 12/06/18 at 16:30 Metformin HCl (Glucophage) 500 mg BID WITH MEALS PO Last administered on 12/12/18 07:58; Admin Dose 500 MG; Start 12/09/18 at 17:35 Linagliptin (Tradjenta) 5 mg DAILY PO Last administered on 12/12/18 07:58; Admin Dose 5 MG; Start 12/10/18 at 09:00 Cefepime HCl 50 ml @ 100 mls/hr Q12 IVPB Last administered on 12/12/18 09:13; Admin Dose 100 MLS/HR; Start 12/11/18 at 21:00 NEFTALI WESTON Dec 12, 2018 09:34
[2018-12-12] MEDS: DIGOXIN 0.125 MG TAB PO SCH (12:11)
--- NOTE | 2018-12-12 12:17 | CONS ---
Assessment/Plan Assessment/Plan Assessment/Plan (Daily) 1. 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 acute CHF, diastolic CHF 3. Acute COPD exacerbation 4. H/o HTN 5. H/O CKD Plan: Na 134, BUn/Cr imporved to normal 38/0.89, on lasix 20mg po daily IV solu-medrol for COPD exacerbation - change it to 40mg iV BID Na chloride tablet 1 gram MWF will follow up Consultation Date/Type/Reason Admit Date/Time Dec 02, 2018 at 22:56 Initial Consult Date 12/08/18 Type of Consult NEPHROLOGY Requesting Provider: LISSETTE ESPOSITO MD Date/Time of Note DATE: 12/12/18 TIME: 12:17 Exam/Review of Systems Exam Vitals Vital Signs Date Temp Pulse Resp B/P (MAP) Pulse Ox O2 O2 Flow FiO2 Time Delivery Rate 12/12/18 2.0 09:10 12/12/18 86 20 97 Nasal 09:10 Cannula 12/12/18 98.1 139/67 08:00 (91) Intake and Output 12/11/18 12/11/18 12/12/18 1515:00 23:00 07:00 IntakeIntake Total 1550 ml 1000 ml OutputOutput Total 600 ml 300 ml BalanceBalance 950 ml 700 ml Results Result Diagram: 12/12/18 0635 12/12/18 0635 Results 24hrs Laboratory Tests Test 12/11/18 17:39 12/12/18 06:35 12/12/18 07:54 12/12/18 11:45 Bedside Glucose 160 118 144 White Blood Count 9.0 Red Blood Count 3.49 L Hemoglobin 9.7 L Hematocrit 29.3 L Mean Corpuscular 84.0 Volume Mean Corpuscular 27.8 L Hemoglobin Mean Corpuscular 33.1 Hemoglobin Concent Red Cell 25.7 H Distribution Width Platelet Count 148 Mean Platelet Volume 9.2 Immature 8.000 H Granulocytes % Neutrophils % Segmented 71 Neutrophils % (Manual) Band Neutrophils % 20 H (Manual) Lymphocytes % Lymphocytes % 1 L (Manual) Reactive Lymphocytes 1 H % (Manual) Monocytes % Monocytes % (Manual) 7 Eosinophils % Basophils % Nucleated Red Blood 1 H Cells % Immature 0.720 H Granulocytes # Neutrophils # Neutrophils # 6.6 (Manual) Band Neutrophils # 1.8 H Lymphocytes (Manual) 0.0 L Lymphocytes # Reactive Lymphocytes 0.0 # Monocytes # Monocytes # (Manual) 0.6 Eosinophils # Basophils # Nucleated Red Blood Cells # Platelet Estimate NORMAL Polychromasia 3+ Poikilocytosis 2+ Anisocytosis 3+ Microcytosis 3+ Spherocytes 1+ Ovalocytes 1+ Sodium Level 138 Potassium Level 4.6 Chloride Level 99 Carbon Dioxide Level 31 Anion Gap 8 Blood Urea Nitrogen 38 H Creatinine 0.89 Est Glomerular Filtrat Rate mL/min Glucose Level 116 Calcium Level 8.8 Medications Medication Current Medications Acetaminophen (Tylenol Tab) 650 mg Q4H PRN PO PAIN Last administered on 12/03/18 23:14; Admin Dose 650 MG; Start 12/03/18 at 01:00 Al Hydrox/Mg Hydrox/Simethicone (Mag-Al Plus) 15 ml Q6H PRN PO GASTROINTESTINAL UPSET Last administered on 12/11/18 18:31; Admin Dose 15 ML; Start 12/03/18 at 01:00 Albuterol/ Ipratropium (Duoneb) 3 ml Q2H RESP THERAPY PRN HHN SHORTNESS OF BREATH Last administered on 12/08/18 10:25; Admin Dose 3 ML; Start 12/03/18 at 01:00 Albuterol/ Ipratropium (Duoneb) 3 ml Q4HWA RESP THERAPY HHN Last administered on 12/12/18 09:10; Admin Dose 3 ML; Start 12/03/18 at 09:00 Alprazolam (Xanax) 0.5 mg Q8H PRN PO ANXIETY Last administered on 12/11/18 21:47; Admin Dose 0.5 MG; Start 12/03/18 at 01:00 Eye Lubricant (Artificial Tears Oph) 2 drop Q8 BOTH EYES Last administered on 12/12/18 05:39; Admin Dose 2 DROP; Start 12/03/18 at 06:00 Atorvastatin Calcium (Lipitor) 10 mg HS PO Last administered on 12/11/18 20:41; Admin Dose 10 MG; Start 12/03/18 at 21:00 Calcium Carbonate (Tums) 500 mg HS PO Last administered on 12/11/18 20:41; Admin Dose 500 MG; Start 12/03/18 at 21:00 Cholecalciferol (Vitamin D) 4,000 unit DAILY PO Last administered on 12/12/18 08:41; Admin Dose 4,000 UNIT; Start 12/03/18 at 09:00 Diltiazem HCl (Cardizem Cd) 180 mg BID PO Last administered on 12/12/18 08:42; Admin Dose 180 MG; Start 12/03/18 at 09:00 Diphenhydramine HCl (Benadryl) 50 mg Q8 PRN PO for itching Last administered on 12/10/18 00:46; Admin Dose 50 MG; Start 12/03/18 at 01:00 Docusate Sodium (Colace) 100 mg BID PO Last administered on 12/12/18 08:40; Admin Dose 100 MG; Start 12/03/18 at 09:00 Donepezil HCl (Aricept) 10 mg 2100 PO Last administered on 12/11/18 20:41; Admin Dose 10 MG; Start 12/03/18 at 21:00 Duloxetine HCl (Cymbalta) 20 mg BID PO Last administered on 12/12/18 08:40; Admin Dose 20 MG; Start 12/03/18 at 09:00 Cholecalciferol (Vitamin D) 1,000 unit DAILY PO Last administered on 12/12/18 08:40; Admin Dose 1,000 UNIT; Start 12/03/18 at 09:00 Lactulose (Enulose) 20 gm DAILY PO Last administered on 12/12/18 08:39; Admin Dose 20 GM; Start 12/03/18 at 09:00 Metoclopramide HCl (Reglan) 5 mg Q6H PRN IV NAUSEA; Start 12/03/18 at 04:00 Metoprolol Tartrate (Lopressor) 25 mg BID PO Last administered on 12/12/18 08:42; Admin Dose 25 MG; Start 12/03/18 at 09:00 Miconazole Nitrate (Miconazole 2% Cr) 1 applic BID TOP Last administered on 12/12/18 08:43; Admin Dose 1 APPLIC; Start 12/03/18 at 09:00 Morphine Sulfate (morphine) 6 mg Q4H PRN PO SEVERE PAIN LEVEL 7-10 Last administered on 12/12/18 01:59; Admin Dose 6 MG; Start 12/03/18 at 04:00 Pantoprazole (Protonix Tab) 40 mg DAILY@06 PO Last administered on 12/12/18 05:39; Admin Dose 40 MG; Start 12/03/18 at 06:00 Phenol (Cepastat Lozenge) 1 lozenge Q1H PRN MT SORE THROAT; Start 12/03/18 at 04:00 Primidone (Mysoline) 100 mg TID PO Last administered on 12/12/18 12:12; Admin Dose 100 MG; Start 12/03/18 at 09:00 Rivaroxaban (Xarelto) 15 mg WITH DINNER PO Last administered on 12/11/18 17:54; Admin Dose 15 MG; Start 12/03/18 at 17:35 Guaifenesin (Mucinex) 1,200 mg BID PO Last administered on 12/12/18 08:41; Admin Dose 1,200 MG; Start 12/03/18 at 09:00 Digoxin (Digoxin) 0.125 mg DAILY@13 PO Last administered on 12/12/18 12:11; Admin Dose 0.125 MG; Start 12/03/18 at 13:00 Roflumilast (Daliresp) 500 mcg DAILY PO Last administered on 12/12/18 08:40; Admin Dose 500 MCG; Start 12/03/18 at 09:00 Sacubitril/ Valsartan (Entresto 24 Mg-26 Mg) 1 tab BID PO Last administered on 12/12/18 08:40; Admin Dose 1 TAB; Start 12/03/18 at 09:00 Simethicone (Mylicon) 80 mg Q6H PRN PO DISTENSION/GAS/BLOATING Last administered on 12/06/18 18:25; Admin Dose 80 MG; Start 12/03/18 at 05:00 Sodium Chloride (Nacl) 2 gm MONWEDFRI PO Last administered on 12/11/18 09:17; Admin Dose 2 GM; Start 12/04/18 at 09:00 Cyanocobalamin (Vitamin B12) 5,000 mcg Q48H PO Last administered on 12/11/18 08:28; Admin Dose 5,000 MCG; Start 12/03/18 at 09:00 Miscellaneous Information 1 ea NOTE XX Last administered on 12/03/18 09:25; Admin Dose 1 EA; Start 12/03/18 at 08:00 Glucose (Glutose) 15 gm Q15M PRN PO DECREASED GLUCOSE Last administered on 12/03/18 09:18; Admin Dose 15 GM; Start 12/03/18 at 08:00 Glucose (Glutose) 22.5 gm Q15M PRN PO DECREASED GLUCOSE Last administered on 12/06/18 08:52; Admin Dose 22.5 GM; Start 12/03/18 at 08:00 Dextrose (D50w Syringe) 25 ml Q15M PRN IV DECREASED GLUCOSE; Start 12/03/18 at 08:00 Dextrose (D50w Syringe) 50 ml Q15M PRN IV DECREASED GLUCOSE Last administered on 12/06/18 11:18; Admin Dose 50 ML; Start 12/03/18 at 08:00 Glucagon (Glucagen) 1 mg Q15M PRN IM DECREASED GLUCOSE; Start 12/03/18 at 08:00 Glucose (Glutose) 15 gm Q15M PRN BUCCAL DECREASED GLUCOSE Last administered on 12/05/18 09:40; Admin Dose 15 GM; Start 12/03/18 at 08:00 Miscellaneous Information (Pending [facility] Order For Wound Care) This patient sewell... PRN PRN XX WOUND CARE; Start 12/04/18 at 03:30 Levothyroxine Sodium (Synthroid) 50 mcg DAILY@06 PO Last administered on 12/12/18 05:39; Admin Dose 50 MCG; Start 12/05/18 at 06:00 Melatonin (Melatonin) 3 mg HS PO Last administered on 12/11/18 20:42; Admin Dose 3 MG; Start 12/04/18 at 21:00 Mupirocin (Bactroban) 1 applic BID TOP Last administered on 12/12/18 08:42; Admin Dose 1 APPLIC; Start 12/06/18 at 13:00; Stop 12/13/18 at 12:59 Furosemide (Lasix) 20 mg DAILY@0600 PO Last administered on 12/12/18 05:42; Admin Dose 20 MG; Start 12/06/18 at 12:00 Methylprednisolone Sodium Succinate (Solu-Medrol) 40 mg Q8 IV Last administered on 12/12/18 05:40; Admin Dose 40 MG; Start 12/06/18 at 16:30 Metformin HCl (Glucophage) 500 mg BID WITH MEALS PO Last administered on 12/12/18 07:58; Admin Dose 500 MG; Start 12/09/18 at 17:35 Linagliptin (Tradjenta) 5 mg DAILY PO Last administered on 12/12/18at 07:58; Admin Dose 5 MG; Start 12/10/18 at 09:00 Cefepime HCl 50 ml @ 100 mls/hr Q12 IVPB Last administered on 12/12/18at 09:13; Admin Dose 100 MLS/HR; Start 12/11/18 at 21:00 ANA GE MD Dec 12, 2018 12:17
--- NOTE | 2018-12-12 12:54 | PN ---
Date/Time of Note Date/Time of Note DATE: 12/12/18 TIME: 12:54 Subjective Dc planning in progress Objective Vital Signs Date Temp Pulse Resp B/P (MAP) Pulse Ox O2 O2 Flow FiO2 Time Delivery Rate 12/12/18 2.0 09:10 12/12/18 86 20 97 Nasal 09:10 Cannula 12/12/18 98.1 139/67 08:00 (91) Intake and Output 12/11/18 12/11/18 12/12/18 1515:00 23:00 07:00 IntakeIntake Total 1550 ml 1000 ml OutputOutput Total 600 ml 300 ml BalanceBalance 950 ml 700 ml Exam mod/min ambulation abd-soft Results/Medications Result Diagram: 12/12/18 0635 12/12/18 0635 Results 24 hrs Laboratory Tests Test 12/11/18 17:39 12/12/18 06:35 12/12/18 07:54 12/12/18 11:45 Bedside Glucose 160 118 144 White Blood Count 9.0 Red Blood Count 3.49 L Hemoglobin 9.7 L Hematocrit 29.3 L Mean Corpuscular 84.0 Volume Mean Corpuscular 27.8 L Hemoglobin Mean Corpuscular 33.1 Hemoglobin Concent Red Cell 25.7 H Distribution Width Platelet Count 148 Mean Platelet Volume 9.2 Immature 8.000 H Granulocytes % Neutrophils % Segmented 71 Neutrophils % (Manual) Band Neutrophils % 20 H (Manual) Lymphocytes % Lymphocytes % 1 L (Manual) Reactive Lymphocytes 1 H % (Manual) Monocytes % Monocytes % (Manual) 7 Eosinophils % Basophils % Nucleated Red Blood 1 H Cells % Immature 0.720 H Granulocytes # Neutrophils # Neutrophils # 6.6 (Manual) Band Neutrophils # 1.8 H Lymphocytes (Manual) 0.0 L Lymphocytes # Reactive Lymphocytes 0.0 # Monocytes # Monocytes # (Manual) 0.6 Eosinophils # Basophils # Nucleated Red Blood Cells # Platelet Estimate NORMAL Polychromasia 3+ Poikilocytosis 2+ Anisocytosis 3+ Microcytosis 3+ Spherocytes 1+ Ovalocytes 1+ Sodium Level 138 Potassium Level 4.6 Chloride Level 99 Carbon Dioxide Level 31 Anion Gap 8 Blood Urea Nitrogen 38 H Creatinine 0.89 Est Glomerular Filtrat Rate mL/min Glucose Level 116 Calcium Level 8.8 Medications Current Medications Acetaminophen (Tylenol Tab) 650 mg Q4H PRN PO PAIN Last administered on 12/03/18 23:14; Admin Dose 650 MG; Start 12/03/18 at 01:00 Al Hydrox/Mg Hydrox/Simethicone (Mag-Al Plus) 15 ml Q6H PRN PO GASTROINTESTINAL UPSET Last administered on 12/11/18 18:31; Admin Dose 15 ML; Start 12/03/18 at 01:00 Albuterol/ Ipratropium (Duoneb) 3 ml Q2H RESP THERAPY PRN HHN SHORTNESS OF BREATH Last administered on 12/08/18 10:25; Admin Dose 3 ML; Start 12/03/18 at 01:00 Albuterol/ Ipratropium (Duoneb) 3 ml Q4HWA RESP THERAPY HHN Last administered on 12/12/18 09:10; Admin Dose 3 ML; Start 12/03/18 at 09:00 Alprazolam (Xanax) 0.5 mg Q8H PRN PO ANXIETY Last administered on 12/11/18 21:47; Admin Dose 0.5 MG; Start 12/03/18 at 01:00 Eye Lubricant (Artificial Tears Oph) 2 drop Q8 BOTH EYES Last administered on 12/12/18 05:39; Admin Dose 2 DROP; Start 12/03/18 at 06:00 Atorvastatin Calcium (Lipitor) 10 mg HS PO Last administered on 12/11/18 20:41; Admin Dose 10 MG; Start 12/03/18 at 21:00 Calcium Carbonate (Tums) 500 mg HS PO Last administered on 12/11/18 20:41; Admin Dose 500 MG; Start 12/03/18 at 21:00 Cholecalciferol (Vitamin D) 4,000 unit DAILY PO Last administered on 12/12/18 08:41; Admin Dose 4,000 UNIT; Start 12/03/18 at 09:00 Diltiazem HCl (Cardizem Cd) 180 mg BID PO Last administered on 12/12/18 08:42; Admin Dose 180 MG; Start 12/03/18 at 09:00 Diphenhydramine HCl (Benadryl) 50 mg Q8 PRN PO for itching Last administered on 12/10/18 00:46; Admin Dose 50 MG; Start 12/03/18 at 01:00 Docusate Sodium (Colace) 100 mg BID PO Last administered on 12/12/18 08:40; Admin Dose 100 MG; Start 12/03/18 at 09:00 Donepezil HCl (Aricept) 10 mg 2100 PO Last administered on 12/11/18 20:41; Admin Dose 10 MG; Start 12/03/18 at 21:00 Duloxetine HCl (Cymbalta) 20 mg BID PO Last administered on 12/12/18 08:40; Admin Dose 20 MG; Start 12/03/18 at 09:00 Cholecalciferol (Vitamin D) 1,000 unit DAILY PO Last administered on 12/12/18 08:40; Admin Dose 1,000 UNIT; Start 12/03/18 at 09:00 Lactulose (Enulose) 20 gm DAILY PO Last administered on 12/12/18 08:39; Admin Dose 20 GM; Start 12/03/18 at 09:00 Metoclopramide HCl (Reglan) 5 mg Q6H PRN IV NAUSEA; Start 12/03/18 at 04:00 Metoprolol Tartrate (Lopressor) 25 mg BID PO Last administered on 12/12/18 08:42; Admin Dose 25 MG; Start 12/03/18 at 09:00 Miconazole Nitrate (Miconazole 2% Cr) 1 applic BID TOP Last administered on 12/12/18 08:43; Admin Dose 1 APPLIC; Start 12/03/18 at 09:00 Morphine Sulfate (morphine) 6 mg Q4H PRN PO SEVERE PAIN LEVEL 7-10 Last administered on 12/12/18 01:59; Admin Dose 6 MG; Start 12/03/18 at 04:00 Pantoprazole (Protonix Tab) 40 mg DAILY@06 PO Last administered on 12/12/18 05:39; Admin Dose 40 MG; Start 12/03/18 at 06:00 Phenol (Cepastat Lozenge) 1 lozenge Q1H PRN MT SORE THROAT; Start 12/03/18 at 04:00 Primidone (Mysoline) 100 mg TID PO Last administered on 12/12/18 12:12; Admin Dose 100 MG; Start 12/03/18 at 09:00 Rivaroxaban (Xarelto) 15 mg WITH DINNER PO Last administered on 12/11/18 17:54; Admin Dose 15 MG; Start 12/03/18 at 17:35 Guaifenesin (Mucinex) 1,200 mg BID PO Last administered on 12/12/18 08:41; Admin Dose 1,200 MG; Start 12/03/18 at 09:00 Digoxin (Digoxin) 0.125 mg DAILY@13 PO Last administered on 12/12/18 12:11; Admin Dose 0.125 MG; Start 12/03/18 at 13:00 Roflumilast (Daliresp) 500 mcg DAILY PO Last administered on 12/12/18 08:40; Admin Dose 500 MCG; Start 12/03/18 at 09:00 Sacubitril/ Valsartan (Entresto 24 Mg-26 Mg) 1 tab BID PO Last administered on 12/12/18 08:40; Admin Dose 1 TAB; Start 12/03/18 at 09:00 Simethicone (Mylicon) 80 mg Q6H PRN PO DISTENSION/GAS/BLOATING Last administered on 12/06/18 18:25; Admin Dose 80 MG; Start 12/03/18 at 05:00 Sodium Chloride (Nacl) 2 gm MONWEDFRI PO Last administered on 12/11/18 09:17; Admin Dose 2 GM; Start 12/04/18 at 09:00 Cyanocobalamin (Vitamin B12) 5,000 mcg Q48H PO Last administered on 12/11/18 08:28; Admin Dose 5,000 MCG; Start 12/03/18 at 09:00 Miscellaneous Information 1 ea NOTE XX Last administered on 12/03/18 09:25; Admin Dose 1 EA; Start 12/03/18 at 08:00 Glucose (Glutose) 15 gm Q15M PRN PO DECREASED GLUCOSE Last administered on 12/03/18 09:18; Admin Dose 15 GM; Start 12/03/18 at 08:00 Glucose (Glutose) 22.5 gm Q15M PRN PO DECREASED GLUCOSE Last administered on 12/06/18 08:52; Admin Dose 22.5 GM; Start 12/03/18 at 08:00 Dextrose (D50w Syringe) 25 ml Q15M PRN IV DECREASED GLUCOSE; Start 12/03/18 at 08:00 Dextrose (D50w Syringe) 50 ml Q15M PRN IV DECREASED GLUCOSE Last administered on 12/06/18 11:18; Admin Dose 50 ML; Start 12/03/18 at 08:00 Glucagon (Glucagen) 1 mg Q15M PRN IM DECREASED GLUCOSE; Start 12/03/18 at 08:00 Glucose (Glutose) 15 gm Q15M PRN BUCCAL DECREASED GLUCOSE Last administered on 12/05/18 09:40; Admin Dose 15 GM; Start 12/03/18 at 08:00 Miscellaneous Information (Pending [facility] Order For Wound Care) This patient sewell... PRN PRN XX WOUND CARE; Start 12/04/18 at 03:30 Levothyroxine Sodium (Synthroid) 50 mcg DAILY@06 PO Last administered on 05:39; Admin Dose 50 MCG; Start 12/05/18 at 06:00 Melatonin (Melatonin) 3 mg HS PO Last administered on 12/11/18 20:42; Admin Dose 3 MG; Start 12/04/18 at 21:00 Mupirocin (Bactroban) 1 applic BID TOP Last administered on 12/12/18 08:42; Admin Dose 1 APPLIC; Start 12/06/18 at 13:00; Stop 12/13/18 at 12:59 Methylprednisolone Sodium Succinate (Solu-Medrol) 40 mg Q8 IV Last administered on 12/12/18 05:40; Admin Dose 40 MG; Start 12/06/18 at 16:30 Metformin HCl (Glucophage) 500 mg BID WITH MEALS PO Last administered on 12/12/18 07:58; Admin Dose 500 MG; Start 12/09/18 at 17:35 Linagliptin (Tradjenta) 5 mg DAILY PO Last administered on 12/12/18 07:58; Admin Dose 5 MG; Start 12/10/18 at 09:00 Cefepime HCl 50 ml @ 100 mls/hr Q12 IVPB Last administered on 12/12/18 09:13; Admin Dose 100 MLS/HR; Start 12/11/18 at 21:00 Furosemide (Lasix) 40 mg DAILY IV ; Start 12/12/18 at 13:00 Assessment/Plan Additional Assessment/Plan Rehab- Critical Illness Myopathy ;Pulmonary debility status post acute hypoxemic and hypercapnic respiratory failure. Continue rehab activities and dc plannin. Would benefit from extension of stay to reach goals COPD. Coronary artery disease. Carotid stenosis. Hypothyroidism. Chronic low back pain. Chronic kidney disease. CHF. Depression. Diabetes mellitus. KINGSLEY Caldera MD Dec 12, 2018 12:54
--- NOTE | 2018-12-12 13:24 | CONS ---
Assessment/Plan Cardiology NYHA: II Heart Failure Type: Acute Heart Failure Type: Diastolic Assessment/Plan Hospital Course (Demo Recall) COPD exacerbation Acute decompensated diastolic congestive heart failure Atrial fibrillation, on anticoagulation Recent pneumonia Hypertension Dyslipidemia Preserved ejection fraction Possible conjunctival hemorrhage-improved -Respiratory status improved today -Patient has been put back on diuretics -CT chest ordered for today by pulmonary -Continue Cardizem and metoprolol for heart rate control and titrate based on heart rate and blood pressure -Continue digoxin as tolerated Consultation Date/Type/Reason Admit Date/Time Dec 02, 2018 at 22:56 Initial Consult Date Type of Consult Cardiology Requesting Provider: LISSETTE ESPOSITO MD Date/Time of Note DATE: 12/12/18 TIME: 13:22 24 HR Interval Summary Free Text/Dictation Shortness of breath continues to improve. Denies chest pain or palpitations Exam/Review of Systems Vital Signs Vitals Vital Signs Date Temp Pulse Resp B/P (MAP) Pulse Ox O2 O2 Flow FiO2 Time Delivery Rate 12/12/18 2.0 09:10 12/12/18 86 20 97 Nasal 09:10 Cannula 12/12/18 98.1 139/67 08:00 (91) Intake and Output 12/11/18 12/11/18 12/12/18 1515:00 23:00 07:00 IntakeIntake Total 1550 ml 1000 ml OutputOutput Total 600 ml 300 ml BalanceBalance 950 ml 700 ml Exam Constitutional: alert, oriented (No apparent distress) Respiratory: other (Coarse breath sounds bilaterally, mild scattered crackles) Cardiovascular: irregular rhythm (S1-S2 heard) Gastrointestinal: soft, non-tender, bowel sounds Extremities: edema (Trace) Labs Result Diagram: 12/12/18 0635 12/12/18 0635 Results 24hrs Laboratory Tests Test 12/11/18 17:39 12/12/18 06:35 12/12/18 07:54 12/12/18 11:45 Bedside Glucose 160 118 144 White Blood Count 9.0 Red Blood Count 3.49 L Hemoglobin 9.7 L Hematocrit 29.3 L Mean Corpuscular 84.0 Volume Mean Corpuscular 27.8 L Hemoglobin Mean Corpuscular 33.1 Hemoglobin Concent Red Cell 25.7 H Distribution Width Platelet Count 148 Mean Platelet Volume 9.2 Immature 8.000 H Granulocytes % Neutrophils % Segmented 71 Neutrophils % (Manual) Band Neutrophils % 20 H (Manual) Lymphocytes % Lymphocytes % 1 L (Manual) Reactive Lymphocytes 1 H % (Manual) Monocytes % Monocytes % (Manual) 7 Eosinophils % Basophils % Nucleated Red Blood 1 H Cells % Immature 0.720 H Granulocytes # Neutrophils # Neutrophils # 6.6 (Manual) Band Neutrophils # 1.8 H Lymphocytes (Manual) 0.0 L Lymphocytes # Reactive Lymphocytes 0.0 # Monocytes # Monocytes # (Manual) 0.6 Eosinophils # Basophils # Nucleated Red Blood Cells # Platelet Estimate NORMAL Polychromasia 3+ Poikilocytosis 2+ Anisocytosis 3+ Microcytosis 3+ Spherocytes 1+ Ovalocytes 1+ Sodium Level 138 Potassium Level 4.6 Chloride Level 99 Carbon Dioxide Level 31 Anion Gap 8 Blood Urea Nitrogen 38 H Creatinine 0.89 Est Glomerular Filtrat Rate mL/min Glucose Level 116 Calcium Level 8.8 Medications Medications Current Medications Acetaminophen (Tylenol Tab) 650 mg Q4H PRN PO PAIN Last administered on 12/03/18 23:14; Admin Dose 650 MG; Start 12/03/18 at 01:00 Al Hydrox/Mg Hydrox/Simethicone (Mag-Al Plus) 15 ml Q6H PRN PO GASTROINTESTINAL UPSET Last administered on 12/11/18 18:31; Admin Dose 15 ML; Start 12/03/18 at 01:00 Albuterol/ Ipratropium (Duoneb) 3 ml Q2H RESP THERAPY PRN HHN SHORTNESS OF BREATH Last administered on 12/08/18 10:25; Admin Dose 3 ML; Start 12/03/18 at 01:00 Albuterol/ Ipratropium (Duoneb) 3 ml Q4HWA RESP THERAPY HHN Last administered on 12/12/18 09:10; Admin Dose 3 ML; Start 12/03/18 at 09:00 Alprazolam (Xanax) 0.5 mg Q8H PRN PO ANXIETY Last administered on 12/11/18 21:47; Admin Dose 0.5 MG; Start 12/03/18 at 01:00 Eye Lubricant (Artificial Tears Oph) 2 drop Q8 BOTH EYES Last administered on 12/12/18 05:39; Admin Dose 2 DROP; Start 12/03/18 at 06:00 Atorvastatin Calcium (Lipitor) 10 mg HS PO Last administered on 12/11/18 20:41; Admin Dose 10 MG; Start 12/03/18 at 21:00 Calcium Carbonate (Tums) 500 mg HS PO Last administered on 12/11/18 20:41; Admin Dose 500 MG; Start 12/03/18 at 21:00 Cholecalciferol (Vitamin D) 4,000 unit DAILY PO Last administered on 12/12/18 08:41; Admin Dose 4,000 UNIT; Start 12/03/18 at 09:00 Diltiazem HCl (Cardizem Cd) 180 mg BID PO Last administered on 12/12/18 08:42; Admin Dose 180 MG; Start 12/03/18 at 09:00 Diphenhydramine HCl (Benadryl) 50 mg Q8 PRN PO for itching Last administered on 12/10/18 00:46; Admin Dose 50 MG; Start 12/03/18 at 01:00 Docusate Sodium (Colace) 100 mg BID PO Last administered on 12/12/18 08:40; Admin Dose 100 MG; Start 12/03/18 at 09:00 Donepezil HCl (Aricept) 10 mg 2100 PO Last administered on 12/11/18 20:41; Admin Dose 10 MG; Start 12/03/18 at 21:00 Duloxetine HCl (Cymbalta) 20 mg BID PO Last administered on 12/12/18 08:40; Admin Dose 20 MG; Start 12/03/18 at 09:00 Cholecalciferol (Vitamin D) 1,000 unit DAILY PO Last administered on 12/12/18 08:40; Admin Dose 1,000 UNIT; Start 12/03/18 at 09:00 Lactulose (Enulose) 20 gm DAILY PO Last administered on 12/12/18 08:39; Admin Dose 20 GM; Start 12/03/18 at 09:00 Metoclopramide HCl (Reglan) 5 mg Q6H PRN IV NAUSEA; Start 12/03/18 at 04:00 Metoprolol Tartrate (Lopressor) 25 mg BID PO Last administered on 12/12/18 08:42; Admin Dose 25 MG; Start 12/03/18 at 09:00 Miconazole Nitrate (Miconazole 2% Cr) 1 applic BID TOP Last administered on 12/12/18 08:43; Admin Dose 1 APPLIC; Start 12/03/18 at 09:00 Morphine Sulfate (morphine) 6 mg Q4H PRN PO SEVERE PAIN LEVEL 7-10 Last administered on 12/12/18 01:59; Admin Dose 6 MG; Start 12/03/18 at 04:00 Pantoprazole (Protonix Tab) 40 mg DAILY@06 PO Last administered on 12/12/18 05:39; Admin Dose 40 MG; Start 12/03/18 at 06:00 Phenol (Cepastat Lozenge) 1 lozenge Q1H PRN MT SORE THROAT; Start 12/03/18 at 04:00 Primidone (Mysoline) 100 mg TID PO Last administered on 12/12/18 12:12; Admin Dose 100 MG; Start 12/03/18 at 09:00 Rivaroxaban (Xarelto) 15 mg WITH DINNER PO Last administered on 12/11/18 17:54; Admin Dose 15 MG; Start 12/03/18 at 17:35 Guaifenesin (Mucinex) 1,200 mg BID PO Last administered on 12/12/18 08:41; Admin Dose 1,200 MG; Start 12/03/18 at 09:00 Digoxin (Digoxin) 0.125 mg DAILY@13 PO Last administered on 12/12/18 12:11; Admin Dose 0.125 MG; Start 12/03/18 at 13:00 Roflumilast (Daliresp) 500 mcg DAILY PO Last administered on 12/12/18 08:40; Admin Dose 500 MCG; Start 12/03/18 at 09:00 Sacubitril/ Valsartan (Entresto 24 Mg-26 Mg) 1 tab BID PO Last administered on 12/12/18 08:40; Admin Dose 1 TAB; Start 12/03/18 at 09:00 Simethicone (Mylicon) 80 mg Q6H PRN PO DISTENSION/GAS/BLOATING Last administered on 12/06/18 18:25; Admin Dose 80 MG; Start 12/03/18 at 05:00 Sodium Chloride (Nacl) 2 gm MONWEDFRI PO Last administered on 12/11/18 09:17; Admin Dose 2 GM; Start 12/04/18 at 09:00 Cyanocobalamin (Vitamin B12) 5,000 mcg Q48H PO Last administered on 12/11/18 08:28; Admin Dose 5,000 MCG; Start 12/03/18 at 09:00 Miscellaneous Information 1 ea NOTE XX Last administered on 12/03/18 09:25; Admin Dose 1 EA; Start 12/03/18 at 08:00 Glucose (Glutose) 15 gm Q15M PRN PO DECREASED GLUCOSE Last administered on 12/03/18 09:18; Admin Dose 15 GM; Start 12/03/18 at 08:00 Glucose (Glutose) 22.5 gm Q15M PRN PO DECREASED GLUCOSE Last administered on 12/06/18 08:52; Admin Dose 22.5 GM; Start 12/03/18 at 08:00 Dextrose (D50w Syringe) 25 ml Q15M PRN IV DECREASED GLUCOSE; Start 12/03/18 at 08:00 Dextrose (D50w Syringe) 50 ml Q15M PRN IV DECREASED GLUCOSE Last administered on 12/06/18 11:18; Admin Dose 50 ML; Start 12/03/18 at 08:00 Glucagon (Glucagen) 1 mg Q15M PRN IM DECREASED GLUCOSE; Start 12/03/18 at 08:00 Glucose (Glutose) 15 gm Q15M PRN BUCCAL DECREASED GLUCOSE Last administered on 12/05/18 09:40; Admin Dose 15 GM; Start 12/03/18 at 08:00 Miscellaneous Information (Pending [facility] Order For Wound Care) This patient sewell... PRN PRN XX WOUND CARE; Start 12/04/18 at 03:30 Levothyroxine Sodium (Synthroid) 50 mcg DAILY@06 PO Last administered on 12/12/18 05:39; Admin Dose 50 MCG; Start 12/05/18 at 06:00 Melatonin (Melatonin) 3 mg HS PO Last administered on 12/11/18 20:42; Admin Dose 3 MG; Start 12/04/18 at 21:00 Mupirocin (Bactroban) 1 applic BID TOP Last administered on 12/12/18 08:42; Admin Dose 1 APPLIC; Start 12/06/18 at 13:00; Stop 12/13/18 at 12:59 Methylprednisolone Sodium Succinate (Solu-Medrol) 40 mg Q8 IV Last administered on 12/12/18 05:40; Admin Dose 40 MG; Start 12/06/18 at 16:30 Metformin HCl (Glucophage) 500 mg BID WITH MEALS PO Last administered on 07:58; Admin Dose 500 MG; Start 12/09/18 at 17:35 Linagliptin (Tradjenta) 5 mg DAILY PO Last administered on 12/12/18at 07:58; Admin Dose 5 MG; Start 12/10/18 at 09:00 Cefepime HCl 50 ml @ 100 mls/hr Q12 IVPB Last administered on 12/12/18at 09:13; Admin Dose 100 MLS/HR; Start 12/11/18 at 21:00 Furosemide (Lasix) 40 mg DAILY IV ; Start 12/12/18 at 13:00 Bird Herrera DO Dec 12, 2018 13:24
[2018-12-12] MEDS: FUROSEMIDE 20 MG INJ IV SCH (13:33)
[2018-12-12 13:38] VITALS: BP 136/66; PULSE 62
[2018-12-12 14:35] VITALS: BP 118/56; PULSE 60; RESP 17
[2018-12-12] MEDS: RIVAROXABAN 15 MG TABLET PO SCH (17:35)
[2018-12-12 20:00] VITALS: BP 138/65; PULSE 69; RESP 18
[2018-12-12] MEDS: ATORVASTATIN 10 MG TAB PO SCH (20:19)
[2018-12-12] MEDS: MELATONIN 3 MG TABLET PO SCH (20:20)
[2018-12-12] MEDS: DONEPEZIL 10 MG TAB PO SCH (20:20)
[2018-12-12] MEDS: CALCIUM CARBONATE 500 MG CHEW TAB PO SCH (20:20)
[2018-12-12] MEDS: ALPRAZOLAM 0.25 MG TAB PO PRN (22:14)
[2018-12-13] MEDS: morphine LIQ (10 MG/5 ML) CUP PO PRN (00:43)
[2018-12-13 02:04] VITALS: BP 127/62; PULSE 74; RESP 18
[2018-12-13] MEDS: ARTIFICIAL TEARS 15 ML OPH BOTH EYES SCH ×3 (06:40→21:50)
[2018-12-13] MEDS: PANTOPRAZOLE (EC) 40 MG TAB PO SCH (06:40)
[2018-12-13] MEDS: LEVOTHYROXINE 50 MCG TAB PO SCH (06:41)
[2018-12-13 07:30] VITALS: BP 128/57; PULSE 65; RESP 20
[2018-12-13] MEDS: metFORMIN 500 MG TAB PO SCH ×2 (08:23→18:06)
[2018-12-13] MEDS: LINAGLIPTIN 5 MG TABLET PO SCH (08:24)
--- NOTE | 2018-12-13 08:30 | CONS ---
Assessment/Plan Assessment/Plan Assessment/Plan (Daily) 1. 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 acute CHF, diastolic CHF 3. Acute COPD exacerbation 4. H/o HTN 5. H/O CKD Plan: Na 138, BUn/Cr imporved to normal 43/0.97 on lasix 20mg po daily IV solu-medrol 40mg IV BID Na chloride tablet 1 gram MWF will follow up Consultation Date/Type/Reason Admit Date/Time Dec 02, 2018 at 22:56 Initial Consult Date 12/08/18 Type of Consult NEPHROLOGY Requesting Provider: LISSETTE ESPOSITO MD Date/Time of Note DATE: 12/13/18 TIME: 08:30 Exam/Review of Systems Exam Vitals Vital Signs Date Temp Pulse Resp B/P (MAP) Pulse Ox O2 O2 Flow FiO2 Time Delivery Rate 12/13/18 97.8 74 18 127/62 98 Nasal 02:04 (83) Cannula 12/13/18 3.0 00:49 Intake and Output 12/12/18 12/12/18 12/13/18 1515:00 23:00 07:00 IntakeIntake Total 50 ml 2130 ml OutputOutput Total 1300 ml BalanceBalance 50 ml 830 ml Exam Constitutional: alert, wake, no distress Respiratory: clear to auscultation, normal air movement Cardiovascular: regular rate and rhythm, nl pulses Gastrointestinal: soft Musculoskeletal: nl extremities to inspection Extremities: normal pulses 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 II-XII intact, nl mental status Results Result Diagram: 12/12/18 0635 12/12/18 0635 Results 24hrs Laboratory Tests Test 12/12/18 11:45 12/12/18 17:33 Bedside Glucose 144 149 Medications Medication Current Medications Acetaminophen (Tylenol Tab) 650 mg Q4H PRN PO PAIN Last administered on 12/03/18at 23:14; Admin Dose 650 MG; Start 12/03/18 at 01:00 Al Hydrox/Mg Hydrox/Simethicone (Mag-Al Plus) 15 ml Q6H PRN PO GASTROINTESTINAL UPSET Last administered on 12/11/18at 18:31; Admin Dose 15 ML; Start 12/03/18 at 01:00 Albuterol/ Ipratropium (Duoneb) 3 ml Q2H RESP THERAPY PRN HHN SHORTNESS OF BREATH Last administered on 12/08/18at 10:25; Admin Dose 3 ML; Start 12/03/18 at 01:00 Albuterol/ Ipratropium (Duoneb) 3 ml Q4HWA RESP THERAPY HHN Last administered on 12/12/18 21:31; Admin Dose 3 ML; Start 12/03/18 at 09:00 Alprazolam (Xanax) 0.5 mg Q8H PRN PO ANXIETY Last administered on 12/12/18 22:14; Admin Dose 0.5 MG; Start 12/03/18 at 01:00 Eye Lubricant (Artificial Tears Oph) 2 drop Q8 BOTH EYES Last administered on 12/13/18 06:40; Admin Dose 2 DROP; Start 12/03/18 at 06:00 Atorvastatin Calcium (Lipitor) 10 mg HS PO Last administered on 12/12/18 20:19; Admin Dose 10 MG; Start 12/03/18 at 21:00 Calcium Carbonate (Tums) 500 mg HS PO Last administered on 12/12/18 20:20; Admin Dose 500 MG; Start 12/03/18 at 21:00 Cholecalciferol (Vitamin D) 4,000 unit DAILY PO Last administered on 12/12/18 08:41; Admin Dose 4,000 UNIT; Start 12/03/18 at 09:00 Diltiazem HCl (Cardizem Cd) 180 mg BID PO Last administered on 12/12/18 20:20; Admin Dose 180 MG; Start 12/03/18 at 09:00 Diphenhydramine HCl (Benadryl) 50 mg Q8 PRN PO for itching Last administered on 12/10/18 00:46; Admin Dose 50 MG; Start 12/03/18 at 01:00 Docusate Sodium (Colace) 100 mg BID PO Last administered on 12/12/18 20:20; Admin Dose 100 MG; Start 12/03/18 at 09:00 Donepezil HCl (Aricept) 10 mg 2100 PO Last administered on 12/12/18 20:20; Admin Dose 10 MG; Start 12/03/18 at 21:00 Duloxetine HCl (Cymbalta) 20 mg BID PO Last administered on 12/12/18 20:21; Admin Dose 20 MG; Start 12/03/18 at 09:00 Cholecalciferol (Vitamin D) 1,000 unit DAILY PO Last administered on 12/12/18 08:40; Admin Dose 1,000 UNIT; Start 12/03/18 at 09:00 Lactulose (Enulose) 20 gm DAILY PO Last administered on 12/12/18 08:39; Admin Dose 20 GM; Start 12/03/18 at 09:00 Metoclopramide HCl (Reglan) 5 mg Q6H PRN IV NAUSEA; Start 12/03/18 at 04:00 Metoprolol Tartrate (Lopressor) 25 mg BID PO Last administered on 12/12/18 20:20; Admin Dose 25 MG; Start 12/03/18 at 09:00 Miconazole Nitrate (Miconazole 2% Cr) 1 applic BID TOP Last administered on 12/12/18 22:20; Admin Dose 1 APPLIC; Start 12/03/18 at 09:00 Morphine Sulfate (morphine) 6 mg Q4H PRN PO SEVERE PAIN LEVEL 7-10 Last administered on 12/13/18 00:43; Admin Dose 6 MG; Start 12/03/18 at 04:00 Pantoprazole (Protonix Tab) 40 mg DAILY@06 PO Last administered on 12/13/18 06:40; Admin Dose 40 MG; Start 12/03/18 at 06:00 Phenol (Cepastat Lozenge) 1 lozenge Q1H PRN MT SORE THROAT; Start 12/03/18 at 04:00 Primidone (Mysoline) 100 mg TID PO Last administered on 12/12/18 20:21; Admin Dose 100 MG; Start 12/03/18 at 09:00 Rivaroxaban (Xarelto) 15 mg WITH DINNER PO Last administered on 12/12/18 17:35; Admin Dose 15 MG; Start 12/03/18 at 17:35 Guaifenesin (Mucinex) 1,200 mg BID PO Last administered on 12/12/18 20:19; Adm in Dose 1,200 MG; Start 12/03/18 at 09:00 Digoxin (Digoxin) 0.125 mg DAILY@13 PO Last administered on 12/12/18 12:11; Admin Dose 0.125 MG; Start 12/03/18 at 13:00 Roflumilast (Daliresp) 500 mcg DAILY PO Last administered on 12/12/18 08:40; Admin Dose 500 MCG; Start 12/03/18 at 09:00 Sacubitril/ Valsartan (Entresto 24 Mg-26 Mg) 1 tab BID PO Last administered on 12/12/18 20:20; Admin Dose 1 TAB; Start 12/03/18 at 09:00 Simethicone (Mylicon) 80 mg Q6H PRN PO DISTENSION/GAS/BLOATING Last admi nistered on 12/06/18 18:25; Admin Dose 80 MG; Start 12/03/18 at 05:00 Sodium Chloride (Nacl) 2 gm MONWEDFRI PO Last administered on 12/11/18 09:17; Admin Dose 2 GM; Start 12/04/18 at 09:00 Cyanocobalamin (Vitamin B12) 5,000 mcg Q48H PO Last administered on 12/11/18 08:28; Admin Dose 5,000 MCG; Start 12/03/18 at 09:00 Miscellaneous Information 1 ea NOTE XX Last administered on 12/03/18 09:25; Admin Dose 1 EA; Start 12/03/18 at 08:00 Glucose (Glutose) 15 gm Q15M PRN PO DECREASED GLUCOSE Last administered on 12/03/18 09:18; Admin Dose 15 GM; Start 12/03/18 at 08:00 Glucose (Glutose) 22.5 gm Q15M PRN PO DECREASED GLUCOSE Last administered on 12/06/18 08:52; Admin Dose 22.5 GM; Start 12/03/18 at 08:00 Dextrose (D50w Syringe) 25 ml Q15M PRN IV DECREASED GLUCOSE; Start 12/03/18 at 08:00 Dextrose (D50w Syringe) 50 ml Q15M PRN IV DECREASED GLUCOSE Last administered on 12/06/18 11:18; Admin Dose 50 ML; Start 12/03/18 at 08:00 Glucagon (Glucagen) 1 mg Q15M PRN IM DECREASED GLUCOSE; Start 12/03/18 at 08:00 Glucose (Glutose) 15 gm Q15M PRN BUCCAL DECREASED GLUCOSE Last administered on 12/05/18 09:40; Admin Dose 15 GM; Start 12/03/18 at 08:00 [facility] This patient sewell... PRN PRN XX WOUND CARE; Start 12/04/18 at 03:30 Levothyroxine Sodium (Synthroid) 50 mcg DAILY@06 PO Last administered on 12/13/18 06:41; Admin Dose 50 MCG; Start 12/05/18 at 06:00 Melatonin (Melatonin) 3 mg HS PO Last administered on 12/12/18 20:20; Admin Dose 3 MG; Start 12/04/18 at 21:00 Metformin HCl (Glucophage) 500 mg BID WITH MEALS PO Last administered on 12/13/18 08:23; Admin Dose 500 MG; Start 12/09/18 at 17:35 Linagliptin (Tradjenta) 5 mg DAILY PO Last administered on 12/13/18 08:24; Admin Dose 5 MG; Start 12/10/18 at 09:00 Cefepime HCl 50 ml @ 100 mls/hr Q12 IVPB Last administered on 12/12/18 20:37; Admin Dose 100 MLS/HR; Start 12/11/18 at 21:00 Furosemide (Lasix) 40 mg DAILY IV Last administered on 12/12/18at 13:33; Admin Dose 40 MG; Start 12/12/18 at 13:00 Methylprednisolone Sodium Succinate (Solu-Medrol) 40 mg BID IV Last administered on 12/12/18 22:16; Admin Dose 40 MG; Start 12/12/18 at 21:00 ANA GE MD Dec 13, 2018 08:30
[2018-12-13] MEDS: SACUBITRIL/VALSARTAN (24mg-26mg) TABLET PO SCH ×2 (09:30→21:52)
[2018-12-13] MEDS: DULOXETINE 20 MG CAP DR PO SCH ×2 (09:31→21:52)
[2018-12-13] MEDS: LACTULOSE 30ML CUP PO SCH (09:31)
[2018-12-13] MEDS: METOPROLOL 25 MG TAB PO SCH ×2 (09:31→21:53)
[2018-12-13] MEDS: DILTIAZEM (CD) 180 MG CAP PO SCH ×2 (09:31→21:52)
[2018-12-13] MEDS: GUAIFENESIN LA 600 MG TABSR PO SCH ×2 (09:32→21:53)
[2018-12-13] MEDS: CHOLECALCIFEROL 2,000 UNIT CAP PO SCH (09:32)
[2018-12-13] MEDS: SODIUM CHLORIDE 1 GM TAB PO SCH (09:32)
[2018-12-13] MEDS: CYANOCOBALAMIN 500 MCG TAB PO SCH (09:32)
[2018-12-13] MEDS: CHOLECALCIFEROL 1,000 UNIT TAB PO SCH (09:32)
[2018-12-13] MEDS: PRIMIDONE 50 MG TAB PO SCH ×3 (09:32→21:52)
[2018-12-13] MEDS: DOCUSATE SODIUM 100 MG CAP PO SCH ×2 (09:33→21:53)
[2018-12-13] MEDS: ROFLUMILAST 500 MCG TABLET PO SCH (09:33)
[2018-12-13] MEDS: METHYLPREDNISOLONE 40 MG INJ IV SCH ×2 (09:33→21:51)
[2018-12-13] MEDS: FUROSEMIDE 20 MG INJ IV SCH (09:34)
[2018-12-13] MEDS: MICONAZOLE 2% 30 GM CR TOP SCH ×2 (09:34→21:51)
[2018-12-13] MEDS: CEFEPIME 1GM/50 ML (PMX) 50 ML IVPB SCH ×2 (09:48→21:51)
[2018-12-13] MEDS: ALBUTEROL/IPRATROPIUM (NEB) 3 ML AMP HHN SCH ×4 (09:54→21:15)
--- NOTE | 2018-12-13 10:27 | PN ---
Date/Time of Note Date/Time of Note DATE: 12/13/18 TIME: 10:26 Assessment/Plan VTE Prophylaxis Risk score (from Nsg)>0 risk: 6 SCD applied (from Nsg): No Lines/Catheters IV Catheter Type (from Nrs): Saline Lock Urinary Cath still in place: No Assessment/Plan Assessment/Plan - -LLL atelectasis - Breathing treatment - Cefepime - CXR - am LABS -Status post acute hypoxemic and hypercapnic respiratory failure secondary to COPD exacerbation. -Dr. Zapata is following in pulmonology consultation. -COPD -Decompensated diastolic congestive heart failure, continue Lasix, monitor electrolytes. -Chronic atrial fibrillation. Continue digoxin, Cardizem and Xarelto. -Diabetes mellitus type 2. Continue metformin and Tradjenta. -Anemia of chronic disease -Hypothyroidism, started on levothyroxine Further recommendations based on clinical course. Plan of care discussed with Dr. Olivares. Result Diagram: 12/13/18 0804 12/13/18 0804 Results 24hrs Laboratory Tests Test 12/12/18 11:45 12/12/18 17:33 12/13/18 08:04 12/13/18 08:21 Bedside Glucose 144 149 141 White Blood Count 11.7 #H Red Blood Count 3.89 L Hemoglobin 10.7 L Hematocrit 33.1 L Mean Corpuscular 85.1 Volume Mean Corpuscular 27.5 L Hemoglobin Mean Corpuscular 32.3 Hemoglobin Concent Red Cell 25.9 H Distribution Width Platelet Count 191 # Mean Platelet Volume 10.0 Immature 8.700 H Granulocytes % Neutrophils % Segmented 77 Neutrophils % (Manual) Band Neutrophils % 10 H (Manual) Lymphocytes % Lymphocytes % 3 L (Manual) Monocytes % Monocytes % (Manual) 3 Eosinophils % Basophils % Metamyelocytes % 2 H (manual) Myelocytes % 4 H (Manual) Promyelocytes % 1 H (Manual) Nucleated Red Blood 0.3 H Cells % Immature 1.020 H Granulocytes # Neutrophils # Neutrophils # 9.1 H (Manual) Band Neutrophils # 1.1 H Lymphocytes (Manual) 0.3 L Lymphocytes # Monocytes # Monocytes # (Manual) 0.3 Eosinophils # Basophils # Metamyelocytes # 0.2 H Myelocytes # 0.4 H Promyelocytes # 0.1 H Nucleated Red Blood Cells # Platelet Estimate NORMAL Polychromasia 1+ Poikilocytosis 1+ Anisocytosis 1+ Microcytosis 1+ Macrocytosis 1+ Ovalocytes 1+ Sodium Level 138 Potassium Level 4.9 Chloride Level 100 Carbon Dioxide Level 29 Anion Gap 9 Blood Urea Nitrogen 43 H Creatinine 0.97 Est Glomerular Filtrat Rate mL/min Glucose Level 129 Calcium Level 9.1 Phosphorus Level 3.0 Magnesium Level 2.6 H Subjective 24 Hr Interval Summary Constitutional: requiring O2 ENT: no complaints Respiratory: no complaints Cardiovascular: no complaints Gastrointestinal: no complaints Musculoskeletal: no complaints Neurologic: no complaints Endocrine: no complaints Exam/Review of Systems Exam Vitals Vital Signs Date Temp Pulse Resp B/P (MAP) Pulse Ox O2 O2 Flow FiO2 Time Delivery Rate 12/13/18 88 20 95 Nasal 3.0 09:55 Cannula 12/13/18 97.9 128/57 07:30 (80) Intake and Output 12/12/18 12/12/18 12/13/18 1515:00 23:00 07:00 IntakeIntake Total 50 ml 2130 ml OutputOutput Total 1300 ml BalanceBalance 50 ml 830 ml Constitutional: alert, well developed Psych: nl mood/affect Eyes: EOMI ENMT: nl external ears & nose Respiratory: diminished breath sounds Cardiovascular: nl pulses Gastrointestinal: soft, non-tender Musculoskeletal: muscle weakness Extremities: normal pulses Neurological: nl speech, other Skin: nl turgor Lymph: nontender Results Results 24hrs Laboratory Tests Test 12/12/18 11:45 12/12/18 17:33 12/13/18 08:04 12/13/18 08:21 Bedside Glucose 144 149 141 White Blood Count 11.7 #H Red Blood Count 3.89 L Hemoglobin 10.7 L Hematocrit 33.1 L Mean Corpuscular 85.1 Volume Mean Corpuscular 27.5 L Hemoglobin Mean Corpuscular 32.3 Hemoglobin Concent Red Cell 25.9 H Distribution Width Platelet Count 191 # Mean Platelet Volume 10.0 Immature 8.700 H Granulocytes % Neutrophils % Segmented 77 Neutrophils % (Manual) Band Neutrophils % 10 H (Manual) Lymphocytes % Lymphocytes % 3 L (Manual) Monocytes % Monocytes % (Manual) 3 Eosinophils % Basophils % Metamyelocytes % 2 H (manual) Myelocytes % 4 H (Manual) Promyelocytes % 1 H (Manual) Nucleated Red Blood 0.3 H Cells % Immature 1.020 H Granulocytes # Neutrophils # Neutrophils # 9.1 H (Manual) Band Neutrophils # 1.1 H Lymphocytes (Manual) 0.3 L Lymphocytes # Monocytes # Monocytes # (Manual) 0.3 Eosinophils # Basophils # Metamyelocytes # 0.2 H Myelocytes # 0.4 H Promyelocytes # 0.1 H Nucleated Red Blood Cells # Platelet Estimate NORMAL Polychromasia 1+ Poikilocytosis 1+ Anisocytosis 1+ Microcytosis 1+ Macrocytosis 1+ Ovalocytes 1+ Sodium Level 138 Potassium Level 4.9 Chloride Level 100 Carbon Dioxide Level 29 Anion Gap 9 Blood Urea Nitrogen 43 H Creatinine 0.97 Est Glomerular Filtrat Rate mL/min Glucose Level 129 Calcium Level 9.1 Phosphorus Level 3.0 Magnesium Level 2.6 H Medications Medication Current Medications Acetaminophen (Tylenol Tab) 650 mg Q4H PRN PO PAIN Last administered on 12/03/18 23:14; Admin Dose 650 MG; Start 12/03/18 at 01:00 Al Hydrox/Mg Hydrox/Simethicone (Mag-Al Plus) 15 ml Q6H PRN PO GASTROINTESTINAL UPSET Last administered on 12/11/18 18:31; Admin Dose 15 ML; Start 12/03/18 at 01:00 Albuterol/ Ipratropium (Duoneb) 3 ml Q2H RESP THERAPY PRN HHN SHORTNESS OF BREATH Last administered on 12/08/18 10:25; Admin Dose 3 ML; Start 12/03/18 at 01:00 Albuterol/ Ipratropium (Duoneb) 3 ml Q4HWA RESP THERAPY HHN Last administered on 12/13/18 09:54; Admin Dose 3 ML; Start 12/03/18 at 09:00 Alprazolam (Xanax) 0.5 mg Q8H PRN PO ANXIETY Last administered on 12/12/18 22:14; Admin Dose 0.5 MG; Start 12/03/18 at 01:00 Eye Lubricant (Artificial Tears Oph) 2 drop Q8 BOTH EYES Last administered on 12/13/18 06:40; Admin Dose 2 DROP; Start 12/03/18 at 06:00 Atorvastatin Calcium (Lipitor) 10 mg HS PO Last administered on 12/12/18 20 :19; Admin Dose 10 MG; Start 12/03/18 at 21:00 Calcium Carbonate (Tums) 500 mg HS PO Last administered on 12/12/18 20:20; Admin Dose 500 MG; Start 12/03/18 at 21:00 Cholecalciferol (Vitamin D) 4,000 unit DAILY PO Last administered on 12/13/18 09:32; Admin Dose 4,000 UNIT; Start 12/03/18 at 09:00 Diltiazem HCl (Cardizem Cd) 180 mg BID PO Last administered on 12/13/18 09:31; Admin Dose 180 MG; Start 12/03/18 at 09:00 Diphenhydramine HCl (Benadryl) 50 mg Q8 PRN PO for itching Last administered on 12/10/18 00:46; Admin Dose 50 MG; Start 12/03/18 at 01:00 Docusate Sodium (Colace) 100 mg BID PO Last administered on 12/13/18 09:33; Admin Dose 100 MG; Start 12/03/18 at 09:00 Donepezil HCl (Aricept) 10 mg 2100 PO Last administered on 12/12/18 20:20; Admin Dose 10 MG; Start 12/03/18 at 21:00 Duloxetine HCl (Cymbalta) 20 mg BID PO Last administered on 12/13/18 09:31; Admin Dose 20 MG; Start 12/03/18 at 09:00 Cholecalciferol (Vitamin D) 1,000 unit DAILY PO Last administered on 12/13/18 09:32; Admin Dose 1,000 UNIT; Start 12/03/18 at 09:00 Lactulose (Enulose) 20 gm DAILY PO Last administered on 12/13/18 09:31; Admin Dose 20 GM; Start 12/03/18 at 09:00 Metoclopramide HCl (Reglan) 5 mg Q6H PRN IV NAUSEA; Start 12/03/18 at 04:00 Metoprolol Tartrate (Lopressor) 25 mg BID PO Last administered on 12/13/18 09:31; Admin Dose 25 MG; Start 12/03/18 at 09:00 Miconazole Nitrate (Miconazole 2% Cr) 1 applic BID TOP Last administered on 12/13/18 09:34; Admin Dose 1 APPLIC; Start 12/03/18 at 09:00 Morphine Sulfate (morphine) 6 mg Q4H PRN PO SEVERE PAIN LEVEL 7-10 Last administered on 12/13/18 00:43; Admin Dose 6 MG; Start 12/03/18 at 04:00 Pantoprazole (Protonix Tab) 40 mg DAILY@06 PO Last administered on 12/13/18 06:40; Admin Dose 40 MG; Start 12/03/18 at 06:00 Phenol (Cepastat Lozenge) 1 lozenge Q1H PRN MT SORE THROAT; Start 12/03/18 at 04:00 Primidone (Mysoline) 100 mg TID PO Last administered on 12/13/18 09:32; Admin Dose 100 MG; Start 12/03/18 at 09:00 Rivaroxaban (Xarelto) 15 mg WITH DINNER PO Last administered on 12/12/18 17:35; Admin Dose 15 MG; Start 12/03/18 at 17:35 Guaifenesin (Mucinex) 1,200 mg BID PO Last administered on 12/13/18 09:32; Admin Dose 1,200 MG; Start 12/03/18 at 09:00 Digoxin (Digoxin) 0.125 mg DAILY@13 PO Last administered on 12/12/18 12:11; Admin Dose 0.125 MG; Start 12/03/18 at 13:00 Roflumilast (Daliresp) 500 mcg DAILY PO Last administered on 12/13/18 09:33; Admin Dose 500 MCG; Start 12/03/18 at 09:00 Sacubitril/ Valsartan (Entresto 24 Mg-26 Mg) 1 tab BID PO Last administered on 12/13/18 09:30; Admin Dose 1 TAB; Start 12/03/18 at 09:00 Simethicone (Mylicon) 80 mg Q6H PRN PO DISTENSION/GAS/BLOATING Last admini stered on 12/06/18 18:25; Admin Dose 80 MG; Start 12/03/18 at 05:00 Sodium Chloride (Nacl) 2 gm MONWEDFRI PO Last administered on 12/13/18 09:32; Admin Dose 2 GM; Start 12/04/18 at 09:00 Cyanocobalamin (Vitamin B12) 5,000 mcg Q48H PO Last administered on 12/13/18 09:32; Admin Dose 5,000 MCG; Start 12/03/18 at 09:00 Miscellaneous Information 1 ea NOTE XX Last administered on 12/03/18 09:25; Admin Dose 1 EA; Start 12/03/18 at 08:00 Glucose (Glutose) 15 gm Q15M PRN PO DECREASED GLUCOSE Last administered on 12/03/18 09:18; Admin Dose 15 GM; Start 12/03/18 at 08:00 Glucose (Glutose) 22.5 gm Q15M PRN PO DECREASED GLUCOSE Last administered on 12/06/18 08:52; Admin Dose 22.5 GM; Start 12/03/18 at 08:00 Dextrose (D50w Syringe) 25 ml Q15M PRN IV DECREASED GLUCOSE; Start 12/03/18 at 08:00 Dextrose (D50w Syringe) 50 ml Q15M PRN IV DECREASED GLUCOSE Last administered on 12/06/18 11:18; Admin Dose 50 ML; Start 12/03/18 at 08:00 Glucagon (Glucagen) 1 mg Q15M PRN IM DECREASED GLUCOSE; Start 12/03/18 at 08:00 Glucose (Glutose) 15 gm Q15M PRN BUCCAL DECREASED GLUCOSE Last administered on 12/05/18 09:40; Admin Dose 15 GM; Start 12/03/18 at 08:00 Miscellaneous Information (Pending [facility] Order For Wound Care) This patient sewell... PRN PRN XX WOUND CARE; Start 12/04/18 at 03:30 Levothyroxine Sodium (Synthroid) 50 mcg DAILY@06 PO Last administered on 12/13/18 06:41; Admin Dose 50 MCG; Start 12/05/18 at 06:00 Melatonin (Melatonin) 3 mg HS PO Last administered on 12/12/18 20:20; Admin Dose 3 MG; Start 12/04/18 at 21:00 Metformin HCl (Glucophage) 500 mg BID WITH MEALS PO Last administered on 12/13/18 08:23; Admin Dose 500 MG; Start 12/09/18 at 17:35 Linagliptin (Tradjenta) 5 mg DAILY PO Last administered on 12/13/18 08:24; Admin Dose 5 MG; Start 12/10/18 at 09:00 Cefepime HCl 50 ml @ 100 mls/hr Q12 IVPB Last administered on 12/13/18 09:48; Admin Dose 100 MLS/HR; Start 12/11/18 at 21:00 Furosemide (Lasix) 40 mg DAILY IV Last administered on 12/13/18 09:34; Admin Dose 40 MG; Start 12/12/18 at 13:00 Methylprednisolone Sodium Succinate (Solu-Medrol) 40 mg BID IV Last administered on 12/13/18 09:33; Admin Dose 40 MG; Start 12/12/18 at 21:00 NEFTALI WESTON Dec 13, 2018 10:27
--- NOTE | 2018-12-13 12:03 | PN ---
Date/Time of Note Date/Time of Note DATE: 12/13/18 TIME: 12:[address] Zapata Objective Vital Signs Date Temp Pulse Resp B/P (MAP) Pulse Ox O2 O2 Flow FiO2 Time Delivery Rate 12/13/18 88 20 95 Nasal 3.0 09:55 Cannula 12/13/18 97.9 128/57 07:30 (80) Intake and Output 12/12/18 12/12/18 12/13/18 1515:00 23:00 07:00 IntakeIntake Total 50 ml 2130 ml OutputOutput Total 1300 ml BalanceBalance 50 ml 830 ml Exam min transfer min ambulation 45 feet Results/Medications Result Diagram: 12/13/18 0804 12/13/18 0804 Results 24 hrs Laboratory Tests Test 12/12/18 17:33 12/13/18 08:04 12/13/18 08:21 Bedside Glucose 149 141 White Blood Count 11.7 #H Red Blood Count 3.89 L Hemoglobin 10.7 L Hematocrit 33.1 L Mean Corpuscular Volume 85.1 Mean Corpuscular Hemoglobin 27.5 L Mean Corpuscular Hemoglobin Concent 32.3 Red Cell Distribution Width 25.9 H Platelet Count 191 # Mean Platelet Volume 10.0 Immature Granulocytes % 8.700 H Neutrophils % Segmented Neutrophils % (Manual) 77 Band Neutrophils % (Manual) 10 H Lymphocytes % Lymphocytes % (Manual) 3 L Monocytes % Monocytes % (Manual) 3 Eosinophils % Basophils % Metamyelocytes % (manual) 2 H Myelocytes % (Manual) 4 H Promyelocytes % (Manual) 1 H Nucleated Red Blood Cells % 0.3 H Immature Granulocytes # 1.020 H Neutrophils # Neutrophils # (Manual) 9.1 H Band Neutrophils # 1.1 H Lymphocytes (Manual) 0.3 L Lymphocytes # Monocytes # Monocytes # (Manual) 0.3 Eosinophils # Basophils # Metamyelocytes # 0.2 H Myelocytes # 0.4 H Promyelocytes # 0.1 H Nucleated Red Blood Cells # Platelet Estimate NORMAL Polychromasia 1+ Poikilocytosis 1+ Anisocytosis 1+ Microcytosis 1+ Macrocytosis 1+ Ovalocytes 1+ Sodium Level 138 Potassium Level 4.9 Chloride Level 100 Carbon Dioxide Level 29 Anion Gap 9 Blood Urea Nitrogen 43 H Creatinine 0.97 Est Glomerular Filtrat Rate mL/min Glucose Level 129 Calcium Level 9.1 Phosphorus Level 3.0 Magnesium Level 2.6 H Medications Current Medications Acetaminophen (Tylenol Tab) 650 mg Q4H PRN PO PAIN Last administered on 12/03/18 23:14; Admin Dose 650 MG; Start 12/03/18 at 01:00 Al Hydrox/Mg Hydrox/Simethicone (Mag-Al Plus) 15 ml Q6H PRN PO GASTROINTESTINAL UPSET Last administered on 12/11/18 18:31; Admin Dose 15 ML; Start 12/03/18 at 01:00 Albuterol/ Ipratropium (Duoneb) 3 ml Q2H RESP THERAPY PRN HHN SHORTNESS OF BREATH Last administered on 12/08/18 10:25; Admin Dose 3 ML; Start 12/03/18 at 01:00 Albuterol/ Ipratropium (Duoneb) 3 ml Q4HWA RESP THERAPY HHN Last administered on 12/13/18 09:54; Admin Dose 3 ML; Start 12/03/18 at 09:00 Alprazolam (Xanax) 0.5 mg Q8H PRN PO ANXIETY Last administered on 12/12/18 22:14; Admin Dose 0.5 MG; Start 12/03/18 at 01:00 Eye Lubricant (Artificial Tears Oph) 2 drop Q8 BOTH EYES Last administered on 12/13/18 06:40; Admin Dose 2 DROP; Start 12/03/18 at 06:00 Atorvastatin Calcium (Lipitor) 10 mg HS PO Last administered on 12/12/18 20 :19; Admin Dose 10 MG; Start 12/03/18 at 21:00 Calcium Carbonate (Tums) 500 mg HS PO Last administered on 12/12/18 20:20; Admin Dose 500 MG; Start 12/03/18 at 21:00 Cholecalciferol (Vitamin D) 4,000 unit DAILY PO Last administered on 12/13/18 09:32; Admin Dose 4,000 UNIT; Start 12/03/18 at 09:00 Diltiazem HCl (Cardizem Cd) 180 mg BID PO Last administered on 12/13/18 09:31; Admin Dose 180 MG; Start 12/03/18 at 09:00 Diphenhydramine HCl (Benadryl) 50 mg Q8 PRN PO for itching Last administered on 12/10/18 00:46; Admin Dose 50 MG; Start 12/03/18 at 01:00 Docusate Sodium (Colace) 100 mg BID PO Last administered on 12/13/18 09:33; Admin Dose 100 MG; Start 12/03/18 at 09:00 Donepezil HCl (Aricept) 10 mg 2100 PO Last administered on 12/12/18 20:20; Admin Dose 10 MG; Start 12/03/18 at 21:00 Duloxetine HCl (Cymbalta) 20 mg BID PO Last administered on 12/13/18 09:31; Admin Dose 20 MG; Start 12/03/18 at 09:00 Cholecalciferol (Vitamin D) 1,000 unit DAILY PO Last administered on 12/13/18 09:32; Admin Dose 1,000 UNIT; Start 12/03/18 at 09:00 Lactulose (Enulose) 20 gm DAILY PO Last administered on 12/13/18 09:31; Admin Dose 20 GM; Start 12/03/18 at 09:00 Metoclopramide HCl (Reglan) 5 mg Q6H PRN IV NAUSEA; Start 12/03/18 at 04:00 Metoprolol Tartrate (Lopressor) 25 mg BID PO Last administered on 12/13/18 09:31; Admin Dose 25 MG; Start 12/03/18 at 09:00 Miconazole Nitrate (Miconazole 2% Cr) 1 applic BID TOP Last administered on 12/13/18 09:34; Admin Dose 1 APPLIC; Start 12/03/18 at 09:00 Morphine Sulfate (morphine) 6 mg Q4H PRN PO SEVERE PAIN LEVEL 7-10 Last administered on 12/13/18 00:43; Admin Dose 6 MG; Start 12/03/18 at 04:00 Pantoprazole (Protonix Tab) 40 mg DAILY@06 PO Last administered on 12/13/18 06:40; Admin Dose 40 MG; Start 12/03/18 at 06:00 Phenol (Cepastat Lozenge) 1 lozenge Q1H PRN MT SORE THROAT; Start 12/03/18 at 04:00 Primidone (Mysoline) 100 mg TID PO Last administered on 12/13/18 09:32; Admin Dose 100 MG; Start 12/03/18 at 09:00 Rivaroxaban (Xarelto) 15 mg WITH DINNER PO Last administered on 12/12/18 17:35; Admin Dose 15 MG; Start 12/03/18 at 17:35 Guaifenesin (Mucinex) 1,200 mg BID PO Last administered on 12/13/18 09:32; Admin Dose 1,200 MG; Start 12/03/18 at 09:00 Digoxin (Digoxin) 0.125 mg DAILY@13 PO Last administered on 12/12/18 12:11; Admin Dose 0.125 MG; Start 12/03/18 at 13:00 Roflumilast (Daliresp) 500 mcg DAILY PO Last administered on 12/13/18 09:33; Admin Dose 500 MCG; Start 12/03/18 at 09:00 Sacubitril/ Valsartan (Entresto 24 Mg-26 Mg) 1 tab BID PO Last administered on 12/13/18 09:30; Admin Dose 1 TAB; Start 12/03/18 at 09:00 Simethicone (Mylicon) 80 mg Q6H PRN PO DISTENSION/GAS/BLOATING Last admini stered on 12/06/18 18:25; Admin Dose 80 MG; Start 12/03/18 at 05:00 Sodium Chloride (Nacl) 2 gm MONWEDFRI PO Last administered on 12/13/18 09:32; Admin Dose 2 GM; Start 12/04/18 at 09:00 Cyanocobalamin (Vitamin B12) 5,000 mcg Q48H PO Last administered on 12/13/18 09:32; Admin Dose 5,000 MCG; Start 12/03/18 at 09:00 Miscellaneous Information 1 ea NOTE XX Last administered on 12/03/18 09:25; Admin Dose 1 EA; Start 12/03/18 at 08:00 Glucose (Glutose) 15 gm Q15M PRN PO DECREASED GLUCOSE Last administered on 12/03/18 09:18; Admin Dose 15 GM; Start 12/03/18 at 08:00 Glucose (Glutose) 22.5 gm Q15M PRN PO DECREASED GLUCOSE Last administered on 12/06/18 08:52; Admin Dose 22.5 GM; Start 12/03/18 at 08:00 Dextrose (D50w Syringe) 25 ml Q15M PRN IV DECREASED GLUCOSE; Start 12/03/18 at 08:00 Dextrose (D50w Syringe) 50 ml Q15M PRN IV DECREASED GLUCOSE Last administered on 12/06/18 11:18; Admin Dose 50 ML; Start 12/03/18 at 08:00 Glucagon (Glucagen) 1 mg Q15M PRN IM DECREASED GLUCOSE; Start 12/03/18 at 08:00 Glucose (Glutose) 15 gm Q15M PRN BUCCAL DECREASED GLUCOSE Last administered on 12/05/18 09:40; Admin Dose 15 GM; Start 12/03/18 at 08:00 Miscellaneous Information (Pending [facility] Order For Wound Care) This patient sewell... PRN PRN XX WOUND CARE; Start 12/04/18 at 03:30 Levothyroxine Sodium (Synthroid) 50 mcg DAILY@06 PO Last administered on 12/13/18 06:41; Admin Dose 50 MCG; Start 12/05/18 at 06:00 Melatonin (Melatonin) 3 mg HS PO Last administered on 12/12/18 20:20; Admin Dose 3 MG; Start 12/04/18 at 21:00 Metformin HCl (Glucophage) 500 mg BID WITH MEALS PO Last administered on 12/13/18 08:23; Admin Dose 500 MG; Start 12/09/18 at 17:35 Linagliptin (Tradjenta) 5 mg DAILY PO Last administered on 12/13/18 08:24; Admin Dose 5 MG; Start 12/10/18 at 09:00 Cefepime HCl 50 ml @ 100 mls/hr Q12 IVPB Last administered on 12/13/18 09:48; Admin Dose 100 MLS/HR; Start 12/11/18 at 21:00 Furosemide (Lasix) 40 mg DAILY IV Last administered on 12/13/18 09:34; Admin Dose 40 MG; Start 12/12/18 at 13:00 Methylprednisolone Sodium Succinate (Solu-Medrol) 40 mg BID IV Last administered on 12/13/18 09:33; Admin Dose 40 MG; Start 12/12/18 at 21:00 Assessment/Plan Additional Assessment/Plan Rehab- Critical Illness Myopathy ;Pulmonary debility status post acute hypoxemic and hypercapnic respiratory failure. Continue rehab, and will extend stay until 12/17 to reach goals COPD. Coronary artery disease. Carotid stenosis. Hypothyroidism. Chronic low back pain. Chronic kidney disease. CHF. Depression. Diabetes mellitus. KINGSLEY Caldera MD Dec 13, 2018 12:03
[2018-12-13] MEDS: DIGOXIN 0.125 MG TAB PO SCH (13:44)
[2018-12-13 14:00] VITALS: BP 133/61; PULSE 65; RESP 20
--- NOTE | 2018-12-13 14:14 | CONS ---
Assessment/Plan Cardiology NYHA: II Heart Failure Type: Acute Heart Failure Type: Diastolic Assessment/Plan Assessment/Plan (Daily) Assessment: COPD exacerbation Acute decompensated diastolic congestive heart failure Atrial fibrillation, on anticoagulation Recent pneumonia Hypertension Dyslipidemia Preserved ejection fraction Possible conjunctival hemorrhage-improved Plan: CT without significant fluid overload continue current cardiac meds Consultation Date/Type/Reason Admit Date/Time Dec 02, 2018 at 22:56 Initial Consult Date 12/08/18 Type of Consult Cardiology Requesting Provider: LISSETTE ESPOSITO MD Date/Time of Note DATE: 12/13/18 TIME: 14:12 24 HR Interval Summary Free Text/Dictation SOB, improved with inhalers, no chest pain Detailed Summary Respiratory: shortness of breath Cardiovascular: no complaints Gastrointestinal: no complaints Musculoskeletal: no complaints Skin: no complaints Neurologic: no complaints Exam/Review of Systems Vital Signs Vitals Vital Signs Date Temp Pulse Resp B/P (MAP) Pulse Ox O2 O2 Flow FiO2 Time Delivery Rate 12/13/18 2.0 13:32 12/13/18 92 26 92 Nasal 13:10 Cannula 12/13/18 97.9 128/57 07:30 (80) Intake and Output 12/12/18 12/12/18 12/13/18 1515:00 23:00 07:00 IntakeIntake Total 50 ml 2130 ml OutputOutput Total 1300 ml BalanceBalance 50 ml 830 ml Exam Constitutional: alert, oriented Head: normocephalic, atraumatic Neck: supple Respiratory: wheezing Cardiovascular: irregular rhythm Gastrointestinal: soft Musculoskeletal: nl extremities to inspection Labs Result Diagram: 12/13/18 0804 12/13/18 0804 Results 24hrs Laboratory Tests Test 12/12/18 17:33 12/13/18 08:04 12/13/18 08:21 12/13/18 12:07 Bedside Glucose 149 141 150 White Blood Count 11.7 #H Red Blood Count 3.89 L Hemoglobin 10.7 L Hematocrit 33.1 L Mean Corpuscular 85.1 Volume Mean Corpuscular 27.5 L Hemoglobin Mean Corpuscular 32.3 Hemoglobin Concent Red Cell 25.9 H Distribution Width Platelet Count 191 # Mean Platelet Volume 10.0 Immature 8.700 H Granulocytes % Neutrophils % Segmented 77 Neutrophils % (Manual) Band Neutrophils % 10 H (Manual) Lymphocytes % Lymphocytes % 3 L (Manual) Monocytes % Monocytes % (Manual) 3 Eosinophils % Basophils % Metamyelocytes % 2 H (manual) Myelocytes % 4 H (Manual) Promyelocytes % 1 H (Manual) Nucleated Red Blood 0.3 H Cells % Immature 1.020 H Granulocytes # Neutrophils # Neutrophils # 9.1 H (Manual) Band Neutrophils # 1.1 H Lymphocytes (Manual) 0.3 L Lymphocytes # Monocytes # Monocytes # (Manual) 0.3 Eosinophils # Basophils # Metamyelocytes # 0.2 H Myelocytes # 0.4 H Promyelocytes # 0.1 H Nucleated Red Blood Cells # Platelet Estimate NORMAL Polychromasia 1+ Poikilocytosis 1+ Anisocytosis 1+ Microcytosis 1+ Macrocytosis 1+ Ovalocytes 1+ Sodium Level 138 Potassium Level 4.9 Chloride Level 100 Carbon Dioxide Level 29 Anion Gap 9 Blood Urea Nitrogen 43 H Creatinine 0.97 Est Glomerular Filtrat Rate mL/min Glucose Level 129 Calcium Level 9.1 Phosphorus Level 3.0 Magnesium Level 2.6 H Medications Medications Current Medications Acetaminophen (Tylenol Tab) 650 mg Q4H PRN PO PAIN Last administered on 12/03/18 23:14; Admin Dose 650 MG; Start 12/03/18 at 01:00 Al Hydrox/Mg Hydrox/Simethicone (Mag-Al Plus) 15 ml Q6H PRN PO GASTROINTESTINAL UPSET Last administered on 12/11/18 18:31; Admin Dose 15 ML; Start 12/03/18 at 01:00 Albuterol/ Ipratropium (Duoneb) 3 ml Q2H RESP THERAPY PRN HHN SHORTNESS OF BREATH Last administered on 12/08/18 10:25; Admin Dose 3 ML; Start 12/03/18 at 01:00 Albuterol/ Ipratropium (Duoneb) 3 ml Q4HWA RESP THERAPY HHN Last administered on 12/13/18 13:10; Admin Dose 3 ML; Start 12/03/18 at 09:00 Alprazolam (Xanax) 0.5 mg Q8H PRN PO ANXIETY Last administered on 12/12/18 22:14; Admin Dose 0.5 MG; Start 12/03/18 at 01:00 Eye Lubricant (Artificial Tears Oph) 2 drop Q8 BOTH EYES Last administered on 12/13/18 13:44; Admin Dose 2 DROP; Start 12/03/18 at 06:00 Atorvastatin Calcium (Lipitor) 10 mg HS PO Last administered on 12/12/18 20:19; Admin Dose 10 MG; Start 12/03/18 at 21:00 Calcium Carbonate (Tums) 500 mg HS PO Last administered on 12/12/18 20:20; Adm in Dose 500 MG; Start 12/03/18 at 21:00 Cholecalciferol (Vitamin D) 4,000 unit DAILY PO Last administered on 12/13/18 09:32; Admin Dose 4,000 UNIT; Start 12/03/18 at 09:00 Diltiazem HCl (Cardizem Cd) 180 mg BID PO Last administered on 12/13/18 09:31; Admin Dose 180 MG; Start 12/03/18 at 09:00 Diphenhydramine HCl (Benadryl) 50 mg Q8 PRN PO for itching Last administered on 12/10/18 00:46; Admin Dose 50 MG; Start 12/03/18 at 01:00 Docusate Sodium (Colace) 100 mg BID PO Last administered on 12/13/18 09:33; Admin Dose 100 MG; Start 12/03/18 at 09:00 Donepezil HCl (Aricept) 10 mg 2100 PO Last administered on 12/12/18 20:20; Admin Dose 10 MG; Start 12/03/18 at 21:00 Duloxetine HCl (Cymbalta) 20 mg BID PO Last administered on 12/13/18 09:31; Admin Dose 20 MG; Start 12/03/18 at 09:00 Cholecalciferol (Vitamin D) 1,000 unit DAILY PO Last administered on 12/13/18 09:32; Admin Dose 1,000 UNIT; Start 12/03/18 at 09:00 Lactulose (Enulose) 20 gm DAILY PO Last administered on 12/13/18 09:31; Admin Dose 20 GM; Start 12/03/18 at 09:00 Metoclopramide HCl (Reglan) 5 mg Q6H PRN IV NAUSEA; Start 12/03/18 at 04:00 Metoprolol Tartrate (Lopressor) 25 mg BID PO Last administered on 12/13/18 09:31; Admin Dose 25 MG; Start 12/03/18 at 09:00 Miconazole Nitrate (Miconazole 2% Cr) 1 applic BID TOP Last administered on 12/13/18 09:34; Admin Dose 1 APPLIC; Start 12/03/18 at 09:00 Morphine Sulfate (morphine) 6 mg Q4H PRN PO SEVERE PAIN LEVEL 7-10 Last administered on 12/13/18 00:43; Admin Dose 6 MG; Start 12/03/18 at 04:00 Pantoprazole (Protonix Tab) 40 mg DAILY@06 PO Last administered on 12/13/18 06:40; Admin Dose 40 MG; Start 12/03/18 at 06:00 Phenol (Cepastat Lozenge) 1 lozenge Q1H PRN MT SORE THROAT; Start 12/03/18 at 04:00 Primidone (Mysoline) 100 mg TID PO Last administered on 12/13/18 13:43; Admin Dose 100 MG; Start 12/03/18 at 09:00 Rivaroxaban (Xarelto) 15 mg WITH DINNER PO Last administered on 12/12/18 17:35; Admin Dose 15 MG; Start 12/03/18 at 17:35 Guaifenesin (Mucinex) 1,200 mg BID PO Last administered on 12/13/18 09:32; Admin Dose 1,200 MG; Start 12/03/18 at 09:00 Digoxin (Digoxin) 0.125 mg DAILY@13 PO Last administered on 12/13/18 13:44; Admin Dose 0.125 MG; Start 12/03/18 at 13:00 Roflumilast (Daliresp) 500 mcg DAILY PO Last administered on 12/13/18 09:33; Admin Dose 500 MCG; Start 12/03/18 at 09:00 Sacubitril/ Valsartan (Entresto 24 Mg-26 Mg) 1 tab BID PO Last administered on 12/13/18 09:30; Admin Dose 1 TAB; Start 12/03/18 at 09:00 Simethicone (Mylicon) 80 mg Q6H PRN PO DISTENSION/GAS/BLOATING Last administered on 12/06/18 18:25; Admin Dose 80 MG; Start 12/03/18 at 05:00 Sodium Chloride (Nacl) 2 gm MONWEDFRI PO Last administered on 12/13/18 09:32; Admin Dose 2 GM; Start 12/04/18 at 09:00 Cyanocobalamin (Vitamin B12) 5,000 mcg Q48H PO Last administered on 12/13/18 09:32; Admin Dose 5,000 MCG; Start 12/03/18 at 09:00 Miscellaneous Information 1 ea NOTE XX Last administered on 12/03/18 09:25; Admin Dose 1 EA; Start 12/03/18 at 08:00 Glucose (Glutose) 15 gm Q15M PRN PO DECREASED GLUCOSE Last administered on 12/03/18 09:18; Admin Dose 15 GM; Start 12/03/18 at 08:00 Glucose (Glutose) 22.5 gm Q15M PRN PO DECREASED GLUCOSE Last administered on 12/06/18 08:52; Admin Dose 22.5 GM; Start 12/03/18 at 08:00 Dextrose (D50w Syringe) 25 ml Q15M PRN IV DECREASED GLUCOSE; Start 12/03/18 at 08:00 Dextrose (D50w Syringe) 50 ml Q15M PRN IV DECREASED GLUCOSE Last administered on 12/06/18 11:18; Admin Dose 50 ML; Start 12/03/18 at 08:00 Glucagon (Glucagen) 1 mg Q15M PRN IM DECREASED GLUCOSE; Start 12/03/18 at 08:00 Glucose (Glutose) 15 gm Q15M PRN BUCCAL DECREASED GLUCOSE Last administered on 12/05/18 09:40; Admin Dose 15 GM; Start 12/03/18 at 08:00 Miscellaneous Information (Pending [facility] Order For Wound Care) This patient sewell... PRN PRN XX WOUND CARE; Start 12/04/18 at 03:30 Levothyroxine Sodium (Synthroid) 50 mcg DAILY@06 PO Last administered on 12/13/18 06:41; Admin Dose 50 MCG; Start 12/05/18 at 06:00 Melatonin (Melatonin) 3 mg HS PO Last administered on 12/12/18 20:20; Admin Dose 3 MG; Start 12/04/18 at 21:00 Metformin HCl (Glucophage) 500 mg BID WITH MEALS PO Last administered on 12/13/18 08:23; Admin Dose 500 MG; Start 12/09/18 at 17:35 Linagliptin (Tradjenta) 5 mg DAILY PO Last administered on 12/13/18 08:24; Admin Dose 5 MG; Start 12/10/18 at 09:00 Cefepime HCl 50 ml @ 100 mls/hr Q12 IVPB Last administered on 12/13/18 09:48; Admin Dose 100 MLS/HR; Start 12/11/18 at 21:00 Furosemide (Lasix) 40 mg DAILY IV Last administered on 12/13/18 09:34; Admin Dose 40 MG; Start 12/12/18 at 13:00 Methylprednisolone Sodium Succinate (Solu-Medrol) 40 mg BID IV Last administered on 12/13/18 09:33; Admin Dose 40 MG; Start 12/12/18 at 21:00 MARISA MINOR MD Dec 13, 2018 14:14
[2018-12-13] MEDS: RIVAROXABAN 15 MG TABLET PO SCH (18:06)
[2018-12-13 20:06] VITALS: BP 126/58; PULSE 72; RESP 18
[2018-12-13] MEDS: CALCIUM CARBONATE 500 MG CHEW TAB PO SCH (21:51)
[2018-12-13] MEDS: DONEPEZIL 10 MG TAB PO SCH (21:52)
[2018-12-13] MEDS: ATORVASTATIN 10 MG TAB PO SCH (21:53)
[2018-12-13] MEDS: MELATONIN 3 MG TABLET PO SCH (21:53)
[2018-12-14 02:08] VITALS: BP 130/62; PULSE 75; RESP 18
[2018-12-14] MEDS: ARTIFICIAL TEARS 15 ML OPH BOTH EYES SCH ×3 (06:48→22:07)
[2018-12-14] MEDS: PANTOPRAZOLE (EC) 40 MG TAB PO SCH (06:49)
[2018-12-14] MEDS: LEVOTHYROXINE 50 MCG TAB PO SCH (06:49)
[2018-12-14] MEDS: morphine LIQ (10 MG/5 ML) CUP PO PRN (07:01)
[2018-12-14 07:30] VITALS: BP 132/68; PULSE 76; RESP 20
[2018-12-14] MEDS: ALBUTEROL/IPRATROPIUM (NEB) 3 ML AMP HHN SCH ×4 (07:39→21:06)
[2018-12-14] MEDS: LINAGLIPTIN 5 MG TABLET PO SCH (08:07)
[2018-12-14] MEDS: metFORMIN 500 MG TAB PO SCH ×2 (08:07→17:29)
[2018-12-14] MEDS: ROFLUMILAST 500 MCG TABLET PO SCH ×2 (09:00→12:38)
[2018-12-14] MEDS: METHYLPREDNISOLONE 40 MG INJ IV SCH ×2 (09:32→22:07)
[2018-12-14] MEDS: CHOLECALCIFEROL 2,000 UNIT CAP PO SCH (09:33)
[2018-12-14] MEDS: FUROSEMIDE 20 MG INJ IV SCH (09:33)
[2018-12-14] MEDS: CHOLECALCIFEROL 1,000 UNIT TAB PO SCH (09:33)
[2018-12-14] MEDS: LACTULOSE 30ML CUP PO SCH (09:33)
[2018-12-14] MEDS: SACUBITRIL/VALSARTAN (24mg-26mg) TABLET PO SCH ×2 (09:33→22:08)
[2018-12-14] MEDS: PRIMIDONE 50 MG TAB PO SCH ×3 (09:34→22:08)
[2018-12-14] MEDS: DOCUSATE SODIUM 100 MG CAP PO SCH ×2 (09:34→22:09)
[2018-12-14] MEDS: DULOXETINE 20 MG CAP DR PO SCH ×2 (09:34→23:00)
[2018-12-14] MEDS: METOPROLOL 25 MG TAB PO SCH ×2 (09:35→22:10)
[2018-12-14] MEDS: GUAIFENESIN LA 600 MG TABSR PO SCH ×2 (09:35→22:09)
[2018-12-14] MEDS: DILTIAZEM (CD) 180 MG CAP PO SCH ×2 (09:35→22:10)
[2018-12-14] MEDS: CEFEPIME 1GM/50 ML (PMX) 50 ML IVPB SCH ×2 (09:36→22:04)
[2018-12-14] MEDS: MICONAZOLE 2% 30 GM CR TOP SCH ×2 (09:38→22:02)
[2018-12-14] MEDS: DIGOXIN 0.125 MG TAB PO SCH (12:38)
--- NOTE | 2018-12-14 13:17 | PN ---
Date/Time of Note Date/Time of Note DATE: 12/14/18 TIME: 13:17 Assessment/Plan [place] [facility] [place]: 6 [place] [facility] [place]CD contraindicated: other Pharmacological prophylaxis: LMWH Lines/Catheters IV Catheter Type (from [facility]): [place] [facility] Urinary Cath still in place: No Assessment/Plan Hospital Course - -LLL atelectasis - Breathing treatment - Cefepime - CXR - am LABS -Status post acute hypoxemic and hypercapnic respiratory failure secondary to COPD exacerbation. -Dr. Zapata is following in pulmonology consultation. -COPD -Decompensated diastolic congestive heart failure, continue Lasix, monitor electrolytes. -Chronic atrial fibrillation. Continue digoxin, Cardizem and Xarelto. -Diabetes mellitus type 2. Continue metformin and Tradjenta. -Anemia of chronic disease -Hypothyroidism, started on levothyroxine Result Diagram: 12/14/18 0726 12/14/18 0726 Results 24hrs Laboratory Tests Test 12/13/18 18:03 12/13/18 20:32 12/14/18 07:26 12/14/18 07:44 Bedside Glucose 150 167 104 White Blood Count 11.3 H Red Blood Count 3.67 L Hemoglobin 10.1 L Hematocrit 31.1 L Mean Corpuscular 84.7 Volume Mean Corpuscular 27.5 L Hemoglobin Mean Corpuscular 32.5 Hemoglobin Concent Red Cell 25.5 H Distribution Width Platelet Count 135 #L Mean Platelet Volume 8.8 Immature 10.300 H Granulocytes % Neutrophils % Segmented 73 Neutrophils % (Manual) Band Neutrophils % 10 H (Manual) Lymphocytes % Lymphocytes % 4 L (Manual) Monocytes % Monocytes % (Manual) 2 Eosinophils % Eosinophils % 1 (Manual) Basophils % Metamyelocytes % 5 H (manual) Myelocytes % 3 H (Manual) Promyelocytes % 2 H (Manual) Nucleated Red Blood 2 H Cells % Immature 1.160 H Granulocytes # Neutrophils # Neutrophils # 8.4 H (Manual) Band Neutrophils # 1.1 H Lymphocytes (Manual) 0.4 L Lymphocytes # Monocytes # Monocytes # (Manual) 0.2 L Eosinophils # Basophils # Metamyelocytes # 0.5 H Myelocytes # 0.3 H Promyelocytes # 0.2 H Nucleated Red Blood Cells # Platelet Estimate DECREASED Polychromasia 2+ Hypochromasia 1+ Poikilocytosis 1+ Anisocytosis 2+ Microcytosis 1+ Ovalocytes 1+ Schistocytes 1+ Sodium Level 138 Potassium Level 4.0 Chloride Level 100 Carbon Dioxide Level 34 H Anion Gap 4 L Blood Urea Nitrogen 40 H Creatinine 0.94 Est Glomerular Filtrat Rate mL/min Glucose Level 103 Calcium Level 9.1 Test 12/14/18 11:48 Bedside Glucose 102 Subjective 24 Hr Interval Summary Free Text/Dictation Patient complains of phlegm and back pain Exam/Review of Systems Exam Vitals Vital Signs Date Temp Pulse Resp B/P (MAP) Pulse Ox O2 O2 Flow FiO2 Time Delivery Rate 12/14/18 79 22 99 Nasal 3.0 07:40 Cannula 12/14/18 98.6 132/68 07:30 (89) Intake and Output 12/13/18 12/13/18 12/14/18 1515:00 23:00 07:00 IntakeIntake Total 200 ml 690 ml 750 ml BalanceBalance 200 ml 690 ml 750 ml Constitutional: well developed Head: normocephalic, atraumatic Neck: supple Respiratory: clear to auscultation Cardiovascular: regular rate and rhythm Gastrointestinal: soft, non-tender Extremities: normal pulses Results Results 24hrs Laboratory Tests Test 12/13/18 18:03 12/13/18 20:32 12/14/18 07:26 12/14/18 07:44 Bedside Glucose 150 167 104 White Blood Count 11.3 H Red Blood Count 3.67 L Hemoglobin 10.1 L Hematocrit 31.1 L Mean Corpuscular 84.7 Volume Mean Corpuscular 27.5 L Hemoglobin Mean Corpuscular 32.5 Hemoglobin Concent Red Cell 25.5 H Distribution Width Platelet Count 135 #L Mean Platelet Volume 8.8 Immature 10.300 H Granulocytes % Neutrophils % Segmented 73 Neutrophils % (Manual) Band Neutrophils % 10 H (Manual) Lymphocytes % Lymphocytes % 4 L (Manual) Monocytes % Monocytes % (Manual) 2 Eosinophils % Eosinophils % 1 (Manual) Basophils % Metamyelocytes % 5 H (manual) Myelocytes % 3 H (Manual) Promyelocytes % 2 H (Manual) Nucleated Red Blood 2 H Cells % Immature 1.160 H Granulocytes # Neutrophils # Neutrophils # 8.4 H (Manual) Band Neutrophils # 1.1 H Lymphocytes (Manual) 0.4 L Lymphocytes # Monocytes # Monocytes # (Manual) 0.2 L Eosinophils # Basophils # Metamyelocytes # 0.5 H Myelocytes # 0.3 H Promyelocytes # 0.2 H Nucleated Red Blood Cells # Platelet Estimate DECREASED Polychromasia 2+ Hypochromasia 1+ Poikilocytosis 1+ Anisocytosis 2+ Microcytosis 1+ Ovalocytes 1+ Schistocytes 1+ Sodium Level 138 Potassium Level 4.0 Chloride Level 100 Carbon Dioxide Level 34 H Anion Gap 4 L Blood Urea Nitrogen 40 H Creatinine 0.94 Est Glomerular Filtrat Rate mL/min Glucose Level 103 Calcium Level 9.1 Test 12/14/18 11:48 Bedside Glucose 102 Medications Medication Current Medications Acetaminophen (Tylenol Tab) 650 mg Q4H PRN PO PAIN Last administered on 12/03/18 23:14; Admin Dose 650 MG; Start 12/03/18 at 01:00 Al Hydrox/Mg Hydrox/Simethicone (Mag-Al Plus) 15 ml Q6H PRN PO GASTROINTESTINAL UPSET Last administered on 12/11/18 18:31; Admin Dose 15 ML; Start 12/03/18 at 01:00 Albuterol/ Ipratropium (Duoneb) 3 ml Q2H RESP THERAPY PRN HHN SHORTNESS OF BREATH Last administered on 12/08/18 10:25; Admin Dose 3 ML; Start 12/03/18 at 01:00 Albuterol/ Ipratropium (Duoneb) 3 ml Q4HWA RESP THERAPY HHN Last administered on 12/14/18 12:38; Admin Dose 3 ML; Start 12/03/18 at 09:00 Alprazolam (Xanax) 0.5 mg Q8H PRN PO ANXIETY Last administered on 12/12/18 22:14; Admin Dose 0.5 MG; Start 12/03/18 at 01:00 Eye Lubricant (Artificial Tears Oph) 2 drop Q8 BOTH EYES Last administered on 12/14/18 06:48; Admin Dose 2 DROP; Start 12/03/18 at 06:00 Atorvastatin Calcium (Lipitor) 10 mg HS PO Last administered on 12/13/18 21:53; Admin Dose 10 MG; Start 12/03/18 at 21:00 Calcium Carbonate (Tums) 500 mg HS PO Last administered on 12/13/18 21:51; Admin Dose 500 MG; Start 12/03/18 at 21:00 Cholecalciferol (Vitamin D) 4,000 unit DAILY PO Last administered on 12/14/18 09:33; Admin Dose 4,000 UNIT; Start 12/03/18 at 09:00 Diltiazem HCl (Cardizem Cd) 180 mg BID PO Last administered on 12/14/18 09:35; Admin Dose 180 MG; Start 12/03/18 at 09:00 Diphenhydramine HCl (Benadryl) 50 mg Q8 PRN PO for itching Last administered on 12/10/18 00:46; Admin Dose 50 MG; Start 12/03/18 at 01:00 Docusate Sodium (Colace) 100 mg BID PO Last administered on 12/14/18 09:34; Admin Dose 100 MG; Start 12/03/18 at 09:00 Donepezil HCl (Aricept) 10 mg 2100 PO Last administered on 12/13/18 21:52; Admin Dose 10 MG; Start 12/03/18 at 21:00 Duloxetine HCl (Cymbalta) 20 mg BID PO Last administered on 12/14/18 09:34; Admin Dose 20 MG; Start 12/03/18 at 09:00 Cholecalciferol (Vitamin D) 1,000 unit DAILY PO Last administered on 12/14/18 09:33; Admin Dose 1,000 UNIT; Start 12/03/18 at 09:00 Lactulose (Enulose) 20 gm DAILY PO Last administered on 12/14/18 09:33; Admin Dose 20 GM; Start 12/03/18 at 09:00 Metoclopramide HCl (Reglan) 5 mg Q6H PRN IV NAUSEA; Start 12/03/18 at 04:00 Metoprolol Tartrate (Lopressor) 25 mg BID PO Last administered on 12/14/18 09:35; Admin Dose 25 MG; Start 12/03/18 at 09:00 Miconazole Nitrate (Miconazole 2% Cr) 1 applic BID TOP Last administered on 12/14/18 09:38; Admin Dose 1 APPLIC; Start 12/03/18 at 09:00 Morphine Sulfate (morphine) 6 mg Q4H PRN PO SEVERE PAIN LEVEL 7-10 Last administered on 12/14/18 07:01; Admin Dose 6 MG; Start 12/03/18 at 04:00 Pantoprazole (Protonix Tab) 40 mg DAILY@06 PO Last administered on 12/14/18 06:49; Admin Dose 40 MG; Start 12/03/18 at 06:00 Phenol (Cepastat Lozenge) 1 lozenge Q1H PRN MT SORE THROAT; Start 12/03/18 at 04:00 Primidone (Mysoline) 100 mg TID PO Last administered on 12/14/18 12:38; Admin Dose 100 MG; Start 12/03/18 at 09:00 Rivaroxaban (Xarelto) 15 mg WITH DINNER PO Last administered on 12/13/18 18:06; Admin Dose 15 MG; Start 12/03/18 at 17:35 Guaifenesin (Mucinex) 1,200 mg BID PO Last administered on 12/14/18 09:35; Admin Dose 1,200 MG; Start 12/03/18 at 09:00 Digoxin (Digoxin) 0.125 mg DAILY@13 PO Last administered on 12/14/18 12:38; Admin Dose 0.125 MG; Start 12/03/18 at 13:00 Roflumilast (Daliresp) 500 mcg DAILY PO Last administered on 12/14/18 12:38; Admin Dose 500 MCG; Start 12/03/18 at 09:00 Sacubitril/ Valsartan (Entresto 24 Mg-26 Mg) 1 tab BID PO Last administered on 12/14/18 09:33; Admin Dose 1 TAB; Start 12/03/18 at 09:00 Simethicone (Mylicon) 80 mg Q6H PRN PO DISTENSION/GAS/BLOATING Last administered on 12/06/18 18:25; Admin Dose 80 MG; Start 12/03/18 at 05:00 Sodium Chloride (Nacl) 2 gm MONWEDFRI PO Last administered on 12/13/18 09:32; Admin Dose 2 GM; Start 12/04/18 at 09:00 Cyanocobalamin (Vitamin B12) 5,000 mcg Q48H PO Last administered on 12/13/18 09:32; Admin Dose 5,000 MCG; Start 12/03/18 at 09:00 Miscellaneous Information 1 ea NOTE XX Last administered on 12/03/18 09:25; Admin Dose 1 EA; Start 12/03/18 at 08:00 Glucose (Glutose) 15 gm Q15M PRN PO DECREASED GLUCOSE Last administered on 12/03/18 09:18; Admin Dose 15 GM; Start 12/03/18 at 08:00 Glucose (Glutose) 22.5 gm Q15M PRN PO DECREASED GLUCOSE Last administered on 12/06/18 08:52; Admin Dose 22.5 GM; Start 12/03/18 at 08:00 Dextrose (D50w Syringe) 25 ml Q15M PRN IV DECREASED GLUCOSE; Start 12/03/18 at 08:00 Dextrose (D50w Syringe) 50 ml Q15M PRN IV DECREASED GLUCOSE Last administered on 12/06/18 11:18; Admin Dose 50 ML; Start 12/03/18 at 08:00 Glucagon (Glucagen) 1 mg Q15M PRN IM DECREASED GLUCOSE; Start 12/03/18 at 08:00 Glucose (Glutose) 15 gm Q15M PRN BUCCAL DECREASED GLUCOSE Last administered on 12/05/18 09:40; Admin Dose 15 GM; Start 12/03/18 at 08:00 Miscellaneous Information (Pending [facility] Order For Wound Care) This patient sewell... PRN PRN XX WOUND CARE; Start 12/04/18 at 03:30 Levothyroxine Sodium (Synthroid) 50 mcg DAILY@06 PO Last administered on 12/14/18 06:49; Admin Dose 50 MCG; Start 12/05/18 at 06:00 Melatonin (Melatonin) 3 mg HS PO Last administered on 12/13/18 21:53; Admin Dose 3 MG; Start 12/04/18 at 21:00 Metformin HCl (Glucophage) 500 mg BID WITH MEALS PO Last administered on 12/14/18 08:07; Admin Dose 500 MG; Start 12/09/18 at 17:35 Linagliptin (Tradjenta) 5 mg DAILY PO Last administered on 12/14/18 08:07; Admin Dose 5 MG; Start 12/10/18 at 09:00 Cefepime HCl 50 ml @ 100 mls/hr Q12 IVPB Last administered on 12/14/18 09:36; Admin Dose 100 MLS/HR; Start 12/11/18 at 21:00 Furosemide (Lasix) 40 mg DAILY IV Last administered on 12/14/18at 09:33; Admin Dose 40 MG; Start 12/12/18 at 13:00 Methylprednisolone Sodium Succinate (Solu-Medrol) 40 mg BID IV Last administe red on 12/14/18at 09:32; Admin Dose 40 MG; Start 12/12/18 at 21:00 SARAH RODRIGUEZ Dec 14, 2018 13:17
[2018-12-14 14:00] VITALS: BP 119/57; PULSE 72; RESP 20
[2018-12-14] MEDS ORDERED: HYDROCODONE/APAP (5/325) TAB PO PRN (14:30)
[2018-12-14] MEDS ORDERED: LORAZEPAM 0.5 MG TAB PO PRN (14:30)
[2018-12-14] MEDS: RIVAROXABAN 15 MG TABLET PO SCH (17:27)
[2018-12-14] MEDS: MEGESTROL 40 MG TAB PO SCH ×2 (17:28→22:09)
[2018-12-14 19:48] VITALS: BP 122/56; PULSE 92; RESP 18
[2018-12-14] MEDS: CALCIUM CARBONATE 500 MG CHEW TAB PO SCH (22:08)
[2018-12-14] MEDS: MELATONIN 3 MG TABLET PO SCH (22:08)
[2018-12-14] MEDS: DONEPEZIL 10 MG TAB PO SCH (22:08)
[2018-12-14] MEDS: ATORVASTATIN 10 MG TAB PO SCH (22:09)
--- NOTE | 2018-12-15 01:37 | CONS ---
Assessment/Plan Assessment/Plan Assessment/Plan (Daily) 1. 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 acute CHF, diastolic CHF 3. Acute COPD exacerbation 4. H/o HTN 5. H/O CKD Plan: Na 138, BUn/Cr improved to normal 40/0.94 on lasix 20mg po daily UO - adequate voided x6 IV solu-medrol 40mg IV BID Na chloride tablet 1 gram MWF will follow up Patient seen i collaboration with dr Shayna Peck/[facility] staff Consultation Date/Type/Reason Admit Date/Time Dec 02, 2018 at 22:56 Initial Consult Date 12/08/18 Requesting Provider: LISSETTE ESPOSITO MD Date/Time of Note DATE: 12/15/18 TIME: 01:37 24 HR Interval Summary Free Text/Dictation - nad - sitting up in chair; seems comfortable on supplement oxygen - c/o low appetite- PMD started on Megace - partner at bed side- all Qs answered - no new events reported last night Constitutional: requiring O2 Detailed Summary Eyes: no complaints ENT: no complaints Respiratory: shortness of breath Cardiovascular: no complaints Gastrointestinal: no complaints Genitourinary: no complaints Musculoskeletal: other (general weakness) Skin: no complaints Neurologic: no complaints Endocrine: no complaints Lymphatic: no complaints Psychological: nl mood/affect Exam/Review of Systems Exam Vitals Vital Signs Date Temp Pulse Resp B/P (MAP) Pulse Ox O2 O2 Flow FiO2 Time Delivery Rate 12/14/18 Nasal 2.0 22:00 Cannula 12/14/18 99 21:06 12/14/18 103 20 21:06 12/14/18 88.3 122/56 19:48 (78) Intake and Output 12/14/18 12/14/18 12/15/18 1414:59 22:59 06:59 IntakeIntake Total 100 ml 510 ml BalanceBalance 100 ml 510 ml Constitutional: alert, well developed Psych: nl mood/affect Eyes: nl lids, nl sclera ENMT: nl external ears & nose Neck: non-tender Respiratory: diminished breath sounds (bilaterlly) Gastrointestinal: soft, non-tender Musculoskeletal: muscle weakness Extremities: normal pulses Neurological: nl speech, other (alert/responsive) Skin: other Results Result Diagram: 12/14/18 0726 12/14/18 0726 Results 24hrs Laboratory Tests Test 12/14/18 07:26 12/14/18 07:44 12/14/18 11:48 12/14/18 17:22 White Blood Count 11.3 H Red Blood Count 3.67 L Hemoglobin 10.1 L Hematocrit 31.1 L Mean Corpuscular 84.7 Volume Mean Corpuscular 27.5 L Hemoglobin Mean Corpuscular 32.5 Hemoglobin Concent Red Cell 25.5 H Distribution Width Platelet Count 135 #L Mean Platelet Volume 8.8 Immature 10.300 H Granulocytes % Neutrophils % Segmented 73 Neutrophils % (Manual) Band Neutrophils % 10 H (Manual) Lymphocytes % Lymphocytes % 4 L (Manual) Monocytes % Monocytes % (Manual) 2 Eosinophils % Eosinophils % 1 (Manual) Basophils % Metamyelocytes % 5 H (manual) Myelocytes % 3 H (Manual) Promyelocytes % 2 H (Manual) Nucleated Red Blood 2 H Cells % Immature 1.160 H Granulocytes # Neutrophils # Neutrophils # 8.4 H (Manual) Band Neutrophils # 1.1 H Lymphocytes (Manual) 0.4 L Lymphocytes # Monocytes # Monocytes # (Manual) 0.2 L Eosinophils # Basophils # Metamyelocytes # 0.5 H Myelocytes # 0.3 H Promyelocytes # 0.2 H Nucleated Red Blood Cells # Platelet Estimate DECREASED Polychromasia 2+ Hypochromasia 1+ Poikilocytosis 1+ Anisocytosis 2+ Microcytosis 1+ Ovalocytes 1+ Schistocytes 1+ Sodium Level 138 Potassium Level 4.0 Chloride Level 100 Carbon Dioxide Level 34 H Anion Gap 4 L Blood Urea Nitrogen 40 H Creatinine 0.94 Est Glomerular Filtrat Rate mL/min Glucose Level 103 Calcium Level 9.1 Bedside Glucose 104 102 138 Medications Medication Current Medications Acetaminophen (Tylenol Tab) 650 mg Q4H PRN PO PAIN Last administered on 12/03/18at 23:14; Admin Dose 650 MG; Start 12/03/18 at 01:00 Al Hydrox/Mg Hydrox/Simethicone (Mag-Al Plus) 15 ml Q6H PRN PO GASTROINTESTINAL UPSET Last administered on 12/11/18at 18:31; Admin Dose 15 ML; Start 12/03/18 at 01:00 Albuterol/ Ipratropium (Duoneb) 3 ml Q2H RESP THERAPY PRN HHN SHORTNESS OF BREATH Last administered on 12/08/18at 10:25; Admin Dose 3 ML; Start 12/03/18 at 01:00 Albuterol/ Ipratropium (Duoneb) 3 ml Q4HWA RESP THERAPY HHN Last administered on 12/14/18 21:06; Admin Dose 3 ML; Start 12/03/18 at 09:00 Alprazolam (Xanax) 0.5 mg Q8H PRN PO ANXIETY Last administered on 12/12/18 22:14; Admin Dose 0.5 MG; Start 12/03/18 at 01:00 Eye Lubricant (Artificial Tears Oph) 2 drop Q8 BOTH EYES Last administered on 12/14/18 22:07; Admin Dose 2 DROP; Start 12/03/18 at 06:00 Atorvastatin Calcium (Lipitor) 10 mg HS PO Last administered on 12/14/18 22:09; Admin Dose 10 MG; Start 12/03/18 at 21:00 Calcium Carbonate (Tums) 500 mg HS PO Last administered on 12/14/18 22:08; Admin Dose 500 MG; Start 12/03/18 at 21:00 Cholecalciferol (Vitamin D) 4,000 unit DAILY PO Last administered on 12/14/18 09:33; Admin Dose 4,000 UNIT; Start 12/03/18 at 09:00 Diltiazem HCl (Cardizem Cd) 180 mg BID PO Last administered on 12/14/18 22:10; Admin Dose 180 MG; Start 12/03/18 at 09:00 Diphenhydramine HCl (Benadryl) 50 mg Q8 PRN PO for itching Last administered on 12/10/18 00:46; Admin Dose 50 MG; Start 12/03/18 at 01:00 Docusate Sodium (Colace) 100 mg BID PO Last administered on 12/14/18 22:09; Admin Dose 100 MG; Start 12/03/18 at 09:00 Donepezil HCl (Aricept) 10 mg 2100 PO Last administered on 12/14/18 22:08; Admin Dose 10 MG; Start 12/03/18 at 21:00 Duloxetine HCl (Cymbalta) 20 mg BID PO Last administered on 12/14/18 09:34; Admin Dose 20 MG; Start 12/03/18 at 09:00 Cholecalciferol (Vitamin D) 1,000 unit DAILY PO Last administered on 12/14/18 09:33; Admin Dose 1,000 UNIT; Start 12/03/18 at 09:00 Lactulose (Enulose) 20 gm DAILY PO Last administered on 12/14/18 09:33; Admin Dose 20 GM; Start 12/03/18 at 09:00 Metoclopramide HCl (Reglan) 5 mg Q6H PRN IV NAUSEA; Start 12/03/18 at 04:00 Metoprolol Tartrate (Lopressor) 25 mg BID PO Last administered on 12/14/18 22:10; Admin Dose 25 MG; Start 12/03/18 at 09:00 Miconazole Nitrate (Miconazole 2% Cr) 1 applic BID TOP Last administered on 12/14/18 22:02; Admin Dose 1 APPLIC; Start 12/03/18 at 09:00 Morphine Sulfate (morphine) 6 mg Q4H PRN PO BREAKTHROUGH PAIN Last administered on 12/14/18 07:01; Admin Dose 6 MG; Start 12/03/18 at 04:00 Pantoprazole (Protonix Tab) 40 mg DAILY@06 PO Last administered on 12/14/18 06:49; Admin Dose 40 MG; Start 12/03/18 at 06:00 Phenol (Cepastat Lozenge) 1 lozenge Q1H PRN MT SORE THROAT; Start 12/03/18 at 04:00 Primidone (Mysoline) 100 mg TID PO Last administered on 12/14/18 22:08; Admin Dose 100 MG; Start 12/03/18 at 09:00 Rivaroxaban (Xarelto) 15 mg WITH DINNER PO Last administered on 12/14/18 17:27; Admin Dose 15 MG; Start 12/03/18 at 17:35 Guaifenesin (Mucinex) 1,200 mg BID PO Last administered on 12/14/18 22:09; Admin Dose 1,200 MG; Start 12/03/18 at 09:00 Digoxin (Digoxin) 0.125 mg DAILY@13 PO Last administered on 12/14/18 12:38; Admin Dose 0.125 MG; Start 12/03/18 at 13:00 Roflumilast (Daliresp) 500 mcg DAILY PO Last administered on 12/14/18 12:38; Admin Dose 500 MCG; Start 12/03/18 at 09:00 Sacubitril/ Valsartan (Entresto 24 Mg-26 Mg) 1 tab BID PO Last administered on 12/14/18 22:08; Admin Dose 1 TAB; Start 12/03/18 at 09:00 Simethicone (Mylicon) 80 mg Q6H PRN PO DISTENSION/GAS/BLOATING Last administered on 12/06/18 18:25; Admin Dose 80 MG; Start 12/03/18 at 05:00 Sodium Chloride (Nacl) 2 gm MONWEDFRI PO Last administered on 12/13/18 09:32; Admin Dose 2 GM; Start 12/04/18 at 09:00 Cyanocobalamin (Vitamin B12) 5,000 mcg Q48H PO Last administered on 12/13/18 09:32; Admin Dose 5,000 MCG; Start 12/03/18 at 09:00 Miscellaneous Information 1 ea NOTE XX Last administered on 12/03/18 09:25; Admin Dose 1 EA; Start 12/03/18 at 08:00 Glucose (Glutose) 15 gm Q15M PRN PO DECREASED GLUCOSE Last administered on 12/03/18 09:18; Admin Dose 15 GM; Start 12/03/18 at 08:00 Glucose (Glutose) 22.5 gm Q15M PRN PO DECREASED GLUCOSE Last administered on 12/06/18 08:52; Admin Dose 22.5 GM; Start 12/03/18 at 08:00 Dextrose (D50w Syringe) 25 ml Q15M PRN IV DECREASED GLUCOSE; Start 12/03/18 at 08:00 Dextrose (D50w Syringe) 50 ml Q15M PRN IV DECREASED GLUCOSE Last administered on 12/06/18 11:18; Admin Dose 50 ML; Start 12/03/18 at 08:00 Glucagon (Glucagen) 1 mg Q15M PRN IM DECREASED GLUCOSE; Start 12/03/18 at 08:00 Glucose (Glutose) 15 gm Q15M PRN BUCCAL DECREASED GLUCOSE Last administered on 12/05/18 09:40; Admin Dose 15 GM; Start 12/03/18 at 08:00 Miscellaneous Information (Pending [facility] Order For Wound Care) This patient sewell... PRN PRN XX WOUND CARE; Start 12/04/18 at 03:30 Levothyroxine Sodium (Synthroid) 50 mcg DAILY@06 PO Last administered on 12/14/18 06:49; Admin Dose 50 MCG; Start 12/05/18 at 06:00 Melatonin (Melatonin) 3 mg HS PO Last administered on 12/14/18 22:08; Admin Dose 3 MG; Start 12/04/18 at 21:00 Metformin HCl (Glucophage) 500 mg BID WITH MEALS PO Last administered on 12/14/18 08:07; Admin Dose 500 MG; Start 12/09/18 at 17:35 Linagliptin (Tradjenta) 5 mg DAILY PO Last administered on 12/14/18 08:07; Admin Dose 5 MG; Start 12/10/18 at 09:00 Cefepime HCl 50 ml @ 100 mls/hr Q12 IVPB Last administered on 12/14/18 22:04; Admin Dose 100 MLS/HR; Start 12/11/18 at 21:00 Furosemide (Lasix) 40 mg DAILY IV Last administered on 12/14/18 09:33; Admin Dose 40 MG; Start 12/12/18 at 13:00 Methylprednisolone Sodium Succinate (Solu-Medrol) 40 mg BID IV Last administered on 12/14/18 22:07; Admin Dose 40 MG; Start 12/12/18 at 21:00 Megestrol Acetate (Megace) 40 mg QID PO Last administered on 12/14/18 22:09; Admin Dose 40 MG; Start 12/14/18 at 17:00 Acetaminophen/ Hydrocodone Bitart ([place] (5/325)) 1 tab Q6H PRN PO MODERATE PAIN LEVEL 4-6; Start 12/14/18 at 14:30 NEFTALI WESTON Dec 15, 2018 01:37
[2018-12-15 02:32] VITALS: BP 126/60; PULSE 63; RESP 18
[2018-12-15] MEDS: LEVOTHYROXINE 50 MCG TAB PO SCH (06:43)
[2018-12-15] MEDS: ARTIFICIAL TEARS 15 ML OPH BOTH EYES SCH ×3 (06:43→21:03)
[2018-12-15] MEDS: PANTOPRAZOLE (EC) 40 MG TAB PO SCH (06:43)
[2018-12-15 07:00] VITALS: BP 162/66; PULSE 74; RESP 20
[2018-12-15] MEDS: LINAGLIPTIN 5 MG TABLET PO SCH (07:55)
[2018-12-15] MEDS: metFORMIN 500 MG TAB PO SCH ×2 (07:55→17:31)
[2018-12-15] MEDS: ALBUTEROL/IPRATROPIUM (NEB) 3 ML AMP HHN SCH ×4 (08:14→20:12)
[2018-12-15] MEDS: FUROSEMIDE 20 MG INJ IV SCH (09:20)
[2018-12-15] MEDS: CHOLECALCIFEROL 2,000 UNIT CAP PO SCH (09:20)
[2018-12-15] MEDS: LACTULOSE 30ML CUP PO SCH (09:20)
[2018-12-15] MEDS: CYANOCOBALAMIN 500 MCG TAB PO SCH (09:21)
[2018-12-15] MEDS: PRIMIDONE 50 MG TAB PO SCH ×3 (09:21→21:00)
[2018-12-15] MEDS: SACUBITRIL/VALSARTAN (24mg-26mg) TABLET PO SCH ×2 (09:21→20:58)
[2018-12-15] MEDS: MEGESTROL 40 MG TAB PO SCH ×4 (09:21→21:00)
[2018-12-15] MEDS: CHOLECALCIFEROL 1,000 UNIT TAB PO SCH (09:22)
[2018-12-15] MEDS: DOCUSATE SODIUM 100 MG CAP PO SCH ×2 (09:22→20:58)
[2018-12-15] MEDS: ROFLUMILAST 500 MCG TABLET PO SCH (09:22)
[2018-12-15] MEDS: GUAIFENESIN LA 600 MG TABSR PO SCH ×2 (09:22→20:58)
[2018-12-15] MEDS: DULOXETINE 20 MG CAP DR PO SCH ×2 (09:22→20:58)
[2018-12-15] MEDS: METOPROLOL 25 MG TAB PO SCH ×2 (09:23→20:59)
[2018-12-15] MEDS: DILTIAZEM (CD) 180 MG CAP PO SCH ×2 (09:23→20:59)
[2018-12-15] MEDS: MICONAZOLE 2% 30 GM CR TOP SCH ×2 (09:24→21:01)
[2018-12-15] MEDS: METHYLPREDNISOLONE 40 MG INJ IV SCH ×2 (11:03→20:56)
[2018-12-15] MEDS: CEFEPIME 1GM/50 ML (PMX) 50 ML IVPB SCH ×2 (11:03→20:56)
--- NOTE | 2018-12-15 11:29 | CONS ---
Assessment/Plan Assessment/Plan Assessment/Plan (Daily) 1. 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 acute CHF, diastolic CHF 3. Acute COPD exacerbation 4. H/o HTN 5. H/O CKD Plan: Na 138, BUn/Cr improved to normal 40/0.94 on lasix 20mg po daily UO - adequate voided x6 IV solu-medrol 40mg IV BID Na chloride tablet 1 gram MWF will follow up Patient seen i collaboration with dr Shayna Peck/[facility] staff Consultation Date/Type/Reason Admit Date/Time Dec 02, 2018 at 22:56 Initial Consult Date 12/08/18 Type of Consult NEPHROLOGY Requesting Provider: LISSETTE ESPOSITO MD Date/Time of Note DATE: 12/15/18 TIME: 11:28 24 HR Interval Summary Free Text/Dictation - nad - sitting up in chair; seems comfortable on supplement oxygen - c/o low appetite- PMD started on Megace; dietary consult - partner at bed side- all Qs answered - no new events reported last night Constitutional: requiring O2 Detailed Summary Eyes: no complaints ENT: no complaints Respiratory: shortness of breath Cardiovascular: no complaints Gastrointestinal: no complaints Genitourinary: no complaints Musculoskeletal: no complaints Neurologic: no complaints Endocrine: no complaints Exam/Review of Systems Exam Vitals Vital Signs Date Temp Pulse Resp B/P (MAP) Pulse Ox O2 O2 Flow FiO2 Time Delivery Rate 12/15/18 81 18 98 Nasal 2.0 08:14 Cannula 12/15/18 98.6 162/66 07:00 (98) Intake and Output 12/14/18 12/14/18 12/15/18 1515:00 23:00 07:00 IntakeIntake Total 100 ml 510 ml 240 ml BalanceBalance 100 ml 510 ml 240 ml Constitutional: alert, well developed Psych: nl mood/affect Eyes: nl lids, nl sclera ENMT: nl external ears & nose Neck: supple Respiratory: diminished breath sounds Cardiovascular: nl pulses, other (S1S2) Gastrointestinal: soft, non-tender Musculoskeletal: muscle weakness Extremities: normal pulses Neurological: other (alert/sreponsive) Skin: other Results Result Diagram: 12/14/18 0726 12/14/18 0726 Results 24hrs Laboratory Tests Test 12/14/18 11:48 12/14/18 17:22 12/15/18 07:53 Bedside Glucose 102 138 102 Medications Medication Current Medications Acetaminophen (Tylenol Tab) 650 mg Q4H PRN PO PAIN Last administered on 12/03/18 23:14; Admin Dose 650 MG; Start 12/03/18 at 01:00 Al Hydrox/Mg Hydrox/Simethicone (Mag-Al Plus) 15 ml Q6H PRN PO GASTROINTESTINAL UPSET Last administered on 12/11/18 18:31; Admin Dose 15 ML; Start 12/03/18 at 01:00 Albuterol/ Ipratropium (Duoneb) 3 ml Q2H RESP THERAPY PRN HHN SHORTNESS OF BREATH Last administered on 12/08/18 10:25; Admin Dose 3 ML; Start 12/03/18 at 01:00 Albuterol/ Ipratropium (Duoneb) 3 ml Q4HWA RESP THERAPY HHN Last administered on 12/15/18 08:14; Admin Dose 3 ML; Start 12/03/18 at 09:00 Alprazolam (Xanax) 0.5 mg Q8H PRN PO ANXIETY Last administered on 12/12/18 22:14; Admin Dose 0.5 MG; Start 12/03/18 at 01:00 Eye Lubricant (Artificial Tears Oph) 2 drop Q8 BOTH EYES Last administered on 12/15/18 06:43; Admin Dose 2 DROP; Start 12/03/18 at 06:00 Atorvastatin Calcium (Lipitor) 10 mg HS PO Last administered on 12/14/18 22:09; Admin Dose 10 MG; Start 12/03/18 at 21:00 Calcium Carbonate (Tums) 500 mg HS PO Last administered on 12/14/18 22:08; Admin Dose 500 MG; Start 12/03/18 at 21:00 Cholecalciferol (Vitamin D) 4,000 unit DAILY PO Last administered on 12/15/18 09:20; Admin Dose 4,000 UNIT; Start 12/03/18 at 09:00 Diltiazem HCl (Cardizem Cd) 180 mg BID PO Last administered on 12/15/18 09:23; Admin Dose 180 MG; Start 12/03/18 at 09:00 Diphenhydramine HCl (Benadryl) 50 mg Q8 PRN PO for itching Last administered on 12/10/18 00:46; Admin Dose 50 MG; Start 12/03/18 at 01:00 Docusate Sodium (Colace) 100 mg BID PO Last administered on 12/15/18 09:22; Admin Dose 100 MG; Start 12/03/18 at 09:00 Donepezil HCl (Aricept) 10 mg 2100 PO Last administered on 12/14/18 22:08; Admin Dose 10 MG; Start 12/03/18 at 21:00 Duloxetine HCl (Cymbalta) 20 mg BID PO Last administered on 12/15/18 09:22; Admin Dose 20 MG; Start 12/03/18 at 09:00 Cholecalciferol (Vitamin D) 1,000 unit DAILY PO Last administered on 12/15/18 09:22; Admin Dose 1,000 UNIT; Start 12/03/18 at 09:00 Lactulose (Enulose) 20 gm DAILY PO Last administered on 12/15/18 09:20; Admin Dose 20 GM; Start 12/03/18 at 09:00 Metoclopramide HCl (Reglan) 5 mg Q6H PRN IV NAUSEA; Start 12/03/18 at 04:00 Metoprolol Tartrate (Lopressor) 25 mg BID PO Last administered on 12/15/18 09:23; Admin Dose 25 MG; Start 12/03/18 at 09:00 Miconazole Nitrate (Miconazole 2% Cr) 1 applic BID TOP Last administered on 12/15/18 09:24; Admin Dose 1 APPLIC; Start 12/03/18 at 09:00 Morphine Sulfate (morphine) 6 mg Q4H PRN PO BREAKTHROUGH PAIN Last administered on 12/14/18 07:01; Admin Dose 6 MG; Start 12/03/18 at 04:00 Pantoprazole (Protonix Tab) 40 mg DAILY@06 PO Last administered on 12/15/18 06:43; Admin Dose 40 MG; Start 12/03/18 at 06:00 Phenol (Cepastat Lozenge) 1 lozenge Q1H PRN MT SORE THROAT; Start 12/03/18 at 04:00 Primidone (Mysoline) 100 mg TID PO Last administered on 12/15/18 09:21; Admin Dose 100 MG; Start 12/03/18 at 09:00 Rivaroxaban (Xarelto) 15 mg WITH DINNER PO Last administered on 12/14/18 17:27; Admin Dose 15 MG; Start 12/03/18 at 17:35 Guaifenesin (Mucinex) 1,200 mg BID PO Last administered on 12/15/18 09:22; Admin Dose 1,200 MG; Start 12/03/18 at 09:00 Digoxin (Digoxin) 0.125 mg DAILY@13 PO Last administered on 12/14/18 12:38; Admin Dose 0.125 MG; Start 12/03/18 at 13:00 Roflumilast (Daliresp) 500 mcg DAILY PO Last administered on 12/15/18 09:22; Admin Dose 500 MCG; Start 12/03/18 at 09:00 Sacubitril/ Valsartan (Entresto 24 Mg-26 Mg) 1 tab BID PO Last administered on 12/15/18 09:21; Admin Dose 1 TAB; Start 12/03/18 at 09:00 Simethicone (Mylicon) 80 mg Q6H PRN PO DISTENSION/GAS/BLOATING Last administered on 12/06/18 18:25; Admin Dose 80 MG; Start 12/03/18 at 05:00 Sodium Chloride (Nacl) 2 gm MONWEDFRI PO Last administered on 12/13/18 09:32; Admin Dose 2 GM; Start 12/04/18 at 09:00 Cyanocobalamin (Vitamin B12) 5,000 mcg Q48H PO Last administered on 12/15/18 09:21; Admin Dose 5,000 MCG; Start 12/03/18 at 09:00 Miscellaneous Information 1 ea NOTE XX Last administered on 12/03/18 09:25; Admin Dose 1 EA; Start 12/03/18 at 08:00 Glucose (Glutose) 15 gm Q15M PRN PO DECREASED GLUCOSE Last administered on 12/03/18 09:18; Admin Dose 15 GM; Start 12/03/18 at 08:00 Glucose (Glutose) 22.5 gm Q15M PRN PO DECREASED GLUCOSE Last administered on 08:52; Admin Dose 22.5 GM; Start 12/03/18 at 08:00 Dextrose (D50w Syringe) 25 ml Q15M PRN IV DECREASED GLUCOSE; Start 12/03/18 at 08:00 Dextrose (D50w Syringe) 50 ml Q15M PRN IV DECREASED GLUCOSE Last administered on 12/06/18 11:18; Admin Dose 50 ML; Start 12/03/18 at 08:00 Glucagon (Glucagen) 1 mg Q15M PRN IM DECREASED GLUCOSE; Start 12/03/18 at 08:00 Glucose (Glutose) 15 gm Q15M PRN BUCCAL DECREASED GLUCOSE Last administered on 12/05/18 09:40; Admin Dose 15 GM; Start 12/03/18 at 08:00 Miscellaneous Information (Pending [facility] Order For Wound Care) This patient sewell... PRN PRN XX WOUND CARE; Start 12/04/18 at 03:30 Levothyroxine Sodium (Synthroid) 50 mcg DAILY@06 PO Last administered on 12/15/18 06:43; Admin Dose 50 MCG; Start 12/05/18 at 06:00 Melatonin (Melatonin) 3 mg HS PO Last administered on 12/14/18 22:08; Admin Dose 3 MG; Start 12/04/18 at 21:00 Metformin HCl (Glucophage) 500 mg BID WITH MEALS PO Last administered on 12/15/18 07:55; Admin Dose 500 MG; Start 12/09/18 at 17:35 Linagliptin (Tradjenta) 5 mg DAILY PO Last administered on 12/15/18 07:55; Admin Dose 5 MG; Start 12/10/18 at 09:00 Cefepime HCl 50 ml @ 100 mls/hr Q12 IVPB Last administered on 12/15/18 11:03; Admin Dose 100 MLS/HR; Start 12/11/18 at 21:00 Furosemide (Lasix) 40 mg DAILY IV Last administered on 12/15/18 09:20; Admin Dose 40 MG; Start 12/12/18 at 13:00 Methylprednisolone Sodium Succinate (Solu-Medrol) 40 mg BID IV Last administered on 12/15/18 11:03; Admin Dose 40 MG; Start 12/12/18 at 21:00 Megestrol Acetate (Megace) 40 mg QID PO Last administered on 12/15/18 09:21; Admin Dose 40 MG; Start 12/14/18 at 17:00 Acetaminophen/ Hydrocodone Bitart ([place] (5/325)) 1 tab Q6H PRN PO MODERATE PAIN LEVEL 4-6; Start 12/14/18 at 14:30 NEFTALI WESTON Dec 15, 2018 11:29
[2018-12-15] MEDS: DIGOXIN 0.125 MG TAB PO SCH (12:26)
--- NOTE | 2018-12-15 12:58 | PN ---
Date/Time of Note Date/Time of Note DATE: 12/15/18 TIME: 12:58 Assessment/Plan VTE Prophylaxis Risk score (from Ns)>0 risk: 6 SCD applied (from Ns): No SCD contraindicated: other Pharmacological prophylaxis: LMWH Lines/Catheters IV Catheter Type (from [facility]): Peripheral IV Urinary Cath still in place: No Assessment/Plan Hospital Course - -LLL atelectasis - Breathing treatment - Cefepime - CXR - am LABS -Status post acute hypoxemic and hypercapnic respiratory failure secondary to COPD exacerbation. -Dr. Zapata is following in pulmonology consultation. -COPD -Decompensated diastolic congestive heart failure, continue Lasix, monitor electrolytes. -Chronic atrial fibrillation. Continue digoxin, Cardizem and Xarelto. -Diabetes mellitus type 2. Continue metformin and Tradjenta. -Anemia of chronic disease -Hypothyroidism, started on levothyroxine Result Diagram: 12/14/1872512/14/1826 Results 24hrs Laboratory Tests Test 12/14/18 17:22 12/15/18 07:53 12/15/18 12:03 Bedside Glucose 138 102 113 Subjective 24 Hr Interval Summary Free Text/Dictation Still have back pain Exam/Review of Systems Exam Vitals Vital Signs Date Temp Pulse Resp B/P (MAP) Pulse Ox O2 O2 Flow FiO2 Time Delivery Rate 12/15/18 81 18 98 Nasal 2.0 08:14 Cannula 12/15/18 98.6 162/66 07:00 (98) Intake and Output 12/14/18 12/14/18 12/15/18 1515:00 23:00 07:00 IntakeIntake Total 100 ml 510 ml 240 ml BalanceBalance 100 ml 510 ml 240 ml Constitutional: well developed Head: normocephalic, atraumatic Neck: supple Respiratory: clear to auscultation Cardiovascular: regular rate and rhythm Gastrointestinal: soft, non-tender Extremities: normal pulses Results Results 24hrs Laboratory Tests Test 12/14/18 17:22 12/15/18 07:53 12/15/18 12:03 Bedside Glucose 138 102 113 Medications Medication Current Medications Acetaminophen (Tylenol Tab) 650 mg Q4H PRN PO PAIN Last administered on 12/03/18at 23:14; Admin Dose 650 MG; Start 12/03/18 at 01:00 Al Hydrox/Mg Hydrox/Simethicone (Mag-Al Plus) 15 ml Q6H PRN PO GASTROINTESTINAL UPSET Last administered on 12/11/18 18:31; Admin Dose 15 ML; Start 12/03/18 at 01:00 Albuterol/ Ipratropium (Duoneb) 3 ml Q2H RESP THERAPY PRN HHN SHORTNESS OF BREATH Last administered on 12/08/18 10:25; Admin Dose 3 ML; Start 12/03/18 at 01:00 Albuterol/ Ipratropium (Duoneb) 3 ml Q4HWA RESP THERAPY HHN Last administered on 12/15/18 08:14; Admin Dose 3 ML; Start 12/03/18 at 09:00 Alprazolam (Xanax) 0.5 mg Q8H PRN PO ANXIETY Last administered on 12/12/18 22:14; Admin Dose 0.5 MG; Start 12/03/18 at 01:00 Eye Lubricant (Artificial Tears Oph) 2 drop Q8 BOTH EYES Last administered on 12/15/18 06:43; Admin Dose 2 DROP; Start 12/03/18 at 06:00 Atorvastatin Calcium (Lipitor) 10 mg HS PO Last administered on 12/14/18 22:09; Admin Dose 10 MG; Start 12/03/18 at 21:00 Calcium Carbonate (Tums) 500 mg HS PO Last administered on 12/14/18 22:08; Adm in Dose 500 MG; Start 12/03/18 at 21:00 Cholecalciferol (Vitamin D) 4,000 unit DAILY PO Last administered on 12/15/18 09:20; Admin Dose 4,000 UNIT; Start 12/03/18 at 09:00 Diltiazem HCl (Cardizem Cd) 180 mg BID PO Last administered on 12/15/18 09:23; Admin Dose 180 MG; Start 12/03/18 at 09:00 Diphenhydramine HCl (Benadryl) 50 mg Q8 PRN PO for itching Last administered on 12/10/18 00:46; Admin Dose 50 MG; Start 12/03/18 at 01:00 Docusate Sodium (Colace) 100 mg BID PO Last administered on 12/15/18 09:22; Admin Dose 100 MG; Start 12/03/18 at 09:00 Donepezil HCl (Aricept) 10 mg 2100 PO Last administered on 12/14/18 22:08; Admin Dose 10 MG; Start 12/03/18 at 21:00 Duloxetine HCl (Cymbalta) 20 mg BID PO Last administered on 12/15/18 09:22; Admin Dose 20 MG; Start 12/03/18 at 09:00 Cholecalciferol (Vitamin D) 1,000 unit DAILY PO Last administered on 12/15/18 09:22; Admin Dose 1,000 UNIT; Start 12/03/18 at 09:00 Lactulose (Enulose) 20 gm DAILY PO Last administered on 12/15/18 09:20; Admin Dose 20 GM; Start 12/03/18 at 09:00 Metoclopramide HCl (Reglan) 5 mg Q6H PRN IV NAUSEA; Start 12/03/18 at 04:00 Metoprolol Tartrate (Lopressor) 25 mg BID PO Last administered on 12/15/18 09:23; Admin Dose 25 MG; Start 12/03/18 at 09:00 Miconazole Nitrate (Miconazole 2% Cr) 1 applic BID TOP Last administered on 12/15/18 09:24; Admin Dose 1 APPLIC; Start 12/03/18 at 09:00 Morphine Sulfate (morphine) 6 mg Q4H PRN PO BREAKTHROUGH PAIN Last administered on 12/14/18 07:01; Admin Dose 6 MG; Start 12/03/18 at 04:00 Pantoprazole (Protonix Tab) 40 mg DAILY@06 PO Last administered on 12/15/18 06:43; Admin Dose 40 MG; Start 12/03/18 at 06:00 Phenol (Cepastat Lozenge) 1 lozenge Q1H PRN MT SORE THROAT; Start 12/03/18 at 04:00 Primidone (Mysoline) 100 mg TID PO Last administered on 12/15/18 12:26; Admin Dose 100 MG; Start 12/03/18 at 09:00 Rivaroxaban (Xarelto) 15 mg WITH DINNER PO Last administered on 12/14/18 17:27; Admin Dose 15 MG; Start 12/03/18 at 17:35 Guaifenesin (Mucinex) 1,200 mg BID PO Last administered on 12/15/18 09:22; Admin Dose 1,200 MG; Start 12/03/18 at 09:00 Digoxin (Digoxin) 0.125 mg DAILY@13 PO Last administered on 12/15/18 12:26; Admin Dose 0.125 MG; Start 12/03/18 at 13:00 Roflumilast (Daliresp) 500 mcg DAILY PO Last administered on 12/15/18 09:22; Admin Dose 500 MCG; Start 12/03/18 at 09:00 Sacubitril/ Valsartan (Entresto 24 Mg-26 Mg) 1 tab BID PO Last administered on 12/15/18 09:21; Admin Dose 1 TAB; Start 12/03/18 at 09:00 Simethicone (Mylicon) 80 mg Q6H PRN PO DISTENSION/GAS/BLOATING Last administered on 12/06/18 18:25; Admin Dose 80 MG; Start 12/03/18 at 05:00 Sodium Chloride (Nacl) 2 gm MONWEDFRI PO Last administered on 12/13/18 09:32; Admin Dose 2 GM; Start 12/04/18 at 09:00 Cyanocobalamin (Vitamin B12) 5,000 mcg Q48H PO Last administered on 12/15/18 09:21; Admin Dose 5,000 MCG; Start 12/03/18 at 09:00 Miscellaneous Information 1 ea NOTE XX Last administered on 12/03/18 09:25; Admin Dose 1 EA; Start 12/03/18 at 08:00 Glucose (Glutose) 15 gm Q15M PRN PO DECREASED GLUCOSE Last administered on 12/03/18 09:18; Admin Dose 15 GM; Start 12/03/18 at 08:00 Glucose (Glutose) 22.5 gm Q15M PRN PO DECREASED GLUCOSE Last administered on 12/06/18 08:52; Admin Dose 22.5 GM; Start 12/03/18 at 08:00 Dextrose (D50w Syringe) 25 ml Q15M PRN IV DECREASED GLUCOSE; Start 12/03/18 at 08:00 Dextrose (D50w Syringe) 50 ml Q15M PRN IV DECREASED GLUCOSE Last administered on 12/06/18 11:18; Admin Dose 50 ML; Start 12/03/18 at 08:00 Glucagon (Glucagen) 1 mg Q15M PRN IM DECREASED GLUCOSE; Start 12/03/18 at 08:00 Glucose (Glutose) 15 gm Q15M PRN BUCCAL DECREASED GLUCOSE Last administered on 12/05/18 09:40; Admin Dose 15 GM; Start 12/03/18 at 08:00 Miscellaneous Information (Pending Santyl Order For Wound Care) This patient sewell... PRN PRN XX WOUND CARE; Start 12/04/18 at 03:30 Levothyroxine Sodium (Synthroid) 50 mcg DAILY@06 PO Last administered on 12/15/18 06:43; Admin Dose 50 MCG; Start 12/05/18 at 06:00 Melatonin (Melatonin) 3 mg HS PO Last administered on 12/14/18 22:08; Admin Dose 3 MG; Start 12/04/18 at 21:00 Metformin HCl (Glucophage) 500 mg BID WITH MEALS PO Last administered on 12/15/18 07:55; Admin Dose 500 MG; Start 12/09/18 at 17:35 Linagliptin (Tradjenta) 5 mg DAILY PO Last administered on 12/15/18 07:55; Admin Dose 5 MG; Start 12/10/18 at 09:00 Cefepime HCl 50 ml @ 100 mls/hr Q12 IVPB Last administered on 12/15/18 11:03; Admin Dose 100 MLS/HR; Start 12/11/18 at 21:00 Furosemide (Lasix) 40 mg DAILY IV Last administered on 12/15/18 09:20; Admin Dose 40 MG; Start 12/12/18 at 13:00 Methylprednisolone Sodium Succinate (Solu-Medrol) 40 mg BID IV Last administered on 12/15/18 11:03; Admin Dose 40 MG; Start 12/12/18 at 21:00 Megestrol Acetate (Megace) 40 mg QID PO Last administered on 12/15/18 12:26; Admin Dose 40 MG; Start 12/14/18 at 17:00 Acetaminophen/ Hydrocodone Bitart ([place] (5/325)) 1 tab Q6H PRN PO MODERATE PAIN LEVEL 4-6; Start 12/14/18 at 14:30 SARAH RODRIGUEZ Dec 15, 2018 12:58
[2018-12-15 14:00] VITALS: BP 121/52; PULSE 64; RESP 16
--- NOTE | 2018-12-15 16:46 | CONS ---
Assessment/Plan Cardiology NYHA: II Heart Failure Type: Acute Heart Failure Type: Diastolic Assessment/Plan Hospital Course (Demo Recall) COPD exacerbation Acute decompensated diastolic congestive heart failure Atrial fibrillation, on anticoagulation Recent pneumonia Hypertension Dyslipidemia Preserved ejection fraction Possible conjunctival hemorrhage-improved -Respiratory status continues to improve -CT chest without significant volume overload, would switch Lasix to p.o. starting from tomorrow -Continue Cardizem and metoprolol for heart rate control and titrate based on heart rate and blood pressure -Continue digoxin as tolerated Consultation Date/Type/Reason Admit Date/Time Dec 02, 2018 at 22:56 Initial Consult Date Type of Consult Cardiology Requesting Provider: LISSETTE ESPOSITO MD Date/Time of Note DATE: 12/15/18 TIME: 16:44 24 HR Interval Summary Free Text/Dictation Patient seen and examined Exam/Review of Systems Vital Signs Vitals Vital Signs Date Temp Pulse Resp B/P (MAP) Pulse Ox O2 O2 Flow FiO2 Time Delivery Rate 12/15/18 98.0 64 16 121/52 99 Room Air 14:00 (75) 12/15/18 2.0 08:14 Intake and Output 12/14/18 12/14/18 12/15/18 1515:00 23:00 07:00 IntakeIntake Total 100 ml 510 ml 240 ml BalanceBalance 100 ml 510 ml 240 ml Exam Exam Sleeping, no apparent distress, family at bedside Head: normocephalic Respiratory: other (Coarse breath sounds bilaterally, minimal wheezing) Cardiovascular: irregular rhythm (S1-S2 heard) Gastrointestinal: soft, non-tender, bowel sounds Extremities: other (No significant edema) Labs Result Diagram: 12/14/18 0726 12/14/18 0726 Results 24hrs Laboratory Tests Test 12/14/18 17:22 12/15/18 07:53 12/15/18 12:03 Bedside Glucose 138 102 113 Medications Medications Current Medications Acetaminophen (Tylenol Tab) 650 mg Q4H PRN PO PAIN Last administered on 12/03/18at 23:14; Admin Dose 650 MG; Start 12/03/18 at 01:00 Al Hydrox/Mg Hydrox/Simethicone (Mag-Al Plus) 15 ml Q6H PRN PO GASTROINTESTINAL UPSET Last administered on 12/11/18at 18:31; Admin Dose 15 ML; Start 12/03/18 at 01:00 Albuterol/ Ipratropium (Duoneb) 3 ml Q2H RESP THERAPY PRN HHN SHORTNESS OF BREATH Last administered on 12/08/18 10:25; Admin Dose 3 ML; Start 12/03/18 at 01:00 Albuterol/ Ipratropium (Duoneb) 3 ml Q4HWA RESP THERAPY HHN Last administered on 12/15/18 08:14; Admin Dose 3 ML; Start 12/03/18 at 09:00 Alprazolam (Xanax) 0.5 mg Q8H PRN PO ANXIETY Last administered on 12/12/18 22:14; Admin Dose 0.5 MG; Start 12/03/18 at 01:00 Eye Lubricant (Artificial Tears Oph) 2 drop Q8 BOTH EYES Last administered on 12/15/18 14:20; Admin Dose 2 DROP; Start 12/03/18 at 06:00 Atorvastatin Calcium (Lipitor) 10 mg HS PO Last administered on 12/14/18 22:09; Admin Dose 10 MG; Start 12/03/18 at 21:00 Calcium Carbonate (Tums) 500 mg HS PO Last administered on 12/14/18 22:08; Admin Dose 500 MG; Start 12/03/18 at 21:00 Cholecalciferol (Vitamin D) 4,000 unit DAILY PO Last administered on 12/15/18 09:20; Admin Dose 4,000 UNIT; Start 12/03/18 at 09:00 Diltiazem HCl (Cardizem Cd) 180 mg BID PO Last administered on 12/15/18 09:23; Admin Dose 180 MG; Start 12/03/18 at 09:00 Diphenhydramine HCl (Benadryl) 50 mg Q8 PRN PO for itching Last administered on 12/10/18 00:46; Admin Dose 50 MG; Start 12/03/18 at 01:00 Docusate Sodium (Colace) 100 mg BID PO Last administered on 12/15/18 09:22; Admin Dose 100 MG; Start 12/03/18 at 09:00 Donepezil HCl (Aricept) 10 mg 2100 PO Last administered on 12/14/18 22:08; Admin Dose 10 MG; Start 12/03/18 at 21:00 Duloxetine HCl (Cymbalta) 20 mg BID PO Last administered on 12/15/18 09:22; Admin Dose 20 MG; Start 12/03/18 at 09:00 Cholecalciferol (Vitamin D) 1,000 unit DAILY PO Last administered on 12/15/18 09:22; Admin Dose 1,000 UNIT; Start 12/03/18 at 09:00 Lactulose (Enulose) 20 gm DAILY PO Last administered on 12/15/18 09:20; Admin Dose 20 GM; Start 12/03/18 at 09:00 Metoclopramide HCl (Reglan) 5 mg Q6H PRN IV NAUSEA; Start 12/03/18 at 04:00 Metoprolol Tartrate (Lopressor) 25 mg BID PO Last administered on 12/15/18 09:23; Admin Dose 25 MG; Start 12/03/18 at 09:00 Miconazole Nitrate (Miconazole 2% Cr) 1 applic BID TOP Last administered on 12/15/18 09:24; Admin Dose 1 APPLIC; Start 12/03/18 at 09:00 Morphine Sulfate (morphine) 6 mg Q4H PRN PO BREAKTHROUGH PAIN Last administered on 12/14/18 07:01; Admin Dose 6 MG; Start 12/03/18 at 04:00 Pantoprazole (Protonix Tab) 40 mg DAILY@06 PO Last administered on 12/15/18 06:43; Admin Dose 40 MG; Start 12/03/18 at 06:00 Phenol (Cepastat Lozenge) 1 lozenge Q1H PRN MT SORE THROAT; Start 12/03/18 at 04:00 Primidone (Mysoline) 100 mg TID PO Last administered on 12/15/18 12:26; Admin Dose 100 MG; Start 12/03/18 at 09:00 Rivaroxaban (Xarelto) 15 mg WITH DINNER PO Last administered on 12/14/18 17:27; Admin Dose 15 MG; Start 12/03/18 at 17:35 Guaifenesin (Mucinex) 1,200 mg BID PO Last administered on 12/15/18 09:22; Admin Dose 1,200 MG; Start 12/03/18 at 09:00 Digoxin (Digoxin) 0.125 mg DAILY@13 PO Last administered on 12/15/18 12:26; Admin Dose 0.125 MG; Start 12/03/18 at 13:00 Roflumilast (Daliresp) 500 mcg DAILY PO Last administered on 12/15/18 09:22; Admin Dose 500 MCG; Start 12/03/18 at 09:00 Sacubitril/ Valsartan (Entresto 24 Mg-26 Mg) 1 tab BID PO Last administered on 12/15/18 09:21; Admin Dose 1 TAB; Start 12/03/18 at 09:00 Simethicone (Mylicon) 80 mg Q6H PRN PO DISTENSION/GAS/BLOATING Last administered on 12/06/18 18:25; Admin Dose 80 MG; Start 12/03/18 at 05:00 Sodium Chloride (Nacl) 2 gm MONWEDFRI PO Last administered on 12/13/18 09:32; Admin Dose 2 GM; Start 12/04/18 at 09:00 Cyanocobalamin (Vitamin B12) 5,000 mcg Q48H PO Last administered on 12/15/18 09:21; Admin Dose 5,000 MCG; Start 12/03/18 at 09:00 Miscellaneous Information 1 ea NOTE XX Last administered on 12/03/18 09:25; Admin Dose 1 EA; Start 12/03/18 at 08:00 Glucose (Glutose) 15 gm Q15M PRN PO DECREASED GLUCOSE Last administered on 12/03/18 09:18; Admin Dose 15 GM; Start 12/03/18 at 08:00 Glucose (Glutose) 22.5 gm Q15M PRN PO DECREASED GLUCOSE Last administered on 12/06/18 08:52; Admin Dose 22.5 GM; Start 12/03/18 at 08:00 Dextrose (D50w Syringe) 25 ml Q15M PRN IV DECREASED GLUCOSE; Start 12/03/18 at 08:00 Dextrose (D50w Syringe) 50 ml Q15M PRN IV DECREASED GLUCOSE Last administered on 12/06/18 11:18; Admin Dose 50 ML; Start 12/03/18 at 08:00 Glucagon (Glucagen) 1 mg Q15M PRN IM DECREASED GLUCOSE; Start 12/03/18 at 08:00 Glucose (Glutose) 15 gm Q15M PRN BUCCAL DECREASED GLUCOSE Last administered on 12/05/18 09:40; Admin Dose 15 GM; Start 12/03/18 at 08:00 Miscellaneous Information (Pending Santyl Order For Wound Care) This patient sewell... PRN PRN XX WOUND CARE; Start 12/04/18 at 03:30 Levothyroxine Sodium (Synthroid) 50 mcg DAILY@06 PO Last administered on 12/15/18 06:43; Admin Dose 50 MCG; Start 12/05/18 at 06:00 Melatonin (Melatonin) 3 mg HS PO Last administered on 12/14/18 22:08; Admin Dose 3 MG; Start 12/04/18 at 21:00 Metformin HCl (Glucophage) 500 mg BID WITH MEALS PO Last administered on 12/15/18 07:55; Admin Dose 500 MG; Start 12/09/18 at 17:35 Linagliptin (Tradjenta) 5 mg DAILY PO Last administered on 12/15/18 07:55; Admin Dose 5 MG; Start 12/10/18 at 09:00 Cefepime HCl 50 ml @ 100 mls/hr Q12 IVPB Last administered on 12/15/18 11:03; Admin Dose 100 MLS/HR; Start 12/11/18 at 21:00 Furosemide (Lasix) 40 mg DAILY IV Last administered on 12/15/18 09:20; Admin Dose 40 MG; Start 12/12/18 at 13:00 Methylprednisolone Sodium Succinate (Solu-Medrol) 40 mg BID IV Last administered on 12/15/18 11:03; Admin Dose 40 MG; Start 12/12/18 at 21:00 Megestrol Acetate (Megace) 40 mg QID PO Last administered on 12/15/18 12:26; A dmin Dose 40 MG; Start 12/14/18 at 17:00 Acetaminophen/ Hydrocodone Bitart ([place] (5/325)) 1 tab Q6H PRN PO MODERATE PAIN LEVEL 4-6; Start 12/14/18 at 14:30 Bird Herrera DO Dec 15, 2018 16:46
[2018-12-15] MEDS: RIVAROXABAN 15 MG TABLET PO SCH (17:31)
[2018-12-15 20:00] VITALS: BP 127/60; PULSE 96; RESP 18
[2018-12-15] MEDS: ATORVASTATIN 10 MG TAB PO SCH (20:58)
[2018-12-15] MEDS: CALCIUM CARBONATE 500 MG CHEW TAB PO SCH (20:58)
[2018-12-15] MEDS: MELATONIN 3 MG TABLET PO SCH (20:59)
[2018-12-15] MEDS: DONEPEZIL 10 MG TAB PO SCH (20:59)
[2018-12-15] MEDS: ALPRAZOLAM 0.25 MG TAB PO PRN (22:46)
[2018-12-15] MEDS: ALBUTEROL/IPRATROPIUM (NEB) 3 ML AMP HHN PRN (22:47)
[2018-12-16 02:00] VITALS: BP 134/62; PULSE 87; RESP 18
[2018-12-16] MEDS: DIPHENHYDRAMINE 50 MG CAP PO PRN (04:04)
[2018-12-16] MEDS: ALBUTEROL/IPRATROPIUM (NEB) 3 ML AMP HHN PRN (04:07)
[2018-12-16] MEDS: LEVOTHYROXINE 50 MCG TAB PO SCH (06:20)
[2018-12-16] MEDS: ARTIFICIAL TEARS 15 ML OPH BOTH EYES SCH ×3 (06:20→21:45)
[2018-12-16] MEDS: PANTOPRAZOLE (EC) 40 MG TAB PO SCH (06:20)
[2018-12-16 07:30] VITALS: BP 174/80; PULSE 90; RESP 20
[2018-12-16] MEDS: GUAIFENESIN LA 600 MG TABSR PO SCH ×2 (09:00→21:21)
[2018-12-16] MEDS: metFORMIN 500 MG TAB PO SCH ×2 (09:03→17:57)
[2018-12-16] MEDS: METHYLPREDNISOLONE 40 MG INJ IV SCH ×2 (09:03→21:20)
[2018-12-16] MEDS: CEFEPIME 1GM/50 ML (PMX) 50 ML IVPB SCH ×2 (09:04→21:19)
[2018-12-16] MEDS: MEGESTROL 40 MG TAB PO SCH ×4 (09:10→21:21)
[2018-12-16] MEDS: CHOLECALCIFEROL 1,000 UNIT TAB PO SCH (09:10)
[2018-12-16] MEDS: LINAGLIPTIN 5 MG TABLET PO SCH (09:10)
[2018-12-16] MEDS: CHOLECALCIFEROL 2,000 UNIT CAP PO SCH (09:10)
[2018-12-16] MEDS: DULOXETINE 20 MG CAP DR PO SCH ×2 (09:10→21:22)
[2018-12-16] MEDS: ROFLUMILAST 500 MCG TABLET PO SCH (09:10)
[2018-12-16] MEDS: SACUBITRIL/VALSARTAN (24mg-26mg) TABLET PO SCH ×2 (09:14→21:22)
[2018-12-16] MEDS: MICONAZOLE 2% 30 GM CR TOP SCH ×2 (09:14→21:27)
[2018-12-16] MEDS: METOPROLOL 25 MG TAB PO SCH ×2 (09:15→21:25)
[2018-12-16] MEDS: LACTULOSE 30ML CUP PO SCH (09:15)
[2018-12-16] MEDS: FUROSEMIDE 40 MG TAB PO SCH (09:16)
[2018-12-16] MEDS: PRIMIDONE 50 MG TAB PO SCH ×3 (09:17→21:22)
[2018-12-16] MEDS: DILTIAZEM (CD) 180 MG CAP PO SCH ×2 (09:17→21:26)
[2018-12-16] MEDS: DOCUSATE SODIUM 100 MG CAP PO SCH ×2 (09:17→21:22)
[2018-12-16] MEDS: SODIUM CHLORIDE 1 GM TAB PO SCH (09:34)
[2018-12-16] MEDS: ALBUTEROL/IPRATROPIUM (NEB) 3 ML AMP HHN SCH ×4 (10:13→21:12)
--- NOTE | 2018-12-16 11:54 | CONS ---
Assessment/Plan Assessment/Plan Assessment/Plan (Daily) 1. 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 acute CHF, diastolic CHF 3. Acute COPD exacerbation 4. H/o HTN 5. H/O CKD Plan: BUN/Cr improved to normal 35/0.97- Other electrolytes stable, on lasix 20mg po daily UO - adequate voided x6 IV solu-medrol 40mg IV BID Na chloride tablet 2gram MWF - Na normal, possible plan for d/c to SNF soon will follow up Consultation Date/Type/Reason Admit Date/Time Dec 02, 2018 at 22:56 Initial Consult Date 12/08/18 Type of Consult NEPHROLOGY Requesting Provider: LISSETTE ESPOSITO MD Date/Time of Note DATE: 12/16/18 TIME: 11:54 Exam/Review of Systems Exam Vitals Vital Signs Date Temp Pulse Resp B/P (MAP) Pulse Ox O2 O2 Flow FiO2 Time Delivery Rate 12/16/18 88 16 97 Nasal 2.0 10:16 Cannula 12/16/18 98.2 174/80 07:30 (111) Intake and Output 12/15/18 12/15/18 12/16/18 1515:00 23:00 07:00 IntakeIntake Total 50 ml 890 ml BalanceBalance 50 ml 890 ml Exam Constitutional: alert, well developed Respiratory: diminished breath sounds Cardiovascular: nl pulses, other (S1S2) Gastrointestinal: soft, non-tender Musculoskeletal: muscle weakness Extremities: normal pulses Neurological: other (alert/sreponsive) Skin: other Results Result Diagram: 12/16/18 0700 12/16/18 0700 Results 24hrs Laboratory Tests Test 12/15/18 12:03 12/15/18 17:25 12/16/18 07:00 Bedside Glucose 113 162 White Blood Count 14.8 #H Red Blood Count 3.70 L Hemoglobin 10.3 L Hematocrit 31.4 L Mean Corpuscular Volume 84.9 Mean Corpuscular Hemoglobin 27.8 L Mean Corpuscular Hemoglobin Concent 32.8 Red Cell Distribution Width 25.5 H Platelet Count 153 Mean Platelet Volume 9.6 Immature Granulocytes % 10.600 H Neutrophils % Segmented Neutrophils % (Manual) 92 H Band Neutrophils % (Manual) 2 Lymphocytes % Reactive Lymphocytes % (Manual) 1 H Monocytes % Eosinophils % Basophils % Basophils % (Manual) 1 Metamyelocytes % (manual) 1 H Myelocytes % (Manual) 2 H Promyelocytes % (Manual) 1 H Nucleated Red Blood Cells % 0.1 H Immature Granulocytes # 1.580 H Neutrophils # Neutrophils # (Manual) 13.6 H Band Neutrophils # 0.2 Lymphocytes # Reactive Lymphocytes # 0.1 H Monocytes # Eosinophils # Basophils # Basophils # (Manual) 0.1 H Metamyelocytes # 0.1 H Myelocytes # 0.2 H Promyelocytes # 0.1 H Nucleated Red Blood Cells # Platelet Estimate NORMAL Polychromasia 1+ Poikilocytosis 1+ Anisocytosis 1+ Microcytosis 1+ Macrocytosis 1+ Ovalocytes 1+ Stomatocytes 1+ Acanthocytes 1+ Sodium Level 137 Potassium Level 4.2 Chloride Level 97 Carbon Dioxide Level 37 H Anion Gap 3 L Blood Urea Nitrogen 35 H Creatinine 0.97 Est Glomerular Filtrat Rate mL/min Glucose Level 102 Calcium Level 9.2 Magnesium Level 2.2 Medications Medication Current Medications Acetaminophen (Tylenol Tab) 650 mg Q4H PRN PO PAIN Last administered on 12/03/18 23:14; Admin Dose 650 MG; Start 12/03/18 at 01:00 Al Hydrox/Mg Hydrox/Simethicone (Mag-Al Plus) 15 ml Q6H PRN PO GASTROINTESTINAL UPSET Last administered on 12/11/18 18:31; Admin Dose 15 ML; Start 12/03/18 at 01:00 Albuterol/ Ipratropium (Duoneb) 3 ml Q2H RESP THERAPY PRN HHN SHORTNESS OF BREATH Last administered on 12/16/18 04:07; Admin Dose 3 ML; Start 12/03/18 at 01:00 Albuterol/ Ipratropium (Duoneb) 3 ml Q4HWA RESP THERAPY HHN Last administered on 12/16/18 10:13; Admin Dose 3 ML; Start 12/03/18 at 09:00 Alprazolam (Xanax) 0.5 mg Q8H PRN PO ANXIETY Last administered on 12/15/18 22:46; Admin Dose 0.5 MG; Start 12/03/18 at 01:00 Eye Lubricant (Artificial Tears Oph) 2 drop Q8 BOTH EYES Last administered on 12/16/18 06:20; Admin Dose 2 DROP; Start 12/03/18 at 06:00 Atorvastatin Calcium (Lipitor) 10 mg HS PO Last administered on 12/15/18 20:58; Admin Dose 10 MG; Start 12/03/18 at 21:00 Calcium Carbonate (Tums) 500 mg HS PO Last administered on 12/15/18 20:58; Admin Dose 500 MG; Start 12/03/18 at 21:00 Cholecalciferol (Vitamin D) 4,000 unit DAILY PO Last administered on 12/16/18 09:10; Admin Dose 4,000 UNIT; Start 12/03/18 at 09:00 Diltiazem HCl (Cardizem Cd) 180 mg BID PO Last administered on 12/16/18 09:17; Admin Dose 180 MG; Start 12/03/18 at 09:00 Diphenhydramine HCl (Benadryl) 50 mg Q8 PRN PO for itching Last administered on 12/16/18 04:04; Admin Dose 50 MG; Start 12/03/18 at 01:00 Docusate Sodium (Colace) 100 mg BID PO Last administered on 12/16/18 09:17; Admin Dose 100 MG; Start 12/03/18 at 09:00 Donepezil HCl (Aricept) 10 mg 2100 PO Last administered on 12/15/18 20:59; Admin Dose 10 MG; Start 12/03/18 at 21:00 Duloxetine HCl (Cymbalta) 20 mg BID PO Last administered on 12/16/18 09:10; Ad min Dose 20 MG; Start 12/03/18 at 09:00 Cholecalciferol (Vitamin D) 1,000 unit DAILY PO Last administered on 12/16/18 09:10; Admin Dose 1,000 UNIT; Start 12/03/18 at 09:00 Lactulose (Enulose) 20 gm DAILY PO Last administered on 12/16/18 09:15; Admin Dose 20 GM; Start 12/03/18 at 09:00 Metoclopramide HCl (Reglan) 5 mg Q6H PRN IV NAUSEA; Start 12/03/18 at 04:00 Metoprolol Tartrate (Lopressor) 25 mg BID PO Last administered on 12/16/18 09:15; Admin Dose 25 MG; Start 12/03/18 at 09:00 Miconazole Nitrate (Miconazole 2% Cr) 1 applic BID TOP Last administered on 12/16/18 09:14; Admin Dose 1 APPLIC; Start 12/03/18 at 09:00 Pantoprazole (Protonix Tab) 40 mg DAILY@06 PO Last administered on 12/16/18 06:20; Admin Dose 40 MG; Start 12/03/18 at 06:00 Phenol (Cepastat Lozenge) 1 lozenge Q1H PRN MT SORE THROAT; Start 12/03/18 at 04:00 Primidone (Mysoline) 100 mg TID PO Last administered on 12/16/18 09:17; Admin Dose 100 MG; Start 12/03/18 at 09:00 Rivaroxaban (Xarelto) 15 mg WITH DINNER PO Last administered on 12/15/18 17:31; Admin Dose 15 MG; Start 12/03/18 at 17:35 Guaifenesin (Mucinex) 1,200 mg BID PO Last administered on 12/15/18 20:58; Admin Dose 1,200 MG; Start 12/03/18 at 09:00 Digoxin (Digoxin) 0.125 mg DAILY@13 PO Last administered on 12/15/18 12:26; Admin Dose 0.125 MG; Start 12/03/18 at 13:00 Roflumilast (Daliresp) 500 mcg DAILY PO Last administered on 12/16/18 09:10; Admin Dose 500 MCG; Start 12/03/18 at 09:00 Sacubitril/ Valsartan (Entresto 24 Mg-26 Mg) 1 tab BID PO Last administered on 12/16/18 09:14; Admin Dose 1 TAB; Start 12/03/18 at 09:00 Simethicone (Mylicon) 80 mg Q6H PRN PO DISTENSION/GAS/BLOATING Last administered on 12/06/18 18:25; Admin Dose 80 MG; Start 12/03/18 at 05:00 Sodium Chloride (Nacl) 2 gm MONWEDFRI PO Last administered on 12/16/18 09:34; Admin Dose 2 GM; Start 12/04/18 at 09:00 Cyanocobalamin (Vitamin B12) 5,000 mcg Q48H PO Last administered on 12/15/18 09:21; Admin Dose 5,000 MCG; Start 12/03/18 at 09:00 Miscellaneous Information 1 ea NOTE XX Last administered on 12/03/18 09:25; Admin Dose 1 EA; Start 12/03/18 at 08:00 Glucose (Glutose) 15 gm Q15M PRN PO DECREASED GLUCOSE Last administered on 12/03/18 09:18; Admin Dose 15 GM; Start 12/03/18 at 08:00 Glucose (Glutose) 22.5 gm Q15M PRN PO DECREASED GLUCOSE Last administered on 12/06/18 08:52; Admin Dose 22.5 GM; Start 12/03/18 at 08:00 Dextrose (D50w Syringe) 25 ml Q15M PRN IV DECREASED GLUCOSE; Start 12/03/18 at 08:00 Dextrose (D50w Syringe) 50 ml Q15M PRN IV DECREASED GLUCOSE Last administered on 12/06/18 11:18; Admin Dose 50 ML; Start 12/03/18 at 08:00 Glucagon (Glucagen) 1 mg Q15M PRN IM DECREASED GLUCOSE; Start 12/03/18 at 08:00 Glucose (Glutose) 15 gm Q15M PRN BUCCAL DECREASED GLUCOSE Last administered on 12/05/18 09:40; Admin Dose 15 GM; Start 12/03/18 at 08:00 Miscellaneous Information (Pending [facility] Order For Wound Care) This patient sewell... PRN PRN XX WOUND CARE; Start 12/04/18 at 03:30 Levothyroxine Sodium (Synthroid) 50 mcg DAILY@06 PO Last administered on 12/16/18 06:20; Admin Dose 50 MCG; Start 12/05/18 at 06:00 Melatonin (Melatonin) 3 mg HS PO Last administered on 12/15/18 20:59; Admin Dose 3 MG; Start 12/04/18 at 21:00 Metformin HCl (Glucophage) 500 mg BID WITH MEALS PO Last administered on 12/16/18 09:03; Admin Dose 500 MG; Start 12/09/18 at 17:35 Linagliptin (Tradjenta) 5 mg DAILY PO Last administered on 12/16/18 09:10; Admin Dose 5 MG; Start 12/10/18 at 09:00 Cefepime HCl 50 ml @ 100 mls/hr Q12 IVPB Last administered on 12/16/18 09:04; Admin Dose 100 MLS/HR; Start 12/11/18 at 21:00 Methylprednisolone Sodium Succinate (Solu-Medrol) 40 mg BID IV Last administered on 12/16/18at 09:03; Admin Dose 40 MG; Start 12/12/18 at 21:00 Megestrol Acetate (Megace) 40 mg QID PO Last administered on 12/16/18at 09:10; Admin Dose 40 MG; Start 12/14/18 at 17:00 Acetaminophen/ Hydrocodone Bitart ([place] (5/325)) 1 tab Q6H PRN PO MODERATE PAIN LEVEL 4-6; Start 12/14/18 at 14:30 Furosemide (Lasix) 40 mg DAILY PO Last administered on 12/16/18at 09:16; Admin Dose 40 MG; Start 12/16/18 at 09:00 ANA GE MD Dec 16, 2018 11:54
--- NOTE | 2018-12-16 13:26 | CONS ---
Assessment/Plan Cardiology NYHA: II Heart Failure Type: Acute Heart Failure Type: Diastolic Assessment/Plan Hospital Course (Demo Recall) COPD exacerbation Acute decompensated diastolic congestive heart failure Atrial fibrillation, on anticoagulation Recent pneumonia Hypertension Dyslipidemia Preserved ejection fraction Possible conjunctival hemorrhage-improved -Respiratory status labile, pulmonary follow up -CT chest without significant volume overload,continue Lasix maintenance as tolerated -Continue Cardizem and metoprolol for heart rate control and titrate based on h eart rate and blood pressure -Continue digoxin as tolerated Consultation Date/Type/Reason Admit Date/Time Dec 02, 2018 at 22:56 Initial Consult Date Type of Consult Cardiology Requesting Provider: LISSETTE ESPOSITO MD Date/Time of Note DATE: 12/16/18 TIME: 13:26 24 HR Interval Summary Free Text/Dictation sob is the same, no cp, palp Exam/Review of Systems Vital Signs Vitals Vital Signs Date Temp Pulse Resp B/P (MAP) Pulse Ox O2 O2 Flow FiO2 Time Delivery Rate 12/16/18 88 16 97 Nasal 2.0 10:16 Cannula 12/16/18 98.2 174/80 07:30 (111) Intake and Output 12/15/18 12/15/18 12/16/18 1515:00 23:00 07:00 IntakeIntake Total 50 ml 890 ml BalanceBalance 50 ml 890 ml Exam Constitutional: alert, oriented Respiratory: other (course bs, scattered rhonchi and wheeze) Cardiovascular: irregular rhythm (s1s2) Gastrointestinal: soft, non-tender, bowel sounds Extremities: other (no sig edema) Labs Result Diagram: 12/16/18 0700 12/16/18 0700 Results 24hrs Laboratory Tests Test 12/15/18 17:25 12/16/18 07:00 Bedside Glucose 162 White Blood Count 14.8 #H Red Blood Count 3.70 L Hemoglobin 10.3 L Hematocrit 31.4 L Mean Corpuscular Volume 84.9 Mean Corpuscular Hemoglobin 27.8 L Mean Corpuscular Hemoglobin Concent 32.8 Red Cell Distribution Width 25.5 H Platelet Count 153 Mean Platelet Volume 9.6 Immature Granulocytes % 10.600 H Neutrophils % Segmented Neutrophils % (Manual) 92 H Band Neutrophils % (Manual) 2 Lymphocytes % Reactive Lymphocytes % (Manual) 1 H Monocytes % Eosinophils % Basophils % Basophils % (Manual) 1 Metamyelocytes % (manual) 1 H Myelocytes % (Manual) 2 H Promyelocytes % (Manual) 1 H Nucleated Red Blood Cells % 0.1 H Immature Granulocytes # 1.580 H Neutrophils # Neutrophils # (Manual) 13.6 H Band Neutrophils # 0.2 Lymphocytes # Reactive Lymphocytes # 0.1 H Monocytes # Eosinophils # Basophils # Basophils # (Manual) 0.1 H Metamyelocytes # 0.1 H Myelocytes # 0.2 H Promyelocytes # 0.1 H Nucleated Red Blood Cells # Platelet Estimate NORMAL Polychromasia 1+ Poikilocytosis 1+ Anisocytosis 1+ Microcytosis 1+ Macrocytosis 1+ Ovalocytes 1+ Stomatocytes 1+ Acanthocytes 1+ Sodium Level 137 Potassium Level 4.2 Chloride Level 97 Carbon Dioxide Level 37 H Anion Gap 3 L Blood Urea Nitrogen 35 H Creatinine 0.97 Est Glomerular Filtrat Rate mL/min Glucose Level 102 Calcium Level 9.2 Magnesium Level 2.2 Medications Medications Current Medications Acetaminophen (Tylenol Tab) 650 mg Q4H PRN PO PAIN Last administered on 12/03/18 23:14; Admin Dose 650 MG; Start 12/03/18 at 01:00 Al Hydrox/Mg Hydrox/Simethicone (Mag-Al Plus) 15 ml Q6H PRN PO GASTROINTESTINAL UPSET Last administered on 12/11/18 18:31; Admin Dose 15 ML; Start 12/03/18 at 01:00 Albuterol/ Ipratropium (Duoneb) 3 ml Q2H RESP THERAPY PRN HHN SHORTNESS OF BREATH Last administered on 12/16/18 04:07; Admin Dose 3 ML; Start 12/03/18 at 01:00 Albuterol/ Ipratropium (Duoneb) 3 ml Q4HWA RESP THERAPY HHN Last administered on 12/16/18 10:13; Admin Dose 3 ML; Start 12/03/18 at 09:00 Alprazolam (Xanax) 0.5 mg Q8H PRN PO ANXIETY Last administered on 12/15/18 22:46; Admin Dose 0.5 MG; Start 12/03/18 at 01:00 Eye Lubricant (Artificial Tears Oph) 2 drop Q8 BOTH EYES Last administered on 12/16/18 06:20; Admin Dose 2 DROP; Start 12/03/18 at 06:00 Atorvastatin Calcium (Lipitor) 10 mg HS PO Last administered on 12/15/18 20:58; Admin Dose 10 MG; Start 12/03/18 at 21:00 Calcium Carbonate (Tums) 500 mg HS PO Last administered on 12/15/18 20:58; Admin Dose 500 MG; Start 12/03/18 at 21:00 Cholecalciferol (Vitamin D) 4,000 unit DAILY PO Last administered on 12/16/18 09:10; Admin Dose 4,000 UNIT; Start 12/03/18 at 09:00 Diltiazem HCl (Cardizem Cd) 180 mg BID PO Last administered on 12/16/18 09:17; Admin Dose 180 MG; Start 12/03/18 at 09:00 Diphenhydramine HCl (Benadryl) 50 mg Q8 PRN PO for itching Last administered on 12/16/18 04:04; Admin Dose 50 MG; Start 12/03/18 at 01:00 Docusate Sodium (Colace) 100 mg BID PO Last administered on 12/16/18 09:17; Admin Dose 100 MG; Start 12/03/18 at 09:00 Donepezil HCl (Aricept) 10 mg 2100 PO Last administered on 12/15/18 20:59; Admin Dose 10 MG; Start 12/03/18 at 21:00 Duloxetine HCl (Cymbalta) 20 mg BID PO Last administered on 12/16/18 09:10; Admin Dose 20 MG; Start 12/03/18 at 09:00 Cholecalciferol (Vitamin D) 1,000 unit DAILY PO Last administered on 12/16/18 09:10; Admin Dose 1,000 UNIT; Start 12/03/18 at 09:00 Lactulose (Enulose) 20 gm DAILY PO Last administered on 12/16/18 09:15; Admin Dose 20 GM; Start 12/03/18 at 09:00 Metoclopramide HCl (Reglan) 5 mg Q6H PRN IV NAUSEA; Start 12/03/18 at 04:00 Metoprolol Tartrate (Lopressor) 25 mg BID PO Last administered on 12/16/18 09:15; Admin Dose 25 MG; Start 12/03/18 at 09:00 Miconazole Nitrate (Miconazole 2% Cr) 1 applic BID TOP Last administered on 12/16/18 09:14; Admin Dose 1 APPLIC; Start 12/03/18 at 09:00 Pantoprazole (Protonix Tab) 40 mg DAILY@06 PO Last administered on 12/16/18 06:20; Admin Dose 40 MG; Start 12/03/18 at 06:00 Phenol (Cepastat Lozenge) 1 lozenge Q1H PRN MT SORE THROAT; Start 12/03/18 at 04:00 Primidone (Mysoline) 100 mg TID PO Last administered on 12/16/18 09:17; Admin Dose 100 MG; Start 12/03/18 at 09:00 Rivaroxaban (Xarelto) 15 mg WITH DINNER PO Last administered on 12/15/18 17:31; Admin Dose 15 MG; Start 12/03/18 at 17:35 Guaifenesin (Mucinex) 1,200 mg BID PO Last administered on 12/15/18 20:58; Admin Dose 1,200 MG; Start 12/03/18 at 09:00 Digoxin (Digoxin) 0.125 mg DAILY@13 PO Last administered on 12/15/18 12:26; Admin Dose 0.125 MG; Start 12/03/18 at 13:00 Roflumilast (Daliresp) 500 mcg DAILY PO Last administered on 12/16/18 09:10; Admin Dose 500 MCG; Start 12/03/18 at 09:00 Sacubitril/ Valsartan (Entresto 24 Mg-26 Mg) 1 tab BID PO Last administered on 12/16/18 09:14; Admin Dose 1 TAB; Start 12/03/18 at 09:00 Simethicone (Mylicon) 80 mg Q6H PRN PO DISTENSION/GAS/BLOATING Last administered on 12/06/18 18:25; Admin Dose 80 MG; Start 12/03/18 at 05:00 Sodium Chloride (Nacl) 2 gm MONWEDFRI PO Last administered on 12/16/18 09:34; Admin Dose 2 GM; Start 12/04/18 at 09:00 Cyanocobalamin (Vitamin B12) 5,000 mcg Q48H PO Last administered on 12/15/18 09:21; Admin Dose 5,000 MCG; Start 12/03/18 at 09:00 Miscellaneous Information 1 ea NOTE XX Last administered on 12/03/18 09:25; Admin Dose 1 EA; Start 12/03/18 at 08:00 Glucose (Glutose) 15 gm Q15M PRN PO DECREASED GLUCOSE Last administered on 12/03/18 09:18; Admin Dose 15 GM; Start 12/03/18 at 08:00 Glucose (Glutose) 22.5 gm Q15M PRN PO DECREASED GLUCOSE Last administered on 12/06/18 08:52; Admin Dose 22.5 GM; Start 12/03/18 at 08:00 Dextrose (D50w Syringe) 25 ml Q15M PRN IV DECREASED GLUCOSE; Start 12/03/18 at 08:00 Dextrose (D50w Syringe) 50 ml Q15M PRN IV DECREASED GLUCOSE Last administered on 12/06/18 11:18; Admin Dose 50 ML; Start 12/03/18 at 08:00 Glucagon (Glucagen) 1 mg Q15M PRN IM DECREASED GLUCOSE; Start 12/03/18 at 08:00 Glucose (Glutose) 15 gm Q15M PRN BUCCAL DECREASED GLUCOSE Last administered on 12/05/18 09:40; Admin Dose 15 GM; Start 12/03/18 at 08:00 Miscellaneous Information (Pending [facility] Order For [facility]ound Care) This patient sewell... PRN PRN XX WOUND CARE; Start 12/04/18 at 03:30 Levothyroxine Sodium (Synthroid) 50 mcg DAILY@06 PO Last administered on 12/16/18 06:20; Admin Dose 50 MCG; Start 12/05/18 at 06:00 Melatonin (Melatonin) 3 mg HS PO Last administered on 12/15/18 20:59; Admin Dose 3 MG; Start 12/04/18 at 21:00 Metformin HCl (Glucophage) 500 mg BID WITH MEALS PO Last administered on 12/16/18 09:03; Admin Dose 500 MG; Start 12/09/18 at 17:35 Linagliptin (Tradjenta) 5 mg DAILY PO Last administered on 12/16/18 09:10; Admin Dose 5 MG; Start 12/10/18 at 09:00 Cefepime HCl 50 ml @ 100 mls/hr Q12 IVPB Last administered on 12/16/18 09:04; Admin Dose 100 MLS/HR; Start 12/11/18 at 21:00 Methylprednisolone Sodium Succinate (Solu-Medrol) 40 mg BID IV Last administered on 12/16/18at 09:03; Admin Dose 40 MG; Start 12/12/18 at 21:00 Megestrol Acetate (Megace) 40 mg QID PO Last administered on 12/16/18at 09:10; A dmin Dose 40 MG; Start 12/14/18 at 17:00 Acetaminophen/ Hydrocodone Bitart ([place] (5/325)) 1 tab Q6H PRN PO MODERATE PAIN LEVEL 4-6; Start 12/14/18 at 14:30 Furosemide (Lasix) 40 mg DAILY PO Last administered on 12/16/18at 09:16; Admin Dose 40 MG; Start 12/16/18 at 09:00 Bird Herrera DO Dec 16, 2018 13:26
--- NOTE | 2018-12-16 13:32 | PN ---
Date/Time of Note Date/Time of Note DATE: 12/16/18 TIME: 13:32 Objective Vital Signs Date Temp Pulse Resp B/P (MAP) Pulse Ox O2 O2 Flow FiO2 Time Delivery Rate 12/16/18 88 16 97 Nasal 2.0 10:16 Cannula 12/16/18 98.2 174/80 07:30 (111) Intake and Output 12/15/18 12/15/18 12/16/18 1414:59 22:59 06:59 IntakeIntake Total 50 ml 890 ml BalanceBalance 50 ml 890 ml Exam INTERDISCIPLINARY TEAM CONFERENCE Physical Exam: Pulm- cta Abd-soft BOWEL- Cont BLADDER-Cont/incont SKIN- improving skin tear OT- DRESSING- min/mod BATHING-min/mod TOILETING-min/mod PT- BED MOBILITY- min TRANSFERS-cga AMBULATION-cga 50 feet A/P- Interdisciplinary team conference held today. Please see interdisciplinary sheet. Working toward d.c. on 12/17 with post discharge follow up of physical therapy, occupational therapy to a supervised environment Results/Medications Result Diagram: 12/16/18 0700 12/16/18 0700 Results 24 hrs Laboratory Tests Test 12/15/18 17:25 12/16/18 07:00 Bedside Glucose 162 White Blood Count 14.8 #H Red Blood Count 3.70 L Hemoglobin 10.3 L Hematocrit 31.4 L Mean Corpuscular Volume 84.9 Mean Corpuscular Hemoglobin 27.8 L Mean Corpuscular Hemoglobin Concent 32.8 Red Cell Distribution Width 25.5 H Platelet Count 153 Mean Platelet Volume 9.6 Immature Granulocytes % 10.600 H Neutrophils % Segmented Neutrophils % (Manual) 92 H Band Neutrophils % (Manual) 2 Lymphocytes % Reactive Lymphocytes % (Manual) 1 H Monocytes % Eosinophils % Basophils % Basophils % (Manual) 1 Metamyelocytes % (manual) 1 H Myelocytes % (Manual) 2 H Promyelocytes % (Manual) 1 H Nucleated Red Blood Cells % 0.1 H Immature Granulocytes # 1.580 H Neutrophils # Neutrophils # (Manual) 13.6 H Band Neutrophils # 0.2 Lymphocytes # Reactive Lymphocytes # 0.1 H Monocytes # Eosinophils # Basophils # Basophils # (Manual) 0.1 H Metamyelocytes # 0.1 H Myelocytes # 0.2 H Promyelocytes # 0.1 H Nucleated Red Blood Cells # Platelet Estimate NORMAL Polychromasia 1+ Poikilocytosis 1+ Anisocytosis 1+ Microcytosis 1+ Macrocytosis 1+ Ovalocytes 1+ Stomatocytes 1+ Acanthocytes 1+ Sodium Level 137 Potassium Level 4.2 Chloride Level 97 Carbon Dioxide Level 37 H Anion Gap 3 L Blood Urea Nitrogen 35 H Creatinine 0.97 Est Glomerular Filtrat Rate mL/min Glucose Level 102 Calcium Level 9.2 Magnesium Level 2.2 Medications Current Medications Acetaminophen (Tylenol Tab) 650 mg Q4H PRN PO PAIN Last administered on 12/03/18 23:14; Admin Dose 650 MG; Start 12/03/18 at 01:00 Al Hydrox/Mg Hydrox/Simethicone (Mag-Al Plus) 15 ml Q6H PRN PO GASTROINTESTINAL UPSET Last administered on 12/11/18 18:31; Admin Dose 15 ML; Start 12/03/18 at 01:00 Albuterol/ Ipratropium (Duoneb) 3 ml Q2H RESP THERAPY PRN HHN SHORTNESS OF BREATH Last administered on 12/16/18 04:07; Admin Dose 3 ML; Start 12/03/18 at 01:00 Albuterol/ Ipratropium (Duoneb) 3 ml Q4HWA RESP THERAPY HHN Last administered on 12/16/18 10:13; Admin Dose 3 ML; Start 12/03/18 at 09:00 Alprazolam (Xanax) 0.5 mg Q8H PRN PO ANXIETY Last administered on 12/15/18 22:46; Admin Dose 0.5 MG; Start 12/03/18 at 01:00 Eye Lubricant (Artificial Tears Oph) 2 drop Q8 BOTH EYES Last administered on 12/16/18 06:20; Admin Dose 2 DROP; Start 12/03/18 at 06:00 Atorvastatin Calcium (Lipitor) 10 mg HS PO Last administered on 12/15/18 20:58; Admin Dose 10 MG; Start 12/03/18 at 21:00 Calcium Carbonate (Tums) 500 mg HS PO Last administered on 12/15/18 20:58; Admin Dose 500 MG; Start 12/03/18 at 21:00 Cholecalciferol (Vitamin D) 4,000 unit DAILY PO Last administered on 12/16/18 09:10; Admin Dose 4,000 UNIT; Start 12/03/18 at 09:00 Diltiazem HCl (Cardizem Cd) 180 mg BID PO Last administered on 12/16/18 09:17; Admin Dose 180 MG; Start 12/03/18 at 09:00 Diphenhydramine HCl (Benadryl) 50 mg Q8 PRN PO for itching Last administered on 12/16/18 04:04; Admin Dose 50 MG; Start 12/03/18 at 01:00 Docusate Sodium (Colace) 100 mg BID PO Last administered on 12/16/18 09:17; Admin Dose 100 MG; Start 12/03/18 at 09:00 Donepezil HCl (Aricept) 10 mg 2100 PO Last administered on 12/15/18 20:59; Admin Dose 10 MG; Start 12/03/18 at 21:00 Duloxetine HCl (Cymbalta) 20 mg BID PO Last administered on 12/16/18 09:10; Admin Dose 20 MG; Start 12/03/18 at 09:00 Cholecalciferol (Vitamin D) 1,000 unit DAILY PO Last administered on 12/16/18 09:10; Admin Dose 1,000 UNIT; Start 12/03/18 at 09:00 Lactulose (Enulose) 20 gm DAILY PO Last administered on 12/16/18 09:15; Admin Dose 20 GM; Start 12/03/18 at 09:00 Metoclopramide HCl (Reglan) 5 mg Q6H PRN IV NAUSEA; Start 12/03/18 at 04:00 Metoprolol Tartrate (Lopressor) 25 mg BID PO Last administered on 12/16/18 09:15; Admin Dose 25 MG; Start 12/03/18 at 09:00 Miconazole Nitrate (Miconazole 2% Cr) 1 applic BID TOP Last administered on 12/16/18 09:14; Admin Dose 1 APPLIC; Start 12/03/18 at 09:00 Pantoprazole (Protonix Tab) 40 mg DAILY@06 PO Last administered on 12/16/18 06:20; Admin Dose 40 MG; Start 12/03/18 at 06:00 Phenol (Cepastat Lozenge) 1 lozenge Q1H PRN MT SORE THROAT; Start 12/03/18 at 04:00 Primidone (Mysoline) 100 mg TID PO Last administered on 12/16/18 09:17; Admin Dose 100 MG; Start 12/03/18 at 09:00 Rivaroxaban (Xarelto) 15 mg WITH DINNER PO Last administered on 12/15/18 17:31; Admin Dose 15 MG; Start 12/03/18 at 17:35 Guaifenesin (Mucinex) 1,200 mg BID PO Last administered on 12/15/18 20:58; Admin Dose 1,200 MG; Start 12/03/18 at 09:00 Digoxin (Digoxin) 0.125 mg DAILY@13 PO Last administered on 12/15/18 12:26; Admin Dose 0.125 MG; Start 12/03/18 at 13:00 Roflumilast (Daliresp) 500 mcg DAILY PO Last administered on 12/16/18 09:10; Admin Dose 500 MCG; Start 12/03/18 at 09:00 Sacubitril/ Valsartan (Entresto 24 Mg-26 Mg) 1 tab BID PO Last administered on 12/16/18 09:14; Admin Dose 1 TAB; Start 12/03/18 at 09:00 Simethicone (Mylicon) 80 mg Q6H PRN PO DISTENSION/GAS/BLOATING Last administered on 12/06/18 18:25; Admin Dose 80 MG; Start 12/03/18 at 05:00 Sodium Chloride (Nacl) 2 gm MONWEDFRI PO Last administered on 12/16/18 09:34; Admin Dose 2 GM; Start 12/04/18 at 09:00 Cyanocobalamin (Vitamin B12) 5,000 mcg Q48H PO Last administered on 12/15/18 09:21; Admin Dose 5,000 MCG; Start 12/03/18 at 09:00 Miscellaneous Information 1 ea NOTE XX Last administered on 12/03/18 09:25; Admin Dose 1 EA; Start 12/03/18 at 08:00 Glucose (Glutose) 15 gm Q15M PRN PO DECREASED GLUCOSE Last administered on 12/03/18 09:18; Admin Dose 15 GM; Start 12/03/18 at 08:00 Glucose (Glutose) 22.5 gm Q15M PRN PO DECREASED GLUCOSE Last administered on 12/06/18 08:52; Admin Dose 22.5 GM; Start 12/03/18 at 08:00 Dextrose (D50w Syringe) 25 ml Q15M PRN IV DECREASED GLUCOSE; Start 12/03/18 at 08:00 Dextrose (D50w Syringe) 50 ml Q15M PRN IV DECREASED GLUCOSE Last administered on 12/06/18 11:18; Admin Dose 50 ML; Start 12/03/18 at 08:00 Glucagon (Glucagen) 1 mg Q15M PRN IM DECREASED GLUCOSE; Start 12/03/18 at 08:00 Glucose (Glutose) 15 gm Q15M PRN BUCCAL DECREASED GLUCOSE Last administered on 12/05/18 09:40; Admin Dose 15 GM; Start 12/03/18 at 08:00 Miscellaneous Information (Pending [facility] Order For Wound Care) This patient sewell... PRN PRN XX WOUND CARE; Start 12/04/18 at 03:30 Levothyroxine Sodium (Synthroid) 50 mcg DAILY@06 PO Last administered on 12/16/18 06:20; Admin Dose 50 MCG; Start 12/05/18 at 06:00 Melatonin (Melatonin) 3 mg HS PO Last administered on 12/15/18 20:59; Admin Dose 3 MG; Start 12/04/18 at 21:00 Metformin HCl (Glucophage) 500 mg BID WITH MEALS PO Last administered on 12/16/18 09:03; Admin Dose 500 MG; Start 12/09/18 at 17:35 Linagliptin (Tradjenta) 5 mg DAILY PO Last administered on 12/16/18 09:10; Admin Dose 5 MG; Start 12/10/18 at 09:00 Cefepime HCl 50 ml @ 100 mls/hr Q12 IVPB Last administered on 12/16/18 09:04; Admin Dose 100 MLS/HR; Start 12/11/18 at 21:00 Methylprednisolone Sodium Succinate (Solu-Medrol) 40 mg BID IV Last administered on 12/16/18 09:03; Admin Dose 40 MG; Start 12/12/18 at 21:00 Megestrol Acetate (Megace) 40 mg QID PO Last administered on 12/16/18 09:10; Admin Dose 40 MG; Start 12/14/18 at 17:00 Acetaminophen/ Hydrocodone Bitart ([place] (5/325)) 1 tab Q6H PRN PO MODERATE PAIN LEVEL 4-6; Start 12/14/18 at 14:30 Furosemide (Lasix) 40 mg DAILY PO Last administered on 12/16/18at 09:16; Admin Dose 40 MG; Start 12/16/18 at 09:00 KINGSLEY HENLEY MD Dec 16, 2018 13:32
[2018-12-16 14:00] VITALS: BP 123/58; PULSE 78; RESP 20
[2018-12-16] MEDS: DIGOXIN 0.125 MG TAB PO SCH (14:19)
[2018-12-16] MEDS: BALSAM PERU/CASTOR OIL 60 GM TUBE TOP SCH ×2 (17:57→21:27)
[2018-12-16] MEDS: RIVAROXABAN 15 MG TABLET PO SCH (17:57)
--- NOTE | 2018-12-16 19:04 | PN ---
Date/Time of Note Date/Time of Note DATE: 12/16/18 TIME: 19:01 Assessment/Plan VTE Prophylaxis Risk score (from [facility] [place])>0 risk: 6 SCD applied (from [facility] [place]): No SCD contraindicated: patient refusal Pharmacological prophylaxis: rivaroxaban Lines/Catheters IV [facility] Type [facility]from [facility] [place] Urinary Cath still in place: No Assessment/Plan Hospital Course Patient continues on supplemental oxygen without acute distress, afebrile. Assessment/Plan -Status post acute hypoxemic and hypercapnic respiratory failure secondary to COPD exacerbation. Dr. Zapata is following in pulmonology consultation. -COPD -Decompensated diastolic congestive heart failure, continue Lasix, monitor electrolytes. -Chronic atrial fibrillation. Continue digoxin, Cardizem and Xarelto. -Diabetes mellitus type 2. Continue metformin and Tradjenta. -Anemia of chronic disease -Hypothyroidism, continue levothyroxine Further recommendations based on clinical course. Plan of care discussed with Dr. Olivares. Result Diagram: 12/16/18 0700 12/16/18 0700 Results 24hrs Laboratory Tests Test 12/16/18 07:00 White Blood Count 14.8 #H Red Blood Count 3.70 L Hemoglobin 10.3 L Hematocrit 31.4 L Mean Corpuscular Volume 84.9 Mean Corpuscular Hemoglobin 27.8 L Mean Corpuscular Hemoglobin Concent 32.8 Red Cell Distribution Width 25.5 H Platelet Count 153 Mean Platelet Volume 9.6 Immature Granulocytes % 10.600 H Neutrophils % Segmented Neutrophils % (Manual) 92 H Band Neutrophils % (Manual) 2 Lymphocytes % Reactive Lymphocytes % (Manual) 1 H Monocytes % Eosinophils % Basophils % Basophils % (Manual) 1 Metamyelocytes % (manual) 1 H Myelocytes % (Manual) 2 H Promyelocytes % (Manual) 1 H Nucleated Red Blood Cells % 0.1 H Immature Granulocytes # 1.580 H Neutrophils # Neutrophils # (Manual) 13.6 H Band Neutrophils # 0.2 Lymphocytes # Reactive Lymphocytes # 0.1 H Monocytes # Eosinophils # Basophils # Basophils # (Manual) 0.1 H Metamyelocytes # 0.1 H Myelocytes # 0.2 H Promyelocytes # 0.1 H Nucleated Red Blood Cells # Platelet Estimate NORMAL Polychromasia 1+ Poikilocytosis 1+ Anisocytosis 1+ Microcytosis 1+ Macrocytosis 1+ Ovalocytes 1+ Stomatocytes 1+ Acanthocytes 1+ Sodium Level 137 Potassium Level 4.2 Chloride Level 97 Carbon Dioxide Level 37 H Anion Gap 3 L Blood Urea Nitrogen 35 H Creatinine 0.97 Est Glomerular Filtrat Rate mL/min Glucose Level 102 Calcium Level 9.2 Magnesium Level 2.2 Exam/Review of Systems Exam Vitals Vital Signs Date Temp Pulse Resp B/P (MAP) Pulse Ox O2 O2 Flow FiO2 Time Delivery Rate 12/16/18 92 16 96 Nasal 2.0 16:15 Cannula 12/16/18 97.0 123/58 14:00 (79) Intake and Output 12/15/18 12/15/18 12/16/18 1515:00 23:00 07:00 IntakeIntake Total 50 ml 890 ml BalanceBalance 50 ml 890 ml Exam Constitutional: alert, oriented Respiratory: diminished breath sounds Cardiovascular: irregular rhythm Gastrointestinal: soft, non-tender Extremities: normal pulses Neurological: nl mental status Results Results 24hrs Laboratory Tests Test 12/16/18 07:00 White Blood Count 14.8 #H Red Blood Count 3.70 L Hemoglobin 10.3 L Hematocrit 31.4 L Mean Corpuscular Volume 84.9 Mean Corpuscular Hemoglobin 27.8 L Mean Corpuscular Hemoglobin Concent 32.8 Red Cell Distribution Width 25.5 H Platelet Count 153 Mean Platelet Volume 9.6 Immature Granulocytes % 10.600 H Neutrophils % Segmented Neutrophils % (Manual) 92 H Band Neutrophils % (Manual) 2 Lymphocytes % Reactive Lymphocytes % (Manual) 1 H Monocytes % Eosinophils % Basophils % Basophils % (Manual) 1 Metamyelocytes % (manual) 1 H Myelocytes % (Manual) 2 H Promyelocytes % (Manual) 1 H Nucleated Red Blood Cells % 0.1 H Immature Granulocytes # 1.580 H Neutrophils # Neutrophils # (Manual) 13.6 H Band Neutrophils # 0.2 Lymphocytes # Reactive Lymphocytes # 0.1 H Monocytes # Eosinophils # Basophils # Basophils # (Manual) 0.1 H Metamyelocytes # 0.1 H Myelocytes # 0.2 H Promyelocytes # 0.1 H Nucleated Red Blood Cells # Platelet Estimate NORMAL Polychromasia 1+ Poikilocytosis 1+ Anisocytosis 1+ Microcytosis 1+ Macrocytosis 1+ Ovalocytes 1+ Stomatocytes 1+ Acanthocytes 1+ Sodium Level 137 Potassium Level 4.2 Chloride Level 97 Carbon Dioxide Level 37 H Anion Gap 3 L Blood Urea Nitrogen 35 H Creatinine 0.97 Est Glomerular Filtrat Rate mL/min Glucose Level 102 Calcium Level 9.2 Magnesium Level 2.2 Medications Medication Current Medications Acetaminophen (Tylenol Tab) 650 mg Q4H PRN PO PAIN Last administered on 12/03/18 23:14; Admin Dose 650 MG; Start 12/03/18 at 01:00 Al Hydrox/Mg Hydrox/Simethicone (Mag-Al Plus) 15 ml Q6H PRN PO GASTROINTESTINAL UPSET Last administered on 12/11/18 18:31; Admin Dose 15 ML; Start 12/03/18 at 01:00 Albuterol/ Ipratropium (Duoneb) 3 ml Q2H RESP THERAPY PRN HHN SHORTNESS OF BREATH Last administered on 12/16/18 04:07; Admin Dose 3 ML; Start 12/03/18 at 01:00 Albuterol/ Ipratropium (Duoneb) 3 ml Q4HWA RESP THERAPY HHN Last administered on 12/16/18 16:13; Admin Dose 3 ML; Start 12/03/18 at 09:00 Alprazolam (Xanax) 0.5 mg Q8H PRN PO ANXIETY Last administered on 12/15/18 22:46; Admin Dose 0.5 MG; Start 12/03/18 at 01:00 Eye Lubricant (Artificial Tears Oph) 2 drop Q8 BOTH EYES Last administered on 12/16/18 14:17; Admin Dose 2 DROP; Start 12/03/18 at 06:00 Atorvastatin Calcium (Lipitor) 10 mg HS PO Last administered on 12/15/18 20:58; Admin Dose 10 MG; Start 12/03/18 at 21:00 Calcium Carbonate (Tums) 500 mg HS PO Last administered on 12/15/18 20:58; Admin Dose 500 MG; Start 12/03/18 at 21:00 Cholecalciferol (Vitamin D) 4,000 unit DAILY PO Last administered on 12/16/18 09:10; Admin Dose 4,000 UNIT; Start 12/03/18 at 09:00 Diltiazem HCl (Cardizem Cd) 180 mg BID PO Last administered on 12/16/18 09:17; Admin Dose 180 MG; Start 12/03/18 at 09:00 Diphenhydramine HCl (Benadryl) 50 mg Q8 PRN PO for itching Last administered on 12/16/18 04:04; Admin Dose 50 MG; Start 12/03/18 at 01:00 Docusate Sodium (Colace) 100 mg BID PO Last administered on 12/16/18 09:17; Admin Dose 100 MG; Start 12/03/18 at 09:00 Donepezil HCl (Aricept) 10 mg 2100 PO Last administered on 12/15/18 20:59; Admin Dose 10 MG; Start 12/03/18 at 21:00 Duloxetine HCl (Cymbalta) 20 mg BID PO Last administered on 12/16/18 09:10; Admin Dose 20 MG; Start 12/03/18 at 09:00 Cholecalciferol (Vitamin D) 1,000 unit DAILY PO Last administered on 12/16/18 09:10; Admin Dose 1,000 UNIT; Start 12/03/18 at 09:00 Lactulose (Enulose) 20 gm DAILY PO Last administered on 12/16/18 09:15; Admin Dose 20 GM; Start 12/03/18 at 09:00 Metoclopramide HCl (Reglan) 5 mg Q6H PRN IV NAUSEA; Start 12/03/18 at 04:00 Metoprolol Tartrate (Lopressor) 25 mg BID PO Last administered on 12/16/18 09:15; Admin Dose 25 MG; Start 12/03/18 at 09:00 Miconazole Nitrate (Miconazole 2% Cr) 1 applic BID TOP Last administered on 12/16/18 09:14; Admin Dose 1 APPLIC; Start 12/03/18 at 09:00 Pantoprazole (Protonix Tab) 40 mg DAILY@06 PO Last administered on 12/16/18 06:20; Admin Dose 40 MG; Start 12/03/18 at 06:00 Phenol (Cepastat Lozenge) 1 lozenge Q1H PRN MT SORE THROAT; Start 12/03/18 at 04:00 Primidone (Mysoline) 100 mg TID PO Last administered on 12/16/18 14:19; Admin Dose 100 MG; Start 12/03/18 at 09:00 Rivaroxaban (Xarelto) 15 mg WITH DINNER PO Last administered on 12/16/18 17:57; Admin Dose 15 MG; Start 12/03/18 at 17:35 Guaifenesin (Mucinex) 1,200 mg BID PO Last administered on 12/15/18 20:58; Admin Dose 1,200 MG; Start 12/03/18 at 09:00 Digoxin (Digoxin) 0.125 mg DAILY@13 PO Last administered on 12/16/18 14:19; Admin Dose 0.125 MG; Start 12/03/18 at 13:00 Roflumilast (Daliresp) 500 mcg DAILY PO Last administered on 12/16/18 09:10; Admin Dose 500 MCG; Start 12/03/18 at 09:00 Sacubitril/ Valsartan (Entresto 24 Mg-26 Mg) 1 tab BID PO Last administered on 12/16/18 09:14; Admin Dose 1 TAB; Start 12/03/18 at 09:00 Simethicone (Mylicon) 80 mg Q6H PRN PO DISTENSION/GAS/BLOATING Last administered on 12/06/18 18:25; Admin Dose 80 MG; Start 12/03/18 at 05:00 Sodium Chloride (Nacl) 2 gm MONWEDFRI PO Last administered on 12/16/18 09:34; Admin Dose 2 GM; Start 12/04/18 at 09:00 Cyanocobalamin (Vitamin B12) 5,000 mcg Q48H PO Last administered on 12/15/18 09:21; Admin Dose 5,000 MCG; Start 12/03/18 at 09:00 Miscellaneous Information 1 ea NOTE XX Last administered on 12/03/18 09:25; Admin Dose 1 EA; Start 12/03/18 at 08:00 Glucose (Glutose) 15 gm Q15M PRN PO DECREASED GLUCOSE Last administered on 12/03/18 09:18; Admin Dose 15 GM; Start 12/03/18 at 08:00 Glucose (Glutose) 22.5 gm Q15M PRN PO DECREASED GLUCOSE Last administered on 12/06/18 08:52; Admin Dose 22.5 GM; Start 12/03/18 at 08:00 Dextrose (D50w Syringe) 25 ml Q15M PRN IV DECREASED GLUCOSE; Start 12/03/18 at 08:00 Dextrose (D50w Syringe) 50 ml Q15M PRN IV DECREASED GLUCOSE Last administered on 12/06/18 11:18; Admin Dose 50 ML; Start 12/03/18 at 08:00 Glucagon (Glucagen) 1 mg Q15M PRN IM DECREASED GLUCOSE; Start 12/03/18 at 08:00 Glucose (Glutose) 15 gm Q15M PRN BUCCAL DECREASED GLUCOSE Last administered on 12/05/18 09:40; Admin Dose 15 GM; Start 12/03/18 at 08:00 Miscellaneous Information (Pending [facility] Order For [facility]ound Care) This patient sewell... PRN PRN XX WOUND CARE; Start 12/04/18 at 03:30 Levothyroxine Sodium (Synthroid) 50 mcg DAILY@06 PO Last administered on 12/16/18 06:20; Admin Dose 50 MCG; Start 12/05/18 at 06:00 Melatonin (Melatonin) 3 mg HS PO Last administered on 12/15/18 20:59; Admin Dose 3 MG; Start 12/04/18 at 21:00 Metformin HCl (Glucophage) 500 mg BID WITH MEALS PO Last administered on 12/16/18 17:57; Admin Dose 500 MG; Start 12/09/18 at 17:35 Linagliptin (Tradjenta) 5 mg DAILY PO Last administered on 12/16/18 09:10; Admin Dose 5 MG; Start 12/10/18 at 09:00 Cefepime HCl 50 ml @ 100 mls/hr Q12 IVPB Last administered on 12/16/18 09:04; Admin Dose 100 MLS/HR; Start 12/11/18 at 21:00 Methylprednisolone Sodium Succinate (Solu-Medrol) 40 mg BID IV Last adm inistered on 12/16/18 09:03; Admin Dose 40 MG; Start 12/12/18 at 21:00 Megestrol Acetate (Megace) 40 mg QID PO Last administered on 12/16/18 17:57; Admin Dose 40 MG; Start 12/14/18 at 17:00 Acetaminophen/ Hydrocodone Bitart ([place] (5/325)) 1 tab Q6H PRN PO MODERATE PAIN LEVEL 4-6; Start 12/14/18 at 14:30 Furosemide (Lasix) 40 mg DAILY PO Last administered on 12/16/18 09:16; Admin Dose 40 MG; Start 12/16/18 at 09:00 AMEYA MAN Dec 16, 2018 19:04
[2018-12-16 20:00] VITALS: BP 106/51; PULSE 78; RESP 18
[2018-12-16] MEDS: DONEPEZIL 10 MG TAB PO SCH (21:21)
[2018-12-16] MEDS: MELATONIN 3 MG TABLET PO SCH (21:22)
[2018-12-16] MEDS: ATORVASTATIN 10 MG TAB PO SCH (21:22)
[2018-12-16] MEDS: CALCIUM CARBONATE 500 MG CHEW TAB PO SCH (21:22)
[2018-12-17] MEDS: ALPRAZOLAM 0.25 MG TAB PO PRN ×2 (00:37→13:29)
[2018-12-17] MEDS: ACETAMINOPHEN 325 MG TAB PO PRN (00:37)
[2018-12-17 02:00] VITALS: BP 118/61; PULSE 67; RESP 18
[2018-12-17] MEDS: PANTOPRAZOLE (EC) 40 MG TAB PO SCH (06:18)
[2018-12-17] MEDS: LEVOTHYROXINE 50 MCG TAB PO SCH (06:18)
[2018-12-17] MEDS: ARTIFICIAL TEARS 15 ML OPH BOTH EYES SCH ×2 (06:18→13:29)
[2018-12-17 07:00] VITALS: BP_SYST 115; BP_SYST 139; BP_DIAS 55; BP_DIAS 58; PULSE 60; PULSE 76; RESP 18
[2018-12-17] MEDS: metFORMIN 500 MG TAB PO SCH (08:11)
[2018-12-17] MEDS: METHYLPREDNISOLONE 40 MG INJ IV SCH (08:23)
[2018-12-17] MEDS: LINAGLIPTIN 5 MG TABLET PO SCH (08:23)
[2018-12-17] MEDS: CEFEPIME 1GM/50 ML (PMX) 50 ML IVPB SCH (08:23)
[2018-12-17] MEDS: LACTULOSE 30ML CUP PO SCH (08:25)
[2018-12-17] MEDS: ROFLUMILAST 500 MCG TABLET PO SCH (08:26)
[2018-12-17] MEDS: PRIMIDONE 50 MG TAB PO SCH ×2 (08:26→13:06)
[2018-12-17] MEDS: CHOLECALCIFEROL 1,000 UNIT TAB PO SCH (08:26)
[2018-12-17] MEDS: CHOLECALCIFEROL 2,000 UNIT CAP PO SCH (08:26)
[2018-12-17] MEDS: MEGESTROL 40 MG TAB PO SCH ×2 (08:26→13:06)
[2018-12-17] MEDS: SACUBITRIL/VALSARTAN (24mg-26mg) TABLET PO SCH (08:26)
[2018-12-17] MEDS: DULOXETINE 20 MG CAP DR PO SCH (08:26)
[2018-12-17] MEDS: DOCUSATE SODIUM 100 MG CAP PO SCH (08:27)
[2018-12-17] MEDS: GUAIFENESIN LA 600 MG TABSR PO SCH (08:27)
[2018-12-17] MEDS: METOPROLOL 25 MG TAB PO SCH (08:27)
[2018-12-17] MEDS: DILTIAZEM (CD) 180 MG CAP PO SCH (08:28)
[2018-12-17] MEDS: FUROSEMIDE 40 MG TAB PO SCH (08:28)
[2018-12-17] MEDS: BALSAM PERU/CASTOR OIL 60 GM TUBE TOP SCH (08:29)
[2018-12-17] MEDS: MICONAZOLE 2% 30 GM CR TOP SCH (08:30)
[2018-12-17] MEDS: CYANOCOBALAMIN 500 MCG TAB PO SCH (08:52)
[2018-12-17] MEDS: ALBUTEROL/IPRATROPIUM (NEB) 3 ML AMP HHN SCH ×2 (09:00→12:04)
--- NOTE | 2018-12-17 10:47 | PN ---
Date/Time of Note Date/Time of Note DATE: 12/17/18 TIME: 10:47 Assessment/Plan VTE Prophylaxis Risk score (from Ns)>0 risk: 6 SCD applied (from Ns): No SCD contraindicated: patient refusal Pharmacological prophylaxis: apixaban Lines/Catheters IV Catheter Type (from Nrs): [place]ine Lock Urinary Cath still in place: No Assessment/Plan Hospital Course Pt continues on low flow O2, no distress, d/c planning to SNIF. Assessment/Plan -Status post acute hypoxemic and hypercapnic respiratory failure secondary to COPD exacerbation. Dr. Zapata is following in pulmonology consultation. -COPD, continue steroids at taper dose. -Decompensated diastolic congestive heart failure, continue Lasix, monitor electrolytes. -Chronic atrial fibrillation. Continue digoxin, Cardizem and Xarelto. -Diabetes mellitus type 2. Continue metformin and Tradjenta. -Anemia of chronic disease -Hypothyroidism, continue levothyroxine Further recommendations based on clinical course. Plan of care discussed with Dr. Olivares. Result Diagram: 12/16/18 0700 12/16/18 0700 Results 24hrs Laboratory Tests Test 12/17/18 08:10 Bedside Glucose 132 Exam/Review of Systems Exam Vitals Vital Signs Date Temp Pulse Resp B/P (MAP) Pulse Ox O2 O2 Flow FiO2 Time Delivery Rate 12/17/18 3.0 07:08 12/17/18 97.4 76 18 139/58 100 Room Air 07:00 (85) Intake and Output 12/16/18 12/16/18 12/17/18 1515:00 23:00 07:00 IntakeIntake Total 50 ml 470 ml 180 ml OutputOutput Total 100 ml BalanceBalance -50 ml 470 ml 180 ml Exam Constitutional: alert, oriented Respiratory: diminished breath sounds Cardiovascular: irregular rhythm Gastrointestinal: soft, non-tender Extremities: normal pulses Neurological: nl mental status Results Results 24hrs Laboratory Tests Test 12/17/18 08:10 Bedside Glucose 132 Medications Medication Current Medications Acetaminophen (Tylenol Tab) 650 mg Q4H PRN PO PAIN Last administered on 12/17/18at 00:37; Admin Dose 650 MG; Start 12/03/18 at 01:00 Al Hydrox/Mg Hydrox/Simethicone (Mag-Al Plus) 15 ml Q6H PRN PO GASTROINTESTINAL UPSET Last administered on 12/11/18 18:31; Admin Dose 15 ML; Start 12/03/18 at 01:00 Albuterol/ Ipratropium (Duoneb) 3 ml Q2H RESP THERAPY PRN HHN SHORTNESS OF BREATH Last administered on 12/16/18 04:07; Admin Dose 3 ML; Start 12/03/18 at 01:00 Albuterol/ Ipratropium (Duoneb) 3 ml Q4HWA RESP THERAPY HHN Last administered on 12/16/18 21:12; Admin Dose 3 ML; Start 12/03/18 at 09:00 Alprazolam (Xanax) 0.5 mg Q8H PRN PO ANXIETY Last administered on 12/17/18 00:37; Admin Dose 0.5 MG; Start 12/03/18 at 01:00 Eye Lubricant (Artificial Tears Oph) 2 drop Q8 BOTH EYES Last administered on 12/17/18 06:18; Admin Dose 2 DROP; Start 12/03/18 at 06:00 Atorvastatin Calcium (Lipitor) 10 mg HS PO Last administered on 12/16/18 21:22; Admin Dose 10 MG; Start 12/03/18 at 21:00 Calcium Carbonate (Tums) 500 mg HS PO Last administered on 12/16/18 21:22; Admin Dose 500 MG; Start 12/03/18 at 21:00 Cholecalciferol (Vitamin D) 4,000 unit DAILY PO Last administered on 12/17/18 08:26; Admin Dose 4,000 UNIT; Start 12/03/18 at 09:00 Diltiazem HCl (Cardizem Cd) 180 mg BID PO Last administered on 12/17/18 08:28; Admin Dose 180 MG; Start 12/03/18 at 09:00 Diphenhydramine HCl (Benadryl) 50 mg Q8 PRN PO for itching Last administered on 12/16/18 04:04; Admin Dose 50 MG; Start 12/03/18 at 01:00 Docusate Sodium (Colace) 100 mg BID PO Last administered on 12/17/18 08:27; Admin Dose 100 MG; Start 12/03/18 at 09:00 Donepezil HCl (Aricept) 10 mg 2100 PO Last administered on 12/16/18 21:21; Admin Dose 10 MG; Start 12/03/18 at 21:00 Duloxetine HCl (Cymbalta) 20 mg BID PO Last administered on 12/17/18 08:26; Admin Dose 20 MG; Start 12/03/18 at 09:00 Cholecalciferol (Vitamin D) 1,000 unit DAILY PO Last administered on 12/17/18 08:26; Admin Dose 1,000 UNIT; Start 12/03/18 at 09:00 Lactulose (Enulose) 20 gm DAILY PO Last administered on 12/17/18 08:25; Admin Dose 20 GM; Start 12/03/18 at 09:00 Metoclopramide HCl (Reglan) 5 mg Q6H PRN IV NAUSEA; Start 12/03/18 at 04:00 Metoprolol Tartrate (Lopressor) 25 mg BID PO Last administered on 12/17/18 08:27; Admin Dose 25 MG; Start 12/03/18 at 09:00 Miconazole Nitrate (Miconazole 2% Cr) 1 applic BID TOP Last administered on 12/17/18 08:30; Admin Dose 1 APPLIC; Start 12/03/18 at 09:00 Pantoprazole (Protonix Tab) 40 mg DAILY@06 PO Last administered on 12/17/18 06:18; Admin Dose 40 MG; Start 12/03/18 at 06:00 Phenol (Cepastat Lozenge) 1 lozenge Q1H PRN MT SORE THROAT; Start 12/03/18 at 04:00 Primidone (Mysoline) 100 mg TID PO Last administered on 12/17/18 08:26; Admin Dose 100 MG; Start 12/03/18 at 09:00 Rivaroxaban (Xarelto) 15 mg WITH DINNER PO Last administered on 12/16/18 17:57; Admin Dose 15 MG; Start 12/03/18 at 17:35 Guaifenesin (Mucinex) 1,200 mg BID PO Last administered on 12/17/18 08:27; Admin Dose 1,200 MG; Start 12/03/18 at 09:00 Digoxin (Digoxin) 0.125 mg DAILY@13 PO Last administered on 12/16/18 14:19; Admin Dose 0.125 MG; Start 12/03/18 at 13:00 Roflumilast (Daliresp) 500 mcg DAILY PO Last administered on 12/17/18 08:26; Admin Dose 500 MCG; Start 12/03/18 at 09:00 Sacubitril/ Valsartan (Entresto 24 Mg-26 Mg) 1 tab BID PO Last administered on 12/17/18 08:26; Admin Dose 1 TAB; Start 12/03/18 at 09:00 Simethicone (Mylicon) 80 mg Q6H PRN PO DISTENSION/GAS/BLOATING Last administered on 12/06/18 18:25; Admin Dose 80 MG; Start 12/03/18 at 05:00 Sodium Chloride (Nacl) 2 gm MONWEDFRI PO Last administered on 12/16/18 09:34; Admin Dose 2 GM; Start 12/04/18 at 09:00 Cyanocobalamin (Vitamin B12) 5,000 mcg Q48H PO Last administered on 12/17/18 08:52; Admin Dose 5,000 MCG; Start 12/03/18 at 09:00 Miscellaneous Information 1 ea NOTE XX Last administered on 12/03/18 09:25; Admin Dose 1 EA; Start 12/03/18 at 08:00 Glucose (Glutose) 15 gm Q15M PRN PO DECREASED GLUCOSE Last administered on 12/03/18 09:18; Admin Dose 15 GM; Start 12/03/18 at 08:00 Glucose (Glutose) 22.5 gm Q15M PRN PO DECREASED GLUCOSE Last administered on 12/06/18 08:52; Admin Dose 22.5 GM; Start 12/03/18 at 08:00 Dextrose (D50w Syringe) 25 ml Q15M PRN IV DECREASED GLUCOSE; Start 12/03/18 at 08:00 Dextrose (D50w Syringe) 50 ml Q15M PRN IV DECREASED GLUCOSE Last administered on 12/06/18 11:18; Admin Dose 50 ML; Start 12/03/18 at 08:00 Glucagon (Glucagen) 1 mg Q15M PRN IM DECREASED GLUCOSE; Start 12/03/18 at 08:00 Glucose (Glutose) 15 gm Q15M PRN BUCCAL DECREASED GLUCOSE Last administered on 12/05/18 09:40; Admin Dose 15 GM; Start 12/03/18 at 08:00 Miscellaneous Information [facility] This patient sewell... PRN PRN XX WOUND CARE; Start 12/04/18 at 03:30 Levothyroxine Sodium (Synthroid) 50 mcg DAILY@06 PO Last administered on 12/17/18 06:18; Admin Dose 50 MCG; Start 12/05/18 at 06:00 Melatonin (Melatonin) 3 mg HS PO Last administered on 12/16/18 21:22; Admin Dose 3 MG; Start 12/04/18 at 21:00 Metformin HCl (Glucophage) 500 mg BID WITH MEALS PO Last administered on 12/17/18 08:11; Admin Dose 500 MG; Start 12/09/18 at 17:35 Linagliptin (Tradjenta) 5 mg DAILY PO Last administered on 12/17/18 08:23; Admin Dose 5 MG; Start 12/10/18 at 09:00 Methylprednisolone Sodium Succinate (Solu-Medrol) 40 mg BID IV Last administered on 12/17/18 08:23; Admin Dose 40 MG; Start 12/12/18 at 21:00 Megestrol Acetate (Megace) 40 mg QID PO Last administered on 12/17/18 08:26; Admin Dose 40 MG; Start 12/14/18 at 17:00 Acetaminophen/ Hydrocodone Bitart ([place] (5/325)) 1 tab Q6H PRN PO MODERATE PAIN LEVEL 4-6; Start 12/14/18 at 14:30 Furosemide (Lasix) 40 mg DAILY PO Last administered on 12/17/18 08:28; Admin Dose 40 MG; Start 12/16/18 at 09:00 AMEYA MAN Dec 17, 2018 10:47
--- NOTE | 2018-12-17 12:42 | CONS ---
Assessment/Plan Assessment/Plan Assessment/Plan (Daily) 1. 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 acute CHF, diastolic CHF 3. Acute COPD exacerbation 4. H/o HTN 5. H/O CKD Plan: BUN/Cr improved to normal 35/0.97- Other electrolytes stable, on lasix 20mg po daily UO - adequate voided x6 IV solu-medrol 40mg IV BID Na chloride tablet 2gram MWF - Na normal, possible plan for d/c to SNF today will follow up Consultation Date/Type/Reason Admit Date/Time Dec 02, 2018 at 22:56 Initial Consult Date 12/08/18 Type of Consult NEPHROLOGY Requesting Provider: LISSETTE ESPOSITO MD Date/Time of Note DATE: 12/17/18 TIME: 12:42 Exam/Review of Systems Exam Vitals Vital Signs Date Temp Pulse Resp B/P (MAP) Pulse Ox O2 O2 Flow FiO2 Time Delivery Rate 12/17/18 88 20 98 Nasal 3.0 12:05 Cannula 12/17/18 97.4 139/58 07:00 (85) Intake and Output 12/16/18 12/16/18 12/17/18 1515:00 23:00 07:00 IntakeIntake Total 50 ml 470 ml 180 ml OutputOutput Total 100 ml BalanceBalance -50 ml 470 ml 180 ml Results Result Diagram: 12/16/18 0700 12/16/18 0700 Results 24hrs Laboratory Tests Test 12/17/18 08:10 Bedside Glucose 132 Medications Medication Current Medications Acetaminophen (Tylenol Tab) 650 mg Q4H PRN PO PAIN Last administered on 12/17/18at 00:37; Admin Dose 650 MG; Start 12/03/18 at 01:00 Al Hydrox/Mg Hydrox/Simethicone (Mag-Al Plus) 15 ml Q6H PRN PO GASTROINTESTINAL UPSET Last administered on 12/11/18at 18:31; Admin Dose 15 ML; Start 12/03/18 at 01:00 Albuterol/ Ipratropium (Duoneb) 3 ml Q2H RESP THERAPY PRN HHN SHORTNESS OF BREATH Last administered on 12/16/18at 04:07; Admin Dose 3 ML; Start 12/03/18 at 01:00 Albuterol/ Ipratropium (Duoneb) 3 ml Q4HWA RESP THERAPY HHN Last administered on 12/17/18 12:04; Admin Dose 3 ML; Start 12/03/18 at 09:00 Alprazolam (Xanax) 0.5 mg Q8H PRN PO ANXIETY Last administered on 12/17/18 00:37; Admin Dose 0.5 MG; Start 12/03/18 at 01:00 Eye Lubricant (Artificial Tears Oph) 2 drop Q8 BOTH EYES Last administered on 12/17/18 06:18; Admin Dose 2 DROP; Start 12/03/18 at 06:00 Atorvastatin Calcium (Lipitor) 10 mg HS PO Last administered on 12/16/18 21:22; Admin Dose 10 MG; Start 12/03/18 at 21:00 Calcium Carbonate (Tums) 500 mg HS PO Last administered on 12/16/18 21:22; Admin Dose 500 MG; Start 12/03/18 at 21:00 Cholecalciferol (Vitamin D) 4,000 unit DAILY PO Last administered on 12/17/18 08:26; Admin Dose 4,000 UNIT; Start 12/03/18 at 09:00 Diltiazem HCl (Cardizem Cd) 180 mg BID PO Last administered on 12/17/18 08:28; Admin Dose 180 MG; Start 12/03/18 at 09:00 Diphenhydramine HCl (Benadryl) 50 mg Q8 PRN PO for itching Last administered on 12/16/18 04:04; Admin Dose 50 MG; Start 12/03/18 at 01:00 Docusate Sodium (Colace) 100 mg BID PO Last administered on 12/17/18 08:27; Admin Dose 100 MG; Start 12/03/18 at 09:00 Donepezil HCl (Aricept) 10 mg 2100 PO Last administered on 12/16/18 21:21; Admin Dose 10 MG; Start 12/03/18 at 21:00 Duloxetine HCl (Cymbalta) 20 mg BID PO Last administered on 12/17/18 08:26; Admin Dose 20 MG; Start 12/03/18 at 09:00 Cholecalciferol (Vitamin D) 1,000 unit DAILY PO Last administered on 12/17/18 08:26; Admin Dose 1,000 UNIT; Start 12/03/18 at 09:00 Lactulose (Enulose) 20 gm DAILY PO Last administered on 12/17/18 08:25; Admin Dose 20 GM; Start 12/03/18 at 09:00 Metoclopramide HCl (Reglan) 5 mg Q6H PRN IV NAUSEA; Start 12/03/18 at 04:00 Metoprolol Tartrate (Lopressor) 25 mg BID PO Last administered on 12/17/18 08:27; Admin Dose 25 MG; Start 12/03/18 at 09:00 Miconazole Nitrate (Miconazole 2% Cr) 1 applic BID TOP Last administered on 12/17/18 08:30; Admin Dose 1 APPLIC; Start 12/03/18 at 09:00 Pantoprazole (Protonix Tab) 40 mg DAILY@06 PO Last administered on 12/17/18 06:18; Admin Dose 40 MG; Start 12/03/18 at 06:00 Phenol (Cepastat Lozenge) 1 lozenge Q1H PRN MT SORE THROAT; Start 12/03/18 at 04:00 Primidone (Mysoline) 100 mg TID PO Last administered on 12/17/18 08:26; Admin Dose 100 MG; Start 12/03/18 at 09:00 Rivaroxaban (Xarelto) 15 mg WITH DINNER PO Last administered on 12/16/18 17:57; Admin Dose 15 MG; Start 12/03/18 at 17:35 Guaifenesin (Mucinex) 1,200 mg BID PO Last administered on 12/17/18 08:27; Admin Dose 1,200 MG; Start 12/03/18 at 09:00 Digoxin (Digoxin) 0.125 mg DAILY@13 PO Last administered on 12/16/18 14:19; Admin Dose 0.125 MG; Start 12/03/18 at 13:00 Roflumilast (Daliresp) 500 mcg DAILY PO Last administered on 12/17/18 08:26; Admin Dose 500 MCG; Start 12/03/18 at 09:00 Sacubitril/ Valsartan (Entresto 24 Mg-26 Mg) 1 tab BID PO Last administered on 12/17/18 08:26; Admin Dose 1 TAB; Start 12/03/18 at 09:00 Simethicone (Mylicon) 80 mg Q6H PRN PO DISTENSION/GAS/BLOATING Last administered on 12/06/18 18:25; Admin Dose 80 MG; Start 12/03/18 at 05:00 Sodium Chloride (Nacl) 2 gm MONWEDFRI PO Last administered on 12/16/18 09:34; Admin Dose 2 GM; Start 12/04/18 at 09:00 Cyanocobalamin (Vitamin B12) 5,000 mcg Q48H PO Last administered on 12/17/18 08:52; Admin Dose 5,000 MCG; Start 12/03/18 at 09:00 Miscellaneous Information 1 ea NOTE XX Last administered on 12/03/18 09:25; Admin Dose 1 EA; Start 12/03/18 at 08:00 Glucose (Glutose) 15 gm Q15M PRN PO DECREASED GLUCOSE Last administered on 12/03/18 09:18; Admin Dose 15 GM; Start 12/03/18 at 08:00 Glucose (Glutose) 22.5 gm Q15M PRN PO DECREASED GLUCOSE Last administered on 12/06/18 08:52; Admin Dose 22.5 GM; Start 12/03/18 at 08:00 Dextrose (D50w Syringe) 25 ml Q15M PRN IV DECREASED GLUCOSE; Start 12/03/18 at 08:00 Dextrose (D50w Syringe) 50 ml Q15M PRN IV DECREASED GLUCOSE Last administered on 12/06/18 11:18; Admin Dose 50 ML; Start 12/03/18 at 08:00 Glucagon (Glucagen) 1 mg Q15M PRN IM DECREASED GLUCOSE; Start 12/03/18 at 08:00 Glucose (Glutose) 15 gm Q15M PRN BUCCAL DECREASED GLUCOSE Last administered on 12/05/18 09:40; Admin Dose 15 GM; Start 12/03/18 at 08:00 Miscellaneous Information (Pending [facility] Order For Wound Care) This patient sewell... PRN PRN XX WOUND CARE; Start 12/04/18 at 03:30 Levothyroxine Sodium (Synthroid) 50 mcg DAILY@06 PO Last administered on 12/17/18 06:18; Admin Dose 50 MCG; Start 12/05/18 at 06:00 Melatonin (Melatonin) 3 mg HS PO Last administered on 12/16/18 21:22; Admin Dose 3 MG; Start 12/04/18 at 21:00 Metformin HCl (Glucophage) 500 mg BID WITH MEALS PO Last administered on 08:11; Admin Dose 500 MG; Start 12/09/18 at 17:35 Linagliptin (Tradjenta) 5 mg DAILY PO Last administered on 12/17/18 08:23; Admin Dose 5 MG; Start 12/10/18 at 09:00 Methylprednisolone Sodium Succinate (Solu-Medrol) 40 mg BID IV Last administered on 12/17/18 08:23; Admin Dose 40 MG; Start 12/12/18 at 21:00 Megestrol Acetate (Megace) 40 mg QID PO Last administered on 12/17/18 08:26; Admin Dose 40 MG; Start 12/14/18 at 17:00 Acetaminophen/ Hydrocodone Bitart ([place] (5/325)) 1 tab Q6H PRN PO MODERATE PAIN LEVEL 4-6; Start 12/14/18 at 14:30 Furosemide (Lasix) 40 mg DAILY PO Last administered on 12/17/18 08:28; Admin Dose 40 MG; Start 12/16/18 at 09:00 ANA GE MD Dec 17, 2018 12:42
--- NOTE | 2018-12-17 12:51 | DS ---
Date/Time of Note Date/Time of Note DATE: 12/17/18 TIME: 12:50 Discharge Summary Admission/Discharge Info Admit Date/Time Dec 02, 2018 at 22:56 Discharge Date/Time Discharge Diagnosis 1. .Critical Illness Myopathy; Pulmonary debility status post acute hypoxemic and hypercapnic respiratory failure. 2. COPD. 3. Coronary artery disease. 4. Carotid stenosis. 5. Hypothyroidism. 6. Chronic low back pain. 7. Chronic kidney disease. 8. CHF. 9. Depression. 10. Diabetes mellitus. 11. Afib 12. Impairments in self-care and mobility. Patient Condition: Fair Hospital Course The patient was admitted for comprehensive interdisciplinary rehabilitation and made gradual limited functional gains from a Max level to a min/mod level for self care tasks and mobility, and ambulation at CGA level 50 feet. Patient was followed closely for medical issues and now is ready to discharge to a lower level of care. The DC meds are per the medication reconciliation sheet. The patient will follow up with PMD upon DC. Home Meds Reported Medications Melatonin (Melatonin) 5 Mg Tablet, 5 MG PO AM 09/09/13 Roflumilast (Daliresp) 500 Mcg Tablet, 500 MCG JT AM 09/09/13 Ferrous Sulfate* (Ferrous Sulfate*) 325 Mg Tabec, 325 MG PO AM 09/09/13 Potassium Chloride* (Klor-Con*) 20 Meq Tabsr, 20 MEQ PO AM 09/09/13 Magaldrate/Simethicone* (Mylanta*) 355 Ml Susp, 355 ML PO 04/19/12 Diphenhydramine Hcl* (Benadryl*) 50 Mg Cap, 50 MG PO DAILY 04/19/12 Acetaminophen (Tylenol Extra Strength) 500 Mg Tablet, 500 MG PO 04/19/12 Sennosides/Docusate Sodium (Stool Soft & Stimulant Lax Tab) 1 Tab Tablet, 1 TAB PO QID 04/19/12 Multivitamins/Minerals (Centrum Silver) 1 Tab Tab, 1 TAB PO DAILY 04/19/12 Ascorbic Acid (Vitamin C + [place] Hips) 500 Mg Tablet, 500 MG PO BID 04/19/12 [[place] Bioflavanoid] No Conflict Check, PO BID 04/19/12 Guaifenesin* (Mucinex* ER) 1,200 Mg/Bottle Tbmp.12hr, 1200 MG PO DAILY 04/19/12 Acetaminophen (Tylenol Arthritis) 650 Mg Tablet.sa, 650 MG PO HS 04/19/12 Polyethylene Glycol (Miralax) 17 Gm/Pkt Liq, 17 GM PO DAILY 04/19/12 Cyanocobalamin* (Vitamin B12*) 500 Mcg Tab, 500 MCG PO DAILY 04/19/12 Loratadine (Loratadine) 10 Mg Tablet, 10 MG PO DAILY 04/19/12 Aspirin (Aspirin) 81 Mg Tablet, 81 MG PO DAILY 04/19/12 Albuterol Sulfate* (Albuterol Sulfate* Neb) 20 Ml Nebu, 20 ML IH DAILY 04/19/12 Albuterol Sulfate* (Ventolin HFA*) 18 Gm Hfa.aer.ad, 18 GM IH BID 04/19/12 Tiotropium [place]* (Spiriva*) 18 Mcg Cap.w.dev, 18 MCG IH DAILY 04/19/12 [Advair] No Conflict Check 04/19/12 Epinephrine (Epipen) 0.3 Mg/0.3/Syringe Pen.injctr, 0.3 MG IM 04/19/12 Nitroglycerin (Nitroquick) 0.4 Mg Tab.subl, 0.4 MG SL 04/19/12 Alprazolam* (Alprazolam*) 0.5 Mg Tablet, 0.5 MG PO Q4 04/19/12 Oxycodone Hcl* (IR) (Oxycodone Hcl*) 15 Mg Tablet, 15 MG PO QID 04/19/12 Hydromorphone Hcl* (Hydromorphone Hcl*) 2 Mg Tablet, 2 MG PO Q4 04/19/12 Zaleplon (Zaleplon) 10 Mg Capsule, 10 MG PO HS 04/19/12 Montelukast Sodium* (Singulair*) 10 Mg Tablet, 10 MG PO HS 04/19/12 Pravastatin Sodium* (Pravastatin Sodium*) 40 Mg Tablet, 40 MG PO HS 04/19/12 [Amphetimine Salts] No Conflict Check, 15 MG PO DAILY 04/19/12 Omeprazole* (Omeprazole*) 20 Mg Capsule.dr, 20 MG PO DAILY 04/19/12 Levothyroxine Sodium* (Levothyroxine Sodium*) 112 Mcg Tablet, 112 MCG PO DAILY 04/19/12 Citalopram Hydrobromide* (Citalopram Hydrobromide*) 40 Mg Tablet, 40 MG PO DAILY 04/19/12 Estradiol (Estradiol) 1 Mg Tablet, 1 MG PO DAILY 04/19/12 Spironolactone* (Aldactone*) 25 Mg Tablet, 25 MG PO DAILY 04/19/12 Losartan Potassium* (Cozaar*) 100 Mg Tablet, 100 MG PO DAILY 04/19/12 Bumetanide* (Bumetanide*) 2 Mg Tablet, 2 MG PO TID 04/19/12 Gabapentin* (Gabapentin*) 600 Mg Tablet, 600 MG PO TID 04/19/12 [Fentanyl Patch] No Conflict Check, TOP 04/19/12 Primary Care Provider Anthony Olivares MD Pending Labs Laboratory Tests Test 12/17/18 08:10 Bedside Glucose 132 mg/dL (70-220) KINGSLEY HENLEY MD Dec 17, 2018 12:51
[2018-12-17] MEDS: DIGOXIN 0.125 MG TAB PO SCH (13:05)
--- NOTE | 2018-12-17 17:04 | CONS ---
Assessment/Plan Cardiology NYHA: II Heart Failure Type: Acute Heart Failure Type: Diastolic Assessment/Plan Hospital Course (Demo Recall) COPD exacerbation Acute decompensated diastolic congestive heart failure Atrial fibrillation, on anticoagulation Recent pneumonia Hypertension Dyslipidemia Preserved ejection fraction Possible conjunctival hemorrhage-improved -Respiratory status labile, pulmonary follow up -CT chest without significant volume overload,continue Lasix maintenance as tolerated -Continue Cardizem and metoprolol for heart rate control and titrate based on h eart rate and blood pressure -Continue digoxin as tolerated -DC planning today to SNF Consultation Date/Type/Reason Admit Date/Time Dec 02, 2018 at 22:56 Initial Consult Date Type of Consult Cardiology Requesting Provider: LISSETTE ESPOSITO MD Date/Time of Note DATE: 12/17/18 TIME: 17:03 24 HR Interval Summary Free Text/Dictation Shortness of breath is the same. Denies chest pain or palpitations Exam/Review of Systems Vital Signs Vitals Vital Signs Date Temp Pulse Resp B/P (MAP) Pulse Ox O2 O2 Flow FiO2 Time Delivery Rate 12/17/18 88 20 98 Nasal 3.0 12:05 Cannula 12/17/18 97.4 139/58 07:00 (85) Intake and Output 12/16/18 12/16/18 12/17/18 1515:00 23:00 07:00 IntakeIntake Total 50 ml 470 ml 180 ml OutputOutput Total 100 ml BalanceBalance -50 ml 470 ml 180 ml Exam Constitutional: alert, oriented Head: normocephalic Respiratory: other (Coarse breath sounds, scattered rhonchi, mild end expiratory wheeze) Cardiovascular: irregular rhythm (S1-S2 heard) Gastrointestinal: soft, non-tender, bowel sounds Extremities: other (No significant edema) Labs Result Diagram: 12/16/18 0700 12/16/18 0700 Results 24hrs Laboratory Tests Test 12/17/18 08:10 Bedside Glucose 132 Bird Herrera DO Dec 17, 2018 17:04
[2018-12-18] MEDS ORDERED: predniSONE 10 MG TAB PO SCH (09:00)
[2018-12-21] MEDS ORDERED: predniSONE 20 MG TAB PO SCH (09:00)
[2018-12-24] MEDS ORDERED: predniSONE 10 MG TAB PO SCH (09:00)
== END 2018-12-17 14:50 | DRG 91 ==
LOC: VRC 22:56
PROVIDERS: ADMIT Physical Medicine & Rehabilitation; ATTEND Internal Medicine
PROC: F07Z5ZZ Bed Mobility Treatment (ICD-10-PCS; principal; 2018-12-03)
PROC: F07Z8ZZ Transfer Training Treatment (ICD-10-PCS; 2018-12-03)
PROC: F07Z9ZZ Gait Training/Functional Ambulation Treatment (ICD-10-PCS; 2018-12-03)
PROC: F08Z2ZZ Grooming/Personal Hygiene Treatment (ICD-10-PCS; 2018-12-03)
PROC: F08Z1ZZ Dressing Techniques Treatment (ICD-10-PCS; 2018-12-03)
PROC: F08Z0ZZ Bathing/Showering Techniques Treatment (ICD-10-PCS; 2018-12-03)
DX: G72.81 Critical illness myopathy (principal); I50.33 Acute on chronic diastolic (congestive) heart failure; I13.0 Hypertensive heart and chronic kidney disease with heart failure and stage 1 through stage 4 chronic kidney disease, or unspecified chronic kidney disease; F33.1 Major depressive disorder, recurrent, moderate; J98.11 Atelectasis; Z74.09 Other reduced mobility; R53.81 Other malaise; D63.8 Anemia in other chronic diseases classified elsewhere; E11.649 Type 2 diabetes mellitus with hypoglycemia without coma; E11.22 Type 2 diabetes mellitus with diabetic chronic kidney disease; E78.5 Hyperlipidemia, unspecified; E03.9 Hypothyroidism, unspecified; F03.90 Unspecified dementia, unspecified severity, without behavioral disturbance, psychotic disturbance, mood disturbance, and anxiety; G89.29 Other chronic pain; H11.30 Conjunctival hemorrhage, unspecified eye; I48.2 Chronic atrial fibrillation; I25.10 Atherosclerotic heart disease of native coronary artery without angina pectoris; I65.29 Occlusion and stenosis of unspecified carotid artery; J06.9 Acute upper respiratory infection, unspecified; J44.9 Chronic obstructive pulmonary disease, unspecified; M54.5 Low back pain; N18.9 Chronic kidney disease, unspecified; Z87.891 Personal history of nicotine dependence; Z95.5 Presence of coronary angioplasty implant and graft; Z79.82 Long term (current) use of aspirin
CPT/HCPCS: 71045; 71250; 80048; 80053; 81001; 81003; 82962; 83735; 83880; 84100; 84439; 84443; 84481; 85025; 87081; 87086; 94640; 94664; 97110; 97112; 97116; 97163; 97167; 97530; 97535; 97542; J0692; J1815; J1940; J1956; J2920; J7512